=== PATIENT | male | born 1965 | race Caucasian/White ===

== ENCOUNTER 2016-11-14 13:44 | Outpatient (CLI) ==
[2016-11-14 13:59] LABS: BASOPHILS % (AUTO) 0.3 % (0.0-3.0); EOSINOPHILS # (AUTO) 0.1 K/ul (0.0-0.7); HEMATOCRIT 39.2 % (42.0-52.0); HEMOGLOBIN 13.7 g/dl (14.0-18.0); IMMATURE GRANULOCYTE % (AUTO) 0.3 % (0.0-5.0); LYMPHOCYTES # (AUTO) 2.5 K/uL (0.60-3.4); LYMPHOCYTES % (AUTO) 26.1 (10.0-50.0); MEAN CORPUSCULAR HEMOGLOBIN 32.2 pg (27.0-31.0); MEAN CORPUSCULAR HGB CONC 34.9 (31.8-35.4); MONOCYTES # (AUTO) 0.9 K/uL (0.4-2.0); MONOCYTES % (AUTO) 9.8 (0-10); NEUTROPHILS # (AUTO) 5.9 K/ul (2.0-6.9); NEUTROPHILS % (AUTO) 62.5; PLATELET COUNT 280 10^3/uL (140-440); RED BLOOD COUNT 4.26 10^6/ul (4.70-6.10); WHITE BLOOD COUNT 9.45 K/ul (4.2-10.2)
== END 2016-11-14 13:45 | disposition home or self-care (01) ==
LOC: LAB 13:44
PROVIDERS: ATTEND Psychiatry & Neurology Psychiatry
DX: F25.0 Schizoaffective disorder, bipolar type (principal)
CPT/HCPCS: 36415; 85025

== ENCOUNTER 2016-12-18 10:18 | Outpatient (CLI) ==
[2016-12-18 10:29] LABS: BASOPHILS % (AUTO) 0.5 % (0.0-3.0); EOSINOPHILS # (AUTO) 0.1 K/ul (0.0-0.7); EOSINOPHILS % (AUTO) 1.1 % (0.0-7.0); HEMATOCRIT 39.5 % (42.0-52.0); HEMOGLOBIN 13.8 g/dl (14.0-18.0); IMMATURE GRANULOCYTE % (AUTO) 0.5 % (0.0-5.0); LYMPHOCYTES # (AUTO) 1.9 K/uL (0.60-3.4); LYMPHOCYTES % (AUTO) 21.5 (10.0-50.0); MEAN CORPUSCULAR HEMOGLOBIN 32.3 pg (27.0-31.0); MEAN CORPUSCULAR HGB CONC 34.9 (31.8-35.4); MEAN CORPUSCULAR VOLUME 92.5 fl (80.0-94.0); MONOCYTES # (AUTO) 0.8 K/uL (0.4-2.0); MONOCYTES % (AUTO) 8.6 (0-10); NEUTROPHILS # (AUTO) 5.9 K/ul (2.0-6.9); NEUTROPHILS % (AUTO) 67.8; PLATELET COUNT 292 10^3/uL (140-440); RED BLOOD COUNT 4.27 10^6/ul (4.70-6.10); WHITE BLOOD COUNT 8.74 K/ul (4.2-10.2)
== END 2016-12-18 10:19 | disposition home or self-care (01) ==
LOC: LAB 10:18
PROVIDERS: ATTEND Psychiatry & Neurology Psychiatry
DX: F25.0 Schizoaffective disorder, bipolar type (principal)
CPT/HCPCS: 36415; 85025

== ENCOUNTER 2017-01-08 15:29 | Outpatient (CLI) ==
[2017-01-08 15:50] LABS: BASOPHILS % (AUTO) 0.4 % (0.0-3.0); EOSINOPHILS # (AUTO) 0.1 K/ul (0.0-0.7); EOSINOPHILS % (AUTO) 0.7 % (0.0-7.0); HEMATOCRIT 41.3 % (42.0-52.0); HEMOGLOBIN 14.5 g/dl (14.0-18.0); IMMATURE GRANULOCYTE % (AUTO) 0.3 % (0.0-5.0); LYMPHOCYTES # (AUTO) 1.9 K/uL (0.60-3.4); LYMPHOCYTES % (AUTO) 19.2 (10.0-50.0); MEAN CORPUSCULAR HEMOGLOBIN 32.5 pg (27.0-31.0); MEAN CORPUSCULAR HGB CONC 35.1 (31.8-35.4); MEAN CORPUSCULAR VOLUME 92.6 fl (80.0-94.0); MONOCYTES # (AUTO) 0.8 K/uL (0.4-2.0); MONOCYTES % (AUTO) 8.3 (0-10); NEUTROPHILS # (AUTO) 6.9 K/ul (2.0-6.9); NEUTROPHILS % (AUTO) 71.1; PLATELET COUNT 304 10^3/uL (140-440); RED BLOOD COUNT 4.46 10^6/ul (4.70-6.10); WHITE BLOOD COUNT 9.73 K/ul (4.2-10.2)
== END 2017-01-08 15:30 | disposition home or self-care (01) ==
LOC: LAB 15:29
PROVIDERS: ATTEND Psychiatry & Neurology Psychiatry
DX: F25.0 Schizoaffective disorder, bipolar type (principal)
CPT/HCPCS: 36415; 85025

== ENCOUNTER 2017-02-07 13:59 | Outpatient (CLI) ==
[2017-02-07 14:14] LABS: BASOPHILS % (AUTO) 0.3 % (0.0-3.0); EOSINOPHILS # (AUTO) 0.1 K/ul (0.0-0.7); EOSINOPHILS % (AUTO) 0.8 % (0.0-7.0); HEMATOCRIT 41.7 % (42.0-52.0); HEMOGLOBIN 14.5 g/dl (14.0-18.0); IMMATURE GRANULOCYTE % (AUTO) 0.4 % (0.0-5.0); LYMPHOCYTES # (AUTO) 2.1 K/uL (0.60-3.4); LYMPHOCYTES % (AUTO) 18.4 (10.0-50.0); MEAN CORPUSCULAR HEMOGLOBIN 32.5 pg (27.0-31.0); MEAN CORPUSCULAR HGB CONC 34.8 (31.8-35.4); MEAN CORPUSCULAR VOLUME 93.5 fl (80.0-94.0); MONOCYTES # (AUTO) 0.9 K/uL (0.4-2.0); MONOCYTES % (AUTO) 8.2 (0-10); NEUTROPHILS # (AUTO) 8.2 K/ul (2.0-6.9); NEUTROPHILS % (AUTO) 71.9; PLATELET COUNT 281 10^3/uL (140-440); RED BLOOD COUNT 4.46 10^6/ul (4.70-6.10); WHITE BLOOD COUNT 11.32 K/ul (4.2-10.2)
== END 2017-02-07 14:00 | disposition home or self-care (01) ==
LOC: LAB 13:59
PROVIDERS: ATTEND Psychiatry & Neurology Psychiatry
DX: F25.0 Schizoaffective disorder, bipolar type (principal)
CPT/HCPCS: 36415; 85025

== ENCOUNTER 2017-03-11 13:53 | Outpatient (CLI) ==
[2017-03-11 14:13] LABS: BASOPHILS % (AUTO) 0.3 % (0.0-3.0); EOSINOPHILS # (AUTO) 0.1 K/ul (0.0-0.7); EOSINOPHILS % (AUTO) 0.7 % (0.0-7.0); HEMOGLOBIN 14.6 g/dl (14.0-18.0); IMMATURE GRANULOCYTE % (AUTO) 0.4 % (0.0-5.0); LYMPHOCYTES # (AUTO) 1.8 K/uL (0.60-3.4); LYMPHOCYTES % (AUTO) 19.1 (10.0-50.0); MEAN CORPUSCULAR HEMOGLOBIN 32.6 pg (27.0-31.0); MEAN CORPUSCULAR HGB CONC 35.6 (31.8-35.4); MEAN CORPUSCULAR VOLUME 91.5 fl (80.0-94.0); MONOCYTES # (AUTO) 0.8 K/uL (0.4-2.0); MONOCYTES % (AUTO) 8.1 (0-10); NEUTROPHILS # (AUTO) 6.7 K/ul (2.0-6.9); NEUTROPHILS % (AUTO) 71.4; PLATELET COUNT 277 10^3/uL (140-440); RED BLOOD COUNT 4.48 10^6/ul (4.70-6.10); WHITE BLOOD COUNT 9.42 K/ul (4.2-10.2)
== END 2017-03-11 13:54 | disposition home or self-care (01) ==
LOC: LAB 13:53
PROVIDERS: ATTEND Psychiatry & Neurology Psychiatry
DX: F25.0 Schizoaffective disorder, bipolar type (principal)
CPT/HCPCS: 36415; 85025

== ENCOUNTER 2017-04-03 11:20 | Outpatient (CLI) ==
[2017-04-03 12:10] LABS: BASOPHILS # (AUTO) 0.1 K/uL (0-0.2); BASOPHILS % (AUTO) 0.6 % (0.0-3.0); EOSINOPHILS # (AUTO) 0.1 K/ul (0.0-0.7); EOSINOPHILS % (AUTO) 1.4 % (0.0-7.0); HEMATOCRIT 39.8 % (42.0-52.0); HEMOGLOBIN 14.3 g/dl (14.0-18.0); IMMATURE GRANULOCYTE % (AUTO) 0.3 % (0.0-5.0); LYMPHOCYTES # (AUTO) 1.8 K/uL (0.60-3.4); LYMPHOCYTES % (AUTO) 20.1 (10.0-50.0); MEAN CORPUSCULAR HEMOGLOBIN 32.8 pg (27.0-31.0); MEAN CORPUSCULAR HGB CONC 35.9 (31.8-35.4); MEAN CORPUSCULAR VOLUME 91.3 fl (80.0-94.0); MONOCYTES # (AUTO) 0.7 K/uL (0.4-2.0); MONOCYTES % (AUTO) 8.4 (0-10); NEUTROPHILS % (AUTO) 69.2; PLATELET COUNT 283 10^3/uL (140-440); RED BLOOD COUNT 4.36 10^6/ul (4.70-6.10); WHITE BLOOD COUNT 8.72 K/ul (4.2-10.2)
== END 2017-04-03 11:21 | disposition home or self-care (01) ==
LOC: LAB 11:20
PROVIDERS: ATTEND Psychiatry & Neurology Psychiatry
DX: F25.0 Schizoaffective disorder, bipolar type (principal)
CPT/HCPCS: 36415; 85025

== ENCOUNTER 2017-04-21 15:30 | Outpatient (CLI) | payer OTHER ==
[2017-04-21 15:50] LABS: BASOPHILS % (AUTO) 0.3 % (0.0-3.0); EOSINOPHILS # (AUTO) 0.2 K/ul (0.0-0.7); EOSINOPHILS % (AUTO) 1.8 % (0.0-7.0); HEMOGLOBIN 14.4 g/dl (14.0-18.0); IMMATURE GRANULOCYTE % (AUTO) 0.3 % (0.0-5.0); LYMPHOCYTES # (AUTO) 2.2 K/uL (0.60-3.4); MEAN CORPUSCULAR HEMOGLOBIN 32.8 pg (27.0-31.0); MEAN CORPUSCULAR VOLUME 91.1 fl (80.0-94.0); MONOCYTES # (AUTO) 0.8 K/uL (0.4-2.0); MONOCYTES % (AUTO) 8.1 (0-10); NEUTROPHILS % (AUTO) 65.5; PLATELET COUNT 276 10^3/uL (140-440); RED BLOOD COUNT 4.39 10^6/ul (4.70-6.10); WHITE BLOOD COUNT 9.22 K/ul (4.2-10.2)
== END 2017-04-21 15:31 | disposition home or self-care (01) ==
LOC: LAB 15:30
PROVIDERS: ATTEND Psychiatry & Neurology Psychiatry
DX: F25.0 Schizoaffective disorder, bipolar type (principal)
CPT/HCPCS: 36415; 85025

== ENCOUNTER 2017-06-03 11:46 | Outpatient (CLI) ==
[2017-06-03 12:01] LABS: BASOPHILS # (AUTO) 0.1 K/uL (0-0.2); BASOPHILS % (AUTO) 0.6 % (0.0-3.0); EOSINOPHILS # (AUTO) 0.1 K/ul (0.0-0.7); EOSINOPHILS % (AUTO) 1.4 % (0.0-7.0); HEMATOCRIT 38.4 % (42.0-52.0); HEMOGLOBIN 13.9 g/dl (14.0-18.0); IMMATURE GRANULOCYTE % (AUTO) 0.4 % (0.0-5.0); LYMPHOCYTES # (AUTO) 2.4 K/uL (0.60-3.4); LYMPHOCYTES % (AUTO) 30.4 (10.0-50.0); MEAN CORPUSCULAR HEMOGLOBIN 32.9 pg (27.0-31.0); MEAN CORPUSCULAR HGB CONC 36.2 (31.8-35.4); MONOCYTES # (AUTO) 0.8 K/uL (0.4-2.0); MONOCYTES % (AUTO) 9.6 (0-10); NEUTROPHILS # (AUTO) 4.6 K/ul (2.0-6.9); NEUTROPHILS % (AUTO) 57.6; PLATELET COUNT 265 10^3/uL (140-440); RED BLOOD COUNT 4.22 10^6/ul (4.70-6.10); WHITE BLOOD COUNT 7.94 K/ul (4.2-10.2)
== END 2017-06-03 11:47 | disposition home or self-care (01) ==
LOC: LAB 11:46
PROVIDERS: ATTEND Psychiatry & Neurology Psychiatry
DX: F25.0 Schizoaffective disorder, bipolar type (principal)
CPT/HCPCS: 36415; 85025

== ENCOUNTER 2017-07-06 13:25 | Outpatient (CLI) ==
[2017-07-06 13:41] LABS: BASOPHILS % (AUTO) 0.3 % (0.0-3.0); EOSINOPHILS # (AUTO) 0.1 K/ul (0.0-0.7); EOSINOPHILS % (AUTO) 0.7 % (0.0-7.0); HEMOGLOBIN 14.4 g/dl (14.0-18.0); IMMATURE GRANULOCYTE % (AUTO) 0.4 % (0.0-5.0); MEAN CORPUSCULAR HEMOGLOBIN 32.7 pg (27.0-31.0); MEAN CORPUSCULAR VOLUME 90.9 fl (80.0-94.0); MONOCYTES # (AUTO) 0.8 K/uL (0.4-2.0); MONOCYTES % (AUTO) 7.6 (0-10); PLATELET COUNT 281 10^3/uL (140-440); WHITE BLOOD COUNT 10.91 K/ul (4.2-10.2)
== END 2017-07-06 13:26 | disposition home or self-care (01) ==
LOC: LAB 13:25
PROVIDERS: ATTEND Psychiatry & Neurology Psychiatry
DX: F25.0 Schizoaffective disorder, bipolar type (principal)
CPT/HCPCS: 36415; 85025

== ENCOUNTER 2017-08-11 13:51 | Outpatient (CLI) ==
[2017-08-11 14:06] LABS: BASOPHILS % (AUTO) 0.4 % (0.0-3.0); EOSINOPHILS # (AUTO) 0.1 K/ul (0.0-0.7); EOSINOPHILS % (AUTO) 0.9 % (0.0-7.0); HEMATOCRIT 39.4 % (42.0-52.0); HEMOGLOBIN 14.2 g/dl (14.0-18.0); IMMATURE GRANULOCYTE % (AUTO) 0.4 % (0.0-5.0); MEAN CORPUSCULAR HEMOGLOBIN 32.8 pg (27.0-31.0); MONOCYTES # (AUTO) 0.7 K/uL (0.4-2.0); MONOCYTES % (AUTO) 7.3 (0-10); NEUTROPHILS # (AUTO) 6.7 K/ul (2.0-6.9); PLATELET COUNT 287 10^3/uL (140-440); RED BLOOD COUNT 4.33 10^6/ul (4.70-6.10); WHITE BLOOD COUNT 9.59 K/ul (4.2-10.2)
== END 2017-08-11 13:52 | disposition home or self-care (01) ==
LOC: LAB 13:51
PROVIDERS: ATTEND Psychiatry & Neurology Psychiatry
DX: F25.0 Schizoaffective disorder, bipolar type (principal)
CPT/HCPCS: 36415; 85025

== ENCOUNTER 2017-09-29 13:41 | Outpatient (CLI) ==
[2017-09-29 14:07] LABS: BASOPHILS % (AUTO) 0.5 % (0.0-3.0); EOSINOPHILS # (AUTO) 0.1 K/ul (0.0-0.7); EOSINOPHILS % (AUTO) 0.9 % (0.0-7.0); HEMATOCRIT 41.2 % (42.0-52.0); HEMOGLOBIN 14.6 g/dl (14.0-18.0); IMMATURE GRANULOCYTE % (AUTO) 0.4 % (0.0-5.0); LYMPHOCYTES % (AUTO) 23.8 (10.0-50.0); MEAN CORPUSCULAR HEMOGLOBIN 32.7 pg (27.0-31.0); MEAN CORPUSCULAR HGB CONC 35.4 (31.8-35.4); MEAN CORPUSCULAR VOLUME 92.4 fl (80.0-94.0); MONOCYTES # (AUTO) 0.7 K/uL (0.4-2.0); MONOCYTES % (AUTO) 7.8 (0-10); NEUTROPHILS # (AUTO) 5.7 K/ul (2.0-6.9); NEUTROPHILS % (AUTO) 66.6; PLATELET COUNT 261 10^3/uL (140-440); RED BLOOD COUNT 4.46 10^6/ul (4.70-6.10); WHITE BLOOD COUNT 8.54 K/ul (4.2-10.2)
== END 2017-09-29 13:42 | disposition home or self-care (01) ==
LOC: LAB 13:41
PROVIDERS: ATTEND Psychiatry & Neurology Psychiatry
DX: F25.0 Schizoaffective disorder, bipolar type (principal)
CPT/HCPCS: 36415; 85025

== ENCOUNTER 2017-10-28 12:21 | Outpatient (CLI) | payer OTHER ==
[2017-10-28 12:46] LABS: BASOPHILS % (AUTO) 0.4 % (0.0-3.0); EOSINOPHILS # (AUTO) 0.1 K/ul (0.0-0.7); HEMATOCRIT 42.4 % (42.0-52.0); HEMOGLOBIN 14.6 g/dl (14.0-18.0); IMMATURE GRANULOCYTE % (AUTO) 0.3 % (0.0-5.0); LYMPHOCYTES # (AUTO) 2.1 K/uL (0.60-3.4); LYMPHOCYTES % (AUTO) 22.9 (10.0-50.0); MEAN CORPUSCULAR HEMOGLOBIN 32.1 pg (27.0-31.0); MEAN CORPUSCULAR HGB CONC 34.4 (31.8-35.4); MEAN CORPUSCULAR VOLUME 93.2 fl (80.0-94.0); MONOCYTES # (AUTO) 0.8 K/uL (0.4-2.0); MONOCYTES % (AUTO) 8.7 (0-10); NEUTROPHILS % (AUTO) 66.7; PLATELET COUNT 273 10^3/uL (140-440); RED BLOOD COUNT 4.55 10^6/ul (4.70-6.10); WHITE BLOOD COUNT 9.03 K/ul (4.2-10.2)
== END 2017-10-28 12:22 | disposition home or self-care (01) ==
LOC: LAB 12:21
PROVIDERS: ATTEND Psychiatry & Neurology Psychiatry
DX: F25.0 Schizoaffective disorder, bipolar type (principal)
CPT/HCPCS: 36415; 85025

== ENCOUNTER 2017-11-29 13:33 | Outpatient (CLI) | END 2017-11-29 13:34 | disposition home or self-care (01) | LOC: LAB 13:33 | PROVIDERS: ATTEND Psychiatry & Neurology Psychiatry | DX: F25.0 Schizoaffective disorder, bipolar type (principal) | CPT/HCPCS: 36415; 85025 ==

== ENCOUNTER 2017-12-29 15:54 | Outpatient (CLI) | END 2017-12-29 15:55 | disposition home or self-care (01) | LOC: LAB 15:54 | PROVIDERS: ATTEND Psychiatry & Neurology Psychiatry | DX: F25.0 Schizoaffective disorder, bipolar type (principal) | CPT/HCPCS: 36415; 85025 ==

== ENCOUNTER 2018-01-17 13:40 | Outpatient (CLI) | END 2018-01-17 13:41 | disposition home or self-care (01) | LOC: LAB 13:40 | PROVIDERS: ATTEND Psychiatry & Neurology Psychiatry | DX: F25.0 Schizoaffective disorder, bipolar type (principal) | CPT/HCPCS: 36415; 85025 ==

== ENCOUNTER 2018-02-19 11:50 | Outpatient (CLI) | payer OTHER | END 2018-02-19 11:51 | disposition home or self-care (01) | LOC: LAB 11:50 | PROVIDERS: ATTEND Psychiatry & Neurology Psychiatry | DX: F25.1 Schizoaffective disorder, depressive type (principal) | CPT/HCPCS: 36415; 85025 ==

== ENCOUNTER 2018-04-04 11:34 | Outpatient (CLI) | END 2018-04-04 11:35 | disposition home or self-care (01) | LOC: LAB 11:34 | PROVIDERS: ATTEND Psychiatry & Neurology Psychiatry | DX: F25.1 Schizoaffective disorder, depressive type (principal) | CPT/HCPCS: 36415; 85025 ==

== ENCOUNTER 2018-04-20 12:59 | Outpatient (CLI) | END 2018-04-20 13:00 | disposition home or self-care (01) | LOC: LAB 12:59 | PROVIDERS: ATTEND Psychiatry & Neurology Psychiatry | DX: F25.1 Schizoaffective disorder, depressive type (principal) | CPT/HCPCS: 36415; 85025 ==

== ENCOUNTER 2018-05-25 14:49 | Outpatient (CLI) | END 2018-05-25 14:50 | disposition home or self-care (01) | LOC: LAB 14:49 | PROVIDERS: ATTEND Psychiatry & Neurology Psychiatry | DX: F25.1 Schizoaffective disorder, depressive type (principal) | CPT/HCPCS: 36415; 85025 ==

== ENCOUNTER 2018-06-04 09:37 | Outpatient (CLI) ==
[2018-06-05 16:39] VITALS: BMI 31.6
== END 2018-06-04 09:38 | disposition home or self-care (01) ==
LOC: LAB 09:37
PROVIDERS: ATTEND Psychiatry & Neurology Psychiatry
DX: F25.1 Schizoaffective disorder, depressive type (principal)
CPT/HCPCS: 36415; 85025

== ENCOUNTER 2018-06-05 13:01 | Inpatient (IN) ==
--- NOTE | 2018-06-05 14:37 | CT ---
EXAM: CT chest without contrast HISTORY: Cough COMPARISON: 04/04/2015 TECHNIQUE: CT chest performed without intravenous contrast. Coronal and sagittal reformatted images obtained. FINDINGS: The thyroid and thoracic inlet appear normal. Heart normal in size. No pericardial effus ion. Aorta normal in caliber. Esophagus unremarkable. Evaluation for lymphadenopathy limited witho ut contrast. No lymphadenopathy identified. Bilateral gynecomastia. The visualized portion upper a bdomen demonstrates no acute abnormality. Bilateral perinephric stranding likely senescent change of the. No acute abnormalities of the bones. Degenerative change in the spine. The central airway pa tent. No airspace consolidation. No pleural effusion. No pneumothorax. 3 mm ground-glass nodule le ft lung image 26 is decreased from 10/25/2013, consistent with benign etiology. IMPRESSION: No acute cardiopulmonary process.
--- NOTE | 2018-06-05 14:51 | ED.PDOC ---
General ED Provider: Dr. SHERRIE HANKS Chief Complaint: Weakness Stated Complaint: weakness generalized Time Seen by Physician: 13:00 Mode of Arrival: Walk-In Information Source: Patient Exam Limitations: No limitations Primary Care Provider: MARCUS CERDA Nursing and Triage Documentation Reviewed and Agree: Yes Does patient meet sepsis criteria?: No If yes, has appropriate treatment been initiated?: No System Inflammatory Response Syndrome: Not Applicable Sepsis Protocol: For patient's 13 years and over: Temp is 96.8 and below OR 101 and greater Pulse >90 BPM Resp >20/minute Acutely Altered Mental Status Are patient's symptoms suggestive of a new infection, such as: -Pneumonia -Skin, Soft Tissue -Endocarditis -UTI -Bone, Joint Infection -Implantable Device -Acute Abdominal Infection -Wound Infection -Meningitis -Blood Stream Catheter Infection -Unknown Neurological Complaint Exam - Weakness Complaint/Exam Last Known Well: 7 days ago Onset: Gradual Duration: 7 day Symptoms Are: Still present Timing: Intermittent Episodes Lasting: Days Initial Severity: Moderate Current Severity: Moderate Character: Reports: Lightheaded, Weak, Unable to describe Aggravating: Reports: None Alleviating: Reports: None Associated Signs and Symptoms: Denies: Nausea, Vomiting, Diaphoresis, Tinnitus, Chest pain, Short of air, Palpitations, Unsteady gait, GI blood loss, Visual changes, Decreased oral intake, Change in medication, Change in diet, OTC meds, Loss of balance Related History: Similar episode Cardiac Risk Factors: Reports: Hypertension, Elevated lipids CVA Risk Factors: Reports: Hypertension Related Surgical History: Reports: None JVD Present: No Carotid Bruit Present: No Rectal Heme Positive: No Glascow Coma Scale (see protocol): 15 Nystagmus Present: No Gag Reflex Present: No Meningeal Signs Positive: No Focal Weakness: Present: None Focal Sensory Loss: Present: None Gait: Normal [id number]: Normal Findings Romberg Test Positive: No Babinski Sign: Negative Right, Negative Left Differential Diagnoses: Dysrhythmia, Hypovolemia, Medication reaction, Metabolic abnormalities, Vasovagal reaction Quality Indicators for Cardiac Chest Pain: EKG in 10min. Quality Indicators for AMI: EKG in 10min. Review of Systems - Review Of Systems Constitutional: Reports: Malaise, Weakness Eyes: Reports: No symptoms Ears, Nose, Mouth, Throat: Reports: No symptoms Respiratory: Reports: No symptoms Cardiac: Reports: No symptoms GI: Reports: No symptoms : Reports: No symptoms Musculoskeletal: Reports: No symptoms Skin: Reports: No symptoms Neurological: Reports: No symptoms Endocrine: Reports: No symptoms Hematologic/Lymphatic: Reports: No symptoms All Other Systems: Reviewed and Negative Past Medical History - Past Medical History Previously Healthy: Yes Endocrine: Reports: Dyslipidemia Cardiovascular: Reports: Hypertension Respiratory: Reports: None Hematological: Reports: None Gastrointestinal: Reports: None Genitourinary: Reports: None Neuro/Psych: Reports: None Musculoskeletal: Reports: None Cancer: Reports: None - Surgical History General Surgical History: Reports: None - Family History Family History: Reports: None - Social History Smoking Status: Current every day smoker, Heavy tobacco smoker Hx Substance Use: No Alcohol Screening: None Physical Exam - Physical Exam Appearance: Well-appearing, No pain distress, Well-nourished Eyes: LACY, EOMI, Conjunctiva clear ENT: Ears normal, Nose normal, Oropharynx normal Respiratory: Airway patent, Breath sounds clear, Breath sounds equal, Respirations nonlabored Cardiovascular: RRR, Pulses normal, No rub, No murmur GI/: Soft, Nontender, No masses, Bowel sounds normal, No Organomegaly Musculoskeletal: Normal strength, ROM intact, No edema, No calf tenderness Skin: Warm, Dry, Normal color Neurological: Sensation intact, Motor intact, Reflexes intact, Cranial nerves intact, Alert, Oriented Psychiatric: Affect appropriate, Mood appropriate Interpretation - Radiology Interpretation Radiology Interpretation By: Radiologist Radiology Results: No acute changes - 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 Rate: Normal Rhythm: Sinus Ectopy: None - EKG Interpretation Rate: Normal Rhythm: Sinus Ectopy: None [place]: [place] ST Segment: Normal Re-Evaluation - Re-Evaluation Time of Re-Evaluation: 14:00 Status: Improved Vital Signs Stable: Yes Pain Level: 0 Appearance: NAD Lungs: Clear Skin: Warm and Dry Neuro: Alert and Oriented X3 CV: RRR - Re-Evaluation Time of Re-Evaluation: 14:52 Status: Improved Vital Signs Stable: Yes Pain Level: 0 Appearance: NAD Skin: Warm and Dry Neuro: Alert and Oriented X3 CV: RRR Physician Notification - Case Discussed Physician Notified: pmd Time of Notification: 14:52 (seen pt in the ED ) Admit To: Inpatient Critical Care Note - Critical Care Note Total Time (mins): 0 Course - Course Hematology/Chemistry: 06/05/18 13:30 06/05/18 13:30 Orders, Labs, Meds: Lab Review 06/05/18 06/05/18 06/05/18 13:16 13:30 13:30 WBC 10.81 H RBC 4.41 L Hgb 14.0 Hct 39.4 L MCV 89.3 MCH 31.7 H MCHC 35.5 H RDW Coeff of Yonathan 12.5 Plt Count 284 Immature Gran % (Auto) 0.4 Neut % (Auto) 78.9 Lymph % (Auto) 13.6 [place] % (Auto) 6.3 Eos % (Auto) 0.5 Baso % (Auto) 0.3 Immature Gran # (Auto) 0.0 Neut # (Auto) 8.5 H Lymph # (Auto) 1.5 [place] # (Auto) 0.7 Eos # (Auto) 0.1 Baso # (Auto) 0.0 Puncture Site Lbrach O2 Saturation 95.0 ABG pH 7.449 ABG pCO2 36.6 ABG pO2 70.0 L ABG HCO3 25.4 ABG Total CO2 26 ABG Base Excess 1 FiO2 % 21.0 Sodium 130 L Potassium 3.9 Chloride 96 L Carbon Dioxide 25 Anion Gap 12.9 BUN 7 Creatinine 0.78 Estimated GFR (MDRD) 104.00 BUN/Creatinine Ratio 8.97 Glucose 221 H Calcium 9.0 Total Bilirubin 0.4 AST 14 L ALT 20 Alkaline Phosphatase 64 Total Creatine Kinase 66 Troponin I < 0.0100 Total Protein 6.7 Albumin 3.8 Globulin 2.9 Albumin/Globulin Ratio 1.31 Orders Category Date Time Status ABG DRAW REQUEST Stat CARDIO 06/05/18 13:16 Completed EKG-(ED ONLY) Stat CARDIO 06/05/18 13:15 Completed EKG-(IP & OP ONLY) DAILY CARDIO 06/06/18 06:00 Ordered EKG-(IP & OP ONLY) DAILY CARDIO 06/07/18 06:00 Ordered EKG-(IP & OP ONLY) DAILY CARDIO 06/08/18 06:00 Ordered ACTIVITY .Complete BR CARE 06/05/18 14:48 Ordered VITAL SIGNS Q8HR CARE 06/05/18 14:48 Ordered ABG Stat LAB 06/05/18 13:16 Completed BLOOD CULTURE (ED ONLY) Stat LAB 06/05/18 13:30 Received CBC W/ AUTO DIFF DAILY@0600 LAB 06/06/18 06:00 Ordered CBC W/ AUTO DIFF DAILY@0600 LAB 06/07/18 06:00 Ordered CBC W/ AUTO DIFF Stat LAB 06/05/18 13:30 Completed COMPREHENSIVE METABOLIC PANEL DAILY@0600 LAB 06/06/18 06:00 Ordered COMPREHENSIVE METABOLIC PANEL DAILY@0600 LAB 06/07/18 06:00 Ordered COMPREHENSIVE METABOLIC PANEL Stat LAB 06/05/18 13:30 Completed CREATINE KINASE Q8H LAB 06/05/18 21:00 Ordered CREATINE KINASE Q8H LAB 06/06/18 05:00 Ordered CREATINE KINASE Stat LAB 06/05/18 13:30 Completed TROPONIN I Q8H LAB 06/05/18 21:00 Ordered TROPONIN I Q8H LAB 06/06/18 05:00 Ordered TROPONIN I Stat LAB 06/05/18 13:30 Completed URINALYSIS C & S IF INDICATED Stat LAB 06/05/18 14:46 Ordered Buspirone HCl [Buspar] MEDS 06/05/18 21:00 Ordered 10 mg PO BID Clozapine [Clozapine] MEDS 06/05/18 15:00 Ordered 100 mg PO bid & 2 @hx Sodium Chloride 0.9% [Sodium Chloride] 1,000 ml MEDS 06/05/18 15:00 Ordered IV 75 mls/hr Venlafaxine HCl [Effexor Xr] MEDS 06/05/18 15:00 Ordered 75 mg PO 2am/2hs/1@12pm CT CHEST W/O CONTRAST Stat RADS 06/05/18 13:21 Completed Medications Generic Name Dose Route Start Last Admin Trade Name Freq PRN Reason Stop Dose Admin Buspirone HCl 10 mg 06/05/18 21:00 Buspar PO BID KIT Sodium Chloride 1,000 mls @ 75 mls/hr 06/05/18 15:00 Sodium Chloride IV .[id number] KIT Non-Formulary Medication 100 mg 06/05/18 15:00 Clozapine [Clozapine] PO bid & 2 @hx KIT Venlafaxine HCl 75 mg 06/05/18 15:00 Effexor Xr PO 2am/2hs/1@12pm KIT Vital Signs: Temp Pulse Resp BP Pulse Ox 06/05/18 13:01 97.9 F 91 H 18 119/73 98 Departure - Departure Time of Disposition: 14:53 Disposition: ADMITTED INPATIENT Discharge Problem: Generalized weakness Instructions: Weakness (ED) Condition: Good Pt referred to PMD for follow-up: Yes IPMP verified?: No Additional Instructions: Please call your Family Physician as soon as possible to schedule a follow-up appointment. Allergies/Adverse Reactions: Allergies No Known Allergies Allergy (Verified 06/05/18 13:07)
[2018-06-05] MEDS ORDERED: CLOZAPINE 100 MG PO SCH (15:00)
[2018-06-05] MEDS ORDERED: EFFEXOR XR PO SCH (15:00)
[2018-06-05] MEDS ORDERED: BUSPAR PO PRN (16:16)
[2018-06-05 16:39] VITALS: BMI 31.6
[2018-06-05] MEDS ORDERED: MILK OF MAGNESIA PO PRN (18:23)
[2018-06-05] MEDS ORDERED: EFFEXOR PO SCH (21:00)
[2018-06-05] MEDS ORDERED: BUSPAR PO SCH (21:00)
[2018-06-05] MEDS ORDERED: NON-FORMULARY MEDICATION (Venlafaxine Hcl 75 MG) PO SCH (21:00)
[2018-06-05] MEDS: CLOZAPINE 200 MG PO SCH (21:49)
[2018-06-05] MEDS: EFFEXOR XR PO SCH (21:53)
[2018-06-05] MEDS: SODIUM CHLORIDE 1,000 ML IV SCH (21:54)
[2018-06-06] MEDS: EFFEXOR XR PO SCH ×2 (08:28→20:53)
[2018-06-06] MEDS: PRAVACHOL PO SCH (08:29)
[2018-06-06] MEDS: TRIGLIDE PO SCH (08:29)
[2018-06-06] MEDS: ALDACTONE PO SCH (08:29)
[2018-06-06] MEDS: ZESTRIL PO SCH (08:29)
[2018-06-06] MEDS: CLOZAPINE 100 MG PO SCH ×2 (08:29→14:37)
[2018-06-06] MEDS: SODIUM CHLORIDE 1,000 ML IV SCH (08:32)
[2018-06-06] MEDS ORDERED: DECADRON 4 MG/ML SDV IM STA (11:55)
[2018-06-06] MEDS ORDERED: PROAIR HFA IH PRN (11:55)
[2018-06-06] MEDS: SYMBICORT 80-4.5 MCG INHALER IH SCH ×2 (12:07→20:50)
[2018-06-06] MEDS: LOVENOX SUBCUT SCH (12:56)
[2018-06-06] MEDS: CLOZAPINE 200 MG PO SCH (20:52)
[2018-06-07] MEDS: CLOZAPINE 100 MG PO SCH ×2 (08:59→14:21)
[2018-06-07] MEDS: ALDACTONE PO SCH (09:00)
[2018-06-07] MEDS: TRIGLIDE PO SCH (09:00)
[2018-06-07] MEDS: PRAVACHOL PO SCH (09:00)
[2018-06-07] MEDS: SYMBICORT 80-4.5 MCG INHALER IH SCH ×2 (09:00→20:23)
[2018-06-07] MEDS: EFFEXOR XR PO SCH ×2 (09:00→20:22)
[2018-06-07] MEDS: ZESTRIL PO SCH (09:00)
[2018-06-07] MEDS: LOVENOX SUBCUT SCH (09:01)
[2018-06-07] MEDS ORDERED: FERROUS SULFATE ONE (14:16)
[2018-06-07] MEDS ORDERED: NON-FORMULARY MEDICATION (Ferrous Sulfate [Iron] 325 MG) PO SCH (14:30)
[2018-06-07] MEDS: CLOZAPINE 200 MG PO SCH (20:22)
[2018-06-08 05:13] VITALS: TEMP 97.5
[2018-06-08] MEDS ORDERED: FERROUS SULFATE PO SCH (09:00)
[2018-06-08] MEDS: TRIGLIDE PO SCH (09:05)
[2018-06-08] MEDS: ZESTRIL PO SCH (09:05)
[2018-06-08] MEDS: EFFEXOR XR PO SCH (09:05)
[2018-06-08] MEDS: CLOZAPINE 100 MG PO SCH ×2 (09:06→18:12)
[2018-06-08] MEDS: LOVENOX SUBCUT SCH (09:07)
[2018-06-08] MEDS: ALDACTONE PO SCH (09:07)
[2018-06-08] MEDS: PRAVACHOL PO SCH (09:07)
[2018-06-08] MEDS ORDERED: MYLANTA SUSP PO STA (09:17)
--- NOTE | 2018-06-08 09:51 | PCM.PROG ---
Attending Provider: ATTENDING PROVIDER: Dr. MARCUS CERDA This patient is seen with Bettye Darby, Nurse Practitioner. DATE OF SERVICE: 06/08/18 SUBJECTIVE: This 52 year old WHITE/ M was hospitalized 06/05/18. The patient is lying in bed, alert. He states weakness is somewhat better. He denies dizziness or lightheadedness. He states he has no energy. Chest CT normal. The patient is a heavy smoker. He has a history of mental illness. Today he also states he has had left testicular swelling for sometime now which, he has not reported. REVIEW OF SYSTEMS: CONSTITUTIONAL: Weakness. No night sweats. No malaise, lethargy. No fever or chills. HEENT: Eyes: No visual changes. No eye pain. No eye discharge. ENT: No runny nose. No epistaxis. No sinus pain. No odynophagia. No congestion. RESPIRATORY: No cough, no congestion. No hemoptysis. No shortness of breath. CARDIOVASCULAR: No angina symptoms. No CHF symptoms. No atypical chest pain for CAD. No palpitations. No orthopnea.. GASTROINTESTINAL: No abdominal pain. No nausea or vomiting. No diarrhea or constipation. No hematemesis. No hematochezia. GENITOURINARY/GENITALIA: No urgency. No frequency. No dysuria. No hematuria. No obstructive symptoms. No discharge. No pain. No significant abnormal bleeding. Positive for left testicular swelling. MUSCULOSKELETAL: No musculoskeletal pain; no joint swelling. NEUROLOGICAL: Awake, alert, oriented to time, place and person. No headache. No neck pain. No syncope. No seizures. No dizziness. PSYCHIATRIC: Not anxious. No depression. No suicidal thoughts. No homicidal thoughts. SKIN: No rash. No lesions. No wounds. ENDOCRINE: No unexplained weight loss. No weight gain. HEMATOLOGIC/LYMPHATIC: No anemia. No purpura. No petechiae. No prolonged or excessive bleeding. No palpable lymph nodes. PHYSICAL EXAMINATION: GENERAL: The patient is awake, alert and oriented, lying in bed in no distress. VITAL SIGNS: Temperature 97.5 F, Pulse 85, Respiratory Rate 18, BP 119/80, Pulse Ox 98% HEENT: Head normocephalic, atraumatic. Eyes: Extraocular muscles are intact. Pupils are equal, round and reactive to light and accommodation. Ears: No lesions. Nose appeared normal. Throat: No exudate or erythema. NECK: Supple. No JVD, no carotid bruit. No lymphadenopathy or thyromegaly. LUNGS: Diminished breath sounds. Clear to auscultation. Percussion note normal. Chest symmetrical. HEART: S1, S2, no S3. No murmurs. No cyanosis or clubbing. No ascites. Pulses: Dorsalis pedis and posterior tibial pulses +1 to +2 both sides. ABDOMEN: Soft. Non-tender. Bowel sounds active. No CVA tenderness. No mass felt. EXTERNAL GENITALIA: Left testicular enlarged, nontender. EXTREMITIES: No edema. Full range of motion of all extremities, equal. NEUROLOGIC: No focal deficit. Cranial nerves II through XII are grossly intact. No headache, no double vision or headache. SKIN: Not dry. Intact. Turgor-normal. LYMPHATIC: No palpable lymph nodes/no lymphedema. MUSCULOSKELETAL: Normal joints with no swelling. Muscle tone is normal. LAB REVIEW: 06/07/18 06:10 06/07/18 06:10 ASSESSMENT: 1. Generalized weakness. 2. Left testicular swelling. 3. COPD. 4. Smoker. PLAN: 1. B12 level 2. T4, TSH 3. Left scrotal US Plan and coordination of the patient's care discussed in the presence of Field Crop Farmer and nurse. CONDITION: Stable SCRIBED BY: Hussain BLEVINSist scribed while in presence of service performed by Dr. Cerda/Bettye Darby APRN on 06/08/18 ([id number])
[2018-06-08] MEDS: SYMBICORT 80-4.5 MCG INHALER IH SCH (10:26)
--- NOTE | 2018-06-08 11:09 | US ---
EXAM: Scrotal ultrasound HISTORY: Left scrotal swelling COMPARISON: None TECHNIQUE: Scrotal ultrasound was performed FINDINGS: Right: Right testicle measures 2.9 x 3.7 x 5.8 cm. Right testicle normal in echogenicity and vascul arity. Normal Doppler flow in right testicle. Right epididymis appears normal. No right hydrocele or varicocele. Left: Left testicle measures 3.5 x 4.5 x 5.1 cm. Left testicle normal in echogenicity and vasculari ty. Mild tubular ectasia rete testes on the left. Normal Doppler flow in left testicle. Left epididym is not visualized. There is a large cystic structure superior to the left testicle with mild interna l echoes, measuring 6.5 x 4.3 x 6.3 cm, likely a large spermatocele. Several additional smaller adjac ent cystic structures are present measuring up to 2.1 x 0.8 x 0.8 cm, also likely spermatoceles and/o r epididymal cysts. No left varicocele. IMPRESSION: 1. Mild tubular ectasia rete testes on the left. Otherwise normal appearance right and left testicl e. Normal appearance of the right epididymis. Nonvisualization left epididymis. 2. Large cystic structure superior to left testicle measuring 6.5 cm, likely large spermatocele. Se veral additional smaller cystic structures likely represent smaller spermatoceles and/or epididymal c ysts. Hydrocele is considered much less likely.
--- NOTE | 2018-06-08 11:34 | HP ---
DATE OF SERVICE: 06/05/18 REASON FOR HOSPITALIZATION/HISTORY OF PRESENT ILLNESS: This is a 52 year old white male who presented to the emergency room with weakness and shortness of breath. PAST MEDICAL HISTORY: COPD Smoker Dyslipidemia Schizophrenia Depression History of dilated cardiomyopathy Depression PAST SURGICAL HISTORY: Heart cath 09/18 Dr. Deng Colonoscopy 2009 he refused a repeat REVIEW OF SYSTEMS: CONSTITUTIONAL: No night sweats. Fatigue and malaise. No fever or chills. Generalized weakness. HEENT: Eyes: No visual changes. No eye pain. No eye discharge. ENT: No runny nose. No epistaxis. No sinus pain. No sore throat. No odynophagia. No ear pain. No congestion. RESPIRATORY: No cough, no congestion. No hemoptysis. Shortness of breath. CARDIOVASCULAR: No angina symptoms. No CHF symptoms. No atypical chest pain for CAD. No palpitations. No PND. No orthopnea. GASTROINTESTINAL: No abdominal pain. No nausea or vomiting. No diarrhea or constipation. No hematemesis. No hematochezia. GENITOURINARY: No urgency. No frequency. No dysuria. No hematuria. No obstructive symptoms. No discharge. No pain. No significant abnormal bleeding. MUSCULOSKELETAL: No musculoskeletal pain. No joint swelling. No arthritis. NEUROLOGICAL: No headache. No neck pain. No syncope. No seizures. No dizziness. PSYCHIATRIC: Not anxious. No depression. No suicidal thoughts. No homicidal thoughts. SKIN: No rash. No lesions. No wounds. ENDOCRINE: No unexplained weight loss. No weight gain. HEMATOLOGIC/LYMPHATIC: No anemia. No purpura. No petechiae. No prolonged or excessive bleeding. No palpable lymph nodes. PERSONAL/FAMILY/SOCIAL HISTORY: Father of coronary artery disease Mother had diabetes Mellitus type 2 Both are MEDICATIONS: Spironolactone 25mg PO daily Pravachol 40mg Po daily Milk of Magnesia 30ml PO daily PRN Triglide 160mg PO daily Clozapine 200mg PO bedtime Clozapine 100mg PO 0800 and 1500 Effexor 75mg PO twice a day Buspirone 10mg PO twice a day PRN Zestril 5mg PO daily Iron 325mg PO daily ALLERGIES: No known allergies. PHYSICAL EXAMINATION: HEENT: Head normocephalic, atraumatic. Eyes: Extraocular muscles are intact. Pupils are equal, round and reactive to light and accommodation. Ears: No lesions. Nose appeared normal. Throat: No exudate or erythema. NECK: Supple. No JVD, no carotid bruit. No lymphadenopathy or thyromegaly. LUNGS: Diminished breath sounds bilaterally. Clear to auscultation. Percussion note normal. Chest symmetrical. HEART: S1, S2, no S3. No murmurs. No cyanosis or clubbing. No ascites. Pulses: Dorsalis pedis and posterior tibial pulses +1 to +2 bilaterally. ABDOMEN: Soft. Nontender. Bowel sounds active. No CVA tenderness. No mass felt. EXTREMITIES: No edema. Full range of motion of all extremities, equal. NEUROLOGIC: No focal deficit. Cranial nerves II through XII are grossly intact. No headache, no double vision or headache. SKIN: Not dry. Intact. Turgor - normal. LYMPHATIC: No palpable lymph nodes/no lymphedema. MUSCULOSKELETAL: Normal joints with no swelling. Muscle tone is normal. LABS: Sodium 130, potassium 3.9, Co2 25, BUN 7, creatinine 0.78, glucose 221, bilirubin 0.4, AST 14, ALT 20, total protein 6.7. Hgb 13.9. ASSESSMENT: 1. Generalized weakness 2. Shortness of breath 3. History of dilated cardiomyopathy 4. Hypertension 5. Depression 6. Schizophrenia 7. Obesity 8. Smoker 9. COPD PLAN: 1. Will admit 2. Routine telemetry orders 3. CBC and CMP daily 4. Sliding scale coverage 5. Chest x-ray 6. EKG times one 7. IV fluids normal saline at 75cc an hour Will follow him closely. TIME SPENT: More than 70 minutes. [facility]
--- NOTE | 2018-06-08 11:53 | ECHO2D ---
Date of Exam: 06/06/18 Ordering Physician: DR. MARCSU CERDA Room #: 120 Reason for Echo: WEAKNESS M-Mode Normal Adult Results LV Dimensions Normal Adult Results AoV Opening excursions >1.6 >1.6 LVEDD-base- 3.5-5.8 5.9 Ao root dimensions 2.0-3.7 3.7 LVESD-base- 3.1-4.6 L. Atrium dimensions 1.9-3.8 4.4 Post. Wall thickness 0.8-1.1 1.2 IV septum (thickness) 0.7-1.2 1.3 Post. Wall excursion 0.72-1.3 NORMAL Septal motion 0.5 Systolic motion R. Ventricular cavity 1.5-2.0 3.0 LVEF 60% 50% Paradoxical septal wall motion MAYBE 2-D : DILATED LEFT ATRIAL, RIGHT VENTRICLE AND LEFT VENTRICLE CAVITIES-- HYPOKINETIC SEPTUM, MAYBE PARADOXICAL, NORMAL VALVES--NO EFFUSION, NO THROMBUS M-MODE: MV: NORMAL AV: NORMAL TV: NORMAL PV: CHAMBER SIZE: ENLARGED LEFT ATRIAL, LEFT VENTRICLE AND RIGHT VENTRICLE CAVITIES WALL MOTION: MAYBE HYPOKINETIC SEPTUM WITH PARADOXICAL SEPTAL WALL PERICARDIUM: NORMAL INTERPRETATION: 1. LEFT VENTRICULAR HYPERTROPHY WITH ENLARGED LEFT ATRIAL CAVITY 2. ENLARGED RIGHT VENTRICLE CAVITY AND LEFT VENTRICLE CAVITY 3. HYPOKINETIC SEPTUM--PARADOXICAL--LEFT VENTRICULAR EJECTION FRACTION 50% 4. VALVES--NORMAL MTDD
--- NOTE | 2018-06-08 14:02 | PN ---
DATE OF SERVICE: 06/06/18 SUBJECTIVE: 52 year old white male hospitalized with weakness and some shortness of breath. The patient is heavy smoker, two packs per day. He drinks alcohol for 23 hours. The patient's weakness is somewhat better. REVIEW OF SYSTEMS: CONSTITUTIONAL: No night sweats. No fatigue, malaise, lethargy. No fever or chills. HEENT: Eyes: No visual changes. No eye pain. No eye discharge. ENT: No runny nose. No epistaxis. No sinus pain. No sore throat. No odynophagia. No congestion. RESPIRATORY: No cough, no congestion. No hemoptysis. No shortness of breath. CARDIOVASCULAR: No angina symptoms. No CHF symptoms. No atypical chest pain for CAD. No palpitations. No orthopnea. GASTROINTESTINAL: No abdominal pain. No nausea or vomiting. No diarrhea or constipation. No hematemesis. No hematochezia. GENITOURINARY: No urgency. No frequency. No dysuria. No hematuria. No obstructive symptoms. No discharge. No pain. No significant abnormal bleeding. MUSCULOSKELETAL: No musculoskeletal pain; no joint swelling. NEUROLOGICAL: No headache. No neck pain. No syncope. No seizures. No dizziness. PSYCHIATRIC: Not anxious. No depression. No suicidal thoughts. No homicidal thoughts.The patient's mental status is normal, getting all his antipsychotic medications. SKIN: No rash. No lesions. No wounds. ENDOCRINE: No unexplained weight loss. No weight gain. HEMATOLOGIC/LYMPHATIC: No anemia. No purpura. No petechiae. No prolonged or excessive bleeding. No palpable lymph nodes. PHYSICAL EXAMINATION: GENERAL: The patient is oriented to time, place and person. VITAL SIGNS: Temperature 97, pulse 76, respiratory rate 20, blood pressure 107/ 72 and pulse ox 94%. HEENT: Head normocephalic, atraumatic. Eyes: Extraocular muscles are intact. Pupils are equal, round and reactive to light and accommodation. Ears: No lesions. Nose appeared normal. Throat: No exudate or erythema. NECK: Supple. No JVD, no carotid bruit. No lymphadenopathy or thyromegaly. LUNGS: Decreased breath sounds but clear to auscultation. Percussion note normal. Chest symmetrical. HEART: S1, S2, no S3. No murmurs. No cyanosis or clubbing. No ascites. Pulses: Dorsalis pedis and posterior tibial pulses +1 to +2 both sides. ABDOMEN: Soft. Nontender. Bowel sounds active. No CVA tenderness. No mass felt. EXTREMITIES: No edema. Full range of motion of all extremities, equal. NEUROLOGIC: No focal deficit. Cranial nerves II through XII are grossly intact. No headache, no double vision or headache. SKIN: Not dry. Intact. Turgor - normal. LYMPHATIC: No palpable lymph nodes/no lymphedema. MUSCULOSKELETAL: Normal joints with no swelling. Muscle tone is normal. LABS: Hgb 14, hct 40, WBC 9,000 normal differential, creatinine 0.7, BUN 7, potassium 3.8, glucose 114. ASSESSMENT: 1. Weakness 2. Mild shortness of breath could be related to his deconditioning 3. Over weight with BMI of 31 with sedentary lifestyle 4. Heavy smoking two packs per day for many years. 5. Evidence of enlargement of the left atrial cavity with LV ejection fraction 50% with possible subdural paradoxical septal wall motion coming his chronic lung disease. I explained to him the entire echo report which was done today. PLAN: 1. Continued on Aldactone and Lisinopril 2. Symbicort two puffs twice a day with ProAir HFA four times a day PRN to be added 3. 1/2 cc Decadron will be given today 4. PFT is going to be done along with BNP 5. Discontinue IV fluids 6. Condition seems to be improving 7. Educated about smoking, counseling for smoking done 8. Cardiomyopathy discussed 9. Advised to lose weight 10.Counseling for diet done. TIME SPENT: More than 30 minutes. ADDENDUM: The patient's chest CT was negative. Plan and coordination of the patient's care discussed in the presence of nurse. GREG
[2018-06-08 15:06] VITALS: BP 103/77
--- NOTE | 2018-06-08 16:19 | CM.DICTOOL ---
ADMISSION: 06/05/18 15:06 DISCHARGE: 06/08/18 FINAL DIAGNOSIS Generalized weakness (Acute) HYPONATREMIA TESTICULAR SWELLING LEFT SPEMATECELE HISTORY OF: HYPERTENSION DYSLIPIDEMIA HEAVY SMOKER SCIZOPHRENIA COPD ANGINA CHF DYSLIPIDEMIA DEPRESSION ANXIETY LAST VITALS Temp Pulse Resp BP Pulse Ox 97.5 F L 89 16 103/77 94 L 06/08/18 14:00 06/08/18 14:00 06/08/18 14:00 06/08/18 14:00 06/08/18 14:00 TAKE THESE MEDICATIONS AT HOME Buspirone HCl (Buspar) 10 mg PO BID PRN PRN Reason: Anxiety Last Admin: 06/07/18 09:04 Dose: 10 mg Fenofibrate (Triglide) 160 mg PO DAILY [facility] Last Admin: 06/08/18 09:05 Dose: 160 mg Ferrous Sulfate (Ferrous Sulfate) 324 mg PO DAILY [facility] Last Admin: 06/08/18 09:06 Dose: 324 mg Lisinopril (Zestril) 5 mg PO DAILY [facility] Last Admin: 06/08/18 09:05 Dose: 5 mg Magnesium Hydroxide (Milk Of Magnesia) 30 ml PO DAILY PRN PRN Reason: Constipation Last Admin: 06/07/18 17:49 Dose: 30 ml Non-Formulary Medication (Clozapine [Clozapine]) 100 mg PO 0800,1500 [facility] Last Admin: 06/08/18 09:06 Dose: 100 mg Non-Formulary Medication (Clozapine [Clozapine]) 200 mg PO BEDTIME [facility] Last Admin: 06/07/18 20:22 Dose: 200 mg Pravastatin Sodium (Pravachol) 40 mg PO DAILY [facility] Last Admin: 06/08/18 09:07 Dose: 40 mg Spironolactone (Aldactone) 25 mg PO DAILY [facility] Last Admin: 06/08/18 09:07 Dose: 25 mg Venlafaxine HCl (Effexor Xr) 75 mg PO BID [facility] Last Admin: 06/08/18 09:05 Dose: 75 mg ALLERGIES No Known Allergies Allergy (Verified 06/05/18 13:07) DISCONTINUED MEDICATIONS NONE NEW PRESCRIPTIONS: NONE SMOKING: SMOKING CESSATION DISEASE SPECIFIC EDUCATION: WEAKNESS MEDICATIONS SMOKING CESSATION DIET ACTIVITY LAB REVIEW: 06/08/18 09:30 06/08/18 09:30 06/08/18 09:30: Vitamin B12 483 06/08/18 09:30: Sodium 135 L, Potassium 4.2, Chloride 97 L, Carbon Dioxide 29, Anion Gap 13.2, BUN 8, Creatinine 0.84, Estimated GFR (MDRD) 96.00, BUN/ Creatinine Ratio 9.52, Glucose 182 H, Calcium 9.4, Total Bilirubin 0.5, AST 17, ALT 17, Alkaline Phosphatase 69, Total Protein 6.4, Albumin 3.8, Globulin 2.6, Albumin/Globulin Ratio 1.46, TSH 3.575, Free T4 1.08 06/08/18 09:30: WBC 7.94, RBC 4.47 L, Hgb 14.1, Hct 40.6 L, MCV 90.8, MCH 31.5 H , MCHC 34.7, RDW Coeff of Yonathan 12.6, Plt Count 249, Immature Gran % (Auto) 0.4, Neut % (Auto) 69.7, Lymph % (Auto) 21.8, Blair % (Auto) 6.9, Eos % (Auto) 0.8, Baso % (Auto) 0.4, Immature Gran # (Auto) 0.0, Neut # (Auto) 5.5, Lymph # (Auto ) 1.7, Blair # (Auto) 0.6, Eos # (Auto) 0.1, Baso # (Auto) 0.0 PLAN: DISCHARGE TO HOME TODAY. 06/08/18 CONTINUE HOME MEDICATIONS PER NURSING SHEETS. NO NEW MEDICATIONS DIET: CARDIAC, LOW SALT ACTIVITY: GRADUALLY RESUME ACTIVITY. AVOID EXTREME HEAT. FOLLOW UP WITH DR. CERDA ON FridayJune AT 1115AM. IF UNABLE TO KEEP APPOINTMENT, PLEASE CALL TO RESCHEDULE. [phone]. IS A FULL CODE. LAYING IN BED. ALERT AND ORIENTED X 4. Alicia AQUINO APRN INTO SEE PATIENT. PATIENT STATES FEELING SOME BETTER, BUT CONTINUES WITH SOME WEAKNESS AND LOW ENERGY. ALSO C/O SWOLLEN LEFT TESTICLE. PLAN OF CARE DISCUSSED PER Alicia AQUINO APRN INCLUDING LABS AND US OF TESTICLE. VITAL SIGNS ARE STABLE. HAS BEEN AFEBRILE. POX 98% ONR ROOM AIR. HEART TONES ARE REGULAR WITH TELEMETRY REVEALING SINUS RHYTHM/SINUS RHYTHM WITH PVC. NO C/P PAIN OR DISCOMFORT. LUNGS ARE CLEAR. NO COUGH OR DYSPNEA NOTED. ABDOMEN IS SOFT, NON-TENDER WITH BOWEL SOUNDS POSITIVE IN ALL 4 QUADS. PEDAL PULSES POSITIVE WITHOUT EDEMA. HAS SALINE LOCK IN LEFT AC SITE IS CLEAR. IS INDEPENDENT WITH ACTIVITY WITH STEADY GAIT. DR. MARCUS CERDA MD Alicia AQUINO APRN
--- NOTE | 2018-06-09 08:57 | DS ---
DATE OF SERVICE: 06/08/18 FINAL DIAGNOSIS: 1. Generalized weakness(acute) 2. Hyponatremia 3. Testicular swelling left Spermatocele 4. History of Hypertension 5. Dyslipidemia 6. Heavy smoker 7. Schizophrenia 8. COPD 9. Angina 10.CHF 11.Dyslipidemia 12.Depression 13.Anxiety LAST VITALS: Temperature 97.5, pulse 89, respiratory rate 16, blood pressure 103/77 and pulse ox 94%. DISCHARGE INSTRUCTIONS: Discharge to home today 06/08/18. Continue home medications per nursing sheets. No new medications. Followup with Dr. Ram on FridayJune 15 at 11:15am. MEDICATIONS AT DISCHARGE: Buspar 10mg PO twice a day PRN Triglide 160mg PO daily Ferrous sulfate 324mg Po daily Zestril 5mg PO daily Milk of magnesia 30ml PO daily PRN Clozapine 100mg PO 0800, 1500 Clozapine 200mg PO bedtime Pravachol 40mg PO daily Aldactone 25mg PO daily Effexor XR 75mg PO twice a day ALLERGIES: No known allergies NEW PRESCRIPTIONS: None DIET INSTRUCTIONS: Cardiac, low salt ACTIVITY: Gradually resume activity. Avoid extreme heat. SMOKING: Smoking cessation DISEASE SPECIFIC EDUCATION: Weakness Medications Smoking cessation Diet Activity HOSPITAL COURSE: 52 year old male who presented to the emergency room with generalized weakness, hypotension and hyponatremia. He was admitted and CT scan of the brain was normal. He was placed on IV fluids normal saline and 75cc an hour. He was also complaining of shortness of breath. Chest x-ray was normal however he does have COPD and is a heavy smoker. He was put on IV steroids and given antibiotics. He subsequently improved rather quickly. His sodium level was slow to improve. During admission his hospital stay he also reported that he had right testicular swelling which had been present for 1-2 months. He was not causing him any pain but was swollen. It showed that he had a spermatocele on ultrasound today; cystic in appearance and benign. Today on day of discharge his vital signs have been normal; Temperature 97.5, heart rate 89, respiratory rate 16, oxygen saturation 95% on room air. Blood pressure 110/77. He states that he is still having some fatigue but the weakness has improved. He has been up and about. He has no chest pain, he is not short of breath and he has been eating 75-100% of his meals. None of his medications have been changed. With IV fluids and steroids his condition has improved. Information was given regarding smoking cessation. T4 and TSH were normal along with a B12 level. His hgb has been normal. Today sodium was 135. We will discharge him in stable condition and instruct him not to use salt on his food and stay inside and stay cool. We will followup with him next week. TIME SPENT: More than 60 minutes. GREG
--- NOTE | 2018-06-09 14:31 | PN ---
DATE OF SERVICE: 06/05/18 - Admit Note SUBJECTIVE: The patient was examined with the nurse practitioner. The patient was hospitalized with weakness, shortness of breath. REVIEW OF SYSTEMS: CONSTITUTIONAL: Weakness. No night sweats. No malaise, lethargy. No fever or chills. HEENT: Eyes: No visual changes. No eye pain. No eye discharge. ENT: No runny nose. No epistaxis. No sinus pain. No sore throat. No odynophagia. No congestion. RESPIRATORY: No cough, no congestion. No hemoptysis. Shortness of breath. CARDIOVASCULAR: No angina symptoms. No CHF symptoms. No atypical chest pain for CAD. No palpitations. No orthopnea. GASTROINTESTINAL: No abdominal pain. No nausea or vomiting. No diarrhea or constipation. No hematemesis. No hematochezia. GENITOURINARY: No urgency. No frequency. No dysuria. No hematuria. No obstructive symptoms. No discharge. No pain. No significant abnormal bleeding. MUSCULOSKELETAL: No musculoskeletal pain; no joint swelling. NEUROLOGICAL: No headache. No neck pain. No syncope. No seizures. No dizziness. PSYCHIATRIC: Not anxious. No depression. No suicidal thoughts. No homicidal thoughts. SKIN: No rash. No lesions. No wounds. ENDOCRINE: No unexplained weight loss. No weight gain. HEMATOLOGIC/LYMPHATIC: No anemia. No purpura. No petechiae. No prolonged or excessive bleeding. No palpable lymph nodes. PHYSICAL EXAMINATION: HEENT: Head normocephalic, atraumatic. Eyes: Extraocular muscles are intact. Pupils are equal, round and reactive to light and accommodation. Ears: No lesions. Nose appeared normal. Throat: No exudate or erythema. NECK: Supple. No JVD, no carotid bruit. No lymphadenopathy or thyromegaly. LUNGS: Decreased breath sounds but clear. Clear to auscultation. Percussion note normal. Chest symmetrical. HEART: S1, S2, no S3. No murmurs. No cyanosis or clubbing. No ascites. Pulses: Dorsalis pedis and posterior tibial pulses +2 both sides. ABDOMEN: Soft. Nontender. Bowel sounds active. No CVA tenderness. No mass felt. EXTREMITIES: No edema. Full range of motion of all extremities, equal. Calf muscles nontender. NEUROLOGIC: No focal deficit. Cranial nerves II through XII are grossly intact. No headache, no double vision or headache. SKIN: Not dry. Intact. Turgor - normal. LYMPHATIC: No palpable lymph nodes/no lymphedema. MUSCULOSKELETAL: Normal joints with no swelling. Muscle tone is normal. LABS: EKG sinus rhythm, no acute changes. ASSESSMENT: 1. Shortness of breath, etiology unknown with weakness. 2. Mostly the patient's complaint is weakness. PLAN: 1. Continue all antipsychotic medications. 2. Echocardiogram in the morning to evaluate LV function as the patient has history of dilated cardiomyopathy. CONDITION: Stable TIME SPENT: More than 30 minutes. Plan and coordination of the patient's care discussed in the presence of nurse. GREG
--- NOTE | 2018-06-09 14:41 | PN ---
DATE OF SERVICE: 06/07/18 SUBJECTIVE: 52-year-old white male hospitalized with weakness, shortness of breath. The patient has chronic lung disease, heavy smoker (two packs per day), history of cardiomyopathy, dilated; echo showed that the patient has LV cavity 5.8 cm size with enlarged LA cavity and LVH. Explained about this finding. Counseling for smoking done. PHYSICAL EXAMINATION: HEENT: Head normocephalic, atraumatic. Eyes: Extraocular muscles are intact. Pupils are equal, round and reactive to light and accommodation. Ears: No lesions. Nose appeared normal. Throat: No exudate or erythema. NECK: Supple. No JVD, no carotid bruit. No lymphadenopathy or thyromegaly. LUNGS: Clear to auscultation. Percussion note normal. Chest symmetrical. HEART: S1, S2, no S3. No murmurs. No cyanosis or clubbing. No ascites. Pulses: Dorsalis pedis and posterior tibial pulses +1 to +2 both sides. ABDOMEN: Soft. Nontender. Bowel sounds active. No CVA tenderness. No mass felt. EXTREMITIES: No edema. Full range of motion of all extremities, equal. NEUROLOGIC: No focal deficit. Cranial nerves II through XII are grossly intact. No headache, no double vision or headache. SKIN: Not dry. Intact. Turgor - normal. LYMPHATIC: No palpable lymph nodes/no lymphedema. MUSCULOSKELETAL: Normal joints with no swelling. Muscle tone is normal. The patient's condition is stable. TIME SPENT: More than 30 minutes. Plan and coordination of the patient's care discussed in the presence of nurse. GREG
--- NOTE | 2018-06-09 14:45 | PN ---
DATE OF SERVICE: 06/08/18 SUBJECTIVE: The patient has stable medication conditions. He has been diagnosed now to have chronic lung disease. FEV1 is 70 to 75% of normal predicted, heavy smoker. Counseling for smoking done. Will discharge the patient on Symbicort and Ventolin inhaler p.r.n. along with his unloading agents for his dilated cardiomyopathy. Advised to lose weight. Antipsychotic medication needs to be continued per psychiatrist. The patient's mental status is stable. His thought process is normal, awaiting ultrasound report for testicular pain. CONDITION: Stable. TIME SPENT: More than 30 minutes. Plan and coordination of the patient's care discussed in the presence of nurse. GREG
--- NOTE | 2018-06-09 14:46 | PN ---
BILLING 06/05/18 LEVEL 5 06/06/18 INTERMEDIATE 06/07/18 INTERMEDIATE 06/08/18 DISCHARGE MTDD
== END 2018-06-08 18:25 | disposition home or self-care (01) | DRG 149 ==
LOC: ED 13:01 → MEDSURG B 15:06
PROVIDERS: ADMIT Internal Medicine; ATTEND Internal Medicine
DX: R42 Dizziness and giddiness (principal); E87.1 Hypo-osmolality and hyponatremia; I10 Essential (primary) hypertension; I20.9 Angina pectoris, unspecified; I50.9 Heart failure, unspecified; J44.9 Chronic obstructive pulmonary disease, unspecified; E78.5 Hyperlipidemia, unspecified; E66.9 Obesity, unspecified; N43.41 Spermatocele of epididymis, single; N50.89 Other specified disorders of the male genital organs; F32.9 Major depressive disorder, single episode, unspecified; F20.9 Schizophrenia, unspecified; F41.9 Anxiety disorder, unspecified; R06.02 Shortness of breath; Z68.31 Body mass index [BMI] 31.0-31.9, adult; Z72.0 Tobacco use; Z71.3 Dietary counseling and surveillance
CPT/HCPCS: 36415; 80053; 82550; 82607; 82803; 83880; 84439; 84443; 84484; 85025; 87040; 93005; 93010; 97802; 99285

== ENCOUNTER 2018-07-02 17:18 | Emergency (ER) ==
[2018-07-02 17:22] VITALS: TEMP 98.4; BMI 31.8
[2018-07-02 17:25] VITALS: BP 108/71
--- NOTE | 2018-07-02 17:47 | ED.PDOC ---
General ED Provider: Dr. NELLIE KRAMER Chief Complaint: Weakness Stated Complaint: Very weak , very anxious, does not feel he capture any energy with food he eats. Time Seen by Physician: 17:35 Mode of Arrival: Walk-In Information Source: Patient Primary Care Provider: MARCUS CERDA Nursing and Triage Documentation Reviewed and Agree: Yes Does patient meet sepsis criteria?: No System Inflammatory Response Syndrome: Not Applicable Sepsis Protocol: For patient's 13 years and over: Temp is 96.8 and below OR 101 and greater Pulse >90 BPM Resp >20/minute Acutely Altered Mental Status Are patient's symptoms suggestive of a new infection, such as: -Pneumonia -Skin, Soft Tissue -Endocarditis -UTI -Bone, Joint Infection -Implantable Device -Acute Abdominal Infection -Wound Infection -Meningitis -Blood Stream Catheter Infection -Unknown Psychological Complaint Exam - Psychiatric Complaint/Exam Patient Complains Of: Present: Other (anxiety) Symptoms Are: Still present Timing: Constant Episodes Lasting: Hours Initial Severity: Moderate Current Severity: Moderate Character: Present: Fearful, Anxious, Frustrated Aggravating: Reports: Recent stress Associated Signs And Symptoms: Reports: Confused Related History: Denies: Suicidal thoughts, Suicidal plan, Suicidal gestures, Homicidal thoughts, Homicidal plan, Homicidal gestures, Recent stressors, Drug ingestion Completed Suicide Risk Factors: None Patient Accompanied By: Friend Patient Uncooperative For Exam: No Mood: Present: Manic, Anxious Appearance: Present: Clean Insight: Present: Good Memory: Intact Judgement: Normal Danger To Others: No Differential Diagnoses: Anxiety, Depression, Other (hx substance abuse) Review of Systems - Review Of Systems Constitutional: Reports: No symptoms Eyes: Reports: No symptoms Ears, Nose, Mouth, Throat: Reports: No symptoms Respiratory: Reports: No symptoms Cardiac: Reports: No symptoms GI: Reports: No symptoms : Reports: No symptoms Musculoskeletal: Reports: No symptoms Skin: Reports: No symptoms Neurological: Reports: No symptoms Endocrine: Reports: No symptoms Hematologic/Lymphatic: Reports: No symptoms All Other Systems: Reviewed and Negative Past Medical History - Past Medical History Previously Healthy: Yes Endocrine: Reports: Dyslipidemia Cardiovascular: Reports: Hypertension Respiratory: Reports: None Hematological: Reports: None Gastrointestinal: Reports: None Genitourinary: Reports: None Neuro/Psych: Reports: None Musculoskeletal: Reports: None Cancer: Reports: None - Surgical History General Surgical History: Reports: None - Family History Family History: Reports: None - Social History Smoking Status: Current every day smoker, Heavy tobacco smoker Hx Substance Use: No Alcohol Screening: None Physical Exam - Physical Exam Appearance: Well-appearing, Obese Ill-appearing: Mild Pain Distress: None Eyes: LACY, EOMI, Conjunctiva clear ENT: Ears normal, Nose normal, Oropharynx normal Respiratory: Airway patent, Breath sounds clear, Breath sounds equal, Respirations nonlabored Cardiovascular: RRR, Pulses normal, No rub, No murmur GI/: Soft, Nontender, No masses, Bowel sounds normal, No Organomegaly Musculoskeletal: Normal strength, ROM intact, No edema, No calf tenderness Skin: Warm, Dry, Normal color Neurological: Sensation intact, Motor intact, Reflexes intact, Cranial nerves intact, Alert, Oriented Psychiatric: Anxious Critical Care Note - Critical Care Note Total Time (mins): 0 Course - Course Orders, Labs, Meds: Orders Category Date Time Status EKG-(ED ONLY) Stat CARDIO 07/02/18 18:34 Ordered CBC W/ AUTO DIFF Stat LAB 07/02/18 18:34 Ordered CMP [COMPREHENSIVE METABOLIC PANEL] Stat LAB 07/02/18 18:34 Ordered UA [URINALYSIS C & S IF INDICATED] Stat LAB 07/02/18 18:34 Uncollected Vital Signs: Temp Pulse Resp BP Pulse Ox 07/02/18 17:18 98.4 F 86 16 108/71 97 Departure - Departure Time of Disposition: 19:30 Disposition: HOME SELF-CARE Discharge Problem: Anxiety, Panic disorder Condition: Fair Pt referred to PMD for follow-up: Yes IPMP verified?: No Additional Instructions: Take Buspar 10 mg routinely twice daily Us Hydroxyzine 25 take every 6 hours for relief of anxious feeling Follow up Dr Cerda in next 1 week Allergies/Adverse Reactions: Allergies No Known Allergies Allergy (Verified 06/05/18 13:07) Home Medications: Ambulatory Orders Buspirone HCl 10 mg PO BID PRN 06/05/18 Clozapine 100 mg PO 0800,1500 06/05/18 Clozapine 200 mg PO BEDTIME 06/05/18 Fenofibrate [Triglide] 160 mg PO DAILY 06/05/18 Lisinopril [Zestril] 5 mg PO DAILY 06/05/18 Magnesium Hydroxide [Milk of Magnesia] 30 ml PO DAILY PRN 06/05/18 Pravastatin Sodium [Pravachol] 40 mg PO DAILY 06/05/18 Spironolactone 25 mg PO DAILY 06/05/18 Venlafaxine HCl [Effexor] 75 mg PO BID 06/05/18 Ferrous Sulfate [Iron] 325 mg PO DAILY 06/07/18
[2018-07-02] MEDS ORDERED: ATARAX PO STA (19:31)
== END 2018-07-02 19:50 | disposition home or self-care (01) ==
LOC: ED 17:18
DX: F41.0 Panic disorder [episodic paroxysmal anxiety] (principal); R53.1 Weakness; F17.210 Nicotine dependence, cigarettes, uncomplicated
CPT/HCPCS: 36415; 80053; 81001; 85025; 93005; 93010; 99283

== ENCOUNTER 2018-07-03 09:38 | Outpatient (CLI) ==
[2018-07-02 17:22] VITALS: BMI 31.8
== END 2018-07-03 09:39 | disposition home or self-care (01) ==
LOC: LAB 09:38
PROVIDERS: ATTEND Psychiatry & Neurology Psychiatry
DX: F25.1 Schizoaffective disorder, depressive type (principal)
CPT/HCPCS: 36415; 85025

== ENCOUNTER 2018-07-20 18:23 | Emergency (ER) | payer OTHER ==
[2018-07-20 18:29] VITALS: TEMP 98.6; BMI 32.0
[2018-07-20 20:00] VITALS: BP 124/66
--- NOTE | 2018-07-20 20:38 | CT ---
EXAM: CT head without contrast 07/20/2018. Sagittal and coronal reformatted images obtained HISTORY: Dizziness COMPARISON: 10/27/2008 FINDINGS: There is no evidence of intracranial hemorrhage. The midline is maintained. There is no h ydrocephalus. No cerebellar tonsillar ectopia. Evaluation of the calvarium shows no fracture. Th e mastoid air cells are normally pneumatized. IMPRESSION: No acute intracranial abnormality.
--- NOTE | 2018-07-20 20:44 | CT ---
EXAM: CT THORAX HISTORY: Dyspnea and dizziness. TECHNIQUE: CT thorax without intravenous contrast. Multiplanar images presented. COMPARISON: 06/05/2018 FINDINGS: Normal heart size. Trace pericardial effusion. Mild atherosclerotic disease. Lungs are clear. Normal vascularity. No pleural fluid or pneumothorax. The bones reveal bridging anterior and lateral osteophytic spurs of the thoracic spine. There are a f ew supraclavicular lymph nodes, most apparent on the left. These lymph nodes remain minimally below a centimeter in size short axis. There is bilateral perinephric fat stranding similar to that previo usly seen, nonspecific. IMPRESSION: 1. Lungs are clear. 2. Incidental note of a few supraclavicular lymph nodes of indeterminate etiology. These remain les s than a centimeter short axis. 3. Mild atherosclerotic disease.
--- NOTE | 2018-07-20 20:55 | ED.PDOC ---
General ED Provider: Dr. NELLIE PHIPPS-ER Chief Complaint: Dizziness Stated Complaint: IM DIZZY Time Seen by Physician: 18:30 Mode of Arrival: Walk-In Information Source: Patient Exam Limitations: No limitations Primary Care Provider: MARCUS CERDA Nursing and Triage Documentation Reviewed and Agree: Yes Does patient meet sepsis criteria?: No System Inflammatory Response Syndrome: Not Applicable Sepsis Protocol: For patient's 13 years and over: Temp is 96.8 and below OR 101 and greater Pulse >90 BPM Resp >20/minute Acutely Altered Mental Status Are patient's symptoms suggestive of a new infection, such as: -Pneumonia -Skin, Soft Tissue -Endocarditis -UTI -Bone, Joint Infection -Implantable Device -Acute Abdominal Infection -Wound Infection -Meningitis -Blood Stream Catheter Infection -Unknown Neurological Complaint Exam - Dizziness Complaint/Exam Last Known Well: YESTRDAY Onset: Gradual Symptoms Are: Resolved Initial Severity: Mild Current Severity: Mild Character: Reports: Weak Alleviating: Reports: None Related History: Similar episode JVD Present: No Carotid Bruit Present: No Nystagmus Present: No Gag Reflex Present: Yes Meningeal Signs Positive: No Focal Weakness: Present: None Focal Sensory Loss: Present: None Gait: Normal [id number]: Normal Findings Romberg Test Positive: No Babinski Sign: Negative Right, Negative Left Heel to Toe Normal: Yes [place]-Hallpike Test Positive: No Differential Diagnoses: Anxiety, CAD, VA, Dysrhythmia, Labyrinthitis Quality Indicator For Non-Traumatic Chest Pain/Syncope: EKG Performed Review of Systems - Review Of Systems Constitutional: Reports: No symptoms Eyes: Reports: No symptoms Ears, Nose, Mouth, Throat: Reports: No symptoms Respiratory: Reports: No symptoms Cardiac: Reports: No symptoms GI: Reports: No symptoms : Reports: No symptoms Musculoskeletal: Reports: No symptoms Skin: Reports: No symptoms Neurological: Reports: Anxiety, Cognitive dysfunction Endocrine: Reports: No symptoms Hematologic/Lymphatic: Reports: No symptoms All Other Systems: Reviewed and Negative Past Medical History - Past Medical History Previously Healthy: Yes Endocrine: Reports: Dyslipidemia Cardiovascular: Reports: Hypertension Respiratory: Reports: None Hematological: Reports: None Gastrointestinal: Reports: None Genitourinary: Reports: None Neuro/Psych: Reports: None Musculoskeletal: Reports: None Cancer: Reports: None - Surgical History General Surgical History: Reports: None - Family History Family History: Reports: None - Social History Smoking Status: Current every day smoker, Heavy tobacco smoker Hx Substance Use: Yes Alcohol Screening: None Physical Exam - Physical Exam Appearance: Well-appearing, No pain distress, Well-nourished Eyes: LACY, EOMI, Conjunctiva clear ENT: Ears normal, Nose normal, Oropharynx normal Neck: Supple Respiratory: Airway patent Cardiovascular: RRR, Pulses normal, No rub, No murmur GI/: Soft, Nontender, No masses, Bowel sounds normal, No Organomegaly Musculoskeletal: Normal strength, ROM intact, No edema, No calf tenderness Skin: Warm, Dry, Normal color Neurological: Sensation intact, Motor intact, Reflexes intact, Cranial nerves intact, Alert, Oriented Psychiatric: Affect appropriate, Mood appropriate Interpretation - Radiology Interpretation Radiology Interpretation By: Radiologist Radiology Results: Negative Exam Interpreted: CT Scan - EKG Interpretation Time of EKG #1: 19:15 Rate: Tachy Rhythm: Sinus Ectopy: None Sacul: NL ST Segment: Normal Interpretation: NSR Re-Evaluation - Re-Evaluation Time of Re-Evaluation: 20:55 Status: Improved (NO CHEST PAIN DYSPNEA OR DIZZINESS) Vital Signs Stable: Yes Pain Level: 0 Appearance: NAD Lungs: Clear Skin: Warm and Dry Neuro: Alert and Oriented X3 CV: RRR Physician Notification - Case Discussed Physician Notified: DR CERDA Time of Notification: 20:56 Physician Notified: INDICATED HE WANTED TO SEE IN THE OFFICE Critical Care Note - Critical Care Note Total Time (mins): 0 Course - Course Hematology/Chemistry: 07/20/18 19:10 07/20/18 19:10 Orders, Labs, Meds: Lab Review 07/20/18 07/20/18 07/20/18 18:57 19:10 19:10 WBC 8.94 RBC 4.32 L Hgb 13.8 L Hct 39.3 L MCV 91.0 MCH 31.9 H MCHC 35.1 RDW Coeff of Yonathan 12.9 Plt Count 275 Immature Gran % (Auto) 0.2 Neut % (Auto) 72.3 Lymph % (Auto) 18.2 [place] % (Auto) 8.6 Eos % (Auto) 0.3 Baso % (Auto) 0.4 Immature Gran # (Auto) 0.0 Neut # (Auto) 6.5 Lymph # (Auto) 1.6 [place] # (Auto) 0.8 Eos # (Auto) 0.0 Baso # (Auto) 0.0 D-Dimer (Manual) Puncture Site Rrad O2 Saturation 95.0 ABG pH 7.462 H ABG pCO2 36.9 ABG pO2 72.0 L ABG HCO3 26.4 H ABG Total CO2 27 ABG Base Excess 3 H Edilberto Test + FiO2 % 21.0 Sodium 132.0 L Potassium 3.89 Chloride 96.7 L Carbon Dioxide 27.4 Anion Gap 11.79 BUN 6.1 L Creatinine 0.67 Estimated GFR (MDRD) 124.00 BUN/Creatinine Ratio 9.10 Glucose 134.1 H Calcium 9.72 Total Bilirubin 0.34 AST 20.0 ALT 19.4 Alkaline Phosphatase 75.6 Total Creatine Kinase 50.5 L Troponin I < 0.012 NT-Pro-B Natriuret Pep Total Protein 6.75 Albumin 4.15 Globulin 2.60 Albumin/Globulin Ratio 1.59 TSH 2.150 07/20/18 07/20/18 19:10 19:10 WBC RBC Hgb Hct MCV MCH MCHC RDW Coeff of Yonathan Plt Count Immature Gran % (Auto) Neut % (Auto) Lymph % (Auto) [place] % (Auto) Eos % (Auto) Baso % (Auto) Immature Gran # (Auto) Neut # (Auto) Lymph # (Auto) [place] # (Auto) Eos # (Auto) Baso # (Auto) D-Dimer (Manual) 645.02 Puncture Site O2 Saturation ABG pH ABG pCO2 ABG pO2 ABG HCO3 ABG Total CO2 ABG Base Excess Edilberto Test FiO2 % Sodium Potassium Chloride Carbon Dioxide Anion Gap BUN Creatinine Estimated GFR (MDRD) BUN/Creatinine Ratio Glucose Calcium Total Bilirubin AST ALT Alkaline Phosphatase Total Creatine Kinase Troponin I NT-Pro-B Natriuret Pep 64.800 Total Protein Albumin Globulin Albumin/Globulin Ratio TSH Orders Category Date Time Status ABG DRAW REQUEST Stat CARDIO 07/20/18 18:57 Completed EKG-(ED ONLY) Stat CARDIO 07/20/18 18:57 Completed Library Sales Consultant [ED DAIRY EQUIPMENT INSTALLER APPLIED] .ONCE EMERGENCY 07/20/18 18:58 Active ABG Stat LAB 07/20/18 18:57 Completed CBC W/ AUTO DIFF Stat LAB 07/20/18 19:10 Completed COMPREHENSIVE METABOLIC PANEL Stat LAB 07/20/18 19:10 Completed CREATINE KINASE Stat LAB 07/20/18 19:10 Completed D-DIMER Stat LAB 07/20/18 19:10 Completed PRO-BNP [NT-PROBNP] Stat LAB 07/20/18 19:10 Completed TROPONIN I Stat LAB 07/20/18 19:10 Completed TSH [THYROID STIMULATING HORMONE] Stat LAB 07/20/18 19:[address] CHEST W/O CONTRAST Stat RADS 07/20/18 18:[address] HEAD W/O CONTRAST Stat RADS 07/20/18 18:58 Completed MR GARCIA IS WALKING UP AND DOWN THE HALLWAY--NO OBVIOUS DISTDRESS---TALKING INCESSANTLY--NO OBVIOUS PAIN OR DISTRESS Vital Signs: Temp Pulse Resp BP Pulse Ox 07/20/18 19:59 101 H 18 124/66 95 07/20/18 18:24 98.6 F 114 H 20 127/72 96 Departure - Departure Time of Disposition: 20:57 Disposition: HOME SELF-CARE Discharge Problem: Dizziness Instructions: Dizziness (ED) Condition: Good Pt referred to PMD for follow-up: Yes IPMP verified?: No Additional Instructions: F/U WITH DR CERDA IN THE OFFICE THIS WEEK Allergies/Adverse Reactions: Allergies No Known Allergies Allergy (Verified 07/20/18 18:31) Home Medications: Ambulatory Orders Buspirone HCl 10 mg PO BID PRN 06/05/18 Clozapine 100 mg PO 0800,1500 06/05/18 Clozapine 200 mg PO BEDTIME 06/05/18 Lisinopril [Zestril] 5 mg PO DAILY 06/05/18 Magnesium Hydroxide [Milk of Magnesia] 30 ml PO DAILY PRN 06/05/18 Spironolactone 25 mg PO DAILY 06/05/18 Venlafaxine HCl [Effexor] 75 mg PO BID 06/05/18 Ferrous Sulfate [Iron] 325 mg PO DAILY 06/07/18 Budesonide/Formoterol Fumarate [Symbicort 80-4.5 Mcg Inhaler] 1 puff IH BID 03/20 Levothyroxine Sodium 50 mcg PO QDAC 07/08/18 Disposition Discussed With: Patient
== END 2018-07-20 21:05 | disposition home or self-care (01) ==
LOC: ED 18:23
DX: R42 Dizziness and giddiness (principal); R53.1 Weakness; F17.210 Nicotine dependence, cigarettes, uncomplicated; I10 Essential (primary) hypertension; E78.5 Hyperlipidemia, unspecified; Z79.899 Other long term (current) drug therapy
CPT/HCPCS: 36415; 80053; 82550; 82803; 83880; 84443; 84484; 85025; 85379; 93005; 93010; 99284

== ENCOUNTER 2018-07-24 17:13 | Emergency (ER) | payer OTHER ==
[2018-07-24 17:14] VITALS: BMI 32.0
[2018-07-24 17:19] VITALS: BP 94/58; TEMP 98
--- NOTE | 2018-07-24 17:42 | ED.PDOC ---
General ED Provider: Dr. SHERRIE HANKS Chief Complaint: Dizziness Stated Complaint: dizziness Time Seen by Physician: 17:17 (seen with entire nursing staff) Mode of Arrival: Walk-In Information Source: Patient Exam Limitations: No limitations Primary Care Provider: MARCUS CERDA Nursing and Triage Documentation Reviewed and Agree: Yes Does patient meet sepsis criteria?: No System Inflammatory Response Syndrome: Not Applicable Sepsis Protocol: For patient's 13 years and over: Temp is 96.8 and below OR 101 and greater Pulse >90 BPM Resp >20/minute Acutely Altered Mental Status Are patient's symptoms suggestive of a new infection, such as: -Pneumonia -Skin, Soft Tissue -Endocarditis -UTI -Bone, Joint Infection -Implantable Device -Acute Abdominal Infection -Wound Infection -Meningitis -Blood Stream Catheter Infection -Unknown Neurological Complaint Exam - Dizziness Complaint/Exam Last Known Well: chronic multiple visit for the issue in no pain Onset: Gradual Duration: weeks Symptoms Are: Resolved Timing: Intermittent Episodes Lasting: Weeks Initial Severity: Mild Current Severity: None Character: Reports: Dizzy Aggravating: Reports: None Alleviating: Reports: None Associated Signs and Symptoms: Denies: Nausea, Vomiting, Diaphoresis, Tinnitus, Chest pain, Short of air, Palpitations, Unsteady gait, GI blood loss, Visual changes, Decreased oral intake, Change in medication, Change in diet, OTC meds, Loss of balance Related History: Similar episode Cardiac Risk Factors: Reports: Hypertension, Elevated lipids CVA Risk Factors: Reports: Hypertension Related Surgical History: Reports: None JVD Present: No Carotid Bruit Present: No Rectal Heme Positive: No Glascow Coma Scale (see protocol): 15 Nystagmus Present: Yes Gag Reflex Present: No Meningeal Signs Positive: No Focal Weakness: Present: None Focal Sensory Loss: Present: None Gait: Normal Heel to Toe Normal: No [place]-Hallpike Test Positive: No Differential Diagnoses: Anxiety, Hypovolemia, Metabolic abnormalities, Vasovagal reaction Review of Systems - Review Of Systems Constitutional: Reports: No symptoms Eyes: Reports: No symptoms Ears, Nose, Mouth, Throat: Reports: No symptoms Respiratory: Reports: No symptoms Cardiac: Reports: No symptoms GI: Reports: No symptoms : Reports: No symptoms Musculoskeletal: Reports: No symptoms Skin: Reports: No symptoms Neurological: Reports: No symptoms Endocrine: Reports: No symptoms Hematologic/Lymphatic: Reports: No symptoms All Other Systems: Reviewed and Negative Past Medical History - Past Medical History Previously Healthy: Yes Endocrine: Reports: Dyslipidemia Cardiovascular: Reports: Hypertension Respiratory: Reports: None Hematological: Reports: None Gastrointestinal: Reports: None Genitourinary: Reports: None Neuro/Psych: Reports: None Musculoskeletal: Reports: None Cancer: Reports: None - Surgical History General Surgical History: Reports: None - Family History Family History: Reports: None - Social History Smoking Status: Current every day smoker, Heavy tobacco smoker Hx Substance Use: No Alcohol Screening: None Physical Exam - Physical Exam Appearance: Well-appearing, No pain distress, Well-nourished Eyes: LACY, EOMI, Conjunctiva clear ENT: Ears normal, Nose normal, Oropharynx normal Respiratory: Airway patent, Breath sounds clear, Breath sounds equal, Respirations nonlabored Cardiovascular: RRR, Pulses normal, No rub, No murmur GI/: Soft, Nontender, No masses, Bowel sounds normal, No Organomegaly Musculoskeletal: Normal strength, ROM intact, No edema, No calf tenderness Skin: Warm, Dry, Normal color Neurological: Sensation intact, Motor intact, Reflexes intact, Cranial nerves intact, Alert, Oriented Psychiatric: Affect appropriate, Mood appropriate Interpretation - Printed Circuit Board Panels Developer Rate: Normal Rhythm: Sinus Ectopy: None - EKG Interpretation Rate: Normal Rhythm: Sinus Re-Evaluation - Re-Evaluation Time of Re-Evaluation: 18:00 Status: Improved Vital Signs Stable: Yes Pain Level: 0 Appearance: NAD Lungs: Clear Skin: Warm and Dry Neuro: Alert and Oriented X3 CV: RRR Critical Care Note - Critical Care Note Total Time (mins): 0 Course - Course Hematology/Chemistry: 07/24/18 17:24 07/24/18 17:24 Orders, Labs, Meds: Lab Review 07/24/18 07/24/18 17:24 17:24 WBC 8.97 RBC 4.21 L Hgb 13.6 L Hct 38.5 L MCV 91.4 MCH 32.3 H MCHC 35.3 RDW Coeff of Yonathan 12.8 Plt Count 304 Immature Gran % (Auto) 0.2 Neut % (Auto) 63.5 Lymph % (Auto) 26.4 [place] % (Auto) 8.4 Eos % (Auto) 0.9 Baso % (Auto) 0.6 Immature Gran # (Auto) 0.0 Neut # (Auto) 5.7 Lymph # (Auto) 2.4 [place] # (Auto) 0.8 Eos # (Auto) 0.1 Baso # (Auto) 0.1 Sodium 130.7 L Potassium 4.04 Chloride 95.5 L Carbon Dioxide 27.4 Anion Gap 11.84 BUN 7.3 L Creatinine 0.67 Estimated GFR (MDRD) 124.00 BUN/Creatinine Ratio 10.89 Glucose 118.3 H Calcium 9.90 Total Bilirubin 0.34 AST 19.7 ALT 20.3 Alkaline Phosphatase 73.5 Total Protein 6.78 Albumin 4.05 Globulin 2.73 Albumin/Globulin Ratio 1.48 Orders Category Date Time Status EKG-(ED ONLY) Stat CARDIO 07/24/18 17:32 Completed CBC W/ AUTO DIFF Stat LAB 07/24/18 17:24 Completed COMPREHENSIVE METABOLIC PANEL Stat LAB 07/24/18 17:24 Completed Vital Signs: Temp Pulse Resp BP Pulse Ox 07/24/18 17:14 98.0 F 57 L 20 94/58 L 96 Departure - Departure Time of Disposition: 19:00 Disposition: HOME SELF-CARE Discharge Problem: Dizziness Instructions: Dizziness (ED) Condition: Good Pt referred to PMD for follow-up: Yes IPMP verified?: No Additional Instructions: Please call your Family Physician as soon as possible to schedule a follow-up appointment. Allergies/Adverse Reactions: Allergies No Known Allergies Allergy (Verified 07/25/18 19:45) Home Medications: Ambulatory Orders Buspirone HCl 10 mg PO BID PRN 06/05/18 Clozapine 100 mg PO 0800,1500 06/05/18 Clozapine 200 mg PO BEDTIME 06/05/18 Lisinopril [Zestril] 5 mg PO DAILY 06/05/18 Magnesium Hydroxide [Milk of Magnesia] 30 ml PO DAILY PRN 06/05/18 Spironolactone 25 mg PO DAILY 06/05/18 Venlafaxine HCl [Effexor] 75 mg PO BID 06/05/18 Ferrous Sulfate [Iron] 325 mg PO DAILY 06/07/18 Budesonide/Formoterol Fumarate [Symbicort 80-4.5 Mcg Inhaler] 1 puff IH BID 03/20 Levothyroxine Sodium 50 mcg PO QDAC 07/08/18 Disposition Discussed With: Patient
== END 2018-07-24 19:30 | disposition home or self-care (01) ==
LOC: ED 17:13
DX: R42 Dizziness and giddiness (principal); I10 Essential (primary) hypertension; E78.5 Hyperlipidemia, unspecified; F17.210 Nicotine dependence, cigarettes, uncomplicated; Z79.899 Other long term (current) drug therapy
CPT/HCPCS: 36415; 80053; 85025; 93005; 93010; 99283

== ENCOUNTER 2018-07-25 19:36 | Emergency (ER) | payer OTHER ==
[2018-07-25 19:44] VITALS: BP 114/72; TEMP 97.7; BMI 31.9
--- NOTE | 2018-07-25 20:25 | ED.PDOC ---
General ED Provider: Dr. NORA VICENTE Chief Complaint: Palpitations Stated Complaint: Patient is a 52 year old male who states that he has weakness and occasionally feels like his heart is skipping a beat. He was seen here yesterday for similar complaints and discharged home with no significant findings on the work up. Time Seen by Physician: 20:23 Mode of Arrival: Ambulance Information Source: Patient Exam Limitations: No limitations Primary Care Provider: MARCUS CERDA Nursing and Triage Documentation Reviewed and Agree: Yes Does patient meet sepsis criteria?: No System Inflammatory Response Syndrome: Not Applicable Sepsis Protocol: For patient's 13 years and over: Temp is 96.8 and below OR 101 and greater Pulse >90 BPM Resp >20/minute Acutely Altered Mental Status Are patient's symptoms suggestive of a new infection, such as: -Pneumonia -Skin, Soft Tissue -Endocarditis -UTI -Bone, Joint Infection -Implantable Device -Acute Abdominal Infection -Wound Infection -Meningitis -Blood Stream Catheter Infection -Unknown Cardiovascular Complaint Exam - Palpitations Complaint/Exam Onset/Duration: 1 day Symptoms Are: Still present Timing: Intermittent Initial Severity: Mild Current Severity: Mild Character: Reports: Skipped beats Aggravating: Reports: None Alleviating: Reports: None Associated Signs and Symptoms: Denies: Lightheadedness, Dizziness, Syncope, Chest pain, Shortness of breath, Diaphoresis, Nausea, Vomiting Thyroid Exam: Normal Differential Diagnoses: AV Block, Myocarditis, Pericarditis, Panic Disorder Quality Indicator For Non-Traumatic Chest Pain/Syncope: EKG Performed Review of Systems - Review Of Systems Constitutional: Reports: No symptoms Eyes: Reports: No symptoms Ears, Nose, Mouth, Throat: Reports: No symptoms Respiratory: Reports: No symptoms Cardiac: Reports: No symptoms GI: Reports: No symptoms : Reports: No symptoms Musculoskeletal: Reports: No symptoms Skin: Reports: No symptoms Neurological: Reports: No symptoms Endocrine: Reports: No symptoms Hematologic/Lymphatic: Reports: No symptoms All Other Systems: Reviewed and Negative Past Medical History - Past Medical History Previously Healthy: Yes Endocrine: Reports: Dyslipidemia Cardiovascular: Reports: Hypertension Respiratory: Reports: None Hematological: Reports: None Gastrointestinal: Reports: None Genitourinary: Reports: None Neuro/Psych: Reports: None Musculoskeletal: Reports: None Cancer: Reports: None - Surgical History General Surgical History: Reports: None - Family History Family History: Reports: None - Social History Smoking Status: Current every day smoker, Heavy tobacco smoker Hx Substance Use: Yes (24 YEARS AGO ALCOHOL,) Alcohol Screening: None - Immunizations Tetanus Shot up to Date: No Physical Exam - Physical Exam Appearance: Well-appearing, No pain distress, Well-nourished Pain Distress: None Eyes: LACY, EOMI, Conjunctiva clear ENT: Ears normal, Nose normal, Oropharynx normal Respiratory: Airway patent, Breath sounds clear, Breath sounds equal, Respirations nonlabored Cardiovascular: RRR, Pulses normal, No rub, No murmur GI/: Soft, Nontender, No masses, Bowel sounds normal, No Organomegaly Musculoskeletal: Normal strength, ROM intact, No edema, No calf tenderness Skin: Warm, Dry, Normal color Neurological: Sensation intact, Motor intact, Cranial nerves intact, Alert, Oriented Psychiatric: Anxious Interpretation - EKG Interpretation Rate: Normal Rhythm: Sinus Ectopy: PVCs [place]: NL ST Segment: Normal Critical Care Note - Critical Care Note Total Time (mins): 0 Comments: Telemetry noted with occasional PVCS Course - Course Hematology/Chemistry: 07/25/18 20:05 07/25/18 20:05 Orders, Labs, Meds: Lab Review 07/25/18 07/25/18 20:05 20:05 WBC 7.83 RBC 4.27 L Hgb 13.8 L Hct 39.4 L MCV 92.3 MCH 32.3 H MCHC 35.0 RDW Coeff of Yonathan 12.8 Plt Count 296 Immature Gran % (Auto) 0.3 Neut % (Auto) 63.6 Lymph % (Auto) 25.9 [place] % (Auto) 8.8 Eos % (Auto) 0.9 Baso % (Auto) 0.5 Immature Gran # (Auto) 0.0 Neut # (Auto) 5.0 Lymph # (Auto) 2.0 [place] # (Auto) 0.7 Eos # (Auto) 0.1 Baso # (Auto) 0.0 Sodium 132.9 L Potassium 3.88 Chloride 94.1 L Carbon Dioxide 31.2 H Anion Gap 11.48 BUN 7.6 L Creatinine 0.72 Estimated GFR (MDRD) 114.00 BUN/Creatinine Ratio 10.55 Glucose 106.7 H Calcium 9.82 Total Bilirubin 0.33 AST 29.4 ALT 22.5 Alkaline Phosphatase 84.2 Total Creatine Kinase 85.8 Troponin I < 0.012 Total Protein 7.05 Albumin 4.21 Globulin 2.84 Albumin/Globulin Ratio 1.48 Orders Category Date Time Status EKG-(ED ONLY) Stat CARDIO 07/25/18 19:59 Completed CBC W/ AUTO DIFF Stat LAB 07/25/18 20:05 Completed COMPREHENSIVE METABOLIC PANEL Stat LAB 07/25/18 20:05 Completed CREATINE KINASE Stat LAB 07/25/18 20:05 Completed TROPONIN I Stat LAB 07/25/18 20:05 Completed Vital Signs: Temp Pulse Resp BP Pulse Ox 07/25/18 19:37 97.7 F 83 16 114/72 95 ROSA ELENA Risk Score Age >/= 65: No >/= 3 CAD Risk Factors: No Known CAD (Stenosis >/= 50%): No ASA Use in Past 7 Days: No Severe Angina (>/= 2 episodes in 24 hours): No EKG ST Changes >/= 0.5mm: No Postive Cardiac Marker: No ROSA ELENA Total Score: 0 ROSA ELENA Risk Score: Risk Score Odds of by 30D 0 0.1 (0.1-0.2) 1 0.3 (0.2-0.3) 2 0.4 (0.3-0.5) 3 0.7 (0.6-0.9) 4 1.2 (1.0-1.5) 5 2.2 (1.9-2.6) 6 3.0 (2.5-3.6) 7 4.8 (3.8-6.1) Departure - Departure Time of Disposition: 20:43 Disposition: HOME SELF-CARE Discharge Problem: Generalized weakness, PVCs (premature ventricular contractions) Instructions: Premature Ventricular Contractions (ED) Condition: Stable Pt referred to PMD for follow-up: Yes IPMP verified?: No Additional Instructions: Follow up with PCP in 1-2 days Avoid Caffeine Allergies/Adverse Reactions: Allergies No Known Allergies Allergy (Verified 07/25/18 19:45) Home Medications: Ambulatory Orders Buspirone HCl 10 mg PO BID PRN 06/05/18 Clozapine 100 mg PO 0800,1500 06/05/18 Clozapine 200 mg PO BEDTIME 06/05/18 Lisinopril [Zestril] 5 mg PO DAILY 06/05/18 Magnesium Hydroxide [Milk of Magnesia] 30 ml PO DAILY PRN 06/05/18 Spironolactone 25 mg PO DAILY 06/05/18 Venlafaxine HCl [Effexor] 75 mg PO BID 06/05/18 Ferrous Sulfate [Iron] 325 mg PO DAILY 06/07/18 Budesonide/Formoterol Fumarate [Symbicort 80-4.5 Mcg Inhaler] 1 puff IH BID 03/20 Levothyroxine Sodium 50 mcg PO QDAC 07/08/18
== END 2018-07-25 20:56 | disposition home or self-care (01) ==
LOC: ED 19:36
DX: R53.1 Weakness (principal); I49.3 Ventricular premature depolarization; E78.5 Hyperlipidemia, unspecified; I10 Essential (primary) hypertension; F17.210 Nicotine dependence, cigarettes, uncomplicated; Z79.899 Other long term (current) drug therapy; R00.2 Palpitations
CPT/HCPCS: 36415; 80053; 82550; 84484; 85025; 93005; 93010; 99283

== ENCOUNTER 2018-07-29 10:54 | Outpatient (CLI) | END 2018-07-29 10:55 | disposition home or self-care (01) | LOC: LAB 10:54 | PROVIDERS: ATTEND Psychiatry & Neurology Psychiatry | DX: F25.1 Schizoaffective disorder, depressive type (principal) | CPT/HCPCS: 36415; 85025 ==

== ENCOUNTER 2018-08-17 16:39 | Emergency (ER) | payer OTHER ==
[2018-08-17 16:51] VITALS: BP 119/71; TEMP 98.4; BMI 31.0
--- NOTE | 2018-08-17 17:52 | ED.PDOC ---
General ED Provider: Dr. SHERRIE HANKS Chief Complaint: Non-specific Complaint Stated Complaint: chronic dizziness Time Seen by Physician: 15:45 (seen with GERDA AT ALL TIMES ) Mode of Arrival: Walk-In Information Source: Patient Exam Limitations: No limitations (NO CHANGES TO HIS DIZZINESS ON ARRIVAL NO DEFICITS NOTED ) Primary Care Provider: MARCUS CERDA Nursing and Triage Documentation Reviewed and Agree: Yes Does patient meet sepsis criteria?: No System Inflammatory Response Syndrome: Not Applicable Sepsis Protocol: For patient's 13 years and over: Temp is 96.8 and below OR 101 and greater Pulse >90 BPM Resp >20/minute Acutely Altered Mental Status Are patient's symptoms suggestive of a new infection, such as: -Pneumonia -Skin, Soft Tissue -Endocarditis -UTI -Bone, Joint Infection -Implantable Device -Acute Abdominal Infection -Wound Infection -Meningitis -Blood Stream Catheter Infection -Unknown Neurological Complaint Exam - Dizziness Complaint/Exam Onset: Gradual Duration: WEEKS Symptoms Are: Still present Timing: Intermittent Episodes Lasting: Minutes Initial Severity: Mild Current Severity: None Character: Reports: Dizzy Aggravating: Reports: None Alleviating: Reports: None Associated Signs and Symptoms: Denies: Nausea, Vomiting, Diaphoresis, Tinnitus, Chest pain, Short of air, Palpitations, Unsteady gait, GI blood loss, Visual changes, Decreased oral intake, Change in medication, Change in diet, OTC meds, Loss of balance Related History: Similar episode Cardiac Risk Factors: Reports: Hypertension, Elevated lipids CVA Risk Factors: Reports: Hypertension Related Surgical History: Reports: None JVD Present: No Carotid Bruit Present: No Rectal Heme Positive: No Nystagmus Present: Yes Gag Reflex Present: No Meningeal Signs Positive: No Focal Weakness: Present: None Focal Sensory Loss: Present: None Gait: Normal Romberg Test Positive: No Babinski Sign: Negative Right, Negative Left Heel to Toe Normal: No Chris-Hallpike Test Positive: No Differential Diagnoses: Dysrhythmia, Hypovolemia, Metabolic abnormalities, Vasovagal reaction Quality Indicators for Cardiac Chest Pain: EKG in 10min. Quality Indicators for AMI: EKG in 10min. Quality Indicator For Non-Traumatic Chest Pain/Syncope: EKG Performed Review of Systems - Review Of Systems Constitutional: Reports: No symptoms Eyes: Reports: No symptoms Ears, Nose, Mouth, Throat: Reports: No symptoms Respiratory: Reports: No symptoms Cardiac: Reports: No symptoms GI: Reports: No symptoms : Reports: No symptoms Musculoskeletal: Reports: No symptoms Skin: Reports: No symptoms Neurological: Reports: Other (DIZZINESS) Endocrine: Reports: No symptoms Hematologic/Lymphatic: Reports: No symptoms All Other Systems: Reviewed and Negative Past Medical History - Past Medical History Previously Healthy: Yes Endocrine: Reports: Dyslipidemia Cardiovascular: Reports: Hypertension Respiratory: Reports: None Hematological: Reports: None Gastrointestinal: Reports: None Genitourinary: Reports: None Neuro/Psych: Reports: None Musculoskeletal: Reports: None Cancer: Reports: None - Surgical History General Surgical History: Reports: None - Family History Family History: Reports: None - Social History Smoking Status: Current every day smoker, Heavy tobacco smoker Hx Substance Use: Yes (24 YEARS AGO ALCOHOL,) Alcohol Screening: None Physical Exam - Physical Exam Appearance: Well-appearing, No pain distress, Well-nourished Eyes: LACY, EOMI, Conjunctiva clear ENT: Ears normal, Nose normal, Oropharynx normal Respiratory: Airway patent, Breath sounds clear, Breath sounds equal, Respirations nonlabored Cardiovascular: RRR, Pulses normal, No rub, No murmur GI/: Soft, Nontender, No masses, Bowel sounds normal, No Organomegaly Musculoskeletal: Normal strength, ROM intact, No edema, No calf tenderness Skin: Warm, Dry, Normal color Neurological: Sensation intact, Motor intact, Reflexes intact, Cranial nerves intact, Alert, Oriented Psychiatric: Affect appropriate, Mood appropriate Interpretation - Test Rider Rate: Normal Rhythm: Sinus Ectopy: None - EKG Interpretation Rate: Normal Rhythm: Sinus Ectopy: None [place]: NL ST Segment: Normal Re-Evaluation - Re-Evaluation Time of Re-Evaluation: 17:00 Status: Improved Vital Signs Stable: Yes Pain Level: 0 Appearance: NAD Lungs: Clear Skin: Warm and Dry Neuro: Alert and Oriented X3 CV: RRR - Re-Evaluation Time of Re-Evaluation: 17:52 Vital Signs Stable: Yes Pain Level: 0 Appearance: NAD Skin: Warm and Dry Neuro: Alert and Oriented X3 CV: RRR Physician Notification - Case Discussed Physician Notified: PMD Time of Notification: 17:53 (PT MAY GO HOME) Critical Care Note - Critical Care Note Total Time (mins): 0 Course - Course Hematology/Chemistry: 08/17/18 17:12 08/17/18 17:12 Orders, Labs, Meds: Lab Review 08/17/18 08/17/18 17:12 17:12 WBC 8.75 RBC 4.50 L Hgb 14.7 Hct 40.6 L MCV 90.2 MCH 32.7 H MCHC 36.2 H RDW Coeff of Yonathan 12.3 Plt Count 268 Immature Gran % (Auto) 0.3 Neut % (Auto) 64.2 Lymph % (Auto) 25.3 [place] % (Auto) 8.8 Eos % (Auto) 0.7 Baso % (Auto) 0.7 Immature Gran # (Auto) 0.0 Neut # (Auto) 5.6 Lymph # (Auto) 2.2 [place] # (Auto) 0.8 Eos # (Auto) 0.1 Baso # (Auto) 0.1 Sodium 129.8 L Potassium 3.83 Chloride 94.7 L Carbon Dioxide 29.1 Anion Gap 9.83 BUN 9.5 Creatinine 0.69 Estimated GFR (MDRD) 120.00 BUN/Creatinine Ratio 13.76 Glucose 160.6 H Calcium 9.53 Total Bilirubin 0.39 AST 26.0 ALT 19.7 Alkaline Phosphatase 63.2 Total Protein 6.61 Albumin 4.39 Globulin 2.22 Albumin/Globulin Ratio 1.97 Orders Category Date Time Status EKG-(ED ONLY) Stat CARDIO 08/17/18 16:55 Completed CBC W/ AUTO DIFF Stat LAB 08/17/18 17:12 Completed COMPREHENSIVE METABOLIC PANEL Stat LAB 08/17/18 17:12 Completed Vital Signs: Temp Pulse Resp BP Pulse Ox 08/17/18 16:40 98.4 F 85 20 119/71 97 Departure - Departure Time of Disposition: 17:53 Disposition: HOME SELF-CARE Discharge Problem: Dizziness Instructions: Dizziness (ED), Vertigo (ED) Condition: Good Pt referred to PMD for follow-up: Yes IPMP verified?: No Allergies/Adverse Reactions: Allergies No Known Allergies Allergy (Verified 08/17/18 16:46) Home Medications: Ambulatory Orders Buspirone HCl 10 mg PO BID PRN 06/05/18 Clozapine 100 mg PO 0800,1500 06/05/18 Clozapine 200 mg PO BEDTIME 06/05/18 Lisinopril [Zestril] 5 mg PO DAILY 06/05/18 Magnesium Hydroxide [Milk of Magnesia] 30 ml PO DAILY PRN 06/05/18 Spironolactone 25 mg PO DAILY 06/05/18 Venlafaxine HCl [Effexor] 75 mg PO BID 06/05/18 Ferrous Sulfate [Iron] 325 mg PO DAILY 06/07/18 Budesonide/Formoterol Fumarate [Symbicort 80-4.5 Mcg Inhaler] 1 puff IH BID 03/20 Levothyroxine Sodium 50 mcg PO QDAC 07/08/18
== END 2018-08-17 18:01 | disposition home or self-care (01) ==
LOC: ED 16:39
DX: R42 Dizziness and giddiness (principal); I10 Essential (primary) hypertension; E78.5 Hyperlipidemia, unspecified; F17.210 Nicotine dependence, cigarettes, uncomplicated; Z79.899 Other long term (current) drug therapy
CPT/HCPCS: 36415; 80053; 85025; 93005; 93010; 99282

== ENCOUNTER 2018-08-31 13:13 | Outpatient (CLI) | payer OTHER | END 2018-08-31 13:14 | disposition home or self-care (01) | LOC: LAB 13:13 | PROVIDERS: ATTEND Psychiatry & Neurology Psychiatry | DX: F25.1 Schizoaffective disorder, depressive type (principal) | CPT/HCPCS: 36415; 85025 ==

== ENCOUNTER 2018-09-07 11:08 | Inpatient (IN) | payer OTHER ==
[2018-09-07 11:46] VITALS: BMI 30.2
[2018-09-07] MEDS ORDERED: NITROSTAT SL PRN (11:48)
[2018-09-07] MEDS ORDERED: VISTARIL INJ IM PRN (11:48)
[2018-09-07] MEDS ORDERED: TYLENOL PO PRN (11:48)
[2018-09-07] MEDS ORDERED: MORPHINE 4 MG/ML VIAL IVP PRN (11:48)
[2018-09-07] MEDS ORDERED: ATROPINE SULFATE PFS IVP PRN (11:48)
--- NOTE | 2018-09-07 12:33 | DI ---
EXAM: Chest two views HISTORY: Shortness of air COMPARISON: 12/05/2008 TECHNIQUE: Two views of the chest were performed FINDINGS: The lungs are clear. There is no pleural effusion or pneumothorax. The heart is normal i n size. The mediastinal contour is normal. There are no acute abnormalities of the bones. IMPRESSION: No acute cardiopulmonary process.
[2018-09-07] MEDS ORDERED: MILK OF MAGNESIA PO PRN (12:43)
[2018-09-07] MEDS: CLOZAPINE 100 MG PO SCH (15:48)
[2018-09-07] MEDS: SYMBICORT 80-4.5 MCG INHALER IH SCH ×2 (20:29→20:37)
[2018-09-07] MEDS: BUSPAR PO SCH (20:30)
[2018-09-07] MEDS: CLOZAPINE 200 MG PO SCH (20:30)
[2018-09-07] MEDS: NON-FORMULARY MEDICATION (Venlafaxine Hcl 75 MG) PO SCH (20:31)
[2018-09-08] MEDS: SYNTHROID PO SCH (05:47)
[2018-09-08] MEDS ORDERED: NON-FORMULARY MEDICATION (Ferrous Sulfate [Iron] 325 MG) PO SCH (09:00)
[2018-09-08] MEDS: BUSPAR PO SCH ×2 (10:07→20:55)
[2018-09-08] MEDS: ALDACTONE PO SCH (10:07)
[2018-09-08] MEDS: ASPIRIN EC PO SCH (10:07)
[2018-09-08] MEDS: ZESTRIL PO SCH (10:08)
[2018-09-08] MEDS: PRAVACHOL PO SCH (10:08)
[2018-09-08] MEDS: TRIGLIDE PO SCH (10:08)
[2018-09-08] MEDS: FERROUS SULFATE PO SCH (10:08)
[2018-09-08] MEDS: CLOZAPINE 100 MG PO SCH ×2 (10:09→15:52)
[2018-09-08] MEDS: NON-FORMULARY MEDICATION (Venlafaxine Hcl 75 MG) PO SCH ×2 (10:10→20:56)
[2018-09-08] MEDS: SYMBICORT 80-4.5 MCG INHALER IH SCH ×2 (10:11→21:02)
--- NOTE | 2018-09-08 13:20 | PCM.PROG ---
Attending Provider: ATTENDING PROVIDER: Dr. MARCUS CERDA DATE OF SERVICE: 09/08/18 SUBJECTIVE: This 52 year old WHITE/ M was hospitalized 09/07/18. The patient has been up and about. Cardiac markers all negative. REVIEW OF SYSTEMS: CONSTITUTIONAL: No night sweats. No fatigue, malaise, lethargy. No fever or chills. HEENT: Eyes: No visual changes. No eye pain. No eye discharge. ENT: No runny nose. No epistaxis. No sinus pain. No odynophagia. No congestion. RESPIRATORY: No cough, no congestion. No hemoptysis. No shortness of breath. CARDIOVASCULAR: No angina symptoms. No CHF symptoms. No atypical chest pain for CAD. No palpitations. No orthopnea.. GASTROINTESTINAL: No abdominal pain. No nausea or vomiting. No diarrhea or constipation. No hematemesis. No hematochezia. GENITOURINARY: No urgency. No frequency. No dysuria. No hematuria. No obstructive symptoms. No discharge. No pain. No significant abnormal bleeding. MUSCULOSKELETAL: No musculoskeletal pain; no joint swelling. NEUROLOGICAL: Awake, alert, oriented to time, place and person. No headache. No neck pain. No syncope. No seizures. No dizziness. PSYCHIATRIC: Not anxious. No depression. No suicidal thoughts. No homicidal thoughts. SKIN: No rash. No lesions. No wounds. ENDOCRINE: No unexplained weight loss. No weight gain. HEMATOLOGIC/LYMPHATIC: No anemia. No purpura. No petechiae. No prolonged or excessive bleeding. No palpable lymph nodes. PHYSICAL EXAMINATION: GENERAL: The patient is awake, alert and oriented, lying in bed in no distress. VITAL SIGNS: Temperature 97.6 F, Pulse 75, Respiratory Rate 18, BP 111/73, Pulse Ox 99% HEENT: Head normocephalic, atraumatic. Eyes: Extraocular muscles are intact. Pupils are equal, round and reactive to light and accommodation. Ears: No lesions. Nose appeared normal. Throat: No exudate or erythema. NECK: Supple. No JVD, no carotid bruit. No lymphadenopathy or thyromegaly. LUNGS: Clear to auscultation. Percussion note normal. Chest symmetrical. HEART: S1, S2, no S3. No murmurs. No cyanosis or clubbing. No ascites. Pulses: Dorsalis pedis and posterior tibial pulses +1 to +2 both sides. ABDOMEN: Soft. Non-tender. Bowel sounds active. No CVA tenderness. No mass felt. EXTREMITIES: No edema. Full range of motion of all extremities, equal. NEUROLOGIC: No focal deficit. Cranial nerves II through XII are grossly intact. No headache, no double vision or headache. SKIN: Warm and dry. Intact. Turgor-normal. LYMPHATIC: No palpable lymph nodes/no lymphedema. MUSCULOSKELETAL: Normal joints with no swelling. Muscle tone is normal. LAB REVIEW: 09/08/18 04:30 09/08/18 04:30 09/08/18 04:30: Sodium 133.0 L, Potassium 4.15, Chloride 97.1 L, Carbon Dioxide 31.0 H, Anion Gap 9.05, BUN 10.0, Creatinine 0.85, Estimated GFR (MDRD) 94.00, BUN/Creatinine Ratio 11.76, Glucose 109.4 H, Calcium 8.96, Total Bilirubin 0.28 , AST 19.2, ALT 15.1, Alkaline Phosphatase 64.3, Total Protein 6.54, Albumin 4.13, Globulin 2.41, Albumin/Globulin Ratio 1.71 09/08/18 04:30: WBC 10.11, RBC 4.32 L, Hgb 13.9 L, Hct 39.7 L, MCV 91.9, MCH 32.2 H, MCHC 35.0, RDW Coeff of Yonathan 12.1, Plt Count 266, Immature Gran % (Auto) 0.3, Neut % (Auto) 58.7, Lymph % (Auto) 28.4, [place] % (Auto) 10.5 H, Eos % (Auto ) 1.5, Baso % (Auto) 0.6, Immature Gran # (Auto) 0.0, Neut # (Auto) 5.9, Lymph # (Auto) 2.9, [place] # (Auto) 1.1, Eos # (Auto) 0.2, Baso # (Auto) 0.1 09/07/18 19:55: Total Creatine Kinase 45.4 L, Troponin I < 0.012 09/07/18 13:24: Urine Color Light, Urine Clarity Clear, Urine pH 7.0, Ur Specific [place] 1.015, Urine Protein Negative, Urine Glucose (UA) Negative, Urine Ketones Negative, Urine Blood Negative, Urine Nitrite Negative, Urine Bilirubin Negative, Urine Urobilinogen 0.2, Ur Leukocyte Esterase Negative 09/07/18 12:08: Sodium 131.9 L, Potassium 4.18, Chloride 96.5 L, Carbon Dioxide 27.4, Anion Gap 12.18, BUN 9.9, Creatinine 0.72, Estimated GFR (MDRD) 114.00, BUN/Creatinine Ratio 13.75, Glucose 105.7, Calcium 9.80, Total Bilirubin 0.36, AST 18.6, ALT 15.5, Alkaline Phosphatase 62.8, Total Creatine Kinase 42.4 L, Troponin I < 0.012, NT-Pro-B Natriuret Pep 70.600, Total Protein 6.95, Albumin 4.44, Globulin 2.51, Albumin/Globulin Ratio 1.76, Triglycerides 213.8 H, Cholesterol 203.0 H, LDL Cholesterol, Calc 116, VLDL Cholesterol 43 H, HDL Cholesterol 44.7, Cholesterol/HDL Ratio 4.5, TSH 3.570 09/07/18 12:08: WBC 7.92, RBC 4.41 L, Hgb 14.5, Hct 39.8 L, MCV 90.2, MCH 32.9 H , MCHC 36.4 H, RDW Coeff of Yonathan 12.1, Plt Count 280, Immature Gran % (Auto) 0.3 , Neut % (Auto) 60.1, Lymph % (Auto) 28.7, [place] % (Auto) 9.3, Eos % (Auto) 1.1, Baso % (Auto) 0.5, Immature Gran # (Auto) 0.0, Neut # (Auto) 4.8, Lymph # (Auto ) 2.3, [place] # (Auto) 0.7, Eos # (Auto) 0.1, Baso # (Auto) 0.0 09/07/18 12:08: Thyroxine (T4) 8.9 09/07/18 11:48: Puncture Site Lrad, O2 Saturation 96.0, ABG pH 7.465 H, ABG pCO2 35.5, ABG pO2 77.0 L, ABG HCO3 25.5, ABG Total CO2 27, ABG Base Excess 2, Edilberto Test +, FiO2 % 21.0 ASSESSMENT: 1. Palpitations/chest pain. Nothing significant found. No acute events. No tachy arrhythmias or severe cynthia arrhythmia. PLAN: 1. Stress Thallium in the morning. 2. Echocardiogram was done a couple of months ago. Catheterization report from [facility] done 09/24/[address] Deng is under review by Dr. Cerda. Plan and coordination of the patient's care discussed in the presence of Marketing Services Manager and nurse. CONDITION: Stable SCRIBED BY: TALON NESS, Humidifier Operator scribed while in presence of service performed by Dr. MARCUS CERDA on 09/08/18 ([id number])
[2018-09-08] MEDS: CLOZAPINE 200 MG PO SCH (20:56)
[2018-09-09] MEDS: SYNTHROID PO SCH (06:03)
[2018-09-09] MEDS: CLOZAPINE 100 MG PO SCH ×2 (08:44→16:48)
[2018-09-09] MEDS: ASPIRIN EC PO SCH (08:44)
[2018-09-09] MEDS: PRAVACHOL PO SCH (08:45)
[2018-09-09] MEDS: BUSPAR PO SCH ×2 (08:45→20:25)
[2018-09-09] MEDS: FERROUS SULFATE PO SCH (08:45)
[2018-09-09] MEDS: ALDACTONE PO SCH (08:45)
[2018-09-09] MEDS: TRIGLIDE PO SCH (08:45)
[2018-09-09] MEDS: ZESTRIL PO SCH (08:45)
[2018-09-09] MEDS: SYMBICORT 80-4.5 MCG INHALER IH SCH ×3 (08:46→20:27)
[2018-09-09] MEDS: NON-FORMULARY MEDICATION (Venlafaxine Hcl 75 MG) PO SCH ×2 (08:46→20:26)
[2018-09-09] MEDS: COREG PO SCH ×2 (08:54→16:47)
--- NOTE | 2018-09-09 11:37 | HOLTER ---
PATIENT INFORMATION AND COMMENTS Attending Physician: DR. MARCUS CERDA Indications: PALPITATIONS __ Patient Medications: ASA __ Pre-procedure Summary: Protocol: Standard Heart Rate Started: 09/07/18 1308 Minimum: 67 BPM Weight: 213 LBS Ended: 09/08/18 1234 Maximum: 122 BPM Height: 70" Duration: 23 HRS 26 MIN Average: 89 BPM _ INTERPRETATIONS/OBSERVATIONS: 1. BASIC RHYTHM: SINUS, RATE 65 BPM TO 120 BPM, AVERAGE 90 BPM 2. PVC'S FREQUENT (15% OF BEATS SCANNED) LESS FREQUENT EARLY A.M. HOURS--NO V- TACH 3. FEW PAC'S 4. NO ST-T WAVE CHANGES FROM BASELINE 5. ACTIVITY LOG NOT MAINTAINED MTDD
--- NOTE | 2018-09-09 11:44 | ECHOSTRESS ---
Date of Exam: 09/09/18 Ordering Physician: DR. MARCUS CERDA Reason for Echo: PALPITATIONS, CHEST PAIN, STRESS TEST--NO ISCHEMIA M-Mode Normal Adult Results LV Dimensions Normal Adult Results AoV Opening excursions >1.6 LVEDD-base- 3.5-5.8 Ao root dimensions 2.0-3.7 LVESD-base- 3.1-4.6 L. Atrium dimensions 1.9-3.8 Post. Wall thickness 0.8-1.1 IV septum (thickness) 0.7-1.2 Post. Wall excursion 0.72-1.3 Septal motion Systolic motion R. Ventricular cavity 1.5-2.0 LVEF 60% Paradoxical septal wall motion 2-D: HYPOKINETIC LEFT VENTRICLE AT REST AND IMPROVED LEFT VENTRICLE CONTRACTILITY WITH EXERCISE M-MODE: MV: AV: TV: PV: CHAMBER SIZE: WALL MOTION: HYPOKINETIC LEFT VENTRICLE AT REST AND IMPROVED LEFT VENTRICLE CONTRACTILITY WITH EXERCISE PERICARDIUM: INTERPRETATION: 1. HYPOKINETIC LEFT VENTRICLE AT REST AND IMPROVED LEFT VENTRICLE CONTRACTILITY WITH EXERCISE MTDD
--- NOTE | 2018-09-09 11:53 | STRESSMOD ---
Date of Test: 09/08/18 Ordering Physician: DR. MARCUS CERDA Occupation: DISABLED Reason for Exam: PALPITATIONS, CHEST PAIN Smoking History: 2 PK/DAY Height: 70 " Weight: 213 LBS Current Medications: ASA Resting EKG: SINUS RHYTHM/ NO ACUTE CHANGES Target Heart Rate: 141/167 S-T SEGMENT STAGE MPH/GRADE HEART RATE BPM BLOOD PRESSURE mmhg RHYTHM +/- ELEVATION DEPRESSION SYMPTOMS At Rest 65 BPM 116/68 MMHG SR X NONE 1 1.7/0% 123 BPM 128/80 MMHG SR X NONE 2 1.7/5% 3 1.7/10% 4 2.5/12% 5 3.4/14% Immediately After 130 BPM SR X SOA Minutes Post Exercise 5:00 92 BPM 132/70 MMHG SR X NONE Minutes Post Exercise DURATION OF EXERCISE: 4:06 MAXIMUM HEART RATE REACHED: 130 BPM REASON FOR TERMINATION: SHORT OF BREATH 97% OXYGEN SATURATION WITH EXERCISE ON ROOM AIR METS 3.5 INTERPRETATION: 1. NO EVIDENCE OF ISCHEMIA BY ST-T WAVE FROM HEART RATE 65 BPM TO 130 BPM WITH EXERCISE 2. FEW PVC'S UNIFOCAL --PVC'S QUADRIGEMINY NOTED AT REST, LESS FREQUENT PVC'S WITH EXERCISE 3. NO CHEST PAIN OR DISCOMFORT 4. BLOOD PRESSURE RESPONSE: NORMAL HYPOKINETIC LEFT VENTRICLE AT REST AND IMPROVED LEFT VENTRICULAR CONTRACTILITY WITH EXERCISE MTDD
[2018-09-09] MEDS: CLOZAPINE 200 MG PO SCH (20:25)
[2018-09-09 22:16] VITALS: TEMP 97.7
[2018-09-10] MEDS: SYNTHROID PO SCH (05:51)
[2018-09-10 05:55] VITALS: BP 110/68
[2018-09-10] MEDS: CLOZAPINE 100 MG PO SCH (08:57)
[2018-09-10] MEDS: NON-FORMULARY MEDICATION (Venlafaxine Hcl 75 MG) PO SCH (08:58)
[2018-09-10] MEDS: ASPIRIN EC PO SCH (08:59)
[2018-09-10] MEDS: ALDACTONE PO SCH (08:59)
[2018-09-10] MEDS: FERROUS SULFATE PO SCH (08:59)
[2018-09-10] MEDS: TRIGLIDE PO SCH (08:59)
[2018-09-10] MEDS: ZESTRIL PO SCH (08:59)
[2018-09-10] MEDS: BUSPAR PO SCH (08:59)
[2018-09-10] MEDS: COREG PO SCH (08:59)
[2018-09-10] MEDS: PRAVACHOL PO SCH (08:59)
[2018-09-10] MEDS: SYMBICORT 80-4.5 MCG INHALER IH SCH (09:00)
--- NOTE | 2018-09-10 09:02 | PCM.PROG ---
Attending Provider: ATTENDING PROVIDER: Dr. MARCUS CERDA DATE OF SERVICE: 09/10/18 SUBJECTIVE: This 52 year old WHITE/ M was hospitalized 09/07/18 with palpitation and shortness of breath and feeling of fluttering. Cardiac workup negative for ischemia. He had cardiac catheterization in [address] Deng with non occlusive coronary artery disease. REVIEW OF SYSTEMS: CONSTITUTIONAL: No night sweats. No fatigue, malaise, lethargy. No fever or chills. HEENT: Eyes: No visual changes. No eye pain. No eye discharge. ENT: No runny nose. No epistaxis. No sinus pain. No odynophagia. No congestion. RESPIRATORY: No cough, no congestion. No hemoptysis. No shortness of breath. CARDIOVASCULAR: No angina symptoms. No CHF symptoms. No atypical chest pain for CAD. No palpitations. No orthopnea.. GASTROINTESTINAL: No abdominal pain. No nausea or vomiting. No diarrhea or constipation. No hematemesis. No hematochezia. GENITOURINARY: No urgency. No frequency. No dysuria. No hematuria. No obstructive symptoms. No discharge. No pain. No significant abnormal bleeding. MUSCULOSKELETAL: No musculoskeletal pain; no joint swelling. NEUROLOGICAL: Awake, alert, oriented to time, place and person. No headache. No neck pain. No syncope. No seizures. No dizziness. PSYCHIATRIC: Not anxious. No depression. No suicidal thoughts. No homicidal thoughts. SKIN: No rash. No lesions. No wounds. ENDOCRINE: No unexplained weight loss. No weight gain. HEMATOLOGIC/LYMPHATIC: No anemia. No purpura. No petechiae. No prolonged or excessive bleeding. No palpable lymph nodes. PHYSICAL EXAMINATION: GENERAL: The patient is awake, alert and oriented, lying in bed in no distress. VITAL SIGNS: Temperature 97.7 F, Pulse 78, Respiratory Rate 18, BP 110/68, Pulse Ox 98% HEENT: Head normocephalic, atraumatic. Eyes: Extraocular muscles are intact. Pupils are equal, round and reactive to light and accommodation. Ears: No lesions. Nose appeared normal. Throat: No exudate or erythema. NECK: Supple. No JVD, no carotid bruit. No lymphadenopathy or thyromegaly. LUNGS: Clear to auscultation. Percussion note normal. Chest symmetrical. HEART: S1, S2, no S3. No murmurs. No cyanosis or clubbing. No ascites. Pulses: Dorsalis pedis and posterior tibial pulses +1 to +2 both sides. ABDOMEN: Soft. Non-tender. Bowel sounds active. No CVA tenderness. No mass felt. EXTREMITIES: No edema. Full range of motion of all extremities, equal. NEUROLOGIC: No focal deficit. Cranial nerves II through XII are grossly intact. No headache, no double vision or headache. SKIN: Warm and dry. Intact. Turgor-normal. LYMPHATIC: No palpable lymph nodes/no lymphedema. MUSCULOSKELETAL: Normal joints with no swelling. Muscle tone is normal. LAB REVIEW: 09/10/18 04:50 09/10/18 04:50 09/10/18 04:50: Sodium 133.6 L, Potassium 4.52, Chloride 96.1 L, Carbon Dioxide 32.7 H, Anion Gap 9.32, BUN 9.6, Creatinine 0.79, Estimated GFR (MDRD) 103.00, BUN/Creatinine Ratio 12.15, Glucose 112.0 H, Calcium 9.01, Total Bilirubin 0.35 , AST 31.0, ALT 16.7, Alkaline Phosphatase 59.3, Total Protein 6.55, Albumin 4.09, Globulin 2.46, Albumin/Globulin Ratio 1.66 09/10/18 04:50: WBC 7.89, RBC 4.32 L, Hgb 14.0, Hct 40.1 L, MCV 92.8, MCH 32.4 H , MCHC 34.9, RDW Coeff of Yonathan 12.0, Plt Count 252, Immature Gran % (Auto) 0.4, Neut % (Auto) 54.3, Lymph % (Auto) 33.1, [place] % (Auto) 9.8, Eos % (Auto) 1.8, Baso % (Auto) 0.6, Immature Gran # (Auto) 0.0, Neut # (Auto) 4.3, Lymph # (Auto ) 2.6, [place] # (Auto) 0.8, Eos # (Auto) 0.1, Baso # (Auto) 0.1 ASSESSMENT/PLAN: 1. Cardiovascular status is stable. PVCs frequent (15% of the beats scanned) few isolated couplets. The patient is on Coreg 6.25 mg twice a day for that. 2. Counseling for smoking done. Advised to quit smoking. 3. D/C home. 4. Encouraged to walk. Plan and coordination of the patient's care discussed in the presence of Setter Machine and nurse. CONDITION: Stable SCRIBED BY: TALON NESS State Epidemiologist scribed while in presence of service performed by Dr. MARCUS CERDA on 09/10/18 ([id number])
--- NOTE | 2018-09-10 10:10 | CM.DICTOOL ---
ADMISSION: 09/07/18 11:08 DISCHARGE: 09/10/18 DATE OF SERVICE: 09/10/18 FINAL DIAGNOSIS CARDIAC DYSRHYTHMIA (PVC'S) HEART PALPITATIONS SHORTNESS OF BREATH CHF DYSLIPIDEMIA HYPERTENSION DILATED CARDIOMYOPATHY BY HISTORY COPD HYPOTHYROIDISM SCHIZOPHRENIA ANXIETY/DEPRESSION HEART CATH, 09/[address] MORA NON-OCCLUSIVE CAD LAST PFT AT [facility], 06/07/18 MILD COPD/RESTRICTIVE LUNG DISEASE HEAVY SMOKER ETOH (NONE FOR 24 YEARS) LAST VITALS Temp Pulse Resp BP Pulse Ox 97.7 F 78 18 110/68 98 09/10/18 05:54 09/10/18 05:54 09/10/18 05:54 09/10/18 05:54 09/10/18 05:54 TAKE THESE MEDICATIONS AT HOME Aspirin (Aspirin Ec) 81 mg PO DAILYWM [facility] Last Admin: 09/09/18 08:44 Dose: 81 mg Budesonide/Formoterol Fumarate (Symbicort 80-4.5 Mcg Inhaler) 2 puff IH BID [facility] Last Admin: 09/09/18 20:27 Dose: Not Given Buspirone HCl (Buspar) 10 mg PO BID [facility] Last Admin: 09/09/18 20:25 Dose: 10 mg Carvedilol (Coreg) 6.25 mg PO BIDWM [facility] Last Admin: 09/09/18 16:47 Dose: 6.25 mg Fenofibrate (Triglide) 160 mg PO DAILY [facility] Last Admin: 09/09/18 08:45 Dose: 160 mg Ferrous Sulfate (Ferrous Sulfate) 324 mg PO DAILY [facility] Last Admin: 09/09/18 08:45 Dose: 324 mg Levothyroxine Sodium (Synthroid) 50 mcg PO QDAC [facility] Last Admin: 09/10/18 05:51 Dose: 50 mcg Lisinopril (Zestril) 5 mg PO DAILY [facility] Last Admin: 09/09/18 08:45 Dose: 5 mg Magnesium Hydroxide (Milk Of Magnesia) 30 ml PO DAILY PRN PRN Reason: Constipation Last Admin: 09/09/18 18:10 Dose: 30 ml Clozapine [Clozapine] 100 mg PO 0800,1500 [facility] Last Admin: 09/09/18 16:48 Dose: 100 mg Clozapine [Clozapine] 200 mg PO BEDTIME [facility] Last Admin: 09/09/18 20:25 Dose: 200 mg Venlafaxine Hcl 75 mg PO BID [facility] Last Admin: 09/09/18 20:26 Dose: 75 mg Pravastatin Sodium (Pravachol) 40 mg PO DAILY [facility] Last Admin: 09/09/18 08:45 Dose: 40 mg Spironolactone (Aldactone) 25 mg PO DAILY [facility] Last Admin: 09/09/18 08:45 Dose: 25 mg ALLERGIES No Known Allergies Allergy (Verified 08/17/18 16:46) NEW PRESCRIPTIONS: COREG 6.25 MG, TAKE ONE TABLET BY MOUTH TWICE DAILY WITH MEALS ASPIRIN 81 MG, TAKE ONE TABLET BY MOUTH DAILY ([id number] MEDICATION) SMOKING: THE PATIENT IS A CURRENT EVERYDAY HEAVY SMOKER. HE HAS BEEN PROVIDED INFORMATION/TEACHING REGARDING THE ADDED RISKS THAT TOBACCO USE BRINGS TO HIS CARDIOPULMONARY HEALTH. HE HAS A GOOD KNOWLEDGE OF THE BENEFITS OF COMPLETE CESSATION. DESPITE THE TEACHING AND ENCOURAGEMENT, THE PATIENT CONTINUES TO SMOKE AND HAS NOT COMMITTED TO A CESSATION PLAN. WE WILL CONTINUE TO REINFORCE TEACHING AND ENCOURAGE COMPLETE CESSATION THROUGH HIS OFFICE VISITS. DISEASE SPECIFIC EDUCATION: HEART PALPITATIONS HOME MEDICATIONS NEW PRESCRIPTIONS FOLLOW UP LAB REVIEW: 09/10/18 04:50 09/10/18 04:50 09/10/18 04:50: Sodium 133.6 L, Potassium 4.52, Chloride 96.1 L, Carbon Dioxide 32.7 H, Anion Gap 9.32, BUN 9.6, Creatinine 0.79, Estimated GFR (MDRD) 103.00, BUN/Creatinine Ratio 12.15, Glucose 112.0 H, Calcium 9.01, Total Bilirubin 0.35 , AST 31.0, ALT 16.7, Alkaline Phosphatase 59.3, Total Protein 6.55, Albumin 4.09, Globulin 2.46, Albumin/Globulin Ratio 1.66 09/10/18 04:50: WBC 7.89, RBC 4.32 L, Hgb 14.0, Hct 40.1 L, MCV 92.8, MCH 32.4 H , MCHC 34.9, RDW Coeff of Yonathan 12.0, Plt Count 252, Immature Gran % (Auto) 0.4, Neut % (Auto) 54.3, Lymph % (Auto) 33.1, [place] % (Auto) 9.8, Eos % (Auto) 1.8, Baso % (Auto) 0.6, Immature Gran # (Auto) 0.0, Neut # (Auto) 4.3, Lymph # (Auto ) 2.6, [place] # (Auto) 0.8, Eos # (Auto) 0.1, Baso # (Auto) 0.1 PLAN: DISCHARGE HOME TODAY, 09/10/[address] CERDA IN HIS OFFICE ON 09/16/18 AT 9:15 A.M. RESUME YOUR HOME MEDICATIONS PER LIST PROVIDED BY THE NURSING STAFF NEW PRESCRIPTIONS CARVEDILOL (COREG) 6.25 MG, TAKE ONE TABLET BY MOUTH TWICE DAILY WITH MEALS ASPIRIN 81 MG, TAKE ONE TABLET BY MOUTH DAILY ([id number] MEDICATION) ACTIVITY GET PLENTY OF REST AT HOME. EXERCISE DAILY ACCORDING TO YOUR TOLERATION STOP SMOKING DIET HEALTHY HEART SUMMARY THE PATIENT IS ALERT AND ORIENTED X3. HE CURRENTLY RESIDES AT HOME ALONE. HE HAS BEEN INDEPENDENT WITH ADL'S AND REQUIRES NO DME, HOME HEALTH OR HOMEMAKING SERVICES. HE DESIRES TO RETURN HOME AT DISCHARGE. THE SKIN TURGOR IS INTACT AND WITHOUT DECUBITUS ULCERS. HYDRATION AND NUTRITIONAL STATUS ARE GOOD. THE PATIENT HAS NOT OFFERED FURTHER COMPLAINTS OF HAVING HEART PALPITATIONS OR ANY DISCOMFORT. HE HAS BEEN ABLE TO BE UP AND ABOUT IN THE HALLS. HE IS AWARE AND AGREEABLE FOR DISCHARGE TODAY. CURRENT CODE STATUS FULL CODE SHAWNEE AQUINO APRN MARCUS CERDA M.D.
--- NOTE | 2018-09-10 10:50 | DS ---
DATE OF SERVICE: 09/10/18 FINAL DIAGNOSIS: 1. CARDIAC DYSRHYTHMIA (PVC'S) 2. HEART PALPITATIONS 3. SHORTNESS OF BREATH 4. CHF 5. DYSLIPIDEMIA 6. HYPERTENSION 7. DILATED CARDIOMYOPATHY BY HISTORY 8. COPD 9. HYPOTHYROIDISM 10. SCHIZOPHRENIA 11. ANXIETY/DEPRESSION 12. HEART CATH 09/[address] MORA 13. NONOCCLUSIVE CAD 14. LEFT PFT AT [facility] 06/07/18 15. MILD COPD/RESTRICTIVE LUNG DISEASE 16. HEAVY SMOKER 17. ETOH (NONE FOR 24 YEARS) LAST VITALS: Temperature 97.7, pulse 78, respiratory rate 18, BP 110/68, pulse ox 98 DISCHARGE INSTRUCTIONS: Followup appointment with Dr. Ram in his office on 09/16/18 at 9:15 a.m. MEDICATIONS AT DISCHARGE: Aspirin 81 mg p.o. daily with meal [facility] Budesonide/Formoterol Fumarate (Symbicort 80-4.5 mcg inhaler) two puff IH b.i.d. [facility] Buspar 10 mg p.o. b.i.d. KIT Coreg 6.25 mg p.o. b.i.d. with meal [facility] Fenofibrate (Triglide) 160 mg p.o. daily [facility] Ferrous Sulfate 324 mg p.o. daily KIT Synthroid 50 mcg p.o. q.d a.c. KIT Zestril 5 mg p.o. daily [facility] Milk of Magnesia 30 mL p.o. daily p.r.n. Clozapine 100 mg p.o. 0800, 1500 KIT Clozapine 200 mg p.o. bedtime KIT Venlafaxine 75 mg p.o. b.i.d. [facility] Pravastatin (Pravachol) 40 mg p.o. daily KIT Spirolactone (Aldactone) 25 mg p.o. daily [facility] NEW PRESCRIPTIONS: Coreg 6.25 mg take one tablet by mouth twice daily with meals Aspirin 81 mg one tablet p.o. daily ([id number]) DIET INSTRUCTIONS: Healthy Heart ACTIVITY: Get plenty of rest at home. Exercise daily according to your toleration. SMOKING: Stop smoking. DISEASE SPECIFIC EDUCATION: Heart palpitations Home medications New prescriptions Follow up HOSPITAL COURSE: This 52 year old WHITE/ male was hospitalized with weakness, palpitations and shortness of breath. The patient's shortness of breath seems to be mostly related to sedentary lifestyle and chronic lung disease. Stress echo was negative for ischemia. Catheterization was done in 2016 showing non occlusive coronary artery disease. Holter Monitor showed PVCs - 15% of beats scanned with few PACs. The patient was started on Coreg. He was advised to continue the same medications as before. If PFT was not done in the past one year, we plan to do it before discharge. LAB REVIEW: 09/10/18 04:50: Sodium 133.6 L, Potassium 4.52, Chloride 96.1 L, Carbon Dioxide 32.7 H, Anion Gap 9.32, BUN 9.6, Creatinine 0.79, Estimated GFR (MDRD) 103.00, BUN/Creatinine Ratio 12.15, Glucose 112.0 H, Calcium 9.01, Total Bilirubin 0.35 , AST 31.0, ALT 16.7, Alkaline Phosphatase 59.3, Total Protein 6.55, Albumin 4.09, Globulin 2.46, Albumin/Globulin Ratio 1.66 09/10/18 04:50: WBC 7.89, RBC 4.32 L, Hgb 14.0, Hct 40.1 L, MCV 92.8, MCH 32.4 H , MCHC 34.9, RDW Coeff of Yonathan 12.0, Plt Count 252, Immature Gran % (Auto) 0.4, Neut % (Auto) 54.3, Lymph % (Auto) 33.1, [place] % (Auto) 9.8, Eos % (Auto) 1.8, Baso % (Auto) 0.6, Immature Gran # (Auto) 0.0, Neut # (Auto) 4.3, Lymph # (Auto ) 2.6, [place] # (Auto) 0.8, Eos # (Auto) 0.1, Baso # (Auto) 0.1 SCRIBED BY: TALON NESS, Front Desk Lead scribed while in the presence of service performed by Dr. Bautista Ram on 09/10/18 ([id number]). TIME SPENT: More than 60 minutes. [facility]
--- NOTE | 2018-09-10 10:54 | PN ---
CODING FOR BILLIN09/07/18 ADMISSION DAY - LEVEL 5 09/08/18 INTERMEDIATE 09/09/18 INTERMEDIATE 09/10/18 DISCHARGE MTDD
--- NOTE | 2018-09-10 13:39 | HP ---
DATE OF SERVICE: 09/07/18 HISTORY OF PRESENT ILLNESS: This 52-year-old White male presented very anxious. He feels like he is having palpitations for hours. He has lost 7 lbs. No signs or symptoms of CHF or CAD. PAST MEDICAL HISTORY: Hypertension Dyslipidemia Depression Anxiety Schizophrenia COPD Smoking PAST SURGICAL HISTORY: Heart catheterization 09/18, Dr. Deng. Left hydrocele. REVIEW OF SYSTEMS: CONSTITUTIONAL: Fatigue. No fever. HEENT: No sinus drainage, no sore throat. RESPIRATORY: No cough, no congestion. CARDIOVASCULAR: Palpitations and shortness of breath. No atypical chest pain for coronary artery disease. No angina, CHF symptoms, or shortness of breath. GASTROINTESTINAL: No melena or abdominal pain. No GERD. GENITOURINARY: No hematuria, no prostatism, no polyuria. SPICE BLENDER: No blackout, no dizziness, no headache, no double vision. MUSCULOSKELETAL: Osteoarthritis pain. ENDOCRINE: Weight loss of 7 lbs. SKIN: Not dry, no rash. PSYCHIATRIC: Anxious. No depression, no suicidal thoughts, no homicidal thoughts. SOCIAL HISTORY: Marital Status: Single. Lives alone. No children. Does not work. Alcohol Usage : None. Tobacco Usage: Yes. The patient has quit smoking. FAMILY HISTORY: Father is . Mother is . MEDICATIONS: Symbicort two puffs by INH two times a day morning and evening Fenofibrate 160 mg one p.o. with food once a day Lisinopril 5 mg one p.o. daily Pravastatin 40 mg p.o. once daily Spirolactone 25 mg p.o. once daily Clozapine 100 mg take 2 tablets p.o. four times per day BuSpar Venlafaxine 75 mg one p.o. with food four times per day Aspirin one daily ProAir HFA two puffs INH every 6 hours ALLERGIES: LIPITOR PHYSICAL EXAMINATION: V/S: Pulse 97, BP 120/80, 02 sat 98. Height 5'10", weight 223 lbs, BMI 32. GENERAL APPEARANCE: Oriented times three. HEENT: Normal. NECK: No JVP, no bruits. RESPIRATORY: Lungs are clear. CARDIOVASCULAR: Regular. S1, S2, no S3, no murmurs. No cyanosis, clubbing. No ascites. GI/ABDOMEN: No tenderness. Bowel sounds are active. EXTREMITIES: No edema, pulses +1, equal. SPICE BLENDER: Deep tendon reflexes, sensory, motor and gait all normal. RECTAL/PROSTATE: Colonoscopy 2009 refused repeat. ASSESSMENT: 1. INCREASED ANXIETY 2. PALPITATIONS/SHORTNESS OF BREATH 3. LEFT HYDROCELE 4. ANXIETY 5. RIGHT SPERMATOCELE 07/11 [facility] 06/20 6. HEART CATH 09/18 DR. DENG 7. COPD/PFT 03/20 8. [facility] 9. HISTORY OF HYPONATREMIA 10. SMOKING 11. DYSLIPIDEMIA 12. SCHIZOPHRENIA DR. WRIGHT 13. DEPRESSION 14. HISTORY OF DILATED CARDIOMYOPATHY PLAN: 1. Admit with routine telemetry orders. 2. Continue all medications 3. ABG/T4/TSH 4. BNP 5. Dobutamine Stress Echo Sestamibi 6. Holter monitor 7. Please get records from [facility] 2016 - Cath. 8. Echocardiogram. 9. Lipids. TIME SPENT: More than 70 minutes. MTDD
== END 2018-09-10 10:40 | disposition home or self-care (01) | DRG 310 ==
LOC: MEDSURG B 11:08
PROVIDERS: ADMIT Internal Medicine; ATTEND Internal Medicine
DX: R00.2 Palpitations (principal); R06.02 Shortness of breath; R07.9 Chest pain, unspecified; I50.9 Heart failure, unspecified; I10 Essential (primary) hypertension; I42.0 Dilated cardiomyopathy; E78.5 Hyperlipidemia, unspecified; E03.9 Hypothyroidism, unspecified; F20.9 Schizophrenia, unspecified; F41.8 Other specified anxiety disorders; J44.9 Chronic obstructive pulmonary disease, unspecified; Z72.0 Tobacco use
CPT/HCPCS: 36415; 80053; 80061; 81001; 82550; 82803; 83880; 84436; 84443; 84484; 85025; 93005; 93010; 93227

== ENCOUNTER 2018-11-18 12:09 | Outpatient (CLI) ==
[2018-10-02 20:17] VITALS: BMI 32.3
== END 2018-11-18 12:23 | disposition short-term general hospital (02) ==
LOC: AMBL 12:09
PROVIDERS: ATTEND Internal Medicine
DX: R30.0 Dysuria (principal)

== ENCOUNTER 2018-12-11 15:43 | Outpatient (CLI) | payer OTHER ==
[2018-10-02 20:17] VITALS: BMI 32.3
== END 2018-12-11 16:00 | disposition short-term general hospital (02) ==
LOC: AMBL 15:43
PROVIDERS: ATTEND Internal Medicine
DX: R05 Cough (principal); R07.9 Chest pain, unspecified

== ENCOUNTER 2018-12-14 14:55 | Outpatient (CLI) | payer OTHER ==
[2018-10-02 20:17] VITALS: BMI 32.3
== END 2018-12-14 15:10 | disposition short-term general hospital (02) ==
LOC: AMBL 14:55
PROVIDERS: ATTEND Internal Medicine
DX: R06.02 Shortness of breath (principal); N50.89 Other specified disorders of the male genital organs; R73.9 Hyperglycemia, unspecified

== ENCOUNTER 2018-12-17 16:08 | Emergency (ER) | payer OTHER ==
[2018-12-17 16:16] VITALS: BP 103/71; TEMP 96.2; BMI 31.4
--- NOTE | 2018-12-17 17:42 | ED.PDOC ---
General ED Provider: Dr. NELLIE KRAMER Chief Complaint: Shortness of Air Stated Complaint: States becomes SOB with exertion. Seems to occur 30-45 min after taking his psych med clozapine. Has been to [facility] multiple times in last week. Time Seen by Physician: 17:30 Mode of Arrival: Stretcher Information Source: Patient Primary Care Provider: MARCUS CERDA Seen Within Last 72 Hours for Same Complaint By: ED Nursing and Triage Documentation Reviewed and Agree: Yes Does patient meet sepsis criteria?: No System Inflammatory Response Syndrome: Not Applicable Sepsis Protocol: For patient's 13 years and over: Temp is 96.8 and below OR 101 and greater Pulse >90 BPM Resp >20/minute Acutely Altered Mental Status Are patient's symptoms suggestive of a new infection, such as: -Pneumonia -Skin, Soft Tissue -Endocarditis -UTI -Bone, Joint Infection -Implantable Device -Acute Abdominal Infection -Wound Infection -Meningitis -Blood Stream Catheter Infection -Unknown Respiratory Complaint Exam - Shortness of Air Complaint/Exam Symptoms Are: Resolved Timing: Intermittent Initial Severity: Mild Current Severity: None Character: Reports: Dyspnea on exertion Aggravating: Reports: Movement Alleviating: Reports: None Associated Signs and Symptoms: Denies: Cough, Wheezing, Chest pain with cough, Chest pain, Fever, Chills, Diaphoresis, Nasal congestion, Dizziness, Calf pain, Calf swelling, Edema, Rapid breathing, Labored breathing, Decreased intake Related History: Reports: Similar episode History of Healthcare-Acquired Pneumonia: No Pulmonary Embolism Risk Factors: Reports: None Cardiac Risk Factors: Reports: None Pseudomonas Risk Factors: Reports: None Tuberculosis Risk Factors: Reports: None Home Oxygen Use: No Recent Stress Test: No Recent Echo/LV Function: No Respiratory Distress: None Stridor Present: No Tracheal Deviation: No Subcutaneous Emphysema: No Accessory Muscle Use: No Retractions: Not Present Diminished Breath Sounds: No Prolonged Expiratory Phase: No Unable to Speak Full Sentences: No Fatigue: No Leg Swelling: No Sukhjinder's Sign Present: No Grunting Respirations: No Kussmaul Respirations: No Differential Diagnoses: COPD Exacerbation, Bronchospasm, Other (anxiety) Related Surgical History: Reports: None Review of Systems - Review Of Systems Constitutional: Reports: No symptoms Eyes: Reports: No symptoms Ears, Nose, Mouth, Throat: Reports: No symptoms Respiratory: Reports: Short of air Cardiac: Reports: No symptoms GI: Reports: No symptoms : Reports: No symptoms Musculoskeletal: Reports: No symptoms Skin: Reports: No symptoms Neurological: Reports: Anxiety Endocrine: Reports: No symptoms Hematologic/Lymphatic: Reports: No symptoms All Other Systems: Reviewed and Negative Past Medical History - Past Medical History Previously Healthy: Yes Endocrine: Reports: Dyslipidemia Cardiovascular: Reports: Hypertension Respiratory: Reports: None Hematological: Reports: None Gastrointestinal: Reports: None Genitourinary: Reports: None Neuro/Psych: Reports: None Musculoskeletal: Reports: None Cancer: Reports: None - Surgical History General Surgical History: Reports: None - Family History Family History: Reports: None - Social History Smoking Status: Current every day smoker, Heavy tobacco smoker Hx Substance Use: No Alcohol Screening: None Physical Exam - Physical Exam Appearance: Well-appearing, No pain distress, Well-nourished Ill-appearing: None Pain Distress: None Eyes: LACY, EOMI, Conjunctiva clear ENT: Ears normal, Nose normal, Oropharynx normal Neck: Supple Respiratory: Airway patent, Breath sounds clear, Breath sounds equal, Respirations nonlabored Cardiovascular: RRR, Pulses normal, No rub, No murmur GI/: Soft, Nontender, No masses, Bowel sounds normal, No Organomegaly Musculoskeletal: Normal strength, ROM intact, No edema, No calf tenderness Skin: Warm, Dry, Normal color Neurological: Sensation intact, Motor intact, Reflexes intact, Cranial nerves intact, Alert, Oriented Psychiatric: Affect appropriate, Mood appropriate, Anxious Re-Evaluation - Re-Evaluation Time of Re-Evaluation: 19:00 Status: Improved Vital Signs Stable: Yes Appearance: NAD Lungs: Clear Skin: Warm and Dry Neuro: Alert and Oriented X3 CV: RRR Additional Comments: Discussed findings with patient. Reassurance, See PCP Critical Care Note - Critical Care Note Total Time (mins): 0 Course - Course Hematology/Chemistry: 12/17/18 18:12 12/17/18 18:12 Orders, Labs, Meds: Lab Review 12/17/18 12/17/18 12/17/18 17:58 18:12 18:12 WBC 9.14 RBC 3.99 L Hgb 12.9 L Hct 36.9 L MCV 92.5 MCH 32.3 H MCHC 35.0 RDW Coeff of Yonathan 12.7 Plt Count 268 Immature Gran % (Auto) 0.3 Neut % (Auto) 63.1 Lymph % (Auto) 27.1 [place] % (Auto) 8.1 Eos % (Auto) 0.9 Baso % (Auto) 0.5 Immature Gran # (Auto) 0.0 Neut # (Auto) 5.8 Lymph # (Auto) 2.5 [place] # (Auto) 0.7 Eos # (Auto) 0.1 Baso # (Auto) 0.1 Puncture Site Rr O2 Saturation 96.0 ABG pH 7.405 ABG pCO2 37.3 ABG pO2 80.0 L ABG HCO3 23.4 ABG Total CO2 24 ABG Base Excess -1 Edilberto Test + FiO2 % 21.0 Sodium 133.4 L Potassium 3.91 Chloride 94.5 L Carbon Dioxide 27.5 Anion Gap 15.31 BUN 7.1 L Creatinine 0.70 Estimated GFR (MDRD) 118.00 BUN/Creatinine Ratio 10.14 Glucose 133.4 H Calcium 9.21 Total Bilirubin 0.42 AST 19.3 ALT 15.6 Alkaline Phosphatase 50.7 Total Protein 6.81 Albumin 4.41 Globulin 2.40 Albumin/Globulin Ratio 1.83 Orders Category Date Time Status ABG DRAW REQUEST Stat CARDIO 12/17/18 18:00 Completed EKG-(ED ONLY) Stat CARDIO 12/17/18 17:59 Completed ABG Stat LAB 12/17/18 17:58 Completed CBC W/ AUTO DIFF Stat LAB 12/17/18 18:12 Completed CMP [COMPREHENSIVE METABOLIC PANEL] Stat LAB 12/17/18 18:12 Completed INFLUENZA A&B AB, QUANT Stat LAB 12/17/18 18:54 Stop Req CHEST, 1V AP ONLY Stat RADS 12/17/18 17:58 Completed Vital Signs: Temp Pulse Resp BP Pulse Ox 12/17/18 16:09 96.2 F L 86 20 103/71 96 Departure - Departure Time of Disposition: 19:00 Disposition: HOME SELF-CARE Discharge Problem: Anxiety, Exertional shortness of breath, Medication adverse effect Instructions: Shortness of Breath (ED) Condition: Good Pt referred to PMD for follow-up: Yes IPMP verified?: No Additional Instructions: Monitor symptoms and if becomes SOB or dizzy with exertion, Rest and avoid changes in position or rapid movement Follow up PCP next Week Allergies/Adverse Reactions: Allergies No Known Allergies Allergy (Verified 10/02/18 20:17) Home Medications: Ambulatory Orders Buspirone HCl 10 mg PO BID PRN 06/05/18 Clozapine 100 mg PO 0800,1500 06/05/18 Clozapine 200 mg PO BEDTIME 06/05/18 Lisinopril [Zestril] 5 mg PO DAILY 06/05/18 Magnesium Hydroxide [Milk of Magnesia] 30 ml PO DAILY PRN 06/05/18 Spironolactone 25 mg PO DAILY 06/05/18 Venlafaxine HCl [Effexor] 75 mg PO BID 06/05/18 Ferrous Sulfate [Iron] 325 mg PO DAILY 06/07/18 Budesonide/Formoterol Fumarate [Symbicort 80-4.5 Mcg Inhaler] 2 puff IH BID 03/20 Levothyroxine Sodium 50 mcg PO QDAC 07/08/18 Fenofibrate [Triglide] 1 tab PO QDAC 09/07/18 Pravastatin Sodium [Pravachol] 40 mg PO DAILY 09/07/18 Carvedilol [Coreg] 6.25 mg PO BIDWM #60 tablet 09/10/18 Disposition Discussed With: Patient
--- NOTE | 2018-12-17 19:02 | DI ---
EXAM: One-view chest HISTORY: Shortness of breath TECHNIQUE: Single frontal view the chest was obtained. Comparison 07/08/2018. FINDINGS: The heart is normal size. Lungs are clear. The pulmonary vasculature appears normal. Th e osseous structures and mediastinal contours are normal. The costophrenic angles are sharp. IMPRESSION: No active cardiopulmonary disease.
== END 2018-12-17 19:17 | disposition home or self-care (01) ==
LOC: ED 16:08
DX: F41.9 Anxiety disorder, unspecified (principal); R06.02 Shortness of breath; T42.4X5A Adverse effect of benzodiazepines, initial encounter; E78.5 Hyperlipidemia, unspecified; I10 Essential (primary) hypertension; F17.210 Nicotine dependence, cigarettes, uncomplicated; Z79.899 Other long term (current) drug therapy
CPT/HCPCS: 36415; 80053; 82803; 85025; 93005; 93010; 99284

== ENCOUNTER 2018-12-24 15:20 | Outpatient (CLI) | payer OTHER | END 2018-12-24 15:21 | disposition home or self-care (01) | LOC: LAB 15:20 | PROVIDERS: ATTEND Internal Medicine | DX: Z51.81 Encounter for therapeutic drug level monitoring (principal); Z79.899 Other long term (current) drug therapy | CPT/HCPCS: 36415; 85025 ==

== ENCOUNTER 2018-12-24 18:25 | Outpatient (CLI) | payer OTHER | END 2018-12-24 18:46 | disposition short-term general hospital (02) | LOC: AMBL 18:25 | PROVIDERS: ATTEND Internal Medicine | DX: R06.9 Unspecified abnormalities of breathing (principal); R09.89 Other specified symptoms and signs involving the circulatory and respiratory systems; I49.3 Ventricular premature depolarization ==

== ENCOUNTER 2018-12-29 14:05 | Outpatient (CLI) | END 2018-12-29 14:06 | disposition home or self-care (01) | LOC: AMBL 14:05 | PROVIDERS: ATTEND Emergency Medicine | DX: J18.9 Pneumonia, unspecified organism (principal) ==

== ENCOUNTER 2018-12-31 15:33 | Outpatient (CLI) | payer OTHER | END 2018-12-31 15:51 | disposition short-term general hospital (02) | LOC: AMBL 15:33 | PROVIDERS: ATTEND Emergency Medicine | DX: N50.812 Left testicular pain (principal); N50.89 Other specified disorders of the male genital organs ==

== ENCOUNTER 2019-01-06 21:56 | Outpatient (CLI) | END 2019-01-06 21:57 | disposition home or self-care (01) | LOC: AMBL 21:56 | PROVIDERS: ATTEND Family Medicine | DX: R53.1 Weakness (principal); R53.83 Other fatigue; R73.9 Hyperglycemia, unspecified ==

== ENCOUNTER 2019-01-09 15:01 | Emergency (ER) ==
[2019-01-09 15:05] VITALS: BP 104/60; TEMP 96; BMI 31.1
--- NOTE | 2019-01-09 15:46 | CT ---
EXAM: CT chest without contrast TECHNIQUE: Helical axial CT of the chest was performed without contrast with coronal and sagittal rec onstructions. COMPARISON: Chest x-ray from 07/19/2008 HISTORY: Cough FINDINGS: Lung parenchyma: There is no mass or nodule or large effusion or infiltrate. Mediastinum: No pathologic hilar or mediastinal adenopathy. There are coronary calcifications. There is no pericardial effusion. There is calcific atherosclerosis of the aorta. There is no aortic aneu rysm. Upper Abdomen: No focal or acute abnormality. There is some pancreatic calcifications. Osseous structures: Nothing acute. Surrounding soft tissues including the thyroid gland are normal. No supraclavicular or axillary reed opathy. IMPRESSION: 1. Clear lungs with no infiltrate or effusion. 2. Atherosclerosis.
--- NOTE | 2019-01-09 16:27 | ED.PDOC ---
General ED Provider: Dr. SHERRIE HANKS Chief Complaint: Cough Stated Complaint: cough Time Seen by Physician: 15:00 Mode of Arrival: Ambulance Information Source: Patient Exam Limitations: No limitations Primary Care Provider: MARCUS CERDA Nursing and Triage Documentation Reviewed and Agree: Yes Does patient meet sepsis criteria?: No (seen with nurse at all times ) System Inflammatory Response Syndrome: Not Applicable Sepsis Protocol: For patient's 13 years and over: Temp is 96.8 and below OR 101 and greater Pulse >90 BPM Resp >20/minute Acutely Altered Mental Status Are patient's symptoms suggestive of a new infection, such as: -Pneumonia -Skin, Soft Tissue -Endocarditis -UTI -Bone, Joint Infection -Implantable Device -Acute Abdominal Infection -Wound Infection -Meningitis -Blood Stream Catheter Infection -Unknown Respiratory Complaint Exam - Respiratory Complaint/Exam Symptoms Are: Resolved Timing: Intermittent Initial Severity: Mild Current Severity: None Location: Nose, Throat, Chest Character: Reports: Non-productive cough Aggravating: Reports: URI Alleviating: Reports: None Associated Signs and Symptoms: Reports: URI. Denies: Rapid breathing, Dyspnea, Fever, Chills, Chest pain, Pleuritic chest pain, Wheezing, Hemoptysis, Dizziness , Calf pain, Calf swelling, Edema, Nasal congestion, Hoarseness, Sinus discomfort, Vomiting, Sore throat, Weight loss, Decreased oral intake, Increased thirst, Increased appetite, Increased urination Related History: Reports: Similar episode History of Healthcare-Acquired Pneumonia: No Related Surgical History: Reports: None Pulmonary Embolism Risk Factors: None Cardiac Risk Factors: Reports: Elevated lipids, Hypertension Pseudomonas Risk Factors: Reports: None Tuberculosis Risk Factors: Reports: None Status Asthmaticus Risk Factors: Reports: None Home Oxygen Use: No Recent Stress Test: No Recent Echo/LV Function: No Current Antibiotic Use: No Current Asthma Medication Use: No Respiratory Distress: None Inadequate Respiratory Effort: No Dysphagia Present: No Stridor Present: No JVD Present: No Retractions: Not Present Diminished Breath Sounds: No Sinus Tenderness: None Grunting Respirations: No Kussmaul Respirations: No Differential Diagnoses: Pneumonia, Bronchitis, Influenza Review of Systems - Review Of Systems Constitutional: Reports: No symptoms Eyes: Reports: No symptoms Ears, Nose, Mouth, Throat: Reports: No symptoms Respiratory: Reports: Cough Cardiac: Reports: No symptoms GI: Reports: No symptoms : Reports: No symptoms Musculoskeletal: Reports: No symptoms Skin: Reports: No symptoms Neurological: Reports: No symptoms Endocrine: Reports: No symptoms Hematologic/Lymphatic: Reports: No symptoms All Other Systems: Reviewed and Negative Past Medical History - Past Medical History Previously Healthy: Yes Endocrine: Reports: Dyslipidemia Cardiovascular: Reports: Hypertension Respiratory: Reports: None Hematological: Reports: None Gastrointestinal: Reports: None Genitourinary: Reports: None Neuro/Psych: Reports: None Musculoskeletal: Reports: None Cancer: Reports: None - Surgical History General Surgical History: Reports: None - Family History Family History: Reports: None - Social History Smoking Status: Current every day smoker, Heavy tobacco smoker Hx Substance Use: No Alcohol Screening: None Physical Exam - Physical Exam Appearance: Well-appearing, No pain distress, Well-nourished Eyes: LACY, EOMI, Conjunctiva clear ENT: Ears normal, Nose normal, Oropharynx normal Respiratory: Airway patent, Breath sounds clear, Breath sounds equal, Respirations nonlabored Cardiovascular: RRR, Pulses normal, No rub, No murmur GI/: Soft, Nontender, No masses, Bowel sounds normal, No Organomegaly Musculoskeletal: Normal strength, ROM intact, No edema, No calf tenderness Skin: Warm, Dry, Normal color Neurological: Sensation intact, Motor intact, Reflexes intact, Cranial nerves intact, Alert, Oriented Psychiatric: Affect appropriate, Mood appropriate Interpretation - Radiology Interpretation Radiology Interpretation By: Radiologist Radiology Results: No acute changes Exam Interpreted: CT Scan Critical Care Note - Critical Care Note Total Time (mins): 0 Course - Course Hematology/Chemistry: 01/09/19 15:43 01/09/19 15:43 Orders, Labs, Meds: Lab Review 01/09/19 01/09/19 15:43 15:43 WBC 10.28 H RBC 4.08 L Hgb 13.2 L Hct 38.1 L MCV 93.4 MCH 32.4 H MCHC 34.6 RDW Coeff of Yonathan 12.6 Plt Count 234 Immature Gran % (Auto) 0.4 Neut % (Auto) 70.3 Lymph % (Auto) 20.4 [place] % (Auto) 8.1 Eos % (Auto) 0.6 Baso % (Auto) 0.2 Immature Gran # (Auto) 0.0 Neut # (Auto) 7.2 H Lymph # (Auto) 2.1 [place] # (Auto) 0.8 Eos # (Auto) 0.1 Baso # (Auto) 0.0 Sodium 133.3 L Potassium 3.91 Chloride 97.3 L Carbon Dioxide 28.3 Anion Gap 11.61 BUN 10.9 Creatinine 0.93 Estimated GFR (MDRD) 85.00 BUN/Creatinine Ratio 11.72 Glucose 93.5 Calcium 9.33 Total Bilirubin 0.47 AST 22.7 ALT 18.5 Alkaline Phosphatase 47.5 Total Protein 6.46 Albumin 4.02 Globulin 2.44 Albumin/Globulin Ratio 1.64 Orders Category Date Time Status CBC W/ AUTO DIFF Stat LAB 01/09/19 15:43 Completed COMPREHENSIVE METABOLIC PANEL Stat LAB 01/09/19 15:[address] CHEST W/O CONTRAST Stat RADS 01/09/19 15:24 Completed Vital Signs: Temp Pulse Resp BP Pulse Ox 01/09/19 15:01 96.0 F L 81 20 104/60 96 Departure - Departure Time of Disposition: 16:26 Disposition: HOME SELF-CARE Discharge Problem: Cough Anemia Qualifiers: Anemia type: unspecified type Qualified Code(s): D64.9 - Anemia, unspecified Instructions: Chronic Cough (ED), Anemia (ED) Condition: Good Pt referred to PMD for follow-up: Yes IPMP verified?: No Additional Instructions: Please call your Family Physician as soon as possible to schedule a follow-up appointment. Allergies/Adverse Reactions: Allergies No Known Allergies Allergy (Verified 10/02/18 20:17) Home Medications: Ambulatory Orders Buspirone HCl 10 mg PO BID PRN 06/05/18 Clozapine 100 mg PO 0800,1500 06/05/18 Clozapine 200 mg PO BEDTIME 06/05/18 Lisinopril [Zestril] 5 mg PO DAILY 06/05/18 Magnesium Hydroxide [Milk of Magnesia] 30 ml PO DAILY PRN 06/05/18 Spironolactone 25 mg PO DAILY 06/05/18 Venlafaxine HCl [Effexor] 75 mg PO BID 06/05/18 Ferrous Sulfate [Iron] 325 mg PO DAILY 06/07/18 Budesonide/Formoterol Fumarate [Symbicort 80-4.5 Mcg Inhaler] 2 puff IH BID PRN 07/08/18 Fenofibrate [Triglide] 1 tab PO QDAC 09/07/18 Pravastatin Sodium [Pravachol] 40 mg PO DAILY 09/07/18 Carvedilol [Coreg] 25 mg PO BIDWM 01/09/19
== END 2019-01-09 16:38 | disposition home or self-care (01) ==
LOC: ED 15:01
DX: R05 Cough (principal); D64.9 Anemia, unspecified; E78.5 Hyperlipidemia, unspecified; I10 Essential (primary) hypertension; F17.210 Nicotine dependence, cigarettes, uncomplicated; Z79.899 Other long term (current) drug therapy; R42 Dizziness and giddiness; R68.89 Other general symptoms and signs; R53.1 Weakness
CPT/HCPCS: 36415; 80053; 85025; 99282

== ENCOUNTER 2019-01-13 15:31 | Outpatient (CLI) | END 2019-01-13 15:42 | disposition short-term general hospital (02) | LOC: AMBL 15:31 | PROVIDERS: ATTEND Internal Medicine | DX: R06.02 Shortness of breath (principal); R07.9 Chest pain, unspecified; R00.0 Tachycardia, unspecified; I49.3 Ventricular premature depolarization ==

== ENCOUNTER 2019-01-14 13:06 | Outpatient (CLI) | END 2019-01-14 13:17 | disposition short-term general hospital (02) | LOC: AMBL 13:06 | PROVIDERS: ATTEND Emergency Medicine | DX: R09.89 Other specified symptoms and signs involving the circulatory and respiratory systems (principal); R33.9 Retention of urine, unspecified ==

== ENCOUNTER 2019-01-25 14:45 | Outpatient (CLI) | payer OTHER | END 2019-01-25 14:58 | disposition short-term general hospital (02) | LOC: AMBL 14:45 | PROVIDERS: ATTEND Internal Medicine | DX: R06.02 Shortness of breath (principal); R05 Cough; R09.89 Other specified symptoms and signs involving the circulatory and respiratory systems; N50.89 Other specified disorders of the male genital organs; I49.3 Ventricular premature depolarization ==

== ENCOUNTER 2019-01-29 08:38 | Outpatient (CLI) | END 2019-01-29 08:39 | disposition home or self-care (01) | LOC: LAB 08:38 | PROVIDERS: ATTEND Internal Medicine | DX: Z79.899 Other long term (current) drug therapy (principal) | CPT/HCPCS: 36415; 85025 ==

== ENCOUNTER 2019-02-04 09:51 | Emergency (ER) | payer OTHER ==
[2019-02-04 09:53] VITALS: BP 129/82; TEMP 97.3; BMI 31.5
--- NOTE | 2019-02-04 10:37 | ED.PDOC ---
General ED Provider: Dr. NELLIE KRAMER Chief Complaint: Palpitations Stated Complaint: Heart racing-palpitations. States he contacted he physicians offices and advided to come to ER.Similar episodes in past. Does not appear NAD Time Seen by Physician: 10:10 Mode of Arrival: Walk-In Information Source: Patient Exam Limitations: No limitations Primary Care Provider: MARCUS CERDA Nursing and Triage Documentation Reviewed and Agree: Yes Does patient meet sepsis criteria?: No System Inflammatory Response Syndrome: Not Applicable Sepsis Protocol: For patient's 13 years and over: Temp is 96.8 and below OR 101 and greater Pulse >90 BPM Resp >20/minute Acutely Altered Mental Status Are patient's symptoms suggestive of a new infection, such as: -Pneumonia -Skin, Soft Tissue -Endocarditis -UTI -Bone, Joint Infection -Implantable Device -Acute Abdominal Infection -Wound Infection -Meningitis -Blood Stream Catheter Infection -Unknown Cardiovascular Complaint Exam - Palpitations Complaint/Exam Onset/Duration: This AM Symptoms Are: Still present Timing: Intermittent Initial Severity: Moderate Current Severity: Mild Character: Reports: Skipped beats Aggravating: Reports: Exertion, Caffeine Alleviating: Reports: Rest Associated Signs and Symptoms: Reports: Lightheadedness Related History: Similar episode Related Surgical History: Reports: None Cardiac Risk Factors: Reports: Hypertension, Smoking, Diabetes Pulmonary Embolism Risk Factors: Reports: None Atrial Fibrillation Risk Factors: Reports: Hypertension Thyroid Exam: Normal Differential Diagnoses: Cardiomyopathy, Panic Disorder, Paroxysmal SVT Review of Systems - Review Of Systems Constitutional: Reports: No symptoms Eyes: Reports: No symptoms Ears, Nose, Mouth, Throat: Reports: No symptoms Respiratory: Reports: No symptoms Cardiac: Reports: Palpitations GI: Reports: No symptoms : Reports: No symptoms Musculoskeletal: Reports: No symptoms Skin: Reports: No symptoms Neurological: Reports: No symptoms Endocrine: Reports: No symptoms Hematologic/Lymphatic: Reports: No symptoms All Other Systems: Other (schizophrenia) Past Medical History - Past Medical History Previously Healthy: Yes Endocrine: Reports: Dyslipidemia Cardiovascular: Reports: Hypertension Respiratory: Reports: None Hematological: Reports: None Gastrointestinal: Reports: None Genitourinary: Reports: None Neuro/Psych: Reports: None Musculoskeletal: Reports: None Cancer: Reports: None - Surgical History General Surgical History: Reports: None - Family History Family History: Reports: None - Social History Smoking Status: Current every day smoker, Heavy tobacco smoker Hx Substance Use: No Alcohol Screening: None - Immunizations Tetanus Shot up to Date: No Physical Exam - Physical Exam Appearance: Ill-appearing (Very anxious and worried about sensation of chest palpitations) Ill-appearing: Mild Pain Distress: None Eyes: LACY, EOMI, Conjunctiva clear ENT: Ears normal, Nose normal, Oropharynx normal Neck: Supple Respiratory: Airway patent, Breath sounds clear, Breath sounds equal, Respirations nonlabored Cardiovascular: RRR, Pulses normal, No rub, No murmur GI/: Soft, Nontender, No masses, Bowel sounds normal, No Organomegaly Musculoskeletal: Normal strength, ROM intact, No edema, No calf tenderness Skin: Warm, Dry, Normal color Neurological: Sensation intact, Motor intact, Reflexes intact, Cranial nerves intact, Alert, Oriented Psychiatric: Affect appropriate, Anxious Critical Care Note - Critical Care Note Total Time (mins): 60 Course - Course Hematology/Chemistry: 02/04/19 10:05 02/04/19 10:05 Orders, Labs, Meds: Lab Review 02/04/19 02/04/19 02/04/19 10:05 10:05 10:05 WBC 10.13 RBC 4.23 L Hgb 13.8 L Hct 39.7 L MCV 93.9 MCH 32.6 H MCHC 34.8 RDW Coeff of Yonathan 12.5 Plt Count 306 Immature Gran % (Auto) 0.3 Neut % (Auto) 73.5 Lymph % (Auto) 16.9 [place] % (Auto) 8.2 Eos % (Auto) 0.7 Baso % (Auto) 0.4 Immature Gran # (Auto) 0.0 Neut # (Auto) 7.5 H Lymph # (Auto) 1.7 [place] # (Auto) 0.8 Eos # (Auto) 0.1 Baso # (Auto) 0.0 Sodium 133.3 L Potassium 3.76 Chloride 95.8 L Carbon Dioxide 26.0 Anion Gap 15.26 BUN 6.5 L Creatinine 0.68 Estimated GFR (MDRD) 122.00 BUN/Creatinine Ratio 9.55 Glucose 201.5 H Hemoglobin A1c 6.42 H Calcium 9.62 Magnesium 1.60 Total Bilirubin 0.39 AST 21.3 ALT 17.3 Alkaline Phosphatase 56.7 Total Creatine Kinase 43.9 L Troponin I < 0.012 Total Protein 6.67 Albumin 4.82 Globulin 1.85 Albumin/Globulin Ratio 2.60 TSH Free T4 Thyroxine (T4) 02/04/19 02/04/19 02/04/19 11:38 11:38 11:38 WBC RBC Hgb Hct MCV MCH MCHC RDW Coeff of Yonathan Plt Count Immature Gran % (Auto) Neut % (Auto) Lymph % (Auto) [place] % (Auto) Eos % (Auto) Baso % (Auto) Immature Gran # (Auto) Neut # (Auto) Lymph # (Auto) [place] # (Auto) Eos # (Auto) Baso # (Auto) Sodium Potassium Chloride Carbon Dioxide Anion Gap BUN Creatinine Estimated GFR (MDRD) BUN/Creatinine Ratio Glucose Hemoglobin A1c Calcium Magnesium Total Bilirubin AST ALT Alkaline Phosphatase Total Creatine Kinase Troponin I Total Protein Albumin Globulin Albumin/Globulin Ratio TSH 3.290 Free T4 1.18 Thyroxine (T4) 8.4 Orders Category Date Time Status EKG-(ED ONLY) Stat CARDIO 02/04/19 10:39 Completed CBC W/ AUTO DIFF Stat LAB 02/04/19 10:05 Completed CMP [COMPREHENSIVE METABOLIC PANEL] Stat LAB 02/04/19 10:05 Completed CPK [CREATINE KINASE] Stat LAB 02/04/19 10:05 Completed FREE T4 (FREE THYROXINE) Stat LAB 02/04/19 11:38 Completed HEMOGLOBIN A1C Stat LAB 02/04/19 10:05 Completed MAGNESIUM Stat LAB 02/04/19 10:05 Completed T4 (THYROXINE) Stat LAB 02/04/19 11:38 Completed TROPONIN I Stat LAB 02/04/19 10:05 Completed TSH [THYROID STIMULATING HORMONE] Stat LAB 02/04/19 11:38 Completed CHEST, 2 VIEWS PA & LAT Stat RADS 02/04/19 10:58 Completed Vital Signs: Temp Pulse Resp BP Pulse Ox 02/04/19 09:52 97.3 F L 99 H 18 129/82 97 ROSA ELENA Risk Score ROSA [place]LE[place] Risk Score: Risk Score Odds of by 30D 0 0.1 (0.1-0.2) 1 0.3 (0.2-0.3) 2 0.4 (0.3-0.5) 3 0.7 (0.6-0.9) 4 1.2 (1.0-1.5) 5 2.2 (1.9-2.6) 6 3.0 (2.5-3.6) 7 4.8 (3.8-6.1) Departure - Departure Time of Disposition: 11:30 Disposition: HOME SELF-CARE Discharge Problem: Heart palpitations, PVCs (premature ventricular contractions), Sinus tachycardia, Anxiety about health, Hyperglycemia Instructions: Heart Palpitations (ED) Condition: Good Pt referred to PMD for follow-up: Yes (1 wk) IPMP verified?: No Additional Instructions: Remain on all prescription meds See pcp in next week See Dr Cerda next week Advised of noted elevation of blood glucose and concern of diabetes DIscussed case with Dr Cerda and advised of pts symptoms and findings See Dr Cerda next week per his instructions and disuss findings Allergies/Adverse Reactions: Allergies No Known Allergies Allergy (Verified 02/04/19 09:54) Home Medications: Ambulatory Orders Buspirone HCl 10 mg PO BID PRN 06/05/18 Clozapine 100 mg PO 0800,1500 06/05/18 Clozapine 200 mg PO BEDTIME 06/05/18 Lisinopril [Zestril] 5 mg PO DAILY 06/05/18 Magnesium Hydroxide [Milk of Magnesia] 30 ml PO DAILY PRN 06/05/18 Spironolactone 25 mg PO DAILY 06/05/18 Venlafaxine HCl [Effexor] 75 mg PO BID 06/05/18 Ferrous Sulfate [Iron] 325 mg PO DAILY 06/07/18 Budesonide/Formoterol Fumarate [Symbicort 80-4.5 Mcg Inhaler] 2 puff IH BID PRN 07/08/18 Fenofibrate [Triglide] 1 tab PO QDAC 09/07/18 Pravastatin Sodium [Pravachol] 40 mg PO DAILY 09/07/18 Carvedilol [Coreg] 25 mg PO BIDWM 01/09/19 Disposition Discussed With: Patient
--- NOTE | 2019-02-04 11:29 | DI ---
EXAM: CHEST FRONTAL AND LATERAL VIEWS HISTORY: Heart palpitations. COMPARISON: 10/16/2019 FINDINGS: Heart size and mediastinal contour remain within normal limits. No acute infiltrates. Normal vascularity with no pleural fluid or pneumothorax. The bony thorax has no acute finding. IMPRESSION: No acute process.
== END 2019-02-04 12:17 | disposition home or self-care (01) ==
LOC: ED 09:51
DX: R00.2 Palpitations (principal); R73.9 Hyperglycemia, unspecified; R00.0 Tachycardia, unspecified; F41.9 Anxiety disorder, unspecified; I49.3 Ventricular premature depolarization; R42 Dizziness and giddiness; I10 Essential (primary) hypertension; E78.5 Hyperlipidemia, unspecified; Z79.899 Other long term (current) drug therapy; F17.210 Nicotine dependence, cigarettes, uncomplicated
CPT/HCPCS: 36415; 80053; 82550; 83036; 83735; 84436; 84439; 84443; 84484; 85025; 93005; 93010; 99283

== ENCOUNTER 2019-02-08 13:49 | Outpatient (CLI) | END 2019-02-08 14:07 | disposition short-term general hospital (02) | LOC: AMBL 13:49 | PROVIDERS: ATTEND Internal Medicine | DX: R55 Syncope and collapse (principal); R11.0 Nausea; R53.83 Other fatigue; R53.1 Weakness ==

== ENCOUNTER 2019-02-17 14:12 | Outpatient (CLI) | payer OTHER | END 2019-02-17 14:24 | disposition short-term general hospital (02) | LOC: AMBL 14:12 | PROVIDERS: ATTEND Emergency Medicine | DX: E86.0 Dehydration (principal); R53.1 Weakness ==

== ENCOUNTER 2019-03-04 17:25 | Outpatient (CLI) | payer OTHER | END 2019-03-04 17:37 | disposition short-term general hospital (02) | LOC: AMBL 17:25 | PROVIDERS: ATTEND Emergency Medicine | DX: E86.0 Dehydration (principal) ==

== ENCOUNTER 2019-03-10 18:38 | Outpatient (CLI) ==
[2019-03-10 19:01] VITALS: BMI 31.5
== END 2019-03-10 18:56 | disposition critical access hospital (66) ==
LOC: AMBL 18:38
PROVIDERS: ATTEND Internal Medicine
DX: Z76.0 Encounter for issue of repeat prescription (principal)

== ENCOUNTER 2019-03-10 18:57 | Emergency (ER) ==
[2019-03-10 19:01] VITALS: BMI 31.5
[2019-03-10 19:05] VITALS: BP 126/84; TEMP 98.2
--- NOTE | 2019-03-10 19:25 | ED.PDOC ---
General ED Provider: Dr. NORA VICENTE Chief Complaint: Medication Refill Stated Complaint: states he is almost out of clozapine and wants to get a refill. States his psychitiatrist has retired. Has a PCP who he has not seen for this yet. Time Seen by Physician: 19:15 Mode of Arrival: Walk-In Information Source: Patient, EMT Primary Care Provider: MARCUS CERDA Nursing and Triage Documentation Reviewed and Agree: Yes Does patient meet sepsis criteria?: No System Inflammatory Response Syndrome: Not Applicable Sepsis Protocol: For patient's 13 years and over: Temp is 96.8 and below OR 101 and greater Pulse >90 BPM Resp >20/minute Acutely Altered Mental Status Are patient's symptoms suggestive of a new infection, such as: -Pneumonia -Skin, Soft Tissue -Endocarditis -UTI -Bone, Joint Infection -Implantable Device -Acute Abdominal Infection -Wound Infection -Meningitis -Blood Stream Catheter Infection -Unknown Review of Systems - Review Of Systems Constitutional: Reports: No symptoms Eyes: Reports: No symptoms Ears, Nose, Mouth, Throat: Reports: No symptoms Respiratory: Reports: No symptoms Cardiac: Reports: No symptoms GI: Reports: No symptoms : Reports: No symptoms Musculoskeletal: Reports: No symptoms Skin: Reports: No symptoms Neurological: Reports: Anxiety, Depressed Endocrine: Reports: No symptoms Hematologic/Lymphatic: Reports: No symptoms All Other Systems: Reviewed and Negative Past Medical History - Past Medical History Previously Healthy: Yes Endocrine: Reports: Dyslipidemia Cardiovascular: Reports: Hypertension Respiratory: Reports: None Hematological: Reports: None Gastrointestinal: Reports: None Genitourinary: Reports: None Neuro/Psych: Reports: None Musculoskeletal: Reports: None Cancer: Reports: None - Surgical History General Surgical History: Reports: None - Family History Family History: Reports: None - Social History Smoking Status: Current every day smoker, Heavy tobacco smoker Hx Substance Use: No Alcohol Screening: None - Immunizations Tetanus Shot up to Date: Yes Physical Exam - Physical Exam Appearance: Well-appearing, No pain distress, Well-nourished Eyes: LACY, EOMI, Conjunctiva clear ENT: Ears normal, Nose normal, Oropharynx normal Respiratory: Airway patent, Breath sounds clear, Breath sounds equal, Respirations nonlabored Cardiovascular: RRR, Pulses normal, No rub, No murmur GI/: Soft, Nontender, No masses, Bowel sounds normal, No Organomegaly Musculoskeletal: Normal strength, ROM intact, No edema, No calf tenderness Skin: Warm, Dry, Normal color Neurological: Sensation intact, Motor intact, Reflexes intact, Cranial nerves intact, Alert, Oriented Psychiatric: Anxious, Depressed Critical Care Note - Critical Care Note Total Time (mins): 0 Course - Course Vital Signs: Temp Pulse Resp BP Pulse Ox 03/10/19 19:02 98.2 F 82 16 126/84 97 Departure - Departure Time of Disposition: 19:22 Disposition: HOME SELF-CARE Discharge Problem: Schizophrenia Instructions: Schizophrenia (ED), Medicine Refill (ED) Condition: Stable Pt referred to PMD for follow-up: Yes IPMP verified?: No Additional Instructions: FOLLOW UP WITH YOUR DOCTOR IN THE MORNING FOR MEDICATIONS REFILLS Allergies/Adverse Reactions: Allergies No Known Allergies Allergy (Verified 02/04/19 09:54) Home Medications: Ambulatory Orders Buspirone HCl 10 mg PO BID PRN 06/05/18 Clozapine 100 mg PO 0800,1500 06/05/18 Clozapine 200 mg PO BEDTIME 06/05/18 Lisinopril [Zestril] 5 mg PO DAILY 06/05/18 Magnesium Hydroxide [Milk of Magnesia] 30 ml PO DAILY PRN 06/05/18 Spironolactone 25 mg PO DAILY 06/05/18 Venlafaxine HCl [Effexor] 75 mg PO BID 06/05/18 Ferrous Sulfate [Iron] 325 mg PO DAILY 06/07/18 Budesonide/Formoterol Fumarate [Symbicort 80-4.5 Mcg Inhaler] 2 puff IH BID PRN 07/08/18 Fenofibrate [Triglide] 1 tab PO QDAC 09/07/18 Pravastatin Sodium [Pravachol] 40 mg PO DAILY 09/07/18 Carvedilol [Coreg] 25 mg PO BIDWM 01/09/19 Disposition Discussed With: Patient
== END 2019-03-10 19:27 | disposition home or self-care (01) ==
LOC: ED 18:57
DX: F20.9 Schizophrenia, unspecified (principal); Z76.0 Encounter for issue of repeat prescription; F17.210 Nicotine dependence, cigarettes, uncomplicated
CPT/HCPCS: 99282

== ENCOUNTER 2019-03-15 06:58 | Outpatient (CLI) | payer OTHER ==
[2019-03-15 07:26] VITALS: BMI 30.9
== END 2019-03-15 07:13 | disposition critical access hospital (66) ==
LOC: AMBL 06:58
PROVIDERS: ATTEND Internal Medicine Geriatric Medicine
DX: F19.939 Other psychoactive substance use, unspecified with withdrawal, unspecified (principal); F41.9 Anxiety disorder, unspecified; R61 Generalized hyperhidrosis; R45.1 Restlessness and agitation; M79.10 Myalgia, unspecified site; R44.0 Auditory hallucinations

== ENCOUNTER 2019-03-15 07:18 | Emergency (ER) ==
[2019-03-15 07:26] VITALS: BP 112/82; TEMP 97.5; BMI 30.9
[2019-03-15] MEDS ORDERED: ATIVAN IVP STA (07:30)
[2019-03-15] MEDS ORDERED: ATIVAN PO PRN (09:49)
--- NOTE | 2019-03-15 09:53 | ED.PDOC ---
General ED Provider: Dr. SHERRIE HANKS Chief Complaint: Psychiatric Complaint Stated Complaint: palpitation , agitation, confusion ran out of meds clozapine 3 days ago. Time Seen by Physician: 07:20 (arrived alert to place and and person with no motor deficits) Mode of Arrival: Ambulance Information Source: Patient, EMT Primary Care Provider: MARCUS CERDA Nursing and Triage Documentation Reviewed and Agree: Yes Does patient meet sepsis criteria?: No System Inflammatory Response Syndrome: Not Applicable Sepsis Protocol: For patient's 13 years and over: Temp is 96.8 and below OR 101 and greater Pulse >90 BPM Resp >20/minute Acutely Altered Mental Status Are patient's symptoms suggestive of a new infection, such as: -Pneumonia -Skin, Soft Tissue -Endocarditis -UTI -Bone, Joint Infection -Implantable Device -Acute Abdominal Infection -Wound Infection -Meningitis -Blood Stream Catheter Infection -Unknown Review of Systems - Review Of Systems Constitutional: Reports: No symptoms Eyes: Reports: No symptoms Ears, Nose, Mouth, Throat: Reports: No symptoms Respiratory: Reports: No symptoms Cardiac: Reports: No symptoms GI: Reports: No symptoms : Reports: No symptoms Musculoskeletal: Reports: No symptoms Skin: Reports: No symptoms Neurological: Reports: Anxiety, Emotional problems, Cognitive dysfunction Endocrine: Reports: No symptoms Hematologic/Lymphatic: Reports: No symptoms All Other Systems: Reviewed and Negative Past Medical History - Past Medical History Previously Healthy: Yes Endocrine: Reports: Dyslipidemia Cardiovascular: Reports: Hypertension Respiratory: Reports: None Hematological: Reports: None Gastrointestinal: Reports: None Genitourinary: Reports: None Neuro/Psych: Reports: None Musculoskeletal: Reports: None Cancer: Reports: None - Surgical History General Surgical History: Reports: None - Family History Family History: Reports: None - Social History Smoking Status: Current every day smoker, Heavy tobacco smoker Hx Substance Use: No Alcohol Screening: None Physical Exam - Physical Exam Appearance: Well-appearing, No pain distress, Well-nourished Eyes: LACY, EOMI, Conjunctiva clear ENT: Ears normal, Nose normal, Oropharynx normal Respiratory: Airway patent, Breath sounds clear, Breath sounds equal, Respirations nonlabored Cardiovascular: RRR, Pulses normal, No rub, No murmur GI/: Soft, Nontender, No masses, Bowel sounds normal, No Organomegaly Musculoskeletal: Normal strength, ROM intact, No edema, No calf tenderness Skin: Warm, Dry, Normal color Neurological: Sensation intact, Motor intact, Reflexes intact, Cranial nerves intact, Alert, Oriented Psychiatric: Affect appropriate, Mood appropriate 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1 Neut # (Auto) 9.9 H Lymph # (Auto) 2.2 [place] # (Auto) 1.2 Eos # (Auto) 0.1 Baso # (Auto) 0.0 Sodium 130.4 L Potassium 3.71 Chloride 94.6 L Carbon Dioxide 25.5 Anion Gap 14.01 BUN 12.6 Creatinine 0.73 Estimated GFR (MDRD) 112.00 BUN/Creatinine Ratio 17.26 Glucose 108.7 H Calcium 9.26 Total Bilirubin 0.89 AST 38.5 ALT 19.7 Alkaline Phosphatase 66.5 Total Protein 6.90 Albumin 4.79 Globulin 2.11 Albumin/Globulin Ratio 2.27 TSH 5.990 H Free T4 1.81 Salicylate Level mg/dL < 1.00 Acetaminophen < 10.0 L Plasma/Serum Alcohol < 10.0 Orders Category Date Time Status EKG-(ED ONLY) Stat CARDIO 03/15/19 07:21 Completed ACTIVITY .Complete BR CARE 03/15/19 09:48 Active BLOOD GLUCOSE MONITORING ACCUCHECK Q6H CARE 03/15/19 09:48 Active VITAL SIGNS Q4HR CARE 03/15/19 09:48 Active REGULAR DIET DIETARY 03/15/19 Lunch Ordered ED 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 APPLIED ONCE EMERGENCY 03/15/19 07:21 Active Mental Health Consult [ED MENTAL HEALTH CONSULT] .ONCE EMERGENCY 03/15/19 09: 54 Active ACETAMINOPHEN Stat LAB 03/15/19 07:30 Completed BLOOD ALCOHOL Stat LAB 03/15/19 07:30 Completed CBC W/ AUTO DIFF DAILY@0600 LAB 03/16/19 06:00 Ordered CBC W/ AUTO DIFF DAILY@0600 LAB 03/17/19 06:00 Ordered CBC W/ AUTO DIFF Stat LAB 03/15/19 07:30 Completed COMPREHENSIVE METABOLIC PANEL DAILY@0600 LAB 03/16/19 06:00 Ordered COMPREHENSIVE METABOLIC PANEL DAILY@0600 LAB 03/17/19 06:00 Ordered COMPREHENSIVE METABOLIC PANEL Stat LAB 03/15/19 07:30 Completed CREATINE KINASE Q8H LAB 03/15/19 16:00 Ordered CREATINE KINASE Q8H LAB 03/16/19 00:00 Ordered DRUG SCREEN, URINE, RAPID Stat LAB 03/15/19 07:21 Ordered FREE T4 (FREE THYROXINE) Stat LAB 03/15/19 07:30 Completed SALICYLATE Stat LAB 03/15/19 07:30 Completed THYROID STIMULATING HORMONE Stat LAB 03/15/19 07:30 Completed TROPONIN I Q8H LAB 03/15/19 16:00 Ordered TROPONIN I Q8H LAB 03/16/19 00:00 Ordered URINALYSIS C & S IF INDICATED Stat LAB 03/15/19 07:21 Uncollected Lorazepam [Ativan] MEDS 03/15/19 07:30 Discontinued 0.5 mg IVP ONCE STA Lorazepam [Ativan] MEDS 03/15/19 09:49 Active 1 mg PO TID PRN Sodium Chloride 0.9% [Sodium Chloride] 1,000 ml MEDS 03/15/19 10:00 Active IV 75 mls/hr CT HEAD W/O CONTRAST Stat RADS 03/15/19 09:53 Completed Medications Generic Name Dose Route Start Last Admin Trade Name Freq PRN Reason Stop Dose Admin Sodium Chloride 1,000 mls @ 75 mls/hr 03/15/19 10:00 Sodium Chloride IV .[id number] KIT Lorazepam 1 mg 03/15/19 09:49 Ativan PO TID PRN Anxiety Discontinued Medications Generic Name Dose Route Start Last Admin Trade Name Freq PRN Reason Stop Dose Admin Lorazepam 0.5 mg 03/15/19 07:30 03/15/19 07:44 Ativan IVP 05/13/19 07:31 0.5 mg ONCE STA Administration Vital Signs: Temp Pulse Resp BP Pulse Ox 03/15/19 07:18 97.5 F L 79 20 112/82 20 L Departure - Departure Time of Disposition: 11:15 Disposition: HOME SELF-CARE Discharge Problem: Anxiety Instructions: Anxiety (ED) Condition: Good Pt referred to PMD for follow-up: Yes IPMP verified?: No Additional Instructions: Please call your Family Physician as soon as possible to schedule a follow-up appointment. Allergies/Adverse Reactions: Allergies No Known Allergies Allergy (Verified 03/15/19 07:28) Home Medications: Ambulatory Orders Buspirone HCl 10 mg PO BID PRN 06/05/18 Clozapine 100 mg PO 1200 06/05/18 Clozapine 200 mg PO BEDTIME 06/05/18 Spironolactone 25 mg PO DAILY 06/05/18 Venlafaxine HCl [Effexor] 75 mg PO BID 06/05/18 Budesonide/Formoterol Fumarate [Symbicort 80-4.5 Mcg Inhaler] 2 puff IH BID PRN 07/08/18 Fenofibrate [Triglide] 1 tab PO QDAC 09/07/18 Pravastatin Sodium [Pravachol] 40 mg PO DAILY 09/07/18 Albuterol Sulfate [Ventolin Hfa] 2 puff IH QID PRN 03/15/19 Carvedilol 25 mg PO DAILY 03/15/19
[2019-03-15] MEDS ORDERED: SODIUM CHLORIDE 1,000 ML IV SCH (10:00)
--- NOTE | 2019-03-15 10:51 | CT ---
EXAM: CT BRAIN HISTORY: Confusion TECHNIQUE: CT brain without intravenous contrast. 5-mm axial sections with Reformations. COMPARISON: 07/20/2018 FINDINGS: Brain is unremarkable without evidence of hemorrhage or large vessel distribution recent ischemic in farction. There is no suggestion of acute hydrocephalus or subdural fluid collection. No mass or ma ss effect. Cranium has no acute finding. Mastoid processes are aerated. The visualized paranasal sinuses are clear. IMPRESSION: No acute intracranial process. No noticeable change since prior study.
== END 2019-03-15 12:21 | disposition home or self-care (01) ==
LOC: ED 07:18
DX: F41.9 Anxiety disorder, unspecified (principal); Z91.14 Patient's other noncompliance with medication regimen; E78.5 Hyperlipidemia, unspecified; I10 Essential (primary) hypertension; F17.210 Nicotine dependence, cigarettes, uncomplicated; Z79.899 Other long term (current) drug therapy
CPT/HCPCS: 36415; 80053; 80307; 84439; 84443; 85025; 93005; 93010; 96374; 99284

== ENCOUNTER 2019-03-17 07:50 | Outpatient (CLI) | END 2019-03-17 08:15 | disposition short-term general hospital (02) | LOC: AMBL 07:50 | PROVIDERS: ATTEND Emergency Medicine | DX: F19.939 Other psychoactive substance use, unspecified with withdrawal, unspecified (principal); G47.00 Insomnia, unspecified ==

== ENCOUNTER 2019-03-30 01:50 | Outpatient (CLI) | END 2019-03-30 02:09 | disposition short-term general hospital (02) | LOC: AMBL 01:50 | PROVIDERS: ATTEND Family Medicine | DX: F19.939 Other psychoactive substance use, unspecified with withdrawal, unspecified (principal); G47.09 Other insomnia ==

== ENCOUNTER 2019-03-30 10:00 | Outpatient (CLI) | END 2019-03-30 10:18 | disposition short-term general hospital (02) | LOC: AMBL 10:00 | PROVIDERS: ATTEND Emergency Medicine | DX: Z76.0 Encounter for issue of repeat prescription (principal) ==

== ENCOUNTER 2019-04-04 05:35 | Outpatient (CLI) | payer OTHER ==
[2019-04-04 06:12] VITALS: BMI 28.8
== END 2019-04-04 05:46 | disposition critical access hospital (66) ==
LOC: AMBL 05:35
PROVIDERS: ATTEND Emergency Medicine
DX: F41.9 Anxiety disorder, unspecified (principal); Z91.14 Patient's other noncompliance with medication regimen

== ENCOUNTER 2019-04-04 05:57 | Emergency (ER) | payer OTHER ==
[2019-04-04 06:12] VITALS: BP 102/73; TEMP 97.7; BMI 28.8
--- NOTE | 2019-04-04 06:22 | ED.PDOC ---
General ED Provider: Dr. INDU STOVER Chief Complaint: Psychiatric Complaint Stated Complaint: 53 y old male is on several psychotropic neds and also meds like Coreg,Spironolactone and fenofibrate-he refuses to take all of them citing. his sleep patern disruption as a reason.Possibly he is psychotic in his fear of being poisonewd etc,Will contact his doctor to reconcile priorities, I tried to reason with the patient however he visibly has a poor insight and judgement,He is not suicidal or homicidal. Time Seen by Physician: 06:00 Mode of Arrival: Ambulance Information Source: Patient Exam Limitations: No limitations Primary Care Provider: MARCUS CERDA Nursing and Triage Documentation Reviewed and Agree: Yes Does patient meet sepsis criteria?: No System Inflammatory Response Syndrome: Not Applicable Sepsis Protocol: For patient's 13 years and over: Temp is 96.8 and below OR 101 and greater Pulse >90 BPM Resp >20/minute Acutely Altered Mental Status Are patient's symptoms suggestive of a new infection, such as: -Pneumonia -Skin, Soft Tissue -Endocarditis -UTI -Bone, Joint Infection -Implantable Device -Acute Abdominal Infection -Wound Infection -Meningitis -Blood Stream Catheter Infection -Unknown Psychological Complaint Exam - Psychiatric Complaint/Exam Onset/Duration: 14 hours refusing sally take meds Symptoms Are: Still present Timing: Constant Episodes Lasting: Days Initial Severity: Mild Current Severity: Mild Character: Present: Anxious, Frustrated Aggravating: Reports: Medication noncompliance Associated Signs And Symptoms: Reports: Paranoid behavior Completed Suicide Risk Factors: Male, Patient In Custody Of Police: No Social Withdrawal Present: Yes Social Isolation Present: Yes Injury From Prior Suicide Attempt: No Related Surgical History: Reports: None Patient Uncooperative For Exam: No Mood: Present: Paranoid, Anxious Appearance: Present: Clean Thought Process: Present: Illogical Insight: Present: Poor Memory: Intact Judgement: Impaired Danger To Others: No Patient Medically Stable For: Psych evaluation Differential Diagnoses: Anxiety, Acute Psychosis Review of Systems - Review Of Systems Constitutional: Reports: No symptoms Eyes: Reports: No symptoms Ears, Nose, Mouth, Throat: Reports: No symptoms Respiratory: Reports: No symptoms Cardiac: Reports: No symptoms GI: Reports: No symptoms : Reports: No symptoms Musculoskeletal: Reports: No symptoms Skin: Reports: No symptoms Neurological: Reports: No symptoms Endocrine: Reports: No symptoms Hematologic/Lymphatic: Reports: No symptoms All Other Systems: Reviewed and Negative Past Medical History - Past Medical History Previously Healthy: Yes Endocrine: Reports: Dyslipidemia Cardiovascular: Reports: Hypertension Respiratory: Reports: None Hematological: Reports: None Gastrointestinal: Reports: None Genitourinary: Reports: None Neuro/Psych: Reports: None Musculoskeletal: Reports: None Cancer: Reports: None - Surgical History General Surgical History: Reports: None - Family History Family History: Reports: None - Social History Smoking Status: Current every day smoker, Heavy tobacco smoker Hx Substance Use: Yes (25 YEARS AGO MARIJUANA AND ALCOHOL) Alcohol Screening: None - Immunizations Tetanus Shot up to Date: Yes Physical Exam - Physical Exam Appearance: Well-appearing Ill-appearing: None Pain Distress: None Eyes: LACY, EOMI, Conjunctiva clear, Right pupil size ENT: Ears normal, Nose normal, Oropharynx normal Neck: Supple Respiratory: Airway patent, Breath sounds clear, Breath sounds equal Cardiovascular: RRR, Pulses normal GI/: Soft, Nontender, No masses, Bowel sounds normal Musculoskeletal: Normal strength, ROM intact, No edema, No calf tenderness Skin: Warm, Dry, Normal color Neurological: Sensation intact, Motor intact, Reflexes intact, Cranial nerves intact, Alert, Oriented Psychiatric: Anxious Physician Notification - Case Discussed Physician Notified: Dr Collado to see patient at the office now and psych referral,Mon. Time of Notification: 06:51 Critical Care Note - Critical Care Note Total Time (mins): 0 Course - Course Vital Signs: Temp Pulse Resp BP Pulse Ox 04/04/19 05:59 97.7 F 69 20 102/73 99 Departure - Departure Time of Disposition: 06:50 Disposition: HOME SELF-CARE Discharge Problem: Psychosis, Paranoia (psychosis), Noncompliance with medication regimen Instructions: Mood Disorders (ED) Condition: Fair Pt referred to PMD for follow-up: Yes (Dr Dillard office now for Psych referral) IPMP verified?: No Allergies/Adverse Reactions: Allergies No Known Allergies Allergy (Verified 04/04/19 06:36) Home Medications: Ambulatory Orders Buspirone HCl 15 mg PO BID 06/05/18 Spironolactone 25 mg PO DAILY 06/05/18 Venlafaxine HCl [Effexor] 75 mg PO DAILY 06/05/18 Albuterol Sulfate [Ventolin Hfa] 2 puff IH QID PRN 05/13/19 Carvedilol 12.5 mg PO BID 03/15/19 Fenofibrate Nanocrystallized [Fenofibrate] 145 mg PO DAILY 04/04/19 Lisinopril [Zestril] 5 mg PO DAILY 04/04/19 Mirtazapine [Remeron] 15 mg PO BEDTIME 04/04/19 Olanzapine [Zyprexa] 5 mg PO DAILY 04/04/19 Olanzapine [Zyprexa] 10 mg PO BEDTIME 04/04/19 Ropinirole HCl [Ropinirole ER] 2 mg PO DAILY 04/04/19 Disposition Discussed With: Patient
== END 2019-04-04 07:00 | disposition home or self-care (01) ==
LOC: ED 05:57
DX: F22 Delusional disorders (principal); Z91.14 Patient's other noncompliance with medication regimen
CPT/HCPCS: 99283

== ENCOUNTER 2019-04-08 05:12 | Emergency (ER) | payer OTHER ==
[2019-04-08 05:33] VITALS: BP 139/71; TEMP 97.6; BMI 30.5
--- NOTE | 2019-04-08 05:55 | ED.PDOC ---
General Stated Complaint: see triage note--noted hallucinations Time Seen by Physician: 05:20 Mode of Arrival: Walk-In Information Source: Patient, Police Exam Limitations: No limitations Nursing and Triage Documentation Reviewed and Agree: Yes Does patient meet sepsis criteria?: No System Inflammatory Response Syndrome: Not Applicable <ROSMERYNELLIE Filed: 04/08/19 06:03> <NIANELLIE Last Filed: 04/08/19 19:48> ED Provider: Dr. NELLIE KRAMER Chief Complaint: Non-specific Complaint Primary Care Provider: MARCUS CERDA Sepsis Protocol: For patient's 13 years and over: Temp is 96.8 and below OR 101 and greater Pulse >90 BPM Resp >20/minute Acutely Altered Mental Status Are patient's symptoms suggestive of a new infection, such as: -Pneumonia -Skin, Soft Tissue -Endocarditis -UTI -Bone, Joint Infection -Implantable Device -Acute Abdominal Infection -Wound Infection -Meningitis -Blood Stream Catheter Infection -Unknown Psychological Complaint Exam - Psychiatric Complaint/Exam Patient Complains Of: Present: Other Symptoms Are: Still present Timing: Constant Initial Severity: Mild Current Severity: Moderate Aggravating: Reports: Recent stress Associated Signs And Symptoms: Reports: Confused, Hallucinating, Paranoid behavior Patient Accompanied By: Police Patient In Custody Of Police: No Social Withdrawal Present: No Social Isolation Present: No Prior Suicide Attempt: No Injury From Prior Suicide Attempt: No Related Surgical History: Reports: None Patient Uncooperative For Exam: No Mood: Present: Paranoid, Hallucinating Appearance: Present: Clean Thought Process: Present: Logical Insight: Present: Good Memory: Intact Judgement: Impaired Danger To Others: No Patient Medically Stable For: Psych evaluation, Referral, Transfer Differential Diagnoses: Acute Psychosis, Schizophrenia <ROSMERYNELLIE Filed: 04/08/19 06:03> Review of Systems - Review Of Systems Constitutional: Reports: No symptoms Eyes: Reports: No symptoms Ears, Nose, Mouth, Throat: Reports: No symptoms Respiratory: Reports: No symptoms Cardiac: Reports: No symptoms GI: Reports: No symptoms : Reports: No symptoms Musculoskeletal: Reports: No symptoms Skin: Reports: No symptoms Neurological: Reports: Cognitive dysfunction Endocrine: Reports: No symptoms Hematologic/Lymphatic: Reports: No symptoms All Other Systems: Reviewed and Negative <ROSMERYNELLIE Filed: 04/08/19 06:03> Past Medical History - Past Medical History Previously Healthy: Yes Endocrine: Reports: Dyslipidemia Cardiovascular: Reports: Hypertension Respiratory: Reports: None Hematological: Reports: None Gastrointestinal: Reports: None Genitourinary: Reports: None Neuro/Psych: Reports: Schizophrenia Musculoskeletal: Reports: None Cancer: Reports: None - Surgical History General Surgical History: Reports: None - Family History Family History: Reports: None - Social History Smoking Status: Current every day smoker, Heavy tobacco smoker Hx Substance Use: Yes (25 YEARS AGO MARIJUANA AND ALCOHOL) Alcohol Screening: None - Immunizations Tetanus Shot up to Date: No (unsure) <ROSMERYNELLIE - Last Filed: 04/08/19 06:03> Physical Exam - Physical Exam Appearance: Well-appearing Eyes: LACY, EOMI, Conjunctiva clear ENT: Ears normal, Nose normal, Oropharynx normal Neck: Supple Respiratory: Airway patent, Breath sounds clear, Breath sounds equal, Respirations nonlabored Cardiovascular: RRR, Pulses normal, No rub, No murmur GI/: Soft, Nontender, No masses, Bowel sounds normal, No Organomegaly Musculoskeletal: Normal strength Skin: Warm, Dry, Normal color Neurological: Sensation intact, Motor intact, Reflexes intact, Cranial nerves intact, Alert, Oriented Psychiatric: Affect appropriate, Mood appropriate <ROSMERYNELLIE - Last Filed: 04/08/19 06:03> Interpretation - EKG Interpretation Time of EKG #1: 06:03 Rate: Normal Rhythm: Sinus Ectopy: None [place]: NL ST Segment: Normal Interpretation: nsr <ROSMERYNELLIE - Last Filed: 04/08/19 06:03> Critical Care Note - Critical Care Note Total Time (mins): 120 <NELLIE KRAMER - Last Filed: 04/08/19 19:48> Course - Course Hematology/Chemistry: 04/08/19 05:55 04/08/19 05:55 <NELLIE KRAMER - Last Filed: 04/08/19 19:48> - Course Orders, Labs, Meds: Lab Review 04/08/19 04/08/19 04/08/19 05:55 05:55 05:55 WBC 7.77 RBC 3.81 L Hgb 12.6 L Hct 35.3 L MCV 92.7 MCH 33.1 H MCHC 35.7 H RDW Coeff of Yonathan 12.0 Plt Count 274 Immature Gran % (Auto) 0.4 Neut % (Auto) 64.4 Lymph % (Auto) 24.1 [place] % (Auto) 9.4 Eos % (Auto) 1.3 Baso % (Auto) 0.4 Immature Gran # (Auto) 0.0 Neut # (Auto) 5.0 Lymph # (Auto) 1.9 [place] # (Auto) 0.7 Eos # (Auto) 0.1 Baso # (Auto) 0.0 Sodium 131.0 L Potassium 3.07 L Chloride 94.6 L Carbon Dioxide 28.4 Anion Gap 11.07 BUN 3.9 L Creatinine 0.61 Estimated GFR (MDRD) 138.00 BUN/Creatinine Ratio 6.39 Glucose 109.2 H Calcium 9.42 Total Bilirubin 0.41 AST 25.6 ALT 22.5 Alkaline Phosphatase 65.7 Total Protein 6.09 L Albumin 4.03 Globulin 2.06 Albumin/Globulin Ratio 1.95 TSH 3.100 Urine Color Urine Clarity Urine pH Ur Specific [place] Urine Protein Urine Glucose (UA) Urine Ketones Urine Blood Urine Nitrite Urine Bilirubin Urine Urobilinogen Ur Leukocyte Esterase Salicylate Level mg/dL < 1.00 Urine Opiates Screen Ur Oxycodone Screen Urine Methadone Screen Ur Propoxyphene Screen Acetaminophen < 10.0 L Ur Barbiturates Screen U Tricyclic Antidepress Ur Phencyclidine Scrn Ur Amphetamine Screen U Methamphetamines Scrn U Benzodiazepines Scrn Urine Cocaine Screen U Cannabinoids Screen Plasma/Serum Alcohol < 10.0 04/08/19 04/08/19 06:27 06:27 WBC RBC Hgb Hct MCV MCH MCHC RDW Coeff of Yonathan Plt Count Immature Gran % (Auto) Neut % (Auto) Lymph % (Auto) [place] % (Auto) Eos % (Auto) Baso % (Auto) Immature Gran # (Auto) Neut # (Auto) Lymph # (Auto) [place] # (Auto) Eos # (Auto) Baso # (Auto) Sodium Potassium Chloride Carbon Dioxide Anion Gap BUN Creatinine Estimated GFR (MDRD) BUN/Creatinine Ratio Glucose Calcium Total Bilirubin AST ALT Alkaline Phosphatase Total Protein Albumin Globulin Albumin/Globulin Ratio TSH Urine Color Yellow Urine Clarity Clear Urine pH 7.0 Ur Specific [place] 1.010 Urine Protein Negative Urine Glucose (UA) Negative Urine Ketones Negative Urine Blood Negative Urine Nitrite Negative Urine Bilirubin Negative Urine Urobilinogen 0.2 Ur Leukocyte Esterase Negative Salicylate Level mg/dL Urine Opiates Screen Negative Ur Oxycodone Screen Negative Urine Methadone Screen Negative Ur Propoxyphene Screen Negative Acetaminophen Ur Barbiturates Screen Negative U Tricyclic Antidepress Negative Ur Phencyclidine Scrn Negative Ur Amphetamine Screen Negative U Methamphetamines Scrn Negative U Benzodiazepines Scrn Negative Urine Cocaine Screen Negative U Cannabinoids Screen Negative Plasma/Serum Alcohol Orders Category Date Time Status EKG-(ED ONLY) Stat CARDIO 04/08/19 05:50 Completed Mental Health Consult [ED MENTAL HEALTH CONSULT] .ONCE EMERGENCY 04/08/19 05: 51 Active ACETAMINOPHEN Stat LAB 04/08/19 05:55 Completed BLOOD ALCOHOL Stat LAB 04/08/19 05:55 Completed CBC W/ AUTO DIFF Stat LAB 04/08/19 05:55 Completed COMPREHENSIVE METABOLIC PANEL Stat LAB 04/08/19 05:55 Completed DRUG SCREEN (RAPID FOR ED) [DRUG SCREEN, URINE, RAPID] LAB 04/08/19 06:27 Completed Stat SALICYLATE Stat LAB 04/08/19 05:55 Completed TSH [THYROID STIMULATING HORMONE] Stat LAB 04/08/19 05:55 Completed URINALYSIS C & S IF INDICATED Stat LAB 04/08/19 06:27 Completed Potassium Chloride [K-Dur] MEDS 04/08/19 06:28 Discontinued 40 meq PO ONCE STA CT HEAD W/O CONTRAST Stat RADS 04/08/19 05:50 Completed CXR [CHEST, 2 VIEWS PA & LAT] Stat RADS 04/08/19 06:03 Completed Medications Discontinued Medications Generic Name Dose Route Start Last Admin Trade Name Freq PRN Reason Stop Dose Admin Potassium Chloride 40 meq 04/08/19 06:28 04/08/19 06:40 K-Dur PO 04/08/19 06:29 40 meq ONCE STA Administration Vital Signs: Temp Pulse Resp BP Pulse Ox 04/08/19 05:16 97.6 F 83 24 139/71 98 Departure <NELLIE BOTELLO - Last Filed: 04/08/19 06:03> - Departure Time of Disposition: 14:00 Pt referred to PMD for follow-up: Yes (1wk) IPMP verified?: No Transfer Form Completed: Yes Disposition Discussed With: Patient (Discovered pt has meds from a recent psych hospitalization ananth at [facility]-has never picked up) <NELLIE KRAMER - Last Filed: 04/08/19 19:48> - Departure Disposition: HOME SELF-CARE Discharge Problem: Schizophrenia, Paranoia (psychosis) Instructions: Schizophrenia (ED) Condition: Fair Additional Instructions: 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 at [facility] Follow up with [facility] as Requestes Allergies/Adverse Reactions: Allergies No Known Allergies Allergy (Verified 04/08/19 05:37) Home Medications: Ambulatory Orders Buspirone HCl 15 mg PO BID 06/05/18 Spironolactone 25 mg PO DAILY 06/05/18 Venlafaxine HCl [Effexor] 75 mg PO DAILY 06/05/18 Albuterol Sulfate [Ventolin Hfa] 2 puff IH QID PRN 03/15/19 Carvedilol 12.5 mg PO BID 03/15/19 Fenofibrate Nanocrystallized [Fenofibrate] 145 mg PO DAILY 04/04/19 Lisinopril [Zestril] 5 mg PO DAILY 04/04/19 Mirtazapine [Remeron] 15 mg PO BEDTIME 04/04/19 Olanzapine [Zyprexa] 5 mg PO DAILY 04/04/19 Olanzapine [Zyprexa] 10 mg PO BEDTIME 04/04/19 Ropinirole HCl [Ropinirole ER] 2 mg PO DAILY 04/04/19
--- NOTE | 2019-04-08 06:27 | DI ---
EXAM: Chest, two-view, 04/08/2019 HISTORY: Mental status changes COMPARISON: 02/04/2019 FINDINGS / IMPRESSION: Interval development of hazy left basilar opacity. This may represent atelec tasis and/or pneumonia. Blunting of the left posterior costophrenic angle. Small pleural effusion n ot excluded. The right lung remains well aerated. No pneumothorax. Cardiomediastinal contours appear stable
--- NOTE | 2019-04-08 06:32 | CT ---
EXAM: CT head without contrast 04/08/2019. Sagittal and coronal reformatted images obtained HISTORY: Mental status changes COMPARISON: 03/15/2019 FINDINGS: There is no evidence of intracranial hemorrhage. The midline is maintained. There is no h ydrocephalus. Generalized atrophy. Chronic small vessel ischemic changes. No cerebellar tonsillar ectopia. Evaluation of the calvarium shows no fracture. The mastoid air cells are normally pneumati zed. IMPRESSION: No acute intracranial abnormality.
[2019-04-08] MEDS: K-DUR PO STA (06:40)
== END 2019-04-08 14:24 | disposition home or self-care (01) ==
LOC: ED 05:12
DX: F20.0 Paranoid schizophrenia (principal); F17.210 Nicotine dependence, cigarettes, uncomplicated; Z91.14 Patient's other noncompliance with medication regimen
CPT/HCPCS: 36415; 80053; 80306; 80307; 81001; 84443; 85025; 93005; 93010; 99284

== ENCOUNTER 2019-04-10 04:36 | Outpatient (CLI) | END 2019-04-10 04:58 | disposition short-term general hospital (02) | LOC: AMBL 04:36 | PROVIDERS: ATTEND Emergency Medicine | DX: F99 Mental disorder, not otherwise specified (principal); G47.00 Insomnia, unspecified ==

== ENCOUNTER 2019-06-16 19:17 | Emergency (ER) ==
[2019-06-16 19:26] VITALS: BP 133/91; TEMP 99.5; BMI 27.3
--- NOTE | 2019-06-16 19:55 | ED.PDOC ---
General ED Provider: Dr. NORA VICENTE Chief Complaint: Urinary Problem Stated Complaint: I have not been able to urinate all day. Time Seen by Physician: 19:52 Mode of Arrival: Walk-In Information Source: Patient Exam Limitations: No limitations Primary Care Provider: MARCUS CERDA Nursing and Triage Documentation Reviewed and Agree: Yes Does patient meet sepsis criteria?: No System Inflammatory Response Syndrome: Not Applicable Sepsis Protocol: For patient's 13 years and over: Temp is 96.8 and below OR 101 and greater Pulse >90 BPM Resp >20/minute Acutely Altered Mental Status Are patient's symptoms suggestive of a new infection, such as: -Pneumonia -Skin, Soft Tissue -Endocarditis -UTI -Bone, Joint Infection -Implantable Device -Acute Abdominal Infection -Wound Infection -Meningitis -Blood Stream Catheter Infection -Unknown Complaint Exam - Complaint/Exam Symptoms Are: Still present Initial Severity: Moderate Current Severity: Moderate Location of Pain: Reports: Unable to describe Character: Reports: Constant pressure Aggravating: Reports: None Alleviating: Reports: None Associated Signs and Symptoms: Reports: Constipation, Abdominal Pain Testicular Torsion Risk Factors: Reports: None Surgical Obstruction Risk Factors: Reports: None Abdominal Findings: Present: None Genitalia Exam: Present: Normal findings Rectal Exam: Present: Normal Findings. Absent: Heme positive, Melena Differential Diagnoses: Prostatitis, UTI, Other (BPH, ) Review of Systems - Review Of Systems Constitutional: Reports: No symptoms Eyes: Reports: No symptoms Ears, Nose, Mouth, Throat: Reports: No symptoms Respiratory: Reports: No symptoms Cardiac: Reports: No symptoms GI: Reports: Constipated : Reports: Other (unable to urinate. ) Musculoskeletal: Reports: No symptoms Skin: Reports: No symptoms Neurological: Reports: Anxiety Endocrine: Reports: No symptoms Hematologic/Lymphatic: Reports: No symptoms All Other Systems: Reviewed and Negative Past Medical History - Past Medical History Previously Healthy: Yes Endocrine: Reports: Dyslipidemia Cardiovascular: Reports: Hypertension Respiratory: Reports: None Hematological: Reports: None Gastrointestinal: Reports: None Genitourinary: Reports: None Neuro/Psych: Reports: Schizophrenia Musculoskeletal: Reports: None Cancer: Reports: None - Surgical History General Surgical History: Reports: None - Family History Family History: Reports: None - Social History Smoking Status: Current every day smoker, Heavy tobacco smoker Hx Substance Use: Yes (25 YEARS AGO MARIJUANA AND ALCOHOL) Alcohol Screening: None - Immunizations Tetanus Shot up to Date: No Physical Exam - Physical Exam Appearance: Ill-appearing Ill-appearing: Moderate Pain Distress: Moderate Neck: Supple Respiratory: Airway patent, Breath sounds clear, Breath sounds equal, Respirations nonlabored Cardiovascular: RRR, Pulses normal, No rub, No murmur GI/: Soft, Bowel sounds normal (Rectal exam normal with no polyps no impaction. Stool for occult negative. ), Tender (suprapubic care. ) Musculoskeletal: Normal strength, ROM intact, No edema, No calf tenderness Skin: Warm Neurological: Sensation intact, Motor intact, Reflexes intact, Cranial nerves intact, Alert, Oriented Psychiatric: Anxious Critical Care Note - Critical Care Note Total Time (mins): 0 Comments: Patient declined to have Means catheter placed after his Bladder scan showed > 700mls of urine He again tried to void and was able to without difficulty Course - Course Hematology/Chemistry: 06/16/19 20:06 06/16/19 20:06 Orders, Labs, Meds: Lab Review 06/16/19 06/16/19 06/16/19 19:52 20:06 20:06 WBC 8.83 RBC 4.42 L Hgb 14.3 Hct 39.9 L MCV 90.3 MCH 32.4 H MCHC 35.8 H RDW Coeff of Yonathan 12.2 Plt Count 326 Immature Gran % (Auto) 0.3 Neut % (Auto) 70.2 Lymph % (Auto) 19.4 [place] % (Auto) 8.3 Eos % (Auto) 1.2 Baso % (Auto) 0.6 Immature Gran # (Auto) 0.0 Neut # (Auto) 6.2 Lymph # (Auto) 1.7 [place] # (Auto) 0.7 Eos # (Auto) 0.1 Baso # (Auto) 0.1 Sodium 131.6 L Potassium 3.24 L Chloride 95.1 L Carbon Dioxide 27.4 Anion Gap 12.34 BUN 9.2 Creatinine 0.66 Estimated GFR (MDRD) 126.00 BUN/Creatinine Ratio 13.93 Glucose 129.3 H Calcium 9.21 Total Bilirubin 0.75 AST 26.3 ALT 25.1 Alkaline Phosphatase 104.2 Total Protein 6.72 Albumin 4.26 Globulin 2.46 Albumin/Globulin Ratio 1.73 Urine Color Urine Clarity Urine pH Ur Specific [place] Urine Protein Urine Glucose (UA) Urine Ketones Urine Blood Urine Nitrite Urine Bilirubin Urine Urobilinogen Ur Leukocyte Esterase Stl Occult Blood (IFOB) Negative Stool Occult Blood #2 No specimen received Stool Occult Blood #3 No specimen received 06/16/19 20:30 WBC RBC Hgb Hct MCV MCH MCHC RDW Coeff of Yonathan Plt Count Immature Gran % (Auto) Neut % (Auto) Lymph % (Auto) [place] % (Auto) Eos % (Auto) Baso % (Auto) Immature Gran # (Auto) Neut # (Auto) Lymph # (Auto) [place] # (Auto) Eos # (Auto) Baso # (Auto) Sodium Potassium Chloride Carbon Dioxide Anion Gap BUN Creatinine Estimated GFR (MDRD) BUN/Creatinine Ratio Glucose Calcium Total Bilirubin AST ALT Alkaline Phosphatase Total Protein Albumin Globulin Albumin/Globulin Ratio Urine Color Yellow Urine Clarity Clear Urine pH 6.5 Ur Specific [place] 1.010 Urine Protein Negative Urine Glucose (UA) Negative Urine Ketones Negative Urine Blood Negative Urine Nitrite Negative Urine Bilirubin Negative Urine Urobilinogen 0.2 Ur Leukocyte Esterase Negative Stl Occult Blood (IFOB) Stool Occult Blood #2 Stool Occult Blood #3 Orders Category Date Time Status Means [CATHETER INSERTION AND CARE] Q8HR CARE 06/16/19 19:50 Active REMINDER: Ask MD to d/c means DAILY CARE 06/16/19 19:51 Active ED BLADDER SCAN .ONCE EMERGENCY 06/16/19 19:50 Active ED IV/MEDIPORT/POWERPORT .ONCE EMERGENCY 06/16/19 20:04 Active CBC W/ AUTO DIFF Stat LAB 06/16/19 20:06 Completed COMPREHENSIVE METABOLIC PANEL Stat LAB 06/16/19 20:06 Completed OCCULT BLOOD, STOOL Stat LAB 06/16/19 19:52 Completed URINALYSIS C & S IF INDICATED Stat LAB 06/16/19 20:30 Completed 0.9 % Sodium Chloride [Saline Flush] MEDS 06/16/19 20:04 Discontinued 1 syr IVF PRN PRN Ringers Lactated Solution [Lactated Ringers] 1,000 ml MEDS 06/16/19 20:04 Discontinued IV BOLUS Medications Discontinued Medications Generic Name Dose Route Start Last Admin Trade Name Freq PRN Reason Stop Dose Admin Lactated Ringer's 1,000 mls @ 1,000 mls/hr 06/16/19 20:04 06/16/19 20:27 Lactated Ringers IV 06/16/19 21:03 1,000 mls/hr BOLUS STA Administration Sodium Chloride 1 syr 06/16/19 20:04 Saline Flush IVF PRN PRN To flush IV Vital Signs: Temp Pulse Resp BP Pulse Ox 06/16/19 19:18 99.5 F 106 H 20 133/91 H 96 Departure - Departure Time of Disposition: 20:54 Disposition: HOME SELF-CARE Discharge Problem: Urinary retention Instructions: Enlarged Prostate (BPH) (ED) Condition: Fair Pt referred to PMD for follow-up: Yes IPMP verified?: No Additional Instructions: Follow up with PCP in 2-3 days Push Fluids. Prescriptions: Tamsulosin HCl [Flomax] 0.4 mg PO DAILY #30 cap.er.24h Allergies/Adverse Reactions: Allergies No Known Allergies Allergy (Verified 06/16/19 19:24) Home Medications: Ambulatory Orders Tamsulosin HCl [Flomax] 0.4 mg PO DAILY #30 cap.er.24h 06/16/19 Disposition Discussed With: Patient, Family
[2019-06-16] MEDS ORDERED: LACTATED RINGERS 1,000 ML IV STA (20:04)
== END 2019-06-16 20:53 | disposition home or self-care (01) ==
LOC: ED 19:17
DX: R33.9 Retention of urine, unspecified (principal); N40.0 Benign prostatic hyperplasia without lower urinary tract symptoms; K59.00 Constipation, unspecified; R10.9 Unspecified abdominal pain; E78.5 Hyperlipidemia, unspecified; I10 Essential (primary) hypertension; F17.210 Nicotine dependence, cigarettes, uncomplicated
CPT/HCPCS: 36415; 80053; 81001; 82272; 85025; 96360; 96361; 99283

== ENCOUNTER 2021-06-14 16:59 | Inpatient (IN) ==
[2021-06-14] MEDS ORDERED: SODIUM CHLORIDE 1,000 ML IV STA (19:23)
[2021-06-14] MEDS ORDERED: NITROSTAT SL STA ×2 (19:24→19:53)
[2021-06-14 19:42] LABS: BASOPHILS % (AUTO) 0.5 % (0.0-3.0); EOSINOPHILS # (AUTO) 0.1 K/ul (0.0-0.7); EOSINOPHILS % (AUTO) 0.6 % (0.0-7.0); HEMATOCRIT 41.8 % (42.0-52.0); HEMOGLOBIN 14.5 g/dl (14.0-18.0); IMMATURE GRANULOCYTE % (AUTO) 0.3 % (0.0-5.0); LYMPHOCYTES # (AUTO) 1.8 K/uL (0.60-3.4); LYMPHOCYTES % (AUTO) 23.1 (10.0-50.0); MEAN CORPUSCULAR HEMOGLOBIN 33.8 pg (27.0-31.0); MEAN CORPUSCULAR HGB CONC 34.7 (31.8-35.4); MEAN CORPUSCULAR VOLUME 97.4 fl (80.0-94.0); MONOCYTES # (AUTO) 0.8 K/uL (0.4-2.0); MONOCYTES % (AUTO) 9.6 (0-10); NEUTROPHILS # (AUTO) 5.2 K/ul (2.0-6.9); NEUTROPHILS % (AUTO) 65.9 % (42.2-75.2); PLATELET COUNT 241 10^3/uL (140-440); RDW COEFFICIENT OF VARIATION 12.7 % (11.6-14.8); RED BLOOD COUNT 4.29 10^6/ul (4.70-6.10); WHITE BLOOD COUNT 7.93 K/ul (4.2-10.2)
--- NOTE | 2021-06-14 19:51 | DI ---
EXAM: CHEST RADIOGRAPH (1 VIEW) TECHNIQUE: Frontal Chest Radiograph. HISTORY: Chest pain. COMPARISON: Chest radiograph 06/04/2021 FINDINGS: Lines, Tubes, Devices: None Lungs and Pleura: No focal consolidation. No pleural effusion. No pneumothorax. No pulmonary edema . Mild elevation of the right hemidiaphragm. Nodular opacities in the mid lungs bilaterally are like ly nipple shadows. Cardiomediastinum: Normal cardiomediastinal silhouette. No aortic calcifications. Bones/Soft Tissues: Degenerative changes of the spine. No soft tissue abnormality. Upper Abdomen: Within normal limits. IMPRESSION: No acute radiographic abnormality.
[2021-06-14] MEDS ORDERED: ASPIRIN CHEWABLE PO STA (19:53)
[2021-06-14] MEDS ORDERED: GI COCKTAIL PO ONE (19:54)
[2021-06-14 19:55] LABS: ALANINE AMINOTRANSFERASE 16.5 U/L (0-50); ALBUMIN 4.54 g/dL (3.5-5.0); ALKALINE PHOSPHATASE 98.2 U/L (38-126); ASPARTATE AMINO TRANSFERASE 35.2 U/L (17-59); BILIRUBIN,TOTAL 1.19 mg/dL (0.2-1.3); BLOOD UREA NITROGEN 10.2 mg/dL (9-20); CALCIUM 9.08 mg/dL (8.4-10.2); CARBON DIOXIDE 31.5 mmol/L (22-30.0); CHLORIDE 94.7 mmol/L (98-107); CREATININE 0.59 mg/dL (0.60-1.10); POTASSIUM 3.93 mmol/L (3.5-5.1); SODIUM 130.4 mmol/L (134.5-145); TOTAL PROTEIN 6.75 g/dL (6.3-8.2)
--- NOTE | 2021-06-14 19:56 | ED.PDOC ---
General ED Provider: Dr. NORA VICENTE Chief Complaint: Chest Pain Stated Complaint: substernal chest pain for one week. states it is sharp. Had a negative stress test in 2018 smokes 3 ppd. Pain does not radiate. No associated nausea or vomiting. pain is at rest. Time Seen by Provider: 06/14/21 19:23 Mode of Arrival: Walk-In Information Source: Patient Nursing and Triage Documentation Reviewed and Agree: Yes Does patient meet sepsis criteria?: No System Inflammatory Response Syndrome: Not Applicable Sepsis Protocol: For patient's 13 years and over: Temp is 96.8 and below OR 101 and greater Pulse >90 BPM Resp >20/minute Acutely Altered Mental Status Are patient's symptoms suggestive of a new infection, such as: -Pneumonia -Skin, Soft Tissue -Endocarditis -UTI -Bone, Joint Infection -Implantable Device -Acute Abdominal Infection -Wound Infection -Meningitis -Blood Stream Catheter Infection -Unknown Cardiovascular Complaint Exam Chest Pain Complaint/Exam Onset: Gradual Review of Systems Review Of Systems Constitutional: Reports No symptoms Eyes: Reports No symptoms Ears, Nose, Mouth, Throat: Reports No symptoms Respiratory: Reports No symptoms Cardiac: Reports Chest pain (sharp pain) GI: Reports No symptoms : Reports No symptoms Musculoskeletal: Denies Back pain Skin: Reports No symptoms Neurological: Reports No symptoms Endocrine: Reports No symptoms Hematologic/Lymphatic: Reports No symptoms All Other Systems: Reviewed and Negative [facility] Social History History of recent travel: No Physical Exam Physical Exam Appearance: Reports Ill-appearing Ill-appearing: Mild Pain Distress: Moderate Eyes: Reports Conjunctiva clear ENT: Reports Nose normal and Oropharynx normal Neck: Supple Respiratory: Reports Airway patent and Breath sounds clear Cardiovascular: Reports RRR and Pulses normal GI/: Reports Soft, Nontender and No masses Musculoskeletal: Reports Normal strength and ROM intact Skin: Reports Warm and Dry Neurological: Reports Motor intact, Alert and Oriented Psychiatric: Reports Anxious Interpretation Radiology Interpretation Radiology Interpretation By: Radiologist Radiology Results: Negative (No acute radiographic abnormality.) Exam Interpreted: Portable CXR EKG Interpretation Time of EKG #1: 17:15 Rate: Tachy Rhythm: Sinus Ectopy: PVCs [place]: NL Interpretation: LVH Re-Evaluation Re-Evaluation Time of Re-Evaluation: 20:29 Status: Improved Vital Signs Stable: Yes Pain Level: 0 Appearance: NAD Physician Notification Case Discussed Physician Notified: Dr Ram Time of Notification: 21:10 (admit to telemetery ) Critical Care Note Critical Care Note Total Critical Care Time (mins): 50 Course Course Hematology/Chemistry: 06/14/21 19:39 06/14/21 19:39 Orders, Labs, Meds: Lab Review 06/14/21 06/14/21 06/14/21 19:39 19:39 20:40 WBC 7.93 RBC 4.29 L Hgb 14.5 Hct 41.8 L MCV 97.4 H MCH 33.8 H MCHC 34.7 RDW Coeff of Yonathan 12.7 Plt Count 241 Immature Gran % (Auto) 0.3 Neut % (Auto) 65.9 Lymph % (Auto) 23.1 [place] % (Auto) 9.6 Eos % (Auto) 0.6 Baso % (Auto) 0.5 Neut # (Auto) 5.2 Lymph # (Auto) 1.8 [place] # (Auto) 0.8 Eos # (Auto) 0.1 Baso # (Auto) 0.0 Immature Gran # (Auto) 0.0 Sodium 130.4 L Potassium 3.93 Chloride 94.7 L Carbon Dioxide 31.5 H Anion Gap 8.13 BUN 10.2 Creatinine 0.59 L Estimated GFR (MDRD) 142.00 BUN/Creatinine Ratio 17.28 Glucose 92.0 Calcium 9.08 Total Bilirubin 1.19 AST 35.2 ALT 16.5 Alkaline Phosphatase 98.2 Total Creatine Kinase 260.0 H CK-MB (CK-2) 1.780 CK-MB (CK-2) % 0.6800 Troponin I 0.018 Total Protein 6.75 Albumin 4.54 Globulin 2.21 Albumin/Globulin Ratio 2.05 Adenovirus (PCR) Not detected B. pertussis DNA (PCR) Not detected B.parapertussis DNA PCR Not detected C. pneumoniae DNA (PCR) Not detected Coronavirus OC43 (PCR) Not detected Coronavirus HKU1 (PCR) Not detected Coronavirus 229E (PCR) Not detected Coronavirus NL63 (PCR) Not detected Human Metapneumovir PCR Not detected Influenza Type A (PCR) Not detected Influenza B (RT-PCR) Not detected M. pneumoniae (PCR) Not detected Parainfluenza 1 (PCR) Not detected Parainfluenza 2 (PCR) Not detected Parainfluenza 3 (PCR) Not detected Parainfluenza 4 (PCR) Not detected RSV (PCR) Not detected Entero/Rhino (PCR) Not detected SARS-CoV-2 (PCR) Not detected Orders Category Date Time Status EKG-(ED ONLY) Stat CARDIO 06/14/21 19:23 Completed EKG-(ED ONLY) Stat CARDIO 06/14/21 19:54 Ordered EKG-(IP & OP ONLY) Routine CARDIO 06/15/21 07:00 Ordered INTAKE & OUTPUT Q8HR CARE 06/14/21 21:13 Active NPO REMINDER: LAB TEST ONCE CARE 06/14/21 21:17 Active VITAL SIGNS Q4HR CARE 06/14/21 21:13 Active CARDIAC DIET DIETARY 06/14/21 Breakfast Ordered ED WIG DRESSER APPLIED .ONCE EMERGENCY 06/14/21 19:23 Active ED IV/MEDIPORT/POWERPORT .ONCE EMERGENCY 06/14/21 19:23 Active CBC W/ AUTO DIFF DAILY@0600 LAB 06/15/21 06:00 Ordered CBC W/ AUTO DIFF DAILY@0600 LAB 06/16/21 06:00 Ordered CBC W/ AUTO DIFF Stat LAB 06/14/21 19:39 Completed COMPREHENSIVE METABOLIC PANEL DAILY@0600 LAB 06/15/21 06:00 Ordered COMPREHENSIVE METABOLIC PANEL DAILY@0600 LAB 06/16/21 06:00 Ordered COMPREHENSIVE METABOLIC PANEL Stat LAB 06/14/21 19:39 Completed CREATINE KINASE Q8H LAB 06/15/21 03:15 Ordered CREATINE KINASE Q8H LAB 06/15/21 11:15 Ordered CREATINE KINASE Stat LAB 06/14/21 19:39 Completed LIPID PANEL Stat LAB 06/15/21 05:00 Ordered RESPIRATORY PANEL 2.1 (PCR) Stat LAB 06/14/21 20:40 Completed TROPONIN I Q8H LAB 06/15/21 03:15 Ordered TROPONIN I Q8H LAB 06/15/21 11:15 Ordered TROPONIN I Stat LAB 06/14/21 19:39 Completed 0.9 % Sodium Chloride [Saline Flush] MEDS 06/14/21 19:23 Active 1 syr IVF PRN PRN Acetaminophen [Tylenol] MEDS 06/14/21 21:13 Active 650 mg PO Q4H PRN Aspirin [Aspirin Chewable] MEDS 06/14/21 19:53 Discontinued 324 mg PO ONCE STA Aspirin [Aspirin EC] MEDS 06/15/21 08:30 Active 325 mg PO DAILYWM Dexamethasone Sod Phosphate [Decadron] MEDS 06/14/21 21:11 Discontinued 4 mg IVP ONCE ONE Enoxaparin Sodium [Lovenox] MEDS 06/15/21 09:00 Active 40 mg SUBCUT DAILY Ketorolac Tromethamine [Toradol] MEDS 06/14/21 21:11 Discontinued 30 mg IVP ONCE STA Mag-Al Plus//Lidocaine [Gi Cocktail] MEDS 06/14/21 19:54 Discontinued 30 ml PO ONCE ONE Nitroglycerin [Nitrostat] MEDS 06/14/21 19:24 Discontinued 0.4 mg SL ONCE STA Nitroglycerin [Nitrostat] MEDS 06/14/21 19:53 Discontinued 0.4 mg SL ONCE STA Ondansetron HCl/Pf [Zofran 4 mg/2 ml] MEDS 06/14/21 21:13 Active 4 mg IVP Q6H PRN Pantoprazole Sodium [Protonix IV] MEDS 06/15/21 09:00 Active 40 mg IVP DAILY Pantoprazole Sodium [Protonix IV] MEDS 06/14/21 21:12 Discontinued 40 mg IVP ONCE ONE Sodium Chloride 0.9% [Sodium Chloride] 1,000 ml MEDS 06/14/21 19:23 Active IV 125 mls/hr RESUSCITATION STATUS Routine OTHERS 06/14/21 21:13 Ordered CHEST, 1V AP ONLY Stat RADS 06/14/21 19:23 Completed Medications Generic Name Dose Route Start Last Admin Trade Name Freq PRN Reason Stop Dose Admin Acetaminophen 650 mg 06/14/21 21:13 Acetaminophen 325 Mg Tablet PO Q4H PRN FEVER Aspirin 325 mg 06/15/21 08:30 Aspirin 325 Mg Tablet. PO DAILYWM KIT Enoxaparin Sodium 40 mg 06/15/21 09:00 Enoxaparin Sodium 40 Mg/0.4 Ml Syr SUBCUT DAILY KIT Sodium Chloride 1,000 mls @ 125 mls/hr 06/14/21 19:23 06/14/21 19:35 Sodium Chloride IV 06/15/21 03:22 125 mls/hr .Q8H STA Administration Ondansetron HCl 4 mg 06/14/21 21:13 Ondansetron Hcl/Pf 4 Mg/2 Ml Sdv IVP Q6H PRN Nausea / Vomiting Pantoprazole Sodium 40 mg 06/15/21 09:00 Pantoprazole Sodium 40 Mg Vial IVP DAILY KIT Sodium Chloride 1 syr 06/14/21 19:23 0.9% Sodium Chloride 10 Ml Disp.Syrin IVF PRN PRN To flush IV Discontinued Medications Generic Name Dose Route Start Last Admin Trade Name Freq PRN Reason Stop Dose Admin Al Hydroxide/Mg Hydroxide 30 ml 06/14/21 19:54 06/14/21 19:57 Mag-Al Plus//Lidocaine 30 Ml Btl PO 06/14/21 19:55 30 ml ONCE ONE Administration Aspirin 324 mg 06/14/21 19:53 06/14/21 19:57 Aspirin 81 Mg Tab.Chew PO 06/14/21 19:54 324 mg ONCE STA Administration Dexamethasone Sodium Phosphate 4 mg 06/14/21 21:11 06/14/21 21:29 Dexamethasone Sod Phos 4 Mg/Ml Inj IVP 06/14/21 21:12 4 mg ONCE ONE Administration Ketorolac Tromethamine 30 mg 06/14/21 21:11 06/14/21 21:29 Ketorolac Tromethamine 30 Mg/Ml Vial IVP 06/14/21 21:12 30 mg ONCE STA Administration Nitroglycerin 0.4 mg 06/14/21 19:24 06/14/21 19:50 Nitroglycerin 0.4 Mg Tab.Subl SL 06/14/21 19:25 0.4 mg ONCE STA Administration Nitroglycerin 0.4 mg 06/14/21 19:53 06/14/21 19:57 Nitroglycerin 0.4 Mg Tab.Subl SL 06/14/21 19:54 0.4 mg ONCE STA Administration Pantoprazole Sodium 40 mg 06/14/21 21:12 06/14/21 21:29 Pantoprazole Sodium 40 Mg Vial IVP 06/14/21 21:13 40 mg ONCE ONE Administration Vital Signs: Temp Pulse Resp BP Pulse Ox 06/14/21 17:02 96.4 F L 99 H 18 159/90 H 95 ROSA ELENA Risk Score Age >/= 65: No >/= 3 CAD Risk Factors: Yes Known CAD (Stenosis >/= 50%): No ASA Use in Past 7 Days: No Severe Angina (>/= 2 episodes in 24 hours): Yes EKG ST Changes >/= 0.5mm: No Postive Cardiac Marker: No ROSA ELENA Total Score: 2 ROSA ELENA Risk Score: Risk Score Odds of by 30D 0 0.1 (0.1-0.2) 1 0.3 (0.2-0.3) 2 0.4 (0.3-0.5) 3 0.7 (0.6-0.9) 4 1.2 (1.0-1.5) 5 2.2 (1.9-2.6) 6 3.0 (2.5-3.6) 7 4.8 (3.8-6.1) Discharge Plan Discharge Patient Disposition: ADMITTED INPATIENT Discharge Problem: Chest pain ED Provider: NORA VICENTE Condition: Stable Physician Progress Note: []
[2021-06-14 20:06] LABS: TROPONIN I 0.018 ng/ml (0.0000-0.120)
[2021-06-14 20:09] LABS: CREATINE KINASE MB 1.78 ng/ml (0.0-2.38)
[2021-06-14] MEDS ORDERED: DECADRON IVP ONE (21:11)
[2021-06-14] MEDS ORDERED: TORADOL IVP STA (21:11)
[2021-06-14] MEDS ORDERED: PROTONIX IV IVP ONE (21:12)
[2021-06-14] MEDS ORDERED: ZOFRAN 4 MG/2 ML IVP PRN (21:13)
[2021-06-14 21:39] LABS: ADENOVIRUS (PCR) NOT DETECTED (NOT DETECT); BORDETELLA PARAPERTUSSIS (PCR) NOT DETECTED (NOT DETECT); BORDETELLA PERTUSSIS (PCR) NOT DETECTED (NOT DETECT); CHLAMYDIA PNEUMONIAE (PCR) NOT DETECTED (NOT DETECT); CORONAVIRUS 229E (PCR) NOT DETECTED (NOT DETECT); CORONAVIRUS HKU1 (PCR) NOT DETECTED (NOT DETECT); CORONAVIRUS NL63 (PCR) NOT DETECTED (NOT DETECT); CORONAVIRUS OC43 (PCR) NOT DETECTED (NOT DETECT); HUMAN METAPNEUMOVIRUS (PCR) NOT DETECTED (NOT DETECT); HUMAN RHINOVIRUS/ENTEROV (PCR) NOT DETECTED (NOT DETECT); INFLUENZA B (PCR) NOT DETECTED (NOT DETECT); MYCOPLASMA PNEUMONIAE (PCR) NOT DETECTED (NOT DETECT); PARAINFLUENZA VIRUS 1 (PCR) NOT DETECTED (NOT DETECT); PARAINFLUENZA VIRUS 2 (PCR) NOT DETECTED (NOT DETECT); PARAINFLUENZA VIRUS 3 (PCR) NOT DETECTED (NOT DETECT); PARAINFLUENZA VIRUS 4 (PCR) NOT DETECTED (NOT DETECT); RESPIRATORY SYNCYTIAL V (PCR) NOT DETECTED (NOT DETECT); SARS_COV_2 (PCR) NOT DETECTED (NOT DETECT)
[2021-06-14 22:51] VITALS: BMI 25.9
[2021-06-15 03:19] LABS: BASOPHILS % (AUTO) 0.3 % (0.0-3.0); HEMOGLOBIN 14.7 g/dl (14.0-18.0); IMMATURE GRANULOCYTE % (AUTO) 0.3 % (0.0-5.0); LYMPHOCYTES # (AUTO) 0.6 K/uL (0.60-3.4); LYMPHOCYTES % (AUTO) 10.4 (10.0-50.0); MEAN CORPUSCULAR HEMOGLOBIN 33.9 pg (27.0-31.0); MONOCYTES # (AUTO) 0.2 K/uL (0.4-2.0); MONOCYTES % (AUTO) 3.7 (0-10); NEUTROPHILS % (AUTO) 85.3 % (42.2-75.2); PLATELET COUNT 208 10^3/uL (140-440); RDW COEFFICIENT OF VARIATION 12.4 % (11.6-14.8); RED BLOOD COUNT 4.33 10^6/ul (4.70-6.10); WHITE BLOOD COUNT 5.87 K/ul (4.2-10.2)
[2021-06-15 03:32] LABS: CHOLESTEROL 179.3 mg/dL (0-200); HDL CHOLESTEROL 84.2 mg/dL (35-60); TRIGLYCERIDES 56.1 mg/dL (0-150)
[2021-06-15 03:33] LABS: ALANINE AMINOTRANSFERASE 15.8 U/L (0-50); ALBUMIN 4.23 g/dL (3.5-5.0); ALKALINE PHOSPHATASE 96.8 U/L (38-126); ASPARTATE AMINO TRANSFERASE 33.8 U/L (17-59); BILIRUBIN,TOTAL 1.36 mg/dL (0.2-1.3); BLOOD UREA NITROGEN 9.9 mg/dL (9-20); CALCIUM 8.98 mg/dL (8.4-10.2); CARBON DIOXIDE 28.8 mmol/L (22-30.0); CHLORIDE 97.4 mmol/L (98-107); CREATININE 0.56 mg/dL (0.60-1.10); GLUCOSE 142.5 mg/dL (74-106); POTASSIUM 4.33 mmol/L (3.5-5.1); SODIUM 129.9 mmol/L (134.5-145); TOTAL PROTEIN 6.3 g/dL (6.3-8.2)
[2021-06-15 03:39] LABS: CREATINE KINASE 231.6 U/L (55-170)
[2021-06-15 03:52] LABS: TROPONIN I 0.012 ng/ml (0.0000-0.120)
[2021-06-15 03:54] LABS: CREATINE KINASE MB 1.69 ng/ml (0.0-2.38)
[2021-06-15] MEDS: LOVENOX SUBCUT SCH (09:57)
[2021-06-15] MEDS: PROTONIX IV IVP SCH (09:58)
[2021-06-15] MEDS: ASPIRIN EC PO SCH (09:58)
[2021-06-15] MEDS: NICODERM 21 MG TD SCH (09:58)
[2021-06-15 10:16] LABS: BILIRUBIN,URINE Negative (NEGATIVE); CLARITY,URINE Clear (CLEAR); COLOR,URINE Yellow (YELLOW); GLUCOSE, URINE (UA) Negative (NEGATIVE); KETONES,URINE Negative (NEGATIVE); LEUKOCYTE ESTERASE ,URINE Negative (NEGATIVE); NITRITE,URINE Negative (NEGATIVE); PROTEIN,URINE Negative (NEGATIVE); URINE, BLOOD Negative (NEGATIVE); UROBILINOGEN,URINE 0.2 (0.2)
--- NOTE | 2021-06-15 10:49 | HP ---
DATE OF SERVICE: 06/15/21 (ADMITTED 06/14/21) REASON FOR HOSPITALIZATION/HISTORY OF PRESENT ILLNESS: This 55 year old /WHITE M was hospitalized 06/14/21 with chest pain, which was atypical, sharp precordial pain for 7 to 10 days duration. The patient is feeling better. He also had palpitations. According to the patient, I have not seen him for several years and he is on no medications. The patient was hospitalized with PVCs, cardiac arrhythmia and heart palpitations in September of 2018. He has a history of heart catheterization on 09/[address] Deng. Other significant findings are history of CHF, dilated cardiomyopathy by history, schizophrenia, generalized anxiety disorder, nonocclusive coronary artery disease, chronic lung disease, hypothyroidism. The patient is noncompliant. He is supposed to be on several antipsychotic medications along with Synthroid, Zestril and is off all medications. PAST MEDICAL HISTORY: Asthma PVCs Cardiac arrhythmia Heart palpitations History of heart catheterization, 09/18, Dr. Deng CHF Dilated cardiomyopathy Schizophrenia Generalized anxiety disorder Nonocclusive coronary artery disease Chronic lung disease Hypothyroidism Noncompliance with medications. PAST SURGICAL HISTORY: Removal of cyst. REVIEW OF SYSTEMS: CONSTITUTIONAL: No night sweats. No fatigue, malaise, lethargy. No fever or chills. HEENT: Eyes: No visual changes. No eye pain. No eye discharge. ENT: No runny nose. No epistaxis. No sinus pain. No sore throat. No odynophagia. No ear pain. No congestion. RESPIRATORY: No cough, no congestion. No hemoptysis. No shortness of breath. CARDIOVASCULAR: No angina symptoms. No CHF symptoms. No atypical chest pain for CAD. No palpitations. No PND. No orthopnea. GASTROINTESTINAL: No abdominal pain. No nausea or vomiting. No diarrhea or constipation. No hematemesis. No hematochezia. GENITOURINARY: No urgency. No frequency. No dysuria. No hematuria. No obstructive symptoms. No discharge. No pain. No significant abnormal bleeding. MUSCULOSKELETAL: No musculoskeletal pain. No joint swelling. No arthritis. NEUROLOGICAL: No headache. No neck pain. No syncope. No seizures. No dizziness. PSYCHIATRIC: Not anxious. No depression. No suicidal thoughts. No homicidal thoughts. SKIN: No rash. No lesions. No wounds. ENDOCRINE: No unexplained weight loss. No weight gain. HEMATOLOGIC/LYMPHATIC: No anemia. No purpura. No petechiae. No prolonged or excessive bleeding. No palpable lymph nodes. PERSONAL/FAMILY/SOCIAL HISTORY: The patient is a heavy smoker. Lives at home alone. MEDICATIONS: None reported. ALLERGIES: PENICILLINS. PHYSICAL EXAMINATION: GENERAL: The patient is awake, alert and oriented, lying/sitting in bed in no distress. VITAL SIGNS: Temperature 97.8 F, Pulse 64, Respiratory Rate 18, BP 139/82, Pulse Ox 98% HEENT: Head normocephalic, atraumatic. Eyes: Extraocular muscles are intact. Pupils are equal, round and reactive to light and accommodation. Ears: No lesions. Nose appeared normal. Throat: No exudate or erythema. NECK: Supple. No JVD, no carotid bruit. No lymphadenopathy or thyromegaly. LUNGS: Harsh breath sounds. Percussion note normal. Chest symmetrical. HEART: S1, S2, no S3. No murmur. No cyanosis or clubbing. No ascites. Pulses: Dorsalis pedis and posterior tibial pulses +1 to +2 bilaterally. ABDOMEN: Soft. Nontender. Bowel sounds active. No CVA tenderness. No mass felt. EXTREMITIES: No edema. Full range of motion of all extremities, equal. NEUROLOGIC: No focal deficit. Cranial nerves II through XII are grossly intact. No headache, no double vision or headache. SKIN: Not dry. Intact. Turgor - normal. LYMPHATIC: No palpable lymph nodes/no lymphedema. MUSCULOSKELETAL: Normal joints with no swelling. Muscle tone is normal. LAB REVIEW: 06/15/21 03:23: WBC 5.87, RBC 4.33 L, Hgb 14.7, Hct 42.0, MCV 97.0 H, MCH 33.9 H, MCHC 35.0, RDW Coeff of Yonathan 12.4, Plt Count 208, Immature Gran % (Auto) 0.3, Neut % (Auto) 85.3 H, Lymph % (Auto) 10.4, Harris % (Auto) 3.7, Eos % (Auto) 0.0, Baso % (Auto) 0.3, Neut # (Auto) 5.0, Lymph # (Auto) 0.6, Harris # (Auto) 0.2 L, Eos # (Auto) 0.0, Baso # (Auto) 0.0, Immature Gran # (Auto) 0.0 06/15/21 03:20: Sodium 129.9 L, Potassium 4.33, Chloride 97.4 L, Carbon Dioxide 28.8, Anion Gap 8.03, BUN 9.9, Creatinine 0.56 L, Estimated GFR (MDRD) 151.00, BUN/Creatinine Ratio 17.67, Glucose 142.5 H D, Calcium 8.98, Total Bilirubin 1.36 H, AST 33.8, ALT 15.8, Alkaline Phosphatase 96.8, Total Protein 6.30, Albumin 4.23, Globulin 2.07, Albumin/Globulin Ratio 2.04 06/15/21 03:20: Triglycerides 56.1, Cholesterol 179.3, LDL Cholesterol, Calc 84, VLDL Cholesterol 11, HDL Cholesterol 84.2 H, Cholesterol/HDL Ratio 2.1 L 06/15/21 03:20: Total Creatine Kinase 231.6 H, CK-MB (CK-2) 1.690, CK-MB (CK-2) % 0.7200, Troponin I 0.012 06/14/21 20:40: Adenovirus (PCR) Not detected, B. pertussis DNA (PCR) Not detected, B.parapertussis DNA PCR Not detected, C. pneumoniae DNA (PCR) Not detected, Coronavirus OC43 (PCR) Not detected, Coronavirus HKU1 (PCR) Not detected, Coronavirus 229E (PCR) Not detected, Coronavirus NL63 (PCR) Not detected, Human Metapneumovir PCR Not detected, Influenza Type A (PCR) Not detected, Influenza B (RT-PCR) Not detected, M. pneumoniae (PCR) Not detected, Parainfluenza 1 (PCR) Not detected, Parainfluenza 2 (PCR) Not detected, Parainfluenza 3 (PCR) Not detected, Parainfluenza 4 (PCR) Not detected, RSV (PCR) Not detected, Entero/Rhino (PCR) Not detected, SARS-CoV-2 (PCR) Not detected 06/14/21 19:39: Sodium 130.4 L, Potassium 3.93, Chloride 94.7 L, Carbon Dioxide 31.5 H, Anion Gap 8.13, BUN 10.2, Creatinine 0.59 L, Estimated GFR (MDRD) 142.00, BUN/Creatinine Ratio 17.28, Glucose 92.0, Calcium 9.08, Total Bilirubin 1.19, AST 35.2, ALT 16.5, Alkaline Phosphatase 98.2, Total Creatine Kinase 260.0 H, CK-MB (CK-2) 1.780, CK-MB (CK-2) % 0.6800, Troponin I 0.018, Total Protein 6.75, Albumin 4.54, Globulin 2.21, Albumin/Globulin Ratio 2.05 06/14/21 19:39: WBC 7.93, RBC 4.29 L, Hgb 14.5, Hct 41.8 L, MCV 97.4 H, MCH 33.8 H, MCHC 34.7, RDW Coeff of Yonathan 12.7, Plt Count 241, Immature Gran % (Auto) 0.3, Neut % (Auto) 65.9, Lymph % (Auto) 23.1, Harris % (Auto) 9.6, Eos % (Auto) 0.6, Baso % (Auto) 0.5, Neut # (Auto) 5.2, Lymph # (Auto) 1.8, Harris # (Auto) 0.8, Eos # (Auto) 0.1, Baso # (Auto) 0.0, Immature Gran # (Auto) 0.0 ASSESSMENT: 1. Chest pain seems to be fairly atypical for coronary insufficiency. 2. Chronic lung disease with smoking. 3. Hypoglycemia. 4. Smoker. PLAN: 1. The patient is SARS negative. 2. Cardiac markers negative. 3. Lipid profile normal. 4. Will do echocardiogram to evaluate LV function. 5. Telemetry. 6. Counseling for smoking done. 7. C-spine x-ray. 8. T4, TSH. 7. Will check my office records to see whether he is my patient or not. I was given a call last night by the ER physician and had no way of checking on that. He was listed as my patient by the hospital. SCRIBED BY: TALON NESS, Extras Casting Director scribed while in presence of service performed by Dr. MARCUS CERDA on 06/15/21 ([id number]) TIME SPENT: More than 70 minutes. GREG
[2021-06-15 11:48] LABS: CREATINE KINASE 235.5 U/L (55-170)
[2021-06-15 12:10] LABS: TROPONIN I < 0.012 ng/ml (0.0000-0.120)
--- NOTE | 2021-06-15 16:46 | DI ---
EXAM: Four views of the cervical spine HISTORY: Neck and shoulder pain. COMPARISON: No. FINDINGS: Cervical spine is visualized to midbody of C7. Preservation of the normal cervical lordosis. No sig nificant listhesis. Vertebral body heights are preserved. No acute fracture. No prevertebral soft tissue swelling. Multilevel moderate cervical spondylosis with mild to moderate disc space narrowing and prominent ventral spurring with relative sparing of C2-3. Bilateral multilevel mild facet arthr osis. Atherosclerotic calcifications. IMPRESSION: Moderate multilevel cervical spondylosis.
[2021-06-15] MEDS ORDERED: MIRALAX PO ONE (17:00)
--- NOTE | 2021-06-15 17:05 | CT ---
EXAM: CT chest without and with contrast HISTORY: Shortness of breath, chest discomfort COMPARISON: 07/20/2018 TECHNIQUE: Multiple axial images of the chest were obtained without and with IV contrast. Images wer e reformatted in the sagittal and coronal planes. FINDINGS: Normal appearance thoracic inlet and thyroid gland. No thoracic adenopathy. Normal heart size. Cor onary calcifications. Normal diameter thoracic aorta. Esophagus within normal limits. Patent centra l airways. No pneumothorax, pleural effusion or consolidation. No suspicious nodule/mass. No acute findings within the visualized upper abdomen. Small left renal cyst. No acute osseous abnorm ality. Degenerative changes thoracolumbar spine.. IMPRESSION: 1. No acute cardiopulmonary findings. 2. Coronary atherosclerotic calcifications. All CT scans are performed using dose optimization techniques as appropriate to the performed exam an d include at least one of the following: Automated exposure control, adjustment of the mA and/or kV according t o size, and the use of iterative reconstruction technique.
[2021-06-15] MEDS: SENNA PO SCH (20:21)
[2021-06-16 05:00] LABS: BASOPHILS # (AUTO) 0.1 K/uL (0-0.2); BASOPHILS % (AUTO) 0.9 % (0.0-3.0); EOSINOPHILS # (AUTO) 0.1 K/ul (0.0-0.7); EOSINOPHILS % (AUTO) 0.9 % (0.0-7.0); HEMATOCRIT 39.3 % (42.0-52.0); HEMOGLOBIN 14.1 g/dl (14.0-18.0); IMMATURE GRANULOCYTE % (AUTO) 0.2 % (0.0-5.0); LYMPHOCYTES # (AUTO) 2.1 K/uL (0.60-3.4); LYMPHOCYTES % (AUTO) 36.1 (10.0-50.0); MEAN CORPUSCULAR HEMOGLOBIN 34.1 pg (27.0-31.0); MEAN CORPUSCULAR HGB CONC 35.9 (31.8-35.4); MEAN CORPUSCULAR VOLUME 95.2 fl (80.0-94.0); MONOCYTES # (AUTO) 0.6 K/uL (0.4-2.0); MONOCYTES % (AUTO) 10.9 (0-10); PLATELET COUNT 209 10^3/uL (140-440); RDW COEFFICIENT OF VARIATION 12.3 % (11.6-14.8); RED BLOOD COUNT 4.13 10^6/ul (4.70-6.10); WHITE BLOOD COUNT 5.87 K/ul (4.2-10.2)
[2021-06-16 05:15] LABS: ALANINE AMINOTRANSFERASE 14.7 U/L (0-50); ALBUMIN 4.05 g/dL (3.5-5.0); ALKALINE PHOSPHATASE 90.4 U/L (38-126); ASPARTATE AMINO TRANSFERASE 29.9 U/L (17-59); BILIRUBIN,TOTAL 1.52 mg/dL (0.2-1.3); BLOOD UREA NITROGEN 7.7 mg/dL (9-20); CALCIUM 8.91 mg/dL (8.4-10.2); CARBON DIOXIDE 30.2 mmol/L (22-30.0); CHLORIDE 95.3 mmol/L (98-107); CREATININE 0.61 mg/dL (0.60-1.10); GLUCOSE 100.3 mg/dL (74-106); POTASSIUM 3.94 mmol/L (3.5-5.1); TOTAL PROTEIN 6.12 g/dL (6.3-8.2)
[2021-06-16] MEDS: NICODERM 21 MG TD SCH ×2 (08:19→10:30)
[2021-06-16] MEDS: ASPIRIN EC PO SCH (08:19)
[2021-06-16] MEDS: SENNA PO SCH ×2 (08:19→20:24)
[2021-06-16] MEDS: LOVENOX SUBCUT SCH (08:21)
[2021-06-16] MEDS: PROTONIX IV IVP SCH (08:33)
[2021-06-16] MEDS ORDERED: OCEAN NASAL SPRAY NAS PRN (08:44)
[2021-06-16] MEDS ORDERED: HYZAAR 50-12.5 MG TAB PO SCH (09:00)
[2021-06-16] MEDS ORDERED: PROAIR HFA (SINGLE PATIENT USE) IH SCH (13:00)
[2021-06-16] MEDS: HYZAAR 50-12.5 MG TAB PO SCH (13:04)
[2021-06-16] MEDS: VENTOLIN HFA (PER PUFF-WITH SPACER) IH SCH ×2 (13:43→23:00)
[2021-06-17] MEDS: VENTOLIN HFA (PER PUFF-WITH SPACER) IH SCH ×4 (04:45→19:50)
[2021-06-17 05:00] LABS: BASOPHILS # (AUTO) 0.1 K/uL (0-0.2); BASOPHILS % (AUTO) 1.1 % (0.0-3.0); EOSINOPHILS # (AUTO) 0.1 K/ul (0.0-0.7); EOSINOPHILS % (AUTO) 0.9 % (0.0-7.0); HEMATOCRIT 42.5 % (42.0-52.0); HEMOGLOBIN 14.8 g/dl (14.0-18.0); IMMATURE GRANULOCYTE % (AUTO) 0.3 % (0.0-5.0); LYMPHOCYTES % (AUTO) 30.9 (10.0-50.0); MEAN CORPUSCULAR HEMOGLOBIN 33.4 pg (27.0-31.0); MEAN CORPUSCULAR HGB CONC 34.8 (31.8-35.4); MEAN CORPUSCULAR VOLUME 95.9 fl (80.0-94.0); MONOCYTES # (AUTO) 0.8 K/uL (0.4-2.0); MONOCYTES % (AUTO) 12.1 (0-10); NEUTROPHILS # (AUTO) 3.6 K/ul (2.0-6.9); NEUTROPHILS % (AUTO) 54.7 % (42.2-75.2); PLATELET COUNT 227 10^3/uL (140-440); RDW COEFFICIENT OF VARIATION 12.2 % (11.6-14.8); RED BLOOD COUNT 4.43 10^6/ul (4.70-6.10); WHITE BLOOD COUNT 6.61 K/ul (4.2-10.2)
[2021-06-17 05:15] LABS: ALANINE AMINOTRANSFERASE 15.9 U/L (0-50); ALBUMIN 4.39 g/dL (3.5-5.0); ALKALINE PHOSPHATASE 97.3 U/L (38-126); ASPARTATE AMINO TRANSFERASE 28.4 U/L (17-59); BILIRUBIN,TOTAL 0.86 mg/dL (0.2-1.3); BLOOD UREA NITROGEN 11.5 mg/dL (9-20); CALCIUM 9.34 mg/dL (8.4-10.2); CARBON DIOXIDE 32.1 mmol/L (22-30.0); CHLORIDE 92.6 mmol/L (98-107); CREATININE 0.7 mg/dL (0.60-1.10); GLUCOSE 95.4 mg/dL (74-106); SODIUM 130.3 mmol/L (134.5-145); TOTAL PROTEIN 6.64 g/dL (6.3-8.2)
[2021-06-17] MEDS: HYZAAR 50-12.5 MG TAB PO SCH (08:02)
[2021-06-17] MEDS: SENNA PO SCH ×2 (08:02→20:15)
[2021-06-17] MEDS: ASPIRIN EC PO SCH (08:02)
[2021-06-17] MEDS: NICODERM 21 MG TD SCH (08:04)
[2021-06-17] MEDS: LOVENOX SUBCUT SCH (08:05)
[2021-06-17] MEDS: PROTONIX IV IVP SCH (08:11)
[2021-06-17] MEDS: TYLENOL PO PRN (21:40)
[2021-06-18] MEDS: TYLENOL PO PRN (01:54)
[2021-06-18] MEDS: VENTOLIN HFA (PER PUFF-WITH SPACER) IH SCH ×2 (04:55→10:17)
[2021-06-18 05:28] VITALS: BP 125/77; TEMP 98.8
[2021-06-18 05:55] LABS: BASOPHILS % (AUTO) 0.4 % (0.0-3.0); EOSINOPHILS # (AUTO) 0.1 K/ul (0.0-0.7); EOSINOPHILS % (AUTO) 0.9 % (0.0-7.0); HEMATOCRIT 42.3 % (42.0-52.0); HEMOGLOBIN 14.7 g/dl (14.0-18.0); IMMATURE GRANULOCYTE % (AUTO) 0.3 % (0.0-5.0); LYMPHOCYTES # (AUTO) 1.9 K/uL (0.60-3.4); LYMPHOCYTES % (AUTO) 23.6 (10.0-50.0); MEAN CORPUSCULAR HEMOGLOBIN 33.3 pg (27.0-31.0); MEAN CORPUSCULAR HGB CONC 34.8 (31.8-35.4); MEAN CORPUSCULAR VOLUME 95.9 fl (80.0-94.0); MONOCYTES # (AUTO) 1.1 K/uL (0.4-2.0); MONOCYTES % (AUTO) 13.4 (0-10); NEUTROPHILS # (AUTO) 4.9 K/ul (2.0-6.9); NEUTROPHILS % (AUTO) 61.4 % (42.2-75.2); PLATELET COUNT 222 10^3/uL (140-440); RDW COEFFICIENT OF VARIATION 12.3 % (11.6-14.8); RED BLOOD COUNT 4.41 10^6/ul (4.70-6.10); WHITE BLOOD COUNT 7.96 K/ul (4.2-10.2)
[2021-06-18 06:07] LABS: ALANINE AMINOTRANSFERASE 16.3 U/L (0-50); ALBUMIN 4.4 g/dL (3.5-5.0); ALKALINE PHOSPHATASE 91.9 U/L (38-126); ASPARTATE AMINO TRANSFERASE 26.8 U/L (17-59); BILIRUBIN,TOTAL 1.18 mg/dL (0.2-1.3); BLOOD UREA NITROGEN 16.1 mg/dL (9-20); CALCIUM 9.2 mg/dL (8.4-10.2); CARBON DIOXIDE 29.7 mmol/L (22-30.0); CHLORIDE 92.3 mmol/L (98-107); CREATININE 0.77 mg/dL (0.60-1.10); GLUCOSE 95.2 mg/dL (74-106); POTASSIUM 3.89 mmol/L (3.5-5.1); SODIUM 128.7 mmol/L (134.5-145); TOTAL PROTEIN 6.71 g/dL (6.3-8.2)
[2021-06-18] MEDS: ASPIRIN EC PO SCH (09:07)
[2021-06-18] MEDS: HYZAAR 50-12.5 MG TAB PO SCH (09:07)
[2021-06-18] MEDS: LOVENOX SUBCUT SCH (09:08)
--- NOTE | 2021-06-18 09:10 | PCM.PROG ---
Attending Provider: [facility]END[facility] DATE OF SERVICE: 06/18/21 SUBJECTIVE: This 55 year old /WHITE M was hospitalized 06/14/21 with chest pain which was fairly atypical. The patient has cardiac workup with cardiac markers, EKG, Telemetry and echo were all negative for any acute myocardial ischemia. No symptoms of CHF. Echo showed dilated cardiomyopathy with ejection fraction 40%. REVIEW OF SYSTEMS: CONSTITUTIONAL: No night sweats. No fatigue, malaise, lethargy. No fever or chills. HEENT: Eyes: No visual changes. No eye pain. No eye discharge. ENT: No runny nose. No epistaxis. No sinus pain. No odynophagia. No congestion. RESPIRATORY: No cough, no congestion. No hemoptysis. No shortness of breath. CARDIOVASCULAR: No angina symptoms. No CHF symptoms. No atypical chest pain for CAD. No palpitations. No orthopnea.. GASTROINTESTINAL: No abdominal pain. No nausea or vomiting. No diarrhea or constipation. No hematemesis. No hematochezia. GENITOURINARY: No urgency. No frequency. No dysuria. No hematuria. No obstructive symptoms. No discharge. No pain. No significant abnormal bleeding. MUSCULOSKELETAL: No musculoskeletal pain; no joint swelling. NEUROLOGICAL: Awake, alert, oriented to time, place and person. No headache. No neck pain. No syncope. No seizures. No dizziness. PSYCHIATRIC: Not anxious. No depression. No suicidal thoughts. No homicidal thoughts. SKIN: No rash. No lesions. No wounds. ENDOCRINE: No unexplained weight loss. No weight gain. HEMATOLOGIC/LYMPHATIC: No anemia. No purpura. No petechiae. No prolonged or ex cessive bleeding. No palpable lymph nodes. PHYSICAL EXAMINATION: GENERAL: The patient is awake, alert and oriented, lying in bed in no distress. VITAL SIGNS: Temperature 98.8 F, Pulse 81, Respiratory Rate 18, BP 125/77, Pulse Ox 100% HEENT: Head normocephalic, atraumatic. Eyes: Extraocular muscles are intact. Pupils are equal, round and reactive to light and accommodation. Ears: No lesions. Nose appeared normal. Throat: No exudate or erythema. NECK: Supple. No JVD, no carotid bruit. No lymphadenopathy or thyromegaly. LUNGS: Clear to auscultation. Percussion note normal. Chest symmetrical. HEART: S1, S2, no S3. No murmurs. No cyanosis or clubbing. No ascites. Pulses: Dorsalis pedis and posterior tibial pulses +1 to +2 both sides. ABDOMEN: Soft. Non-tender. Bowel sounds active. No CVA tenderness. No mass felt. EXTREMITIES: No edema. Full range of motion of all extremities, equal. NEUROLOGIC: No focal deficit. Cranial nerves II through XII are grossly intact. No headache, no double vision or headache. SKIN: Warm and dry. Intact. Turgor-normal. LYMPHATIC: No palpable lymph nodes/no lymphedema. MUSCULOSKELETAL: Normal joints with no swelling. Muscle tone is normal. LAB REVIEW: 06/18/21 05:50 06/18/21 05:50 06/18/21 05:50: Sodium 128.7 L, Potassium 3.89, Chloride 92.3 L, Carbon Dioxide 29.7, Anion Gap 10.59, BUN 16.1, Creatinine 0.77, Estimated GFR (MDRD) 105.00, BUN/Creatinine Ratio 20.90, Glucose 95.2, Calcium 9.20, Total Bilirubin 1.18, AST 26.8, ALT 16.3, Alkaline Phosphatase 91.9, Total Protein 6.71, Albumin 4.40, Globulin 2.31, Albumin/Globulin Ratio 1.90 06/18/21 05:50: WBC 7.96, RBC 4.41 L, Hgb 14.7, Hct 42.3, MCV 95.9 H, MCH 33.3 H , MCHC 34.8, RDW Coeff of Yonathan 12.3, Plt Count 222, Immature Gran % (Auto) 0.3, Neut % (Auto) 61.4, Lymph % (Auto) 23.6, [place] % (Auto) 13.4 H, Eos % (Auto) 0.9, Baso % (Auto) 0.4, Neut # (Auto) 4.9, Lymph # (Auto) 1.9, [place] # (Auto) 1.1, Eos # (Auto) 0.1, Baso # (Auto) 0.0, Immature Gran # (Auto) 0.0 ASSESSMENT: Please see below. 1. Chest pain atypical for coronary insufficiency 2. Dilated cardiomyopathy with ejection fraction 40% 3. Severe chronic lung disease with history of smoking, three packs per day 4. History of alcohol abuse 5. Hypertension 6. History of dyslipidemia with normal lipid profile without statin 7. History of schizophrenia PLAN: 1. Discharge home on Losartan/Hydrochlorothiazide on Coreg and Baby Aspirin 2. He is to see Dr. Piña, he is somewhat reluctant 3. Mental status is stable 4. The patient is noncompliant with medication, followup, lifestyle and all aspects of medical care. Not seen a psychiatrist in [address] Griffiths when he left more than two years ago. 5. He has been explained about his diagnosis and declines stress echo to be done and indicated that he isn't interest in any surgical procedure or invasive procedure 6. Discharge to [facility] and will try to get an appointment with Dr. Piña Plan and coordination of the patient's care discussed in the presence of Satellite Dish Repairer and nurse. SCRIBED BY: REJI AVERY Certified Alcohol Drug Counselor scribed while in presence of service [facility] on 06/18/21 ([id number])
[2021-06-18] MEDS: NICODERM 21 MG TD SCH (09:11)
[2021-06-18] MEDS: SENNA PO SCH (09:12)
--- NOTE | 2021-06-18 09:15 | PN ---
DATE OF SERVICE: 06/14/21 SUBJECTIVE: 55-year-old white male who came to the emergency room with atypical chest pain, sharp shooting of 7 days duration more or less constant, from 2 to 8 on a scale of 1 to 10. I don't think that this patient belongs to me. Seen him in the past was discharged from my office practice but I am out of office, couldn't confirm it so I accepted him in good blaze. Also, his complaints were related to chest pain and accepted him as hospitalist on the condition that if he doesn't belong to me be he would followed by me. REVIEW OF SYSTEMS: CONSTITUTIONAL: No night sweats. No fatigue, malaise, lethargy. No fever or chills. HEENT: Eyes: No visual changes. No eye pain. No eye discharge. ENT: No runny nose. No epistaxis. No sinus pain. No sore throat. No odynophagia. No congestion. RESPIRATORY: No cough, no congestion. No hemoptysis. No shortness of breath. CARDIOVASCULAR: No coronary insufficiency. He has CHF type of symptoms. Cardiac markers are all negative. GASTROINTESTINAL: No abdominal pain. No nausea or vomiting. No diarrhea or constipation. No hematemesis. No hematochezia. GENITOURINARY: No urgency. No frequency. No dysuria. No hematuria. No obstructive symptoms. No discharge. No pain. No significant abnormal bleeding. MUSCULOSKELETAL: No musculoskeletal pain; no joint swelling. NEUROLOGICAL: No headache. No neck pain. No syncope. No seizures. No dizziness. PSYCHIATRIC: Not anxious. No depression. No suicidal thoughts. No homicidal thoughts. SKIN: No rash. No lesions. No wounds. ENDOCRINE: No unexplained weight loss. No weight gain. HEMATOLOGIC/LYMPHATIC: No anemia. No purpura. No petechiae. No prolonged or excessive bleeding. No palpable lymph nodes. PHYSICAL EXAMINATION: HEENT: Head normocephalic, atraumatic. Eyes: Extraocular muscles are intact. Pupils are equal, round and reactive to light and accommodation. Ears: No lesions. Nose appeared normal. Throat: No exudate or erythema. NECK: Supple. No JVD, no carotid bruit. No lymphadenopathy or thyromegaly. LUNGS: Clear to auscultation. Percussion note normal. Chest symmetrical. HEART: S1, S2, no S3. No murmurs. No cyanosis or clubbing. No ascites. Pulses: Dorsalis pedis and posterior tibial pulses +1 to +2 bilaterally. ABDOMEN: Soft. Nontender. Bowel sounds active. No CVA tenderness. No mass felt. EXTREMITIES: No edema. Full range of motion of all extremities, equal. NEUROLOGIC: No focal deficit. Cranial nerves II through XII are grossly intact. No headache. No double vision. SKIN: Not dry. Intact. Turgor - normal. LYMPHATIC: No palpable lymph nodes/no lymphedema. MUSCULOSKELETAL: Normal joints with no swelling. Muscle tone is normal. ASSESSMENT: Cardiac exam was practically negative. EKG sinus rhythm, no acute changes. PLAN: 1. The patient admitted for evaluation of chest pain. 2. He will be given Decadron and Toradol along with Protonix for reflux. 3. The patient is as far as I know noncompliant, heavy smoker. TIME SPENT: More than 30 minutes. Plan and coordination of the patient's care discussed in the presence of nurse. GREG
[2021-06-18] MEDS: PROTONIX IV IVP SCH (09:37)
--- NOTE | 2021-06-18 11:28 | CM.DICTOOL ---
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 MORA 09/2016) LAST VITALS Temp Pulse Resp BP Pulse Ox 98.8 F 81 18 125/77 100 06/18/21 05:27 06/18/21 05:27 06/18/21 05:27 06/18/21 05:27 06/18/21 05:27 TAKE THESE MEDICATIONS AT HOME [facility] Last Admin: 06/18/21 09:07 Dose: 325 mg Documented by: HCTZ/Losartan Potassium (Losartan/Hydrochlorothiazide 50/12.5 Mg Tab) 1 tab PO DAILY [facility] Last Admin: 06/18/21 09:07 Dose: 1 tab (NEW RX) Documented by: COREG 3.125 MG PO BID (NEW RX) ALLERGIES Penicillins Adverse Reaction (Verified 06/04/21 13:17) DISCONTINUED MEDICATIONS NONE NEW PRESCRIPTIONS: aspirin 81 mg chewable tablet 81 mg PO DAILY 06/18/21 (OVER THE COUNTER) carvedilol 3.125 mg tablet (Coreg) 3.125 mg PO BID #28 tab 06/18/21 losartan 50 mg-hydrochlorothiazide 12.5 mg tablet (Hyzaar) 1 tab PO DAILY #14 tab 06/18/21 SMOKING: STRONGLY ADVISED TO STOP SMOKING SMOKING CESSATION INFORMATION PROVIDED DISEASE SPECIFIC EDUCATION: NEW MEDICATIONS APPOINTMENTS AND IMPORTANCE OF FOLLOW-UP LAB REVIEW: 06/18/21 05:50 06/18/21 05:50 06/18/21 05:50: Sodium 128.7 L, Potassium 3.89, Chloride 92.3 L, Carbon Dioxide 29.7, Anion Gap 10.59, BUN 16.1, Creatinine 0.77, Estimated GFR (MDRD) 105.00, BUN/Creatinine Ratio 20.90, Glucose 95.2, Calcium 9.20, Total Bilirubin 1.18, AST 26.8, ALT 16.3, Alkaline Phosphatase 91.9, Total Protein 6.71, Albumin 4.40, Globulin 2.31, Albumin/Globulin Ratio 1.90 06/18/21 05:50: WBC 7.96, RBC 4.41 L, Hgb 14.7, Hct 42.3, MCV 95.9 H, MCH 33.3 H , MCHC 34.8, RDW Coeff of Yonathan 12.3, Plt Count 222, Immature Gran % (Auto) 0.3, Neut % (Auto) 61.4, Lymph % (Auto) 23.6, [place] % (Auto) 13.4 H, Eos % (Auto) 0.9, Baso % (Auto) 0.4, Neut # (Auto) 4.9, Lymph # (Auto) 1.9, [place] # (Auto) 1.1, Eos # (Auto) 0.1, Baso # (Auto) 0.0, Immature Gran # (Auto) 0.0 PLAN: DISCHARGE HOME PER SELF DIET: HEART HEALTHY ACTIVITY: GRADUALLY RESUME TOLERATED AVOID OUTSIDE ACTIVITY IN PERIODS OF EXTREME HEAT AND HUMIDITY ADVISED TO STOP SMOKING AN APPOINTMENT IS SCHEDULED WITH SUGAR LOZOYA APRN AT [facility] ON June AT 10:30 A REFERRAL HAS BEEN MADE TO DR. ED GALDAMEZ, PSYCHIATRIST; PER DR. GALDAMEZ THE PATIENT IS A CLIENT AT [facility] PATIENT HAS BEEN SEEN AT [facility], BUT NEEDS TO FINISH INTAKE ASSESSMENT CODE STATUS: FULL CODE MR. GARCIA IS ALERT AND ORIENTED X 4. HE IS INDEPENDENT WITH ACTIVITIES OF DAILY LIVING. HE LIVES ALONE, BUT IS UNABLE TO PROVIDE AN ADDRESS AT THIS TIME. HE REPORTS HE LIVES "THERE" AND CAN GET HOME BY HIMSELF. HE HAS BEEN AMBULATORY WHILE IN THE HOSPITAL. HE FEEDS HIMSELF. HIS APPETITE IS EXCELLENT; CONSUMING 100% OF ALL MEALS AND NUMEROUS SNACKS BETWEEN MEALS. HE IS CONTINENT OF BOWEL AND BLADDER. SKIN IS INTACT. HYDRATION STATUS IS GOOD. MARCUS CERDA MD HOSPITALIST
--- NOTE | 2021-06-18 13:03 | ECHO2D ---
Date of Exam: 06/16/2021 Ordering Physician: DR. MARCUS CERDA HOSPITALIST Room #: [id number] Reason for Echo: SOB M-Mode Normal Adult Results LV Dimensions Normal Adult Results AoV Opening excursions >1.6 >1.6 LVEDD-base- 3.5-5.8 6.0 Ao root dimensions 2.0-3.7 3.6 LVESD-base- 3.1-4.6 L. Atrium dimensions 1.9-3.8 4.6 Post. Wall thickness 0.8-1.1 1.2 IV septum (thickness) 0.7-1.2 1.3 Post. Wall excursion 0.72-1.3 NORMAL Septal motion 0.4 Systolic motion R. Ventricular cavity 1.5-2.0 3.5 LVEF 60% 40% Paradoxical septal wall motion MAYBE 2-D : HYPOKINETIC SEPTAL WALL--ENLARGED LEFT ATRIAL, LEFT VENTRICLE AND RIGHT VENTRICLE CAVITIES, NO EFFUSION, NO THROMBUS, VALVES NORMAL M-MODE: MV: NORMAL AV: NORMAL TV: NORMAL PV: CHAMBER SIZE: ENLARGED LEFT ATRIAL, RIGHT VENTRICLE AND LEFT VENTRICLE CAVITIES WALL MOTION: HYPOKINETIC SEPTUM PERICARDIUM: NORMAL INTERPRETATION: 1. LEFT VENTRICLE HYPERTROPHY WITH ENLARGED LEFT ATRIAL CAVITY 2. ENLARGED RIGHT VENTRICLE AND LEFT VENTRICLE CAVITIES 3. HYPOKINETIC SEPTAL WALL WITH EJECTION FRACTION 40% 4. NORMAL VALVES 5. PARADOXICAL SEPTAL MOTION-MID/APICAL SEPTAL PORTION MTDD
--- NOTE | 2021-06-19 09:39 | PN ---
DATE OF SERVICE: 06/16/2021 SUBJECTIVE: 55 year old white male was hospitalized with chest pain. The patient's chest pain has subsided. There is no chest pain anymore. The patient is doing better. He is up and about. Seems to be feeling better. Appetite has improved. REVIEW OF SYSTEMS: CONSTITUTIONAL: No night sweats. No fatigue, malaise, lethargy. No fever or chills. HEENT: Eyes: No visual changes. No eye pain. No eye discharge. ENT: No runny nose. No epistaxis. No sinus pain. No sore throat. No odynophagia. No congestion. RESPIRATORY: No cough, no congestion. No hemoptysis. No shortness of breath. CARDIOVASCULAR: No angina symptoms. No CHF symptoms. No atypical chest pain for CAD. No palpitations. No PND. No orthopnea. GASTROINTESTINAL: No abdominal pain. No nausea or vomiting. No diarrhea or constipation. No hematemesis. No hematochezia. GENITOURINARY: No urgency. No frequency. No dysuria. No hematuria. No obstructive symptoms. No discharge. No pain. No significant abnormal bleeding. MUSCULOSKELETAL: No musculoskeletal pain; no joint swelling. NEUROLOGICAL: No headache. No neck pain. No syncope. No seizures. No dizziness. Mental status is normal. At times he tries to tells the things that didn't make any sense. PSYCHIATRIC: Not anxious. No depression. No suicidal thoughts. No homicidal thoughts. SKIN: No rash. No lesions. No wounds. ENDOCRINE: No unexplained weight loss. No weight gain. HEMATOLOGIC/LYMPHATIC: No anemia. No purpura. No petechiae. No prolonged or excessive bleeding. No palpable lymph nodes. PHYSICAL EXAMINATION: GENERAL: The patient is oriented to time, place and person. VITAL SIGNS: Temperature 97.8, pulse 68, respiratory rate 16, blood pressure 142/88 and pulse ox 99% on room air. HEENT: Head normocephalic, atraumatic. Eyes: Extraocular muscles are intact. Pupils are equal, round and reactive to light and accommodation. Ears: No lesions. Nose appeared normal. Throat: No exudate or erythema. NECK: Supple. No JVD, no carotid bruit. No lymphadenopathy or thyromegaly. LUNGS: Decreased breath sounds but clear to auscultation. Percussion note normal. Chest symmetrical. HEART: S1, S2, no S3. No murmurs. No cyanosis or clubbing. No ascites. Pulses: Dorsalis pedis and posterior tibial pulses +1 to +2 bilaterally. ABDOMEN: Soft. Nontender. Bowel sounds active. No CVA tenderness. No mass felt. EXTREMITIES: No edema. Full range of motion of all extremities, equal. NEUROLOGIC: No focal deficit. Cranial nerves II through XII are grossly intact. No headache. No double vision. SKIN: Not dry. Intact. Turgor - normal. LYMPHATIC: No palpable lymph nodes/no lymphedema. MUSCULOSKELETAL: Normal joints with no swelling. Muscle tone is normal. LABS: Hgb 14.1, hct 39, WBC 5,800 normal differential, creatinine 0.6, BUN 7, potassium 3.9. ASSESSMENT: 1. Chest pain, seems to be noncardiac more like pleuritic pain. The patient is trying to give up smoking. Has Nicoderm patch on. Counseling for smoking done. 2. The patient had echocardiogram done this morning which showed dilated cardiomyopathy, hypokinetic septal motion, enlarged LV and RV and LA cavity. Ejection fraction 40%. Old records reviewed in 2018. The patient carried the diagnosis of dilated cardiomyopathy. Has still been smoking heavy and drinking. The patient had cardiac cath done with Dr. Rai by Dr. Deng in 2016. According to him it was nonocclusive coronary artery disease. 3. Severe chronic lung disease with smoking. Going to do a PFT 4. History of PVC but at present time the patient has practically isolated PVC 5. History of Schizophrenia. The patient seems to be mentally stable at present time. Seems to be anxious PLAN: 1. Strongly advised to followup with his primary physician 2. Going to be discharged to [facility]. Dr. Fraga about this patient today. This patient was admitted to me by Dr. Jorge. The patient should be under the hospitalist but as the patient had chest pain I accepted him. The patient listed my name as a primary physician which was wrong. In any case I told Dr. Fraga that I'll see this patient until the patient is discharged to the [facility] and he agreed. 3. Start the patient on Losartan/ Hydrochlorothiazide 50-12.5 daily. 4. Baby Aspirin a day 5. Proair HFA two puffs QID 6. PFT to be done in the morning 7. Explained about echo findings and advised to quit drinking and strongly advised to quit smoking 8. The patient carries diagnosis of schizophrenia. At the present time the patient's mental status is normal. He lives by himself. He has a friend that comes and goes. He hasn't seen a doctor in the past couple of years. He used to see Dr. Griffiths more than 2-3 years ago. After that he quit going to anybody. The patient is intelligent and understands his medical problems. Fully indicated that he is never going to have a cardiac catheterization again because 4 years ago it was normal. Also mentioned that he isn't going to have any kind of surgery no matter what happens. He practically declined to have any stress test performed of any kind. TIME SPENT: More than 30 minutes. Extensive Plan and coordination of the patient's care discussed in the presence of nurse. GREG
--- NOTE | 2021-06-19 09:50 | PN ---
DATE OF SERVICE: 06/17/2021 SUBJECTIVE: 55 year old white male hospitalized with chest pain. The patient's chest pain was noncardiac and practically has resolved. He is feeling better. He is up and about. His appetite has improved remarkably. He says that he doesn't have any urge to smoke so he says that he is going to quit alcohol, drinking several cans a day. REVIEW OF SYSTEMS: CONSTITUTIONAL: No night sweats. No fatigue, malaise, lethargy. No fever or chills. HEENT: Eyes: No visual changes. No eye pain. No eye discharge. ENT: No runny nose. No epistaxis. No sinus pain. No sore throat. No odynophagia. No congestion. RESPIRATORY: No cough, no congestion. No hemoptysis. No shortness of breath. CARDIOVASCULAR: No angina symptoms. No CHF symptoms. No atypical chest pain for CAD. No palpitations. No PND. No orthopnea. GASTROINTESTINAL: No abdominal pain. No nausea or vomiting. No diarrhea or constipation. No hematemesis. No hematochezia. GENITOURINARY: No urgency. No frequency. No dysuria. No hematuria. No obstructive symptoms. No discharge. No pain. No significant abnormal bleeding. MUSCULOSKELETAL: No musculoskeletal pain; no joint swelling. NEUROLOGICAL: No headache. No neck pain. No syncope. No seizures. No dizziness. PSYCHIATRIC: Not anxious. No depression. No suicidal thoughts. No homicidal thoughts. SKIN: No rash. No lesions. No wounds. ENDOCRINE: No unexplained weight loss. No weight gain. HEMATOLOGIC/LYMPHATIC: No anemia. No purpura. No petechiae. No prolonged or excessive bleeding. No palpable lymph nodes. PHYSICAL EXAMINATION: GENERAL: The patient is oriented to time, place and person. VITAL SIGNS: Temperature 97.8, pulse 84, respiratory rate 18, blood pressure 130/80 and pulse ox 98% HEENT: Head normocephalic, atraumatic. Eyes: Extraocular muscles are intact. Pupils are equal, round and reactive to light and accommodation. Ears: No lesions. Nose appeared normal. Throat: No exudate or erythema. NECK: Supple. No JVD, no carotid bruit. No lymphadenopathy or thyromegaly. LUNGS: Decreased breath sounds but clear to auscultation. Percussion note normal. Chest symmetrical. HEART: S1, S2, no S3. No murmurs. No cyanosis or clubbing. No ascites. Pulses: Dorsalis pedis and posterior tibial pulses +1 to +2 bilaterally. ABDOMEN: Soft. Nontender. Bowel sounds active. No CVA tenderness. No mass felt. EXTREMITIES: No edema. Full range of motion of all extremities, equal. NEUROLOGIC: No focal deficit. Cranial nerves II through XII are grossly intact. No headache. No double vision. SKIN: Not dry. Intact. Turgor - normal. LYMPHATIC: No palpable lymph nodes/no lymphedema. MUSCULOSKELETAL: Normal joints with no swelling. Muscle tone is normal. LABS: Hgb 14.8, hct 42, WBC 6,600 normal differential, creatinine 0.7, BUN 11, potassium 4. SARS negative. ASSESSMENT: 1. Chest pain seems to be pleuritic 2. Severe chronic lung disease with history of heavy smoking 3. Dilated cardiomyopathy ejection fraction 40%. Cause of cardiomyopathy seems to be alcohol and drug abuse 4. History of dyslipidemia at present time the lipid profile is normal 5. History of hypothyroidism with normal T4 TSH at present time 6. History of schizophrenia with normal behavior at present time 7. Hypertension PLAN: 1. Continue Losartan with Hydrochlorothiazide should act as an unloading agent 2. Coreg 3.125 is going to be added as an Alpha beta Cortney for his cardiomyopathy. The patient would probably be better so with Entresto but the patient's insurance status is such that may require very close followup with [facility]. The best thing would be to go along with Losartan/Hydrochlorothiazide and Coreg for now. 3. Baby Aspirin 4. Counseling for smoking done CONDITION: Stable. TIME SPENT: More than 30 minutes. Extensive. The patient was again explained about cardiomyopathy and his cardiac status. Advised stress test either chemical or regular and declined again. He said that he isn't going to have cardiac catheterization done. He had is done a few years and that was [address] Deng. Again he reiterated that he would never have any kind of surgery done. The patient has agreed to be discharged to [facility] to [facility] by [facility] provider. Plan and coordination of the patient's care discussed in the presence of nurse. GREG
--- NOTE | 2021-06-19 14:26 | DS ---
DATE OF SERVICE: 06/18/21 CODE STATUS: FULL CODE FINAL DIAGNOSIS: 1. CHEST PAIN ATYPICAL FOR CORONARY INSUFFICIENCY 2. 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 CHRONIC LUNG DISEASE WITH SMOKING 4. HYPOGLYCEMIA 5. HYPONATREMIA 6. SMOKER, 3PPD 7. HYPERTENSION 8. DYSLIPIDEMIA (NORMAL LIPID PROFILE WITHOUT STATIN) 9. ASTHMA 10. CARDIAC ARRHYTHMIA 11. CHF 12. SCHIZOPHRENIA 13. SAY 14. NONOCCLUSIVE CORONARY ARTERY DISEASE 15. CHRONIC LUNG DISEASE 16. HYPOTHYROIDISM 17. CERVICAL SPONDYLOSIS 18. ALCOHOL ABUSE 19. NONCOMPLIANCE WITH MEDICATIONS, LIFESTYLE, FOLLOW-UP 20. REMOVAL OF CYST 21. HEART CATHETERIZATION (DR. MORA 09/2016) LAST VITALS Temp Pulse Resp BP Pulse Ox 98.8 F 81 18 125/77 100 06/18/21 05:27 06/18/21 05:27 06/18/21 05:27 06/18/21 05:27 06/18/21 05:27 DISCHARGE INSTRUCTIONS: 1. DISCHARGE HOME PER SELF 2. ADVISED TO STOP SMOKING 3. AN APPOINTMENT IS SCHEDULED WITH SUGAR LOZOYA APRN AT [facility] ON June AT 10:30. 4. A REFERRAL HAS BEEN MADE TO DR. ED PIÑA, PSYCHIATRIST; PER DR. PIÑA THE PATIENT IS A CLIENT AT [facility]. PATIENT HAS BEEN SEEN AT [facility], BUT NEEDS TO FINISH INTAKE ASSESSMENT. MEDICATIONS AT DISCHARGE: Aspirin 81 mg PO DAILYWM [facility] Last Admin: 06/18/21 09:07 Dose: 325 mg Documented by: HCTZ/Losartan Potassium (Losartan/Hydrochlorothiazide 50/12.5 Mg Tab) 1 tab PO DAILY [facility] Last Admin: 06/18/21 09:07 Dose: 1 tab (NEW RX) Documented by: COREG 3.125 MG PO BID (NEW RX) NEW PRESCRIPTIONS: Aspirin 81 mg chewable tablet 81 mg PO DAILY 06/18/21 (OVER THE COUNTER) Carvedilol 3.125 mg tablet (Coreg) 3.125 mg PO BID #28 tab 06/18/21 Losartan 50 mg-hydrochlorothiazide 12.5 mg tablet (Hyzaar) 1 tab PO DAILY #14 tab 06/18/21 DISCONTINUED MEDICATIONS: NONE DIET INSTRUCTIONS: HEART HEALTHY ACTIVITY: GRADUALLY RESUME TOLERATED AVOID OUTSIDE ACTIVITY IN PERIODS OF EXTREME HEAT AND HUMIDITY SMOKING: STRONGLY ADVISED TO STOP SMOKING SMOKING CESSATION INFORMATION PROVIDED DISEASE SPECIFIC EDUCATION: NEW MEDICATIONS APPOINTMENTS AND IMPORTANCE OF FOLLOW-UP HOSPITAL COURSE: 55-year-old white male was hospitalized with atypical chest pain for coronary insufficiency. The patient's pain was sharp, shooting of 7 days duration, more or less constant, more like pleuritic type pain maybe mixed with reflux type symptoms. The patient's cardiac markers and EKGs were negative for any acute cardiac event. The patient is a heavy smoker. He has been on Nicoderm patch in the hospital. He quit smoking also. History of alcohol abuse. The patient was put on Protonix, given Toradol IV. Steroids initially for pleuritic pain. The patient's chest pain subsided after 12 hours of hospitalization. The patient was educated about coronary artery disease and risk factors. His echo showed dilated cardiomyopathy with ejection fraction 40% with hypokinetic septum, enlarged LA cavity. The patient's is very noncompliant for all aspects of medical care, hasn't seen a doctor for more than two years. I took him as a patient as he was my patient the last time he was in the hospital in 2018 and have not seen him for more than 3 years. In any case, the patient should have been with the hospitalist service as the patient had chest pain. I ended up evaluating him under my name. The patient was started on Losartan Hydrochlorothiazide, Baby aspirin and Carvedilol. The patient use to be on a similar type of regimen in the past and followed by Dr. Griffiths who was psychiatrist for schizophrenia. The patient's mental status seems to be stable throughout the stay in the hospital. At times he was found talking to himself like anybody else, don't think that meant much as the patient was cooperative. The seems to be sincere about quitting smoking and alcohol. He does not want any further testing in the way of cardiac stress testing. Cardiac catheterization done in [address] Mora with nonocclusive coronary artery disease noted at the time. The patient says that under no circumstances he wants any invasive procedure or surgery. The patient was kept in the hospital for 3 to 4 days. Cardiovascular status was stable. He was also put on pro-HFA two puffs four times a day. The patient was discharged to be followed by [facility]. He was seen by mental health early this year according to him and made clear his appointment could be made with psychiatrist, Dr. Piña through [facility]. Strongly advised to followup with all health care providers. The patient has declined routine preventative measures like colonoscopy for screening. Condition at the time of discharge stable. Prognosis is guarded. TIME SPENT: More than 60 minutes. GREG
--- NOTE | 2021-06-20 08:03 | PN ---
BILLING 06/14/21 ADMISSION DAY LEVEL 5 06/15/21 EXTENSIVE 06/16/21 INTERMEDIATE 06/17/21 INTERMEDIATE 06/18/21 FINAL DAY - D IN DISCHARGE MTDD
== END 2021-06-18 13:40 | disposition home or self-care (01) | DRG 316 ==
LOC: ED 16:59 → MEDSURG A 21:53
PROVIDERS: ADMIT Internal Medicine; ATTEND Internal Medicine

== ENCOUNTER 2021-10-13 01:55 | Observation (INO) ==
[2021-10-13] MEDS ORDERED: VENTOLIN HFA (PER PUFF-WITH SPACER) IH STA (02:23)
[2021-10-13] MEDS ORDERED: SOLU-MEDROL 40 MG IVP STA (02:23)
--- NOTE | 2021-10-13 02:36 | ED.PDOC ---
General ED Provider: Dr. JOHN PINEDA Chief Complaint: Respiratory Complaint Stated Complaint: cough / 1 week / no vaccine / 2-3 PPD smoker . Review - dilated cardiomyopathy here in june Rx coreg 3.125 bid and cozaar 50/hctz 12.5 qd. Pt eventually quit coreg cause he said it " messed him up " Now he is off cozaar for some time and has no meds and is not listing albuterol nor asa. Behavioral health - he appears stable. No covid vaccine. Time Seen by Provider: 10/13/21 02:07 Mode of Arrival: Walk-In Information Source: Patient Exam Limitations: No limitations Nursing and Triage Documentation Reviewed and Agree: Yes Does patient meet sepsis criteria?: No System Inflammatory Response Syndrome: Not Applicable Sepsis Protocol: For patient's 13 years and over: Temp is 96.8 and below OR 101 and greater Pulse >90 BPM Resp >20/minute Acutely Altered Mental Status Are patient's symptoms suggestive of a new infection, such as: -Pneumonia -Skin, Soft Tissue -Endocarditis -UTI -Bone, Joint Infection -Implantable Device -Acute Abdominal Infection -Wound Infection -Meningitis -Blood Stream Catheter Infection -Unknown Respiratory Complaint Exam Shortness of Air Complaint/Exam Onset/Duration: 1 week Symptoms Are: Still present Timing: Intermittent Initial Severity: Mild Current Severity: Moderate Character: Reports Dyspnea on exertion Associated Signs and Symptoms: Reports Cough and Chest pain with cough History of Healthcare-Acquired Pneumonia: No Cardiac Risk Factors: Reports CAD and Smoking Home Oxygen Use: No Recent Echo/LV Function: Yes Respiratory Distress: None Stridor Present: No Tracheal Deviation: No Subcutaneous Emphysema: No Accessory Muscle Use: No Retractions: Not Present Diminished Breath Sounds: No Prolonged Expiratory Phase: No Unable to Speak Full Sentences: No Fatigue: No Leg Swelling: No Sukhjinder's Sign Present: No Grunting Respirations: No Kussmaul Respirations: No Differential Diagnoses: CHF, COPD Exacerbation, Pneumonia and SARS Quality Indicator For Non-Traumatic Chest Pain/Syncope: EKG Performed Review of Systems Review Of Systems Constitutional: Denies Chills, Diaphoresis, Fever, Malaise, Weakness, Sweats or Loss of appetite Eyes: Reports No symptoms Ears, Nose, Mouth, Throat: Reports No symptoms Respiratory: Reports Cough and Short of air Cardiac: Reports Chest pain GI: Reports No symptoms : Reports No symptoms Musculoskeletal: Reports No symptoms Skin: Reports No symptoms Neurological: Reports No symptoms Endocrine: Reports No symptoms Hematologic/Lymphatic: Reports No symptoms All Other Systems: Reviewed and Negative [facility] Medical History Anemia Asthma CAD (coronary artery disease) CHF (congestive heart failure) COPD (chronic obstructive pulmonary disease) Dilated cardiomyopathy Dyslipidemia Heavy cigarette smoker Hypertension Hypothyroidism Noncompliance with medication regimen Paranoia (psychosis) PVC's (premature ventricular contractions) Schizophrenia Family History Other No known health problems Social History Smoking and tobacco status: Current every day smoker Tobacco type: cigarettes Alcohol intake: current Alcohol intake frequency: a few times a week History of recent travel: No Surgical History H/O removal of cyst History of cardiac catheterization Additional Medical History: 2-3 ppd / no covid vaccine Physical Exam Physical Exam Appearance: Reports Well-appearing Ill-appearing: None Pain Distress: None Eyes: Reports LACY and Conjunctiva clear ENT: Reports Oropharynx normal Neck: Supple Respiratory: Reports Airway patent, Breath sounds clear and Breath sounds equal Cardiovascular: Reports RRR and Pulses normal GI/: Reports Soft and Nontender Musculoskeletal: Reports Normal strength, ROM intact and No edema Skin: Reports Warm, Dry and Normal color Neurological: Reports Sensation intact, Motor intact, Alert and Oriented Psychiatric: Reports Affect appropriate Interpretation Radiology Interpretation Radiology Results: Negative Exam Interpreted: Portable CXR EKG Interpretation Time of EKG #1: 02:41 Rate: Normal Ectopy: None Rector: NL ST Segment: Normal Interpretation: LAE/ prolonged QT Physician Notification Case Discussed Physician Notified: Dr Ram Time of Notification: 08:15 Comments: Requested a routine cardiology consult with Mr Price admitted to the hospitalist service. Mr Price is stable . He is placed on observation for medication adjustment as it is a weekend and his dilated cardiomyopathy treatment would benefit from an updated cardiology consult . Pt reportedly did not tolerate coreg for some reason and Entresto was not an option for this patient. His schizophrenia is stable. Dr Ram's assistance is greatly appreciated. Physician Notified: Report to Dr Fraga at shift change Time of Notification: 08:54 Comments: exaceration of chf - meds restarted except coreg / cardiology consult / covid neg Critical Care Note Critical Care Note Total Critical Care Time (mins): 20 Comments: history / exam /labs / imaging / chart reviews / mediations / reassessments / o rder set Course Course Hematology/Chemistry: 10/13/21 02:50 10/13/21 02:50 Orders, Labs, Meds: Lab Review 10/13/21 10/13/21 10/13/21 02:50 02:50 02:50 WBC 8.07 RBC 4.51 L Hgb 14.9 Hct 43.2 MCV 95.8 H MCH 33.0 H MCHC 34.5 RDW Coeff of Yonathan 12.6 Plt Count 303 Immature Gran % (Auto) 0.2 Neut % (Auto) 62.3 Lymph % (Auto) 26.4 [place] % (Auto) 9.3 Eos % (Auto) 1.1 Baso % (Auto) 0.7 Neut # (Auto) 5.0 Lymph # (Auto) 2.1 [place] # (Auto) 0.8 Eos # (Auto) 0.1 Baso # (Auto) 0.1 Immature Gran # (Auto) 0.0 Sodium 131.9 L Potassium 3.94 Chloride 98.5 Carbon Dioxide 28.8 Anion Gap 8.54 BUN 10.9 Creatinine 0.52 L Estimated GFR (MDRD) 164.00 BUN/Creatinine Ratio 20.96 Glucose 94.7 Lactic Acid 0.58 L Calcium 9.28 Total Bilirubin 0.74 AST 34.7 ALT 19.0 Alkaline Phosphatase 97.8 Troponin I NT-Pro-B Natriuret Pep Total Protein 7.03 Albumin 4.61 Globulin 2.42 Albumin/Globulin Ratio 1.90 Lipase 116.6 Procalcitonin D-Dimer SARS CoV-2 RNA Rapid EBONI 10/13/21 10/13/21 10/13/21 02:55 02:55 02:55 WBC RBC Hgb Hct MCV MCH MCHC RDW Coeff of Yonathan Plt Count Immature Gran % (Auto) Neut % (Auto) Lymph % (Auto) [place] % (Auto) Eos % (Auto) Baso % (Auto) Neut # (Auto) Lymph # (Auto) [place] # (Auto) Eos # (Auto) Baso # (Auto) Immature Gran # (Auto) Sodium Potassium Chloride Carbon Dioxide Anion Gap BUN Creatinine Estimated GFR (MDRD) BUN/Creatinine Ratio Glucose Lactic Acid Calcium Total Bilirubin AST ALT Alkaline Phosphatase Troponin I 0.024 NT-Pro-B Natriuret Pep 612.000 H Total Protein Albumin Globulin Albumin/Globulin Ratio Lipase Procalcitonin < 0.05 D-Dimer SARS CoV-2 RNA Rapid EBONI 10/13/21 10/13/21 10/13/21 02:55 02:55 05:38 WBC RBC Hgb Hct MCV MCH MCHC RDW Coeff of Yonathan Plt Count Immature Gran % (Auto) Neut % (Auto) Lymph % (Auto) [place] % (Auto) Eos % (Auto) Baso % (Auto) Neut # (Auto) Lymph # (Auto) [place] # (Auto) Eos # (Auto) Baso # (Auto) Immature Gran # (Auto) Sodium Potassium Chloride Carbon Dioxide Anion Gap BUN Creatinine Estimated GFR (MDRD) BUN/Creatinine Ratio Glucose Lactic Acid Calcium Total Bilirubin AST ALT Alkaline Phosphatase Troponin I 0.019 NT-Pro-B Natriuret Pep Total Protein Albumin Globulin Albumin/Globulin Ratio Lipase Procalcitonin D-Dimer 490.89 SARS CoV-2 RNA Rapid EBONI Negative Orders Category Date Time Status EKG-(ED ONLY) Stat CARDIO 10/13/21 02:23 Completed METERED DOSE INHALATION Routine CARDIO 10/13/21 02:24 Completed ED IV/MEDIPORT/POWERPORT .ONCE EMERGENCY 10/13/21 02:23 Active BNP [NT-PROBNP] Stat LAB 10/13/21 02:55 Completed CBC W/ AUTO DIFF Stat LAB 10/13/21 02:50 Completed CMP [COMPREHENSIVE METABOLIC PANEL] Stat LAB 10/13/21 02:50 Completed COVID [SARS COV-2 RNA RAPID EBONI] Stat LAB 10/13/21 02:55 Completed D-DIMER Stat LAB 10/13/21 02:55 Completed LACTIC ACID Stat LAB 10/13/21 02:50 Completed LIPASE Stat LAB 10/13/21 02:50 Completed PROCALCITONIN Stat LAB 10/13/21 02:55 Completed TROPONIN I Stat LAB 10/13/21 02:55 Completed TROPONIN I Stat LAB 10/13/21 05:38 Completed 0.9 % Sodium Chloride [Saline Flush] MEDS 10/13/21 02:23 Active 1 syr IVF PRN PRN Albuterol Inhaler (Single Pt) [Proair Hfa (Single MEDS 10/13/21 05:20 Discontinued Patient Use)] 2 puff IH ONCE STA Albuterol Inhaler(with Spacer) [Ventolin Hfa (Per Puff- MEDS 10/13/21 02:23 Discontinued with Spacer)] 2 puff IH ONCE STA Aspirin [Aspirin Chewable] MEDS 10/13/21 05:19 Discontinued 81 mg PO ONCE ONE Losartan/Hydrochlorothiazide [Hyzaar 50-12.5 mg Tab] MEDS 10/13/21 05:19 Discontinued 1 tab PO ONCE ONE Methylprednisolone Sod Succ/Pf [Solu-Medrol 40 mg] MEDS 10/13/21 02:23 Discontinued 40 mg IVP ONCE STA CXR [CHEST, 1V AP ONLY] Stat RADS 10/13/21 02:23 Completed Medications Generic Name Dose Route Start Last Admin Trade Name Freq PRN Reason Stop Dose Admin Albuterol Sulfate 2 puff 10/13/21 08:22 Albuterol Sulfate (Ventolin Hfa) 18 Gm 1 Puff With Spacer IH Q6H PRN copd Aspirin 81 mg 10/13/21 08:30 Aspirin 81 Mg Tab.Chew PO DAILYWM [facility] Enoxaparin Sodium 40 mg 10/13/21 09:00 Enoxaparin Sodium 40 Mg/0.4 Ml Syr SUBCUT DAILY [facility] HCTZ/Losartan Potassium 1 tab 10/13/21 09:00 Losartan/Hydrochlorothiazide 50/12.5 Mg Tab PO DAILY [facility] Nicotine 1 patch 10/13/21 09:00 Nicotine 21 Mg Patch.Td24 TD DAILY [facility] Omeprazole 40 mg 10/13/21 09:00 Omeprazole 20 Mg Capsule.Dr PO QDAC [facility] Prednisone 40 mg 10/14/21 08:30 Prednisone 20 Mg Tablet PO DAILYWM [facility] Sodium Chloride 1 syr 10/13/21 02:23 0.9% Sodium Chloride 10 Ml Disp.Syrin IVF PRN PRN To flush IV Sodium Chloride 1 syr 10/13/21 13:00 0.9% Sodium Chloride 10 Ml Disp.Syrin IVF Q8HR KIT Discontinued Medications Generic Name Dose Route Start Last Admin Trade Name Freq PRN Reason Stop Dose Admin Albuterol Sulfate 2 puff 10/13/21 02:23 10/13/21 03:02 Albuterol Sulfate (Ventolin Hfa) 18 Gm 1 Puff With Spacer IH 10/13/21 02:24 2 puff ONCE STA Administration Albuterol Sulfate 2 puff 10/13/21 05:20 10/13/21 06:01 Albuterol Sulfate 8.5 Gm Inhaler (Single Patient Use) IH 10/13/21 05:21 Not Given ONCE STA Aspirin 81 mg 10/13/21 05:19 10/13/21 05:41 Aspirin 81 Mg Tab.Chew PO 10/13/21 05:20 81 mg ONCE ONE Administration HCTZ/Losartan Potassium 1 tab 10/13/21 05:19 10/13/21 05:41 Losartan/Hydrochlorothiazide 50/12.5 Mg Tab PO 10/13/21 05:20 1 tab ONCE ONE Administration Methylprednisolone Sodium Succinate 40 mg 10/13/21 02:23 10/13/21 03:11 Methylprednisolone Sod Succ/Pf 40 Mg/Ml Vial IVP 10/13/21 02:24 40 mg ONCE STA Administration Vital Signs: Temp Pulse Resp BP Pulse Ox 10/13/21 05:45 83 21 142/91 H 97 10/13/21 01:57 96.2 F L 87 18 160/86 H 96 Discharge Plan Discharge Patient Disposition: PLACED OBSERVATION Discharge Problem: CHF (congestive heart failure) ED Provider: JOHN PINEAD Condition: Stable Physician Progress Note: []
[2021-10-13 02:58] LABS: BASOPHILS # (AUTO) 0.1 K/uL (0-0.2); BASOPHILS % (AUTO) 0.7 % (0.0-3.0); EOSINOPHILS # (AUTO) 0.1 K/ul (0.0-0.7); EOSINOPHILS % (AUTO) 1.1 % (0.0-7.0); HEMATOCRIT 43.2 % (42.0-52.0); HEMOGLOBIN 14.9 g/dl (14.0-18.0); IMMATURE GRANULOCYTE % (AUTO) 0.2 % (0.0-5.0); LYMPHOCYTES # (AUTO) 2.1 K/uL (0.60-3.4); LYMPHOCYTES % (AUTO) 26.4 (10.0-50.0); MEAN CORPUSCULAR HGB CONC 34.5 (31.8-35.4); MEAN CORPUSCULAR VOLUME 95.8 fl (80.0-94.0); MONOCYTES # (AUTO) 0.8 K/uL (0.4-2.0); MONOCYTES % (AUTO) 9.3 (0-10); NEUTROPHILS % (AUTO) 62.3 % (42.2-75.2); PLATELET COUNT 303 10^3/uL (140-440); RDW COEFFICIENT OF VARIATION 12.6 % (11.6-14.8); RED BLOOD COUNT 4.51 10^6/ul (4.70-6.10); WHITE BLOOD COUNT 8.07 K/ul (4.2-10.2)
--- NOTE | 2021-10-13 03:12 | DI ---
EXAM: Portable chest HISTORY: Cough COMPARISON: Single-view chest 06/27/2021 FINDINGS: The cardiomediastinal silhouette is stable. The lungs are clear bilaterally. There are n o acute osseous abnormalities. IMPRESSION: No evidence of active pulmonary disease.
[2021-10-13 03:14] LABS: ALBUMIN 4.61 g/dL (3.5-5.0); ALKALINE PHOSPHATASE 97.8 U/L (38-126); ASPARTATE AMINO TRANSFERASE 34.7 U/L (17-59); BILIRUBIN,TOTAL 0.74 mg/dL (0.2-1.3); BLOOD UREA NITROGEN 10.9 mg/dL (9-20); CALCIUM 9.28 mg/dL (8.4-10.2); CARBON DIOXIDE 28.8 mmol/L (22-30.0); CHLORIDE 98.5 mmol/L (98-107); CREATININE 0.52 mg/dL (0.60-1.10); GLUCOSE 94.7 mg/dL (74-106); LIPASE 116.6 U/L (23-300); POTASSIUM 3.94 mmol/L (3.5-5.1); SODIUM 131.9 mmol/L (134.5-145); TOTAL PROTEIN 7.03 g/dL (6.3-8.2)
[2021-10-13] MEDS ORDERED: ASPIRIN CHEWABLE PO ONE (05:19)
[2021-10-13] MEDS ORDERED: HYZAAR 50-12.5 MG TAB PO ONE (05:19)
[2021-10-13] MEDS ORDERED: PROAIR HFA (SINGLE PATIENT USE) IH STA (05:20)
[2021-10-13] MEDS ORDERED: VENTOLIN HFA (PER PUFF-WITH SPACER) IH PRN (08:22)
[2021-10-13] MEDS ORDERED: ASPIRIN CHEWABLE PO SCH (08:30)
[2021-10-13 09:00] VITALS: BMI 26.0
[2021-10-13] MEDS ORDERED: PRILOSEC PO SCH (09:00)
[2021-10-13] MEDS ORDERED: HYZAAR 50-12.5 MG TAB PO SCH (09:00)
[2021-10-13] MEDS ORDERED: NICODERM 21 MG TD SCH (09:00)
--- NOTE | 2021-10-13 09:12 | PCM ---
Chief Complaint Chief Complaint: short of breath History of Present Illness History of Present Illness: slowly over a month with past week increased. Off his meds for dilated cardiomyopathy. Had a work up here 06-18-21. Hx also of schizophrenia and this appears stable Review of Systems Constitutional: Reports No symptoms Eyes: Reports No symptoms Ears: Reports No symptoms Nose: Reports No symptoms Throat: Reports No symptoms Mouth: Reports No symptoms Respiratory: Reports Shortness of air Cardiovascular: Reports Chest pain (occasional few secs non radiating ) Gastrointestinal: Reports No symptoms Genitourinary: Reports No symptoms Neurological: Reports No symptoms Musculoskeletal: Reports No symptoms Skin: Reports No symptoms Immunology: Reports No symptoms Hematology: Reports No symptoms Endocrine: Reports No symptoms Psychiatric: Reports No symptoms Habits: Reports Tobacco use (2-3 ppd) and Alcohol use (reports decreased use since last visit ) Allergies Allergies Allergy/AdvReac Type Severity Reaction Status Date / Time Penicillins AdvReac Verified 10/13/21 02:12 PFSH Medical History Anemia Asthma CAD (coronary artery disease) CHF (congestive heart failure) COPD (chronic obstructive pulmonary disease) Dilated cardiomyopathy Dyslipidemia Heavy cigarette smoker Hypertension Hypothyroidism Noncompliance with medication regimen Paranoia (psychosis) PVC's (premature ventricular contractions) Schizophrenia Surgical History H/O removal of cyst History of cardiac catheterization Family History Other No known health problems Social History Smoking and tobacco status: Current every day smoker Tobacco type: cigarettes Alcohol intake: current Alcohol intake frequency: a few times a week History of recent travel: No Medications Medications: Medications Generic Name Dose Route Start Last Admin Trade Name Freq PRN Reason Stop Dose Admin Albuterol Sulfate 2 puff 10/13/21 08:22 Albuterol Sulfate (Ventolin Hfa) 18 Gm 1 Puff With Spacer IH Q6H PRN copd Aspirin 81 mg 10/13/21 08:30 Aspirin 81 Mg Tab.Chew PO DAILYWM KIT Enoxaparin Sodium 40 mg 10/13/21 09:00 Enoxaparin Sodium 40 Mg/0.4 Ml Syr SUBCUT DAILY KIT HCTZ/Losartan Potassium 1 tab 10/13/21 09:00 Losartan/Hydrochlorothiazide 50/12.5 Mg Tab PO DAILY KIT Nicotine 1 patch 10/13/21 09:00 Nicotine 21 Mg Patch.Td24 TD DAILY KIT Omeprazole 40 mg 10/13/21 09:00 Omeprazole 20 Mg Capsule.Dr PO QDAC KIT Prednisone 40 mg 10/14/21 08:30 Prednisone 20 Mg Tablet PO DAILYWM KIT Sodium Chloride 1 syr 10/13/21 02:23 0.9% Sodium Chloride 10 Ml Disp.Syrin IVF PRN PRN To flush IV Sodium Chloride 1 syr 10/13/21 13:00 0.9% Sodium Chloride 10 Ml Disp.Syrin IVF Q8HR [facility] Body Composition Height: 5 ft 10 in Weight: 181 lb 8 oz Body Mass Index (BMI): 26.0 Vital Signs Temperature: 98.0 F Pulse Rate: 86 Respiratory Rate: 18 Blood Pressure: 142/91 O2 Sat by Pulse Oximetry: 99 Physical Examination Appearance: Reports Well-appearing Ill-appearing: Mild Pain Distress: None Eyes: Reports LACY, EOMI and Conjunctiva clear ENT: Reports Ears normal, Nose normal and Oropharynx normal Neck: Supple Respiratory: Reports Airway patent, Breath sounds clear and Breath sounds diminished Cardiovascular: Reports RRR and No murmur GI/: Reports Soft and Nontender Musculoskeletal: Reports Normal strength Skin: Reports Dry and Normal color Neurological: Reports Sensation intact, Motor intact, Alert and Oriented Psychiatric: Reports Affect appropriate and Mood appropriate Lab/Tests/Diagnostic Imaging Lab/Tests/Diagnostic Imaging: Lab Review 10/13/21 10/13/21 10/13/21 02:50 02:50 02:50 WBC 8.07 RBC 4.51 L Hgb 14.9 Hct 43.2 MCV 95.8 H MCH 33.0 H MCHC 34.5 RDW Coeff of Yonathan 12.6 Plt Count 303 Immature Gran % (Auto) 0.2 Neut % (Auto) 62.3 Lymph % (Auto) 26.4 [place] % (Auto) 9.3 Eos % (Auto) 1.1 Baso % (Auto) 0.7 Neut # (Auto) 5.0 Lymph # (Auto) 2.1 [place] # (Auto) 0.8 Eos # (Auto) 0.1 Baso # (Auto) 0.1 Immature Gran # (Auto) 0.0 Sodium 131.9 L Potassium 3.94 Chloride 98.5 Carbon Dioxide 28.8 Anion Gap 8.54 BUN 10.9 Creatinine 0.52 L Estimated GFR (MDRD) 164.00 BUN/Creatinine Ratio 20.96 Glucose 94.7 Lactic Acid 0.58 L Calcium 9.28 Total Bilirubin 0.74 AST 34.7 ALT 19.0 Alkaline Phosphatase 97.8 Troponin I NT-Pro-B Natriuret Pep Total Protein 7.03 Albumin 4.61 Globulin 2.42 Albumin/Globulin Ratio 1.90 Lipase 116.6 Procalcitonin D-Dimer SARS CoV-2 RNA Rapid EBONI 10/13/21 10/13/21 10/13/21 02:55 02:55 02:55 WBC RBC Hgb Hct MCV MCH MCHC RDW Coeff of Yonathan Plt Count Immature Gran % (Auto) Neut % (Auto) Lymph % (Auto) [place] % (Auto) Eos % (Auto) Baso % (Auto) Neut # (Auto) Lymph # (Auto) [place] # (Auto) Eos # (Auto) Baso # (Auto) Immature Gran # (Auto) Sodium Potassium Chloride Carbon Dioxide Anion Gap BUN Creatinine Estimated GFR (MDRD) BUN/Creatinine Ratio Glucose Lactic Acid Calcium Total Bilirubin AST ALT Alkaline Phosphatase Troponin I 0.024 NT-Pro-B Natriuret Pep 612.000 H Total Protein Albumin Globulin Albumin/Globulin Ratio Lipase Procalcitonin < 0.05 D-Dimer SARS CoV-2 RNA Rapid EBONI 10/13/21 10/13/21 10/13/21 02:55 02:55 05:38 WBC RBC Hgb Hct MCV MCH MCHC RDW Coeff of Yonathan Plt Count Immature Gran % (Auto) Neut % (Auto) Lymph % (Auto) [place] % (Auto) Eos % (Auto) Baso % (Auto) Neut # (Auto) Lymph # (Auto) [place] # (Auto) Eos # (Auto) Baso # (Auto) Immature Gran # (Auto) Sodium Potassium Chloride Carbon Dioxide Anion Gap BUN Creatinine Estimated GFR (MDRD) BUN/Creatinine Ratio Glucose Lactic Acid Calcium Total Bilirubin AST ALT Alkaline Phosphatase Troponin I 0.019 NT-Pro-B Natriuret Pep Total Protein Albumin Globulin Albumin/Globulin Ratio Lipase Procalcitonin D-Dimer 490.89 SARS CoV-2 RNA Rapid EBONI Negative Orders Category Date Time Status PLACE PATIENT OBSERVATION .TO MEDSURG (MONITORED BED ADMISSION 10/13/21 08:17 Active ) EKG-(ED ONLY) Stat CARDIO 10/13/21 02:23 Completed EKG-(IP & OP ONLY) Timed CARDIO 10/13/21 08:17 Ordered METERED DOSE INHALATION Routine CARDIO 10/13/21 02:24 Completed METERED DOSE INHALATION Routine CARDIO 10/13/21 08:26 Ordered ACTIVITY .BR with BRP CARE 10/13/21 08:21 Completed ACTIVITY .Early Mobilization for VTE Prevention CARE 10/13/21 08:17 Active INTAKE & OUTPUT Q8HR CARE 10/13/21 08:21 Active NOTIFY PHYSICIAN OF CONSULT ONCE CARE 10/13/21 08:24 Active Notify RT of Treatment ONCE CARE 10/13/21 08:22 Active TELEMETRY MONITORING TELE CARE 10/13/21 08:19 Active TELEMETRY MONITORING TELE CARE 10/13/21 08:21 Active VITAL SIGNS Q4HR CARE 10/13/21 08:21 Completed VITAL SIGNS Q8HR CARE 10/13/21 08:21 Active WEIGH PATIENT 0600 CARE 10/13/21 08:21 Active CONSULT DOCTOR [PHYSICIAN CONSULTATION] [CONS] Routine CONSULTS 10/13/21 08:22 Ordered 2 GRAM SODIUM DIET DIETARY 10/13/21 Breakfast Ordered FLUID RESTRICTION 1500 ML DIETARY 10/13/21 Breakfast Ordered FLUID RESTRICTION 1800 ML DIETARY 10/13/21 Breakfast Ordered CODE [ED CODE STATUS] .ONCE EMERGENCY 10/13/21 08:32 Active ED IV/MEDIPORT/POWERPORT .ONCE EMERGENCY 10/13/21 02:23 Active BNP [NT-PROBNP] Stat LAB 10/13/21 02:55 Completed CBC W/ AUTO DIFF DAILY@0600 LAB 10/14/21 06:00 Ordered CBC W/ AUTO DIFF DAILY@0600 LAB 10/15/21 06:00 Ordered CBC W/ AUTO DIFF Stat LAB 10/13/21 02:50 Completed CMP [COMPREHENSIVE METABOLIC PANEL] Stat LAB 10/13/21 02:50 Completed COMPREHENSIVE METABOLIC PANEL DAILY@0600 LAB 10/14/21 06:00 Ordered COMPREHENSIVE METABOLIC PANEL DAILY@0600 LAB 10/15/21 06:00 Ordered COVID [SARS COV-2 RNA RAPID EBONI] Stat LAB 10/13/21 02:55 Completed D-DIMER Stat LAB 10/13/21 02:55 Completed LACTIC ACID Stat LAB 10/13/21 02:50 Completed LIPASE Stat LAB 10/13/21 02:50 Completed PROCALCITONIN Stat LAB 10/13/21 02:55 Completed TROPONIN I Q10H LAB 10/13/21 16:30 Ordered TROPONIN I Q10H LAB 10/14/21 02:30 Ordered TROPONIN I Stat LAB 10/13/21 02:55 Completed TROPONIN I Stat LAB 10/13/21 05:38 Completed 0.9 % Sodium Chloride [Saline Flush] MEDS 10/13/21 02:23 Active 1 syr IVF PRN PRN 0.9 % Sodium Chloride [Saline Flush] MEDS 10/13/21 13:00 Active 1 syr IVF Q8HR Albuterol Inhaler (Single Pt) [Proair Hfa (Single MEDS 10/13/21 05:20 Discontinued Patient Use)] 2 puff IH ONCE STA Albuterol Inhaler(with Spacer) [Ventolin Hfa (Per Puff- MEDS 10/13/21 02:23 Discontinued with Spacer)] 2 puff IH ONCE STA Albuterol Inhaler(with Spacer) [Ventolin Hfa (Per Puff- MEDS 10/13/21 08:22 Active with Spacer)] 2 puff IH Q6H PRN Aspirin [Aspirin Chewable] MEDS 10/13/21 08:30 Active 81 mg PO DAILYWM Aspirin [Aspirin Chewable] MEDS 10/13/21 05:19 Discontinued 81 mg PO ONCE ONE Enoxaparin Sodium [Lovenox] MEDS 10/13/21 09:00 Active 40 mg SUBCUT DAILY Losartan/Hydrochlorothiazide [Hyzaar 50-12.5 mg Tab] MEDS 10/13/21 09:00 Active 1 tab PO DAILY Losartan/Hydrochlorothiazide [Hyzaar 50-12.5 mg Tab] MEDS 10/13/21 05:19 Discontinued 1 tab PO ONCE ONE Methylprednisolone Sod Succ/Pf [Solu-Medrol 40 mg] MEDS 10/13/21 02:23 Discontinued 40 mg IVP ONCE STA Nicotine 21 mg [Nicoderm 21 mg] MEDS 10/13/21 09:00 Active 1 patch TD DAILY Omeprazole [Prilosec] MEDS 10/13/21 09:00 Active 40 mg PO QDAC Prednisone MEDS 10/14/21 08:30 Active 40 mg PO DAILYWM RESUSCITATION STATUS Routine OTHERS 10/13/21 09:00 Ordered CXR [CHEST, 1V AP ONLY] Stat RADS 10/13/21 02:23 Completed Medications Generic Name Dose Route Start Last Admin Trade Name Fretyree PRN Reason Stop Dose Admin Albuterol Sulfate 2 puff 10/13/21 08:22 Albuterol Sulfate (Ventolin Hfa) 18 Gm 1 Puff With Spacer IH Q6H PRN copd Aspirin 81 mg 10/13/21 08:30 Aspirin 81 Mg Tab.Chew PO DAILYWM [facility] Enoxaparin Sodium 40 mg 10/13/21 09:00 Enoxaparin Sodium 40 Mg/0.4 Ml Syr SUBCUT DAILY KIT HCTZ/Losartan Potassium 1 tab 10/13/21 09:00 Losartan/Hydrochlorothiazide 50/12.5 Mg Tab PO DAILY KIT Nicotine 1 patch 10/13/21 09:00 Nicotine 21 Mg Patch.Td24 TD DAILY KIT Omeprazole 40 mg 10/13/21 09:00 Omeprazole 20 Mg Capsule.Dr PO QDAC KIT Prednisone 40 mg 10/14/21 08:30 Prednisone 20 Mg Tablet PO DAILYWM KIT Sodium Chloride 1 syr 10/13/21 02:23 0.9% Sodium Chloride 10 Ml Disp.Syrin IVF PRN PRN To flush IV Sodium Chloride 1 syr 10/13/21 13:00 0.9% Sodium Chloride 10 Ml Disp.Syrin IVF Q8HR KIT Discontinued Medications Generic Name Dose Route Start Last Admin Trade Name Jelani PRN Reason Stop Dose Admin Albuterol Sulfate 2 puff 10/13/21 02:23 10/13/21 03:02 Albuterol Sulfate (Ventolin Hfa) 18 Gm 1 Puff With Spacer IH 10/13/21 02:24 2 puff ONCE STA Administration Albuterol Sulfate 2 puff 10/13/21 05:20 10/13/21 06:01 Albuterol Sulfate 8.5 Gm Inhaler (Single Patient Use) IH 10/13/21 05:21 Not Given ONCE STA Aspirin 81 mg 10/13/21 05:19 10/13/21 05:41 Aspirin 81 Mg Tab.Chew PO 10/13/21 05:20 81 mg ONCE ONE Administration HCTZ/Losartan Potassium 1 tab 10/13/21 05:19 10/13/21 05:41 Losartan/Hydrochlorothiazide 50/12.5 Mg Tab PO 10/13/21 05:20 1 tab ONCE ONE Administration Methylprednisolone Sodium Succinate 40 mg 10/13/21 02:23 10/13/21 03:11 Methylprednisolone Sod Succ/Pf 40 Mg/Ml Vial IVP 10/13/21 02:24 40 mg ONCE STA Administration Plan Plan: 1.Restart asa 81mg daily 2Restart albuterol 2 puffs q 6 hrs 3. asa 81mg po daily 4Losartan 50/hctz 12.5 po daily 5.Hold coreg 3.125 po bid as pt says " it messed him up " 6. Nicoderm 21mg daily 7.Routine consult cardiology Dr Ram 8. Observation status
[2021-10-13] MEDS: LOVENOX SUBCUT SCH ×2 (09:35→10:09)
[2021-10-13 14:38] VITALS: BP 143/78; TEMP 97.5
[2021-10-13] MEDS ORDERED: TYLENOL PO ONE (15:33)
[2021-10-14] MEDS ORDERED: PREDNISONE PO SCH (08:30)
--- NOTE | 2021-10-15 14:48 | CONS ---
DATE OF CONSULTATION: 10/13/2021 REASON FOR CONSULTATION: The patient was hospitalized yesterday with compliant being being short of breath. HISTORY OF PRESENT ILLNESS: The patient was seen and examined by the ER attending and was admitted under hospitalist. The patient was seen on consultation by me previously a few months ago. He was hospitalized with CHF and dilated cardiomyopathy. He has been supposed to be on Cozaar and Coreg both of the medications he has stopped it for past few weeks. The patient is noncompliant and hasn't been followed by any PCP lately. REVIEW OF SYSTEMS: CONSTITUTIONAL: No night sweats. No fatigue, malaise, lethargy. No fever or chills. HEENT: Eyes: No visual changes. No eye pain. No eye discharge. ENT: No sinus drainage. No epistaxis. No sinus pain. No sore throat. No odynophagia. No ear pain. No congestion. RESPIRATORY: No cough, no congestion. No hemoptysis. Shortness of breath on exertion. CARDIOVASCULAR: No angina symptoms. No CHF symptoms. No atypical chest pain for CAD. No palpitations. No orthopnea. GASTROINTESTINAL: No abdominal pain. No nausea or vomiting. No diarrhea or constipation. No hematemesis. No hematochezia. GENITOURINARY: No urgency. No frequency. No dysuria. No hematuria. No obstructive symptoms. No discharge. No pain. No significant abnormal bleeding. MUSCULOSKELETAL: No musculoskeletal pain. No joint swelling. NEUROLOGICAL: No headache. No neck pain. No syncope. No seizures. No dizziness. PSYCHIATRIC: Not anxious. No depression. No suicidal thoughts. No homicidal thoughts. SKIN: No rash. No lesions. No wounds. ENDOCRINE: No unexplained weight loss. No weight gain. HEMATOLOGIC/LYMPHATIC: No anemia. No purpura. No petechiae. No prolonged or excessive bleeding. No palpable lymph nodes. MEDICATIONS: None ALLERGIES: Penicillin PHYSICAL EXAMINATION: GENERAL: The patient is oriented to time, place and person. VITALS: Temperature 98.4, pulse 90, respiratory rate 15, blood pressure 150/90. HEENT: Head normocephalic, atraumatic. Eyes: Extraocular muscles are intact. Pupils are equal, round and reactive to light and accommodation. Ears: No lesions. Nose appeared normal. Throat: No exudate or erythema. NECK: Supple. No JVD, no carotid bruit. No lymphadenopathy or thyromegaly. LUNGS: Clear to auscultation. Percussion note normal. Chest symmetrical. HEART: S1, S2, no S3. No murmurs. No cyanosis or clubbing. No ascites. Pulses: Dorsalis pedis and posterior tibial pulses +1 to +2 bilaterally. ABDOMEN: Soft. Nontender. Bowel sounds active. No CVA tenderness. No mass felt. EXTREMITIES: No edema. Full range of motion of all extremities, equal. NEUROLOGIC: No focal deficit. Cranial nerves II through XII are grossly intact. No headache, no double vision or headache. SKIN: Not dry. Intact. Turgor - normal. LYMPHATIC: No palpable lymph nodes/no lymphedema. MUSCULOSKELETAL: Normal joints with no swelling. Muscle tone is normal. LABS: EKG sinus rhythm, borderline LVH. Creatinine and BUN and CMP with differential all normal. Echo was done this morning and showed dilated cardiomyopathy with ejection fraction of 35% with dilated LA cavity, left ventricle is 6.2cm. Echo is practically unchanged from the one that was done previously a few months ago. ASSESSMENT: 1. Dilated cardiomyopathy 2. CHF 3. Hypertension 4. Dyslipidemia 5. History of smoking 6. COPD 7. History of drug abuse 8. Noncompliance of all aspects of medical care. RECOMMENDATIONS: 1. Restart the patient's 50/12.5mg PO daily. Says that Coreg bothers him 2. Put the patient on Lopressor 25mg twice a day 3. Coated Aspirin one a day 4. Prednisone 20mg daily for 3 days and then 10mg PO daily for 3 dyas. 5. Inhalers as ordered 6. Strongly advised to quit smoking and quit alcohol and drug abuse 7. The patient strongly advised to have a PCP and followup with the PCP. Supposed to be in [facility]. PROGNOSIS: Poor The patient was educated about CHF, cardiomyopathy. May need further workup in a way of cath which he has declined. Dobutamine stress echo declined. Thanks for referral. The patient is stable enough to be discharged. [facility]
--- NOTE | 2021-10-29 10:14 | ECHO2D ---
Date of Exam: 10/13/2021 Ordering Physician: HOSPITALIST Room #: 110 Reason for Echo: CHEST PAIN M-Mode Normal Adult Results LV Dimensions Normal Adult Results AoV Opening excursions >1.6 >1.6 LVEDD-base- 3.5-5.8 6.5 Ao root dimensions 2.0-3.7 3.7 LVESD-base- 3.1-4.6 L. Atrium dimensions 1.9-3.8 4.5 Post. Wall thickness 0.8-1.1 1.2 IV septum (thickness) 0.7-1.2 1.2 Post. Wall excursion 0.72-1.3 NORMAL Septal motion 0.7 Systolic motion R. Ventricular cavity 1.5-2.0 NORMAL LVEF 60% 35% Paradoxical septal wall motion NORMAL 2-D : DILATED LEFT VENTRICLE AND LEFT ATRIAL CAVITIES--HYPOKINETIC SEPTUM, NO EFFUSION, NO THROMBUS, NORMAL VALVES M-MODE: MV: NORMAL AV: NORMAL TV: NORMAL PV: CHAMBER SIZE: ENLARGED LEFT ATRIAL CAVITY AND LEFT VENTRICLE CAVITIES WALL MOTION: HYPOKINETIC SEPTUM PERICARDIUM: NORMAL INTERPRETATION: 1. BORDERLINE LEFT VENTRICLE HYPERTROPHY WITH ENLARGED LEFT ATRIAL CAVITY 2. DILATED LEFT VENTRICLE CAVITY 3. HYPOKINETIC SEPTUM EJECTION FRACTION 35% 4. NORMAL VALVES MTDD
--- NOTE | 2021-11-01 10:27 | PCM.DC ---
Final Diagnosis: Chest Pain SOB (1) Chest pain: Status: Acute Code(s): R07.9 - Chest pain, unspecified SNOMED Code(s): 53065303 (2) COPD not affecting current episode of care: Status: Acute Code(s): J44.9 - Chronic obstructive pulmonary disease, unspecified SNOMED Code(s): 63047933 (3) Non compliance with medical treatment: Status: Acute Code(s): Z91.19 - Patient's noncompliance with other medical treatment and regimen SNOMED Code(s): 7588101 Reason for Hospitalization: Had cough / 1 week / no vaccine / 2-3 PPD smoker Hx dilated cardiomyopathy here in june Rx coreg 3.125 bid and cozaar 50/hctz 12.5 qd. Pt eventually quit coreg cause he said it " messed him up " Now he is off cozaar for some time and has no meds and is not listing albuterol nor asa. Behavioral health - he appears stable. No covid vaccine. Prognosis/Condition at Discharge: Eval by Dr Ram-consult reviewed State patient Ready for discharge Will not wear telemetry Will not get med filled as recommended Medications at Discharge: Ambulatory Orders Medication Instructions Recorded triamterene 37.5 1 cap PO DAILY #30 cap 12/20/21 mg-hydrochlorothiazide 25 mg capsule Education Provided to Patient and Family: Yes Follow-ups: PCP in 1-2 days Discharge Disposition: Home Hospital Course: Admitted, observed, consulted cardiology /discharged Plan: discharged to home with instructions
== END 2021-10-13 18:46 | disposition home or self-care (01) ==
LOC: ED 01:55 → MEDSURG A 01:55
PROVIDERS: ADMIT Emergency Medicine; ATTEND Emergency Medicine
DX: I42.9 Cardiomyopathy, unspecified; R05.9 Cough, unspecified; R07.9 Chest pain, unspecified; Z91.19 Patient's noncompliance with other medical treatment and regimen; J44.9 Chronic obstructive pulmonary disease, unspecified; Z87.898 Personal history of other specified conditions; F17.210 Nicotine dependence, cigarettes, uncomplicated; E78.5 Hyperlipidemia, unspecified; R06.02 Shortness of breath; I10 Essential (primary) hypertension

== ENCOUNTER 2021-10-16 09:19 | Inpatient (IN) ==
[2021-10-16 10:48] LABS: BASOPHILS # (AUTO) 0.1 K/uL (0-0.2); BASOPHILS % (AUTO) 0.8 % (0.0-3.0); EOSINOPHILS # (AUTO) 0.1 K/ul (0.0-0.7); EOSINOPHILS % (AUTO) 0.8 % (0.0-7.0); HEMATOCRIT 39.3 % (42.0-52.0); HEMOGLOBIN 13.7 g/dl (14.0-18.0); IMMATURE GRANULOCYTE % (AUTO) 0.3 % (0.0-5.0); LYMPHOCYTES # (AUTO) 1.5 K/uL (0.60-3.4); LYMPHOCYTES % (AUTO) 22.8 (10.0-50.0); MEAN CORPUSCULAR HEMOGLOBIN 33.2 pg (27.0-31.0); MEAN CORPUSCULAR HGB CONC 34.9 (31.8-35.4); MEAN CORPUSCULAR VOLUME 95.2 fl (80.0-94.0); MONOCYTES # (AUTO) 0.7 K/uL (0.4-2.0); MONOCYTES % (AUTO) 10.2 (0-10); NEUTROPHILS # (AUTO) 4.2 K/ul (2.0-6.9); NEUTROPHILS % (AUTO) 65.1 % (42.2-75.2); PLATELET COUNT 248 10^3/uL (140-440); RDW COEFFICIENT OF VARIATION 12.3 % (11.6-14.8); RED BLOOD COUNT 4.13 10^6/ul (4.70-6.10); WHITE BLOOD COUNT 6.49 K/ul (4.2-10.2)
[2021-10-16] MEDS ORDERED: LOPRESSOR PO ONE (10:54)
[2021-10-16 11:00] LABS: ALANINE AMINOTRANSFERASE 16.5 U/L (0-50); ALBUMIN 4.16 g/dL (3.5-5.0); ALKALINE PHOSPHATASE 85.5 U/L (38-126); ASPARTATE AMINO TRANSFERASE 23.7 U/L (17-59); BILIRUBIN,TOTAL 1.58 mg/dL (0.2-1.3); BLOOD UREA NITROGEN 7.5 mg/dL (9-20); CALCIUM 8.78 mg/dL (8.4-10.2); CARBON DIOXIDE 27.9 mmol/L (22-30.0); CHLORIDE 95.5 mmol/L (98-107); CREATININE 0.52 mg/dL (0.60-1.10); GLUCOSE 95.9 mg/dL (74-106); POTASSIUM 3.51 mmol/L (3.5-5.1); SODIUM 127.9 mmol/L (134.5-145); TOTAL PROTEIN 6.51 g/dL (6.3-8.2); URIC ACID 5.18 mg/dL (3.5-8.5)
[2021-10-16 11:02] LABS: PARTIAL THROMBOPLASTIN TIME 26.6 SEC (23.9-40.0); PROTHROMBIN TIME 10.1 SEC (9.3-11.0)
--- NOTE | 2021-10-16 11:11 | DI ---
EXAM: Chest one view, frontal view only. HISTORY: Chest pain. COMPARISON: 03/13/2021. FINDINGS: The heart size is normal. There is no pulmonary vascular congestion. The lungs are clear . No pleural effusion or pneumothorax is seen. No acute osseous abnormality is identified. Since t he prior study, there has been no significant interval change. IMPRESSION: No acute cardiopulmonary process.
[2021-10-16 11:12] LABS: TROPONIN I < 0.012 ng/ml (0.0000-0.120)
--- NOTE | 2021-10-16 11:22 | ED.PDOC ---
General ED Provider: Dr. NELLIE KRAMER Chief Complaint: Chest Pain Stated Complaint: Has recurrent Chest pain -lt ant chest wall. Sharp and intermittent. Recently in ER for similar problem -hospitalized this past Sat and seen in consult by Dr Ram. Has history of Dilated cardiomyopathy, CHF, Hypertension, Dyslipidemia, COPD. Hx Smoking and drug abuse Admits to being homeless Time Seen by Provider: 10/16/21 10:45 Mode of Arrival: Walk-In Information Source: Patient Exam Limitations: Clinical condition Seen Within Last 72 Hours for Same Complaint By: ED Nursing and Triage Documentation Reviewed and Agree: Yes Does patient meet sepsis criteria?: No If yes, has appropriate treatment been initiated?: No System Inflammatory Response Syndrome: Not Applicable Sepsis Protocol: For patient's 13 years and over: Temp is 96.8 and below OR 101 and greater Pulse >90 BPM Resp >20/minute Acutely Altered Mental Status Are patient's symptoms suggestive of a new infection, such as: -Pneumonia -Skin, Soft Tissue -Endocarditis -UTI -Bone, Joint Infection -Implantable Device -Acute Abdominal Infection -Wound Infection -Meningitis -Blood Stream Catheter Infection -Unknown Cardiovascular Complaint Exam Chest Pain Complaint/Exam Onset: Gradual Duration: 2 days Symptoms Are: Still present Timing: Intermittent Length of Chest Pain Episodes: 30 min Initial Severity: Moderate Current Severity: Mild Location: Reports Left anterior Pain Radiates: Reports None Character: Reports Aching, Heaviness and Pressure Aggravating: Reports Exertion, Movement and Deep breaths Alleviating: Reports Rest and Upright position Associated Signs and Symptoms: Reports Back pain; Denies Diaphoresis, Nausea, Vomiting, Fever, Palpitations, Cough, Hemoptysis, Abdominal pain, Dizziness, Short of air, Calf pain or Calf swelling Related History: Reports Similar episode Related Surgical History: Reports None History of Healthcare-Acquired Pneumonia: Reports No AMI/ACS Risk Factors: Reports None TAD Risk Factors: Reports None Pulmonary Embolism Risk Factors: Reports None Prior Care for this Complaint: Yes Recent Stress Test: No Recent Echo/LV Function: Yes JVD Present: No Subcutaneous Emphysema Present: No Diminshed Breath Sounds: No Reproducible Chest Wall Pain: Yes Bilateral Pulses Present: Yes Unequal Pulses Noted: No Review of Systems Review Of Systems Constitutional: Reports Malaise and Weakness Eyes: Reports No symptoms Ears, Nose, Mouth, Throat: Reports No symptoms Respiratory: Reports Cough Cardiac: Reports Chest pain GI: Reports No symptoms : Reports No symptoms Musculoskeletal: Reports No symptoms Skin: Reports No symptoms Neurological: Reports Anxiety Endocrine: Reports No symptoms All Other Systems: Reviewed and Negative [facility] Medical History Anemia Asthma CAD (coronary artery disease) CHF (congestive heart failure) COPD (chronic obstructive pulmonary disease) Dilated cardiomyopathy Dyslipidemia Heavy cigarette smoker Hypertension Hypothyroidism Noncompliance with medication regimen Paranoia (psychosis) PVC's (premature ventricular contractions) Schizophrenia Family History Other No known health problems Social History (Updated 10/16/21 @ 16:55 by JAYCE PELLETIER RN) Smoking and tobacco status: Current every day smoker Tobacco type: cigarettes Smoking packs per day: 3.5 Smoking cigarettes per day: 70.0 Years smoked: 40 Smoking pack-years: 140.00 Alcohol intake: current Alcohol intake frequency: a few times a week History of recent travel: No Surgical History H/O removal of cyst History of cardiac catheterization Physical Exam Physical Exam Appearance: Reports Ill-appearing and Obese Ill-appearing: Mild Pain Distress: Mild Eyes: Reports LACY, EOMI and Conjunctiva clear ENT: Reports Ears normal, Nose normal, Oropharynx normal and TMs Occluded Neck: Supple Respiratory: Reports Airway patent, Breath sounds clear and Breath sounds equal Cardiovascular: Reports RRR, Pulses normal and No rub GI/: Reports Soft, Nontender and No masses Musculoskeletal: Reports Normal strength, ROM intact and No edema Skin: Reports Warm, Dry and Normal color Neurological: Reports Sensation intact, Motor intact and Reflexes intact Psychiatric: Reports Affect appropriate, Mood appropriate and Anxious Interpretation Radiology Interpretation Radiology Interpretation By: Radiologist Exam Interpreted: CXR (no acute findings) Xray Comments: No acute cardiopulmonary process Critical Care Note Critical Care Note Total Critical Care Time (mins): 30 Course Course Hematology/Chemistry: 10/17/21 04:15 10/17/21 04:15 Orders, Labs, Meds: Lab Review 10/16/21 10/16/21 10/16/21 10:44 10:44 10:44 WBC 6.49 RBC 4.13 L Hgb 13.7 L Hct 39.3 L MCV 95.2 H MCH 33.2 H MCHC 34.9 RDW Coeff of Yonathan 12.3 Plt Count 248 Immature Gran % (Auto) 0.3 Neut % (Auto) 65.1 Lymph % (Auto) 22.8 Nance % (Auto) 10.2 H Eos % (Auto) 0.8 Baso % (Auto) 0.8 Neut # (Auto) 4.2 Lymph # (Auto) 1.5 [place] # (Auto) 0.7 Eos # (Auto) 0.1 Baso # (Auto) 0.1 Immature Gran # (Auto) 0.0 PT 10.1 INR 0.97 APTT 26.6 Sodium 127.9 L Potassium 3.51 Chloride 95.5 L Carbon Dioxide 27.9 Anion Gap 8.01 BUN 7.5 L Creatinine 0.52 L Estimated GFR (MDRD) 164.00 BUN/Creatinine Ratio 14.42 Glucose 95.9 Uric Acid 5.18 Calcium 8.78 Total Bilirubin 1.58 H AST 23.7 ALT 16.5 Alkaline Phosphatase 85.5 Total Creatine Kinase 65.0 Troponin I < 0.012 NT-Pro-B Natriuret Pep 492.000 H Total Protein 6.51 Albumin 4.16 Globulin 2.35 Albumin/Globulin Ratio 1.77 Urine Color Urine Clarity Urine pH Ur Specific [place] Urine Protein Urine Glucose (UA) Urine Ketones Urine Blood Urine Nitrite Urine Bilirubin Urine Urobilinogen Ur Leukocyte Esterase Urine Opiates Screen Ur Oxycodone Screen Urine Methadone Screen Ur Propoxyphene Screen Ur Barbiturates Screen U Tricyclic Antidepress Ur Phencyclidine Scrn Ur Amphetamine Screen U Methamphetamines Scrn U Benzodiazepines Scrn Urine Cocaine Screen U Cannabinoids Screen SARS CoV-2 RNA Rapid EBONI 10/16/21 10/16/21 10/16/21 12:10 12:10 15:10 WBC RBC Hgb Hct MCV MCH MCHC RDW Coeff of Yonathan Plt Count Immature Gran % (Auto) Neut % (Auto) Lymph % (Auto) [place] % (Auto) Eos % (Auto) Baso % (Auto) Neut # (Auto) Lymph # (Auto) [place] # (Auto) Eos # (Auto) Baso # (Auto) Immature Gran # (Auto) PT INR APTT Sodium Potassium Chloride Carbon Dioxide Anion Gap BUN Creatinine Estimated GFR (MDRD) BUN/Creatinine Ratio Glucose Uric Acid Calcium Total Bilirubin AST ALT Alkaline Phosphatase Total Creatine Kinase Troponin I NT-Pro-B Natriuret Pep Total Protein Albumin Globulin Albumin/Globulin Ratio Urine Color Yellow Urine Clarity Clear Urine pH 6.5 Ur Specific [place] 1.010 Urine Protein Negative Urine Glucose (UA) Negative Urine Ketones Negative Urine Blood Negative Urine Nitrite Negative Urine Bilirubin Negative Urine Urobilinogen 0.2 Ur Leukocyte Esterase Negative Urine Opiates Screen Negative Ur Oxycodone Screen Negative Urine Methadone Screen Negative Ur Propoxyphene Screen Negative Ur Barbiturates Screen Negative U Tricyclic Antidepress Negative Ur Phencyclidine Scrn Negative Ur Amphetamine Screen Negative U Methamphetamines Scrn Negative U Benzodiazepines Scrn Negative Urine Cocaine Screen Negative U Cannabinoids Screen Negative SARS CoV-2 RNA Rapid EBONI Negative Orders Category Date Time Status ADMIT PATIENT INPATIENT .TO MEDSURG (MONITORED BED) ADMISSION 10/16/21 13:58 Active EKG-(ED ONLY) Stat CARDIO 10/16/21 10:34 Completed ACTIVITY .Up ad Monalisa CARE 10/16/21 14:02 Active CASE MANAGEMENT CONSULT ONCE CARE 10/16/21 14:00 Active INTAKE & OUTPUT Q8HR CARE 10/16/21 14:00 Active TELEMETRY MONITORING TELE CARE 10/16/21 13:59 Active REGULAR DIET DIETARY 10/16/21 Lunch Ordered IV [ED IV/MEDIPORT/POWERPORT] .ONCE EMERGENCY 10/16/21 11:25 Active CBC W/ AUTO DIFF Stat LAB 10/16/21 10:44 Completed CMP [COMPREHENSIVE METABOLIC PANEL] Stat LAB 10/16/21 10:44 Completed CPK [CREATINE KINASE] Stat LAB 10/16/21 10:44 Completed NT-PROBNP Stat LAB 10/16/21 10:44 Completed PARTIAL THROMBOPLASTIN TIME Stat LAB 10/16/21 10:44 Completed PT WITH INR Stat LAB 10/16/21 10:44 Completed SARS COV-2 RNA RAPID EBONI Stat LAB 10/16/21 15:10 Completed TROPONIN I Stat LAB 10/16/21 10:44 Completed UA [URINALYSIS C & S IF INDICATED] Stat LAB 10/16/21 12:10 Completed URIC ACID Stat LAB 10/16/21 10:44 Completed URINE DRUG SCREEN (RAPID FOR ED) [DRUG SCREEN, URINE, LAB 10/16/21 12:10 Completed RAPID] Stat 0.9 % Sodium Chloride [Saline Flush] MEDS 10/16/21 11:25 Active 1 syr IVF PRN PRN Acetaminophen [Tylenol] MEDS 10/16/21 14:00 Active 650 mg PO Q4H PRN Metoprolol Tartrate [Lopressor] MEDS 10/16/21 10:54 Discontinued 25 mg PO ONCE ONE Ondansetron HCl/Pf [Zofran 4 mg/2 ml] MEDS 10/16/21 14:00 Active 4 mg IVP Q6H PRN Potassium Chloride in 0.9%NaCl [Sodium Chloride 0.9%- MEDS 10/16/21 14:00 Discontinued KCl 20 Meq] 1,000 ml IV 70 mls/hr Sodium Chloride 0.9% [Sodium Chloride] 1,000 ml MEDS 10/16/21 11:30 Discontinued IV 100 mls/hr RESUSCITATION STATUS Routine OTHERS 10/16/21 14:00 Completed CHEST, 1V AP ONLY Stat RADS 10/16/21 10:34 Completed Medications Generic Name Dose Route Start Last Admin Trade Name Freq PRN Reason Stop Dose Admin Acetaminophen 650 mg 10/16/21 14:00 Acetaminophen 325 Mg Tablet PO Q4H PRN Fever >101 Potassium Chloride/Sodium Chloride 1,000 mls @ 70 mls/hr 10/16/21 17:41 10/16/21 17:49 Sodium Chloride 0.9%-Kcl 20 Meq IV 70 mls/hr .[id number] KIT Administration Ondansetron HCl 4 mg 10/16/21 14:00 Ondansetron Hcl/Pf 4 Mg/2 Ml Sdv IVP Q6H PRN Nausea / Vomiting Sodium Chloride 1 syr 10/16/21 11:25 0.9% Sodium Chloride 10 Ml Disp.Syrin IVF PRN PRN To flush IV Trazodone HCl 50 mg 10/16/21 22:18 10/16/21 22:25 Trazodone Hcl 50 Mg Tablet PO 50 mg BEDTIME PRN Administration DIFFICULTY SLEEPING Discontinued Medications Generic Name Dose Route Start Last Admin Trade Name Freq PRN Reason Stop Dose Admin Sodium Chloride 1,000 mls @ 100 mls/hr 10/16/21 11:30 10/16/21 11:51 Sodium Chloride IV 10/16/21 21:00 100 mls/hr .Q10H KIT Administration Potassium Chloride/Sodium Chloride 1,000 mls @ 70 mls/hr 10/16/21 14:00 10/16/21 18:01 Sodium Chloride 0.9%-Kcl 20 Meq IV Not Given .[id number] KIT Potassium Chloride/Sodium Chloride 1,000 mls @ 70 mls/hr 10/16/21 21:00 Sodium Chloride 0.9%-Kcl 20 Meq IV .[id number] KIT Metoprolol Tartrate 25 mg 10/16/21 10:54 10/16/21 11:11 Metoprolol Tartrate 25 Mg Tablet PO 10/16/21 10:55 25 mg ONCE ONE Administration Vital Signs: Temp Pulse Resp BP Pulse Ox 10/16/21 09:21 96.7 F L 107 H 18 162/100 H 97 ROSA ELENA Risk Score ROSA ELENA Risk Score: Risk Score Odds of by 30D 0 0.1 (0.1-0.2) 1 0.3 (0.2-0.3) 2 0.4 (0.3-0.5) 3 0.7 (0.6-0.9) 4 1.2 (1.0-1.5) 5 2.2 (1.9-2.6) 6 3.0 (2.5-3.6) 7 4.8 (3.8-6.1) Discharge Plan Discharge Patient Disposition: ADMITTED INPATIENT Discharge Problem: Acute hyponatremia, Chest pain, COPD not affecting current episode of care ED Provider: NELLIE KRAMER Condition: Fair Physician Progress Note: Patient with worsening hyponatremai over past several days []
[2021-10-16] MEDS ORDERED: SODIUM CHLORIDE 1,000 ML IV SCH ×2 (11:30)
[2021-10-16 13:21] LABS: BILIRUBIN,URINE Negative (NEGATIVE); CLARITY,URINE Clear (CLEAR); COLOR,URINE Yellow (YELLOW); GLUCOSE, URINE (UA) Negative (NEGATIVE); KETONES,URINE Negative (NEGATIVE); LEUKOCYTE ESTERASE ,URINE Negative (NEGATIVE); NITRITE,URINE Negative (NEGATIVE); PH,URINE 6.5 (5-9); PROTEIN,URINE Negative (NEGATIVE); URINE, BLOOD Negative (NEGATIVE); UROBILINOGEN,URINE 0.2 (0.2)
[2021-10-16 13:24] LABS: AMPHETAMINE SCREEN,URINE NEGATIVE (NEGATIVE); BARBITURATE SCREEN,URINE NEGATIVE (NEGATIVE); CANNABINOID SCREEN,URINE NEGATIVE (NEGATIVE); METHADONE URINE SCREEN NEGATIVE (NEGATIVE); METHAMPHETAMINES SCREEN,URINE NEGATIVE (NEGATIVE); OPIATE SCREEN,URINE NEGATIVE (NEGATIVE); OXYCODONE URINE SCREEN NEGATIVE (NEGATIVE); PHENCYCLIDINE SCREEN,URINE NEGATIVE (NEGATIVE); PROPOXYPHENE URINE SCREEN NEGATIVE (NEGATIVE)
[2021-10-16 13:25] LABS: BENZODIAZEPINES SCREEN,URINE NEGATIVE (NEGATIVE); COCAIN SCREEN,URINE NEGATIVE (NEGATIVE); TRICYCLIC ANTIDEPRESSANTS URIN NEGATIVE (NEGATIVE)
[2021-10-16] MEDS ORDERED: SODIUM CHLORIDE 0.9%-KCL 20 MEQ 1,000 ML IV SCH ×2 (14:00→21:00)
[2021-10-16] MEDS ORDERED: TYLENOL PO PRN (14:00)
[2021-10-16] MEDS ORDERED: ZOFRAN 4 MG/2 ML IVP PRN (14:00)
[2021-10-16 16:54] VITALS: BMI 26.1
[2021-10-16] MEDS: SODIUM CHLORIDE 0.9%-KCL 20 MEQ 1,000 ML IV SCH (17:49)
[2021-10-16] MEDS ORDERED: DESYREL PO PRN (22:18)
[2021-10-17 05:16] VITALS: BP 131/70; TEMP 97.8
[2021-10-17 05:39] LABS: BASOPHILS # (AUTO) 0.1 K/uL (0-0.2); BASOPHILS % (AUTO) 0.7 % (0.0-3.0); EOSINOPHILS # (AUTO) 0.1 K/ul (0.0-0.7); EOSINOPHILS % (AUTO) 1.6 % (0.0-7.0); HEMATOCRIT 36.6 % (42.0-52.0); HEMOGLOBIN 12.7 g/dl (14.0-18.0); IMMATURE GRANULOCYTE % (AUTO) 0.3 % (0.0-5.0); LYMPHOCYTES # (AUTO) 1.9 K/uL (0.60-3.4); LYMPHOCYTES % (AUTO) 27.3 (10.0-50.0); MEAN CORPUSCULAR HEMOGLOBIN 33.2 pg (27.0-31.0); MEAN CORPUSCULAR HGB CONC 34.7 (31.8-35.4); MEAN CORPUSCULAR VOLUME 95.8 fl (80.0-94.0); MONOCYTES # (AUTO) 0.8 K/uL (0.4-2.0); MONOCYTES % (AUTO) 11.3 (0-10); NEUTROPHILS # (AUTO) 4.1 K/ul (2.0-6.9); NEUTROPHILS % (AUTO) 58.8 % (42.2-75.2); PLATELET COUNT 242 10^3/uL (140-440); RDW COEFFICIENT OF VARIATION 12.5 % (11.6-14.8); RED BLOOD COUNT 3.82 10^6/ul (4.70-6.10)
[2021-10-17 05:56] LABS: ALANINE AMINOTRANSFERASE 14.2 U/L (0-50); ALBUMIN 3.75 g/dL (3.5-5.0); ALKALINE PHOSPHATASE 96.5 U/L (38-126); ASPARTATE AMINO TRANSFERASE 20.5 U/L (17-59); BILIRUBIN,TOTAL 0.87 mg/dL (0.2-1.3); BLOOD UREA NITROGEN 11.6 mg/dL (9-20); CALCIUM 8.61 mg/dL (8.4-10.2); CARBON DIOXIDE 27.9 mmol/L (22-30.0); CHLORIDE 98.4 mmol/L (98-107); CREATININE 0.61 mg/dL (0.60-1.10); GLUCOSE 93.8 mg/dL (74-106); POTASSIUM 3.28 mmol/L (3.5-5.1); SODIUM 130.6 mmol/L (134.5-145); TOTAL PROTEIN 5.92 g/dL (6.3-8.2)
[2021-10-17] MEDS: SODIUM CHLORIDE 0.9%-KCL 20 MEQ 1,000 ML IV SCH (10:14)
[2021-10-17] MEDS ORDERED: FLUZONE HIGH-DOSE QUAD 2021-22 IM ONE (10:52)
[2021-10-17] MEDS ORDERED: MICRO-K CAP PO ONE (10:58)
--- NOTE | 2021-10-17 15:12 | PCM.DC ---
Admit diagnosis: Chest pain Recurrent hyponatremia. Dischargel Diagnosis: Chest pain - resolved. Hyponatremia, chronic - improved. Reason for Hospitalization: Admit (obs) for atypical chest pain and acute on chronic hyponatremia. Admit date - 10/16/21 Discharge date - 10/17/21 Prognosis/Condition at Discharge: Stable. Medications at Discharge: States that he has metoprolol tartrate 25 mg bid at home. Continue ASA 81 mg qd. No new med. Rec. stop smoking. Lab/Diagnostics: Laboratory Tests 10/16/21 10/16/21 10/16/21 10:44 10:44 10:44 WBC 6.49 RBC 4.13 L Hgb 13.7 L Hct 39.3 L MCV 95.2 H MCH 33.2 H MCHC 34.9 RDW Coeff of Yonathan 12.3 Plt Count 248 Immature Gran % (Auto) 0.3 Neut % (Auto) 65.1 Lymph % (Auto) 22.8 [place] % (Auto) 10.2 H Eos % (Auto) 0.8 Baso % (Auto) 0.8 Neut # (Auto) 4.2 Lymph # (Auto) 1.5 [place] # (Auto) 0.7 Eos # (Auto) 0.1 Baso # (Auto) 0.1 Immature Gran # (Auto) 0.0 PT 10.1 INR 0.97 APTT 26.6 Sodium 127.9 L Potassium 3.51 Chloride 95.5 L Carbon Dioxide 27.9 Anion Gap 8.01 BUN 7.5 L Creatinine 0.52 L Estimated GFR (MDRD) 164.00 BUN/Creatinine Ratio 14.42 Glucose 95.9 Uric Acid 5.18 Calcium 8.78 Total Bilirubin 1.58 H AST 23.7 ALT 16.5 Alkaline Phosphatase 85.5 Total Creatine Kinase 65.0 Troponin I < 0.012 NT-Pro-B Natriuret Pep 492.000 H Total Protein 6.51 Albumin 4.16 Globulin 2.35 Albumin/Globulin Ratio 1.77 Urine Color Urine Clarity Urine pH Ur Specific [place] Urine Protein Urine Glucose (UA) Urine Ketones Urine Blood Urine Nitrite Urine Bilirubin Urine Urobilinogen Ur Leukocyte Esterase Urine Opiates Screen Ur Oxycodone Screen Urine Methadone Screen Ur Propoxyphene Screen Ur Barbiturates Screen U Tricyclic Antidepress Ur Phencyclidine Scrn Ur Amphetamine Screen U Methamphetamines Scrn U Benzodiazepines Scrn Urine Cocaine Screen U Cannabinoids Screen SARS CoV-2 RNA Rapid EBONI 10/16/21 10/16/21 10/16/21 12:10 12:10 15:10 WBC RBC Hgb Hct MCV MCH MCHC RDW Coeff of Yonathan Plt Count Immature Gran % (Auto) Neut % (Auto) Lymph % (Auto) [place] % (Auto) Eos % (Auto) Baso % (Auto) Neut # (Auto) Lymph # (Auto) [place] # (Auto) Eos # (Auto) Baso # (Auto) Immature Gran # (Auto) PT INR APTT Sodium Potassium Chloride Carbon Dioxide Anion Gap BUN Creatinine Estimated GFR (MDRD) BUN/Creatinine Ratio Glucose Uric Acid Calcium Total Bilirubin AST ALT Alkaline Phosphatase Total Creatine Kinase Troponin I NT-Pro-B Natriuret Pep Total Protein Albumin Globulin Albumin/Globulin Ratio Urine Color Yellow Urine Clarity Clear Urine pH 6.5 Ur Specific [place] 1.010 Urine Protein Negative Urine Glucose (UA) Negative Urine Ketones Negative Urine Blood Negative Urine Nitrite Negative Urine Bilirubin Negative Urine Urobilinogen 0.2 Ur Leukocyte Esterase Negative Urine Opiates Screen Negative Ur Oxycodone Screen Negative Urine Methadone Screen Negative Ur Propoxyphene Screen Negative Ur Barbiturates Screen Negative U Tricyclic Antidepress Negative Ur Phencyclidine Scrn Negative Ur Amphetamine Screen Negative U Methamphetamines Scrn Negative U Benzodiazepines Scrn Negative Urine Cocaine Screen Negative U Cannabinoids Screen Negative SARS CoV-2 RNA Rapid EBONI Negative 10/17/21 10/17/21 04:15 04:15 WBC 7.00 RBC 3.82 L Hgb 12.7 L Hct 36.6 L MCV 95.8 H MCH 33.2 H MCHC 34.7 RDW Coeff of Yonathan 12.5 Plt Count 242 Immature Gran % (Auto) 0.3 Neut % (Auto) 58.8 Lymph % (Auto) 27.3 [place] % (Auto) 11.3 H Eos % (Auto) 1.6 Baso % (Auto) 0.7 Neut # (Auto) 4.1 Lymph # (Auto) 1.9 [place] # (Auto) 0.8 Eos # (Auto) 0.1 Baso # (Auto) 0.1 Immature Gran # (Auto) 0.0 PT INR APTT Sodium 130.6 L Potassium 3.28 L Chloride 98.4 Carbon Dioxide 27.9 Anion Gap 7.58 BUN 11.6 Creatinine 0.61 Estimated GFR (MDRD) 137.00 BUN/Creatinine Ratio 19.01 Glucose 93.8 Uric Acid Calcium 8.61 Total Bilirubin 0.87 AST 20.5 ALT 14.2 Alkaline Phosphatase 96.5 Total Creatine Kinase Troponin I NT-Pro-B Natriuret Pep Total Protein 5.92 L Albumin 3.75 Globulin 2.17 Albumin/Globulin Ratio 1.72 Urine Color Urine Clarity Urine pH Ur Specific [place] Urine Protein Urine Glucose (UA) Urine Ketones Urine Blood Urine Nitrite Urine Bilirubin Urine Urobilinogen Ur Leukocyte Esterase Urine Opiates Screen Ur Oxycodone Screen Urine Methadone Screen Ur Propoxyphene Screen Ur Barbiturates Screen U Tricyclic Antidepress Ur Phencyclidine Scrn Ur Amphetamine Screen U Methamphetamines Scrn U Benzodiazepines Scrn Urine Cocaine Screen U Cannabinoids Screen SARS CoV-2 [place] [address] Diagnostic Imaging Diagnostic Imaging Report : [id number] Signed Patient: PILI GARCIA Acct:[id number] Medical Record: [id number] : 1965 Loc: ED Room/Bed: Age/Sex: 55 / M ADM Status: REG ER Date of Service: 10/16/21 Ordering Physician: NELLIE KRAMER DO Procedure(s): CHEST, 1V AP ONLY Report Number(s): [id number] Accession Number(s): [id number] cc: NELLIE KRAMER DO EXAM: Chest one view, frontal view only. HISTORY: Chest pain. COMPARISON: 03/13/2021. FINDINGS: The heart size is normal. There is no pulmonary vascular congestion. The lungs are clear. No pleural effusion or pneumothorax is seen. No acute osseous abnormality is identified. Since the prior study, there has been no significant interval change. IMPRESSION: No acute cardiopulmonary process. EKG's - no ischemia, NSR Education Provided to Patient and Family: From nursing staff. Follow-ups: PCP in 3-5 days. Continue cardiac diet and activity as tolerated. Discharge Disposition: Home Hospital Course: HPI - Refer to admit note. Mild chest pain reported,, along with the desire to stay in the hospital "because it's cold outside and the food here is good". Hosp. Course - 1. chest pain - resolved after being informed that he could stay in the hospital with basic cardiac work-up normal. 2. Hyponatremia, chronic, returned to baseline around 130. Source could be SIADH, not on diuretics, alcohol abuse can do this, not a reliable historian, doubt excess water ingestion. Physical Exam: Cons - appears well fed, HEENT - WNL, Neck supple, Heart RRR without m, Lungs clear, Abd soft, Neuro intact, Ext intact, Musculoskel WNL, Neuro intact, Psych- WNL. Repeat cardiac enzymes neg, repeat sodium up to 130 (baseline). Plan: Home in improved and stable condition.
== END 2021-10-17 13:20 | disposition home or self-care (01) | DRG 313 ==
LOC: ED 09:19 → MEDSURG A 15:59
PROVIDERS: ADMIT Emergency Medicine; ATTEND Emergency Medicine
DX: F17.200 Nicotine dependence, unspecified, uncomplicated; R53.1 Weakness; E87.1 Hypo-osmolality and hyponatremia; Z20.822 Contact with and (suspected) exposure to COVID-19; R07.9 Chest pain, unspecified; J44.9 Chronic obstructive pulmonary disease, unspecified; R06.02 Shortness of breath; M54.9 Dorsalgia, unspecified

== ENCOUNTER 2021-12-09 02:40 | Inpatient (IN) ==
[2021-12-09] MEDS ORDERED: TORADOL IM ONE (03:32)
[2021-12-09] MEDS ORDERED: ASPIRIN EC PO ONE (03:32)
--- NOTE | 2021-12-09 03:50 | ED.PDOC ---
General ED Provider: Dr. ERROL VELASQUEZ MD Chief Complaint: Fever Stated Complaint: anterior chest wall pain x 2 weeks. prior chest pain several years ago with "enlarged heart". Time Seen by Provider: 12/09/21 02:42 Mode of Arrival: Walk-In Information Source: Patient Exam Limitations: No limitations Nursing and Triage Documentation Reviewed and Agree: Yes Does patient meet sepsis criteria?: No If yes, has appropriate treatment been initiated?: No System Inflammatory Response Syndrome: Not Applicable Sepsis Protocol: For patient's 13 years and over: Temp is 96.8 and below OR 101 and greater Pulse >90 BPM Resp >20/minute Acutely Altered Mental Status Are patient's symptoms suggestive of a new infection, such as: -Pneumonia -Skin, Soft Tissue -Endocarditis -UTI -Bone, Joint Infection -Implantable Device -Acute Abdominal Infection -Wound Infection -Meningitis -Blood Stream Catheter Infection -Unknown Cardiovascular Complaint Exam Chest Pain Complaint/Exam Onset: Gradual Duration: 2 weeks Symptoms Are: Still present Timing: Constant Initial Severity: Mild Current Severity: Moderate Location: Reports Upper sternal Pain Radiates: Reports None Character: Reports Dull and Aching Aggravating: Reports Deep breaths Alleviating: Reports Rest Associated Signs and Symptoms: Reports Fever Related History: Reports Similar episode History of Healthcare-Acquired Pneumonia: Reports No AMI/ACS Risk Factors: Reports CHF Prior Care for this Complaint: Yes Recent Stress Test: No JVD Present: No Subcutaneous Emphysema Present: No Diminshed Breath Sounds: No Reproducible Chest Wall Pain: Yes Bilateral Pulses Present: Yes Unequal Pulses Noted: No Differential Diagnoses: Acute IA, ACS, Stable Angina, Aortic Aneurysm, CHF, Chest Wall Pain and Lower Resp. Infection Antibiotics Delayed Due To: Diagnostic uncertainty Patient Advised to Stop Smoking: Yes Review of Systems Review Of Systems Constitutional: Reports Fever Eyes: Reports No symptoms Ears, Nose, Mouth, Throat: Reports No symptoms Cardiac: Reports Chest pain GI: Reports No symptoms : Reports No symptoms Musculoskeletal: Reports No symptoms Skin: Reports No symptoms Neurological: Reports No symptoms Endocrine: Reports No symptoms Hematologic/Lymphatic: Reports No symptoms All Other Systems: Reviewed and Negative [facility] Medical History Anemia Asthma CAD (coronary artery disease) CHF (congestive heart failure) COPD (chronic obstructive pulmonary disease) Dilated cardiomyopathy Dyslipidemia Heavy cigarette smoker Hypertension Hypothyroidism Noncompliance with medication regimen Paranoia (psychosis) PVC's (premature ventricular contractions) Schizophrenia Family History Other No known health problems Social History Smoking and tobacco status: Current every day smoker Tobacco type: cigarettes Smoking packs per day: 3.5 Smoking cigarettes per day: 70.0 Years smoked: 40 Smoking pack-years: 140.00 Alcohol intake: current Alcohol intake frequency: a few times a week History of recent travel: No Surgical History H/O removal of cyst History of cardiac catheterization Physical Exam Physical Exam Appearance: Reports Well-appearing, No pain distress and Well-nourished Ill-appearing: None Pain Distress: None Eyes: Reports LACY, EOMI and Conjunctiva clear ENT: Reports Ears normal, Nose normal and Oropharynx normal Neck: Supple Respiratory: Reports Airway patent, Breath sounds equal, Respirations nonlabored, Crackles and Rhonchi Cardiovascular: Reports RRR, Pulses normal, No rub and No murmur GI/: Reports Soft, Nontender, No masses, Bowel sounds normal and No Organomegaly Musculoskeletal: Reports Normal strength, ROM intact, No edema and No calf tenderness Skin: Reports Warm, Dry and Normal color Neurological: Reports Sensation intact, Motor intact, Reflexes intact, Cranial nerves intact and Alert Psychiatric: Reports Affect appropriate and Mood appropriate Interpretation Radiology Interpretation Radiology Interpretation By: Radiologist Exam Interpreted: CT Scan Xray Comments: Please see the report. 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 Re-Evaluation Re-Evaluation Time of Re-Evaluation: 03:39 Status: Improved Vital Signs Stable: Yes Pain Level: 1 Appearance: NAD Lungs: Other (mild rhonchi with occasional wheezes.) Skin: Warm and Dry Neuro: Alert and Oriented X3 CV: RRR Critical Care Note Critical Care Note Total Critical Care Time (mins): 0 Course Course Hematology/Chemistry: 12/09/21 03:40 12/09/21 03:32 Orders, Labs, Meds: Lab Review 02/06/22 02/06/22 02/06/22 03:32 03:32 03:40 WBC 5.57 RBC 4.27 L Hgb 13.9 L Hct 39.1 L MCV 91.6 MCH 32.6 H MCHC 35.5 H RDW Coeff of Yonathan 12.2 Plt Count 256 Immature Gran % (Auto) 0.5 Neut % (Auto) 67.7 Lymph % (Auto) 19.0 [place] % (Auto) 12.2 H Eos % (Auto) 0.2 Baso % (Auto) 0.4 Neut # (Auto) 3.8 Lymph # (Auto) 1.1 [place] # (Auto) 0.7 Eos # (Auto) 0.0 Baso # (Auto) 0.0 Immature Gran # (Auto) 0.0 Sodium 126.2 L Potassium 3.34 L Chloride 88.6 L Carbon Dioxide 26.8 Anion Gap 14.14 BUN 13.3 Creatinine 0.81 Estimated GFR (MDRD) 98.00 BUN/Creatinine Ratio 16.41 Glucose 116.8 H Lactic Acid 2.21 H Calcium 8.73 Total Bilirubin 0.33 AST 40.0 ALT 26.4 Alkaline Phosphatase 104.6 Troponin I 0.021 NT-Pro-B Natriuret Pep Total Protein 6.50 Albumin 4.05 Globulin 2.45 Albumin/Globulin Ratio 1.65 Urine Color Urine Clarity Urine pH Ur Specific [place] Urine Protein Urine Glucose (UA) Urine Ketones Urine Blood Urine Nitrite Urine Bilirubin Urine Urobilinogen Ur Leukocyte Esterase Urine Opiates Screen Ur Oxycodone Screen Urine Methadone Screen Ur Propoxyphene Screen Ur Barbiturates Screen U Tricyclic Antidepress Ur Phencyclidine Scrn Ur Amphetamine Screen U Methamphetamines Scrn U Benzodiazepines Scrn Urine Cocaine Screen U Cannabinoids Screen Plasma/Serum Alcohol 96.0 H SARS CoV-2 RNA Rapid EBONI 12/09/21 12/09/21 12/09/21 03:50 05:10 05:10 WBC RBC Hgb Hct MCV MCH MCHC RDW Coeff of Yonathan Plt Count Immature Gran % (Auto) Neut % (Auto) Lymph % (Auto) [place] % (Auto) Eos % (Auto) Baso % (Auto) Neut # (Auto) Lymph # (Auto) [place] # (Auto) Eos # (Auto) Baso # (Auto) Immature Gran # (Auto) Sodium Potassium Chloride Carbon Dioxide Anion Gap BUN Creatinine Estimated GFR (MDRD) BUN/Creatinine Ratio Glucose Lactic Acid Calcium Total Bilirubin AST ALT Alkaline Phosphatase Troponin I NT-Pro-B Natriuret Pep 261.000 H Total Protein Albumin Globulin Albumin/Globulin Ratio Urine Color Yellow Urine Clarity Clear Urine pH 5.0 Ur Specific [place] <=1.005 Urine Protein Negative Urine Glucose (UA) Negative Urine Ketones Negative Urine Blood Negative Urine Nitrite Negative Urine Bilirubin Negative Urine Urobilinogen 0.2 Ur Leukocyte Esterase Negative Urine Opiates Screen Negative Ur Oxycodone Screen Negative Urine Methadone Screen Negative Ur Propoxyphene Screen Negative Ur Barbiturates Screen Negative U Tricyclic Antidepress Negative Ur Phencyclidine Scrn Negative Ur Amphetamine Screen Negative U Methamphetamines Scrn Negative U Benzodiazepines Scrn Negative Urine Cocaine Screen Negative U Cannabinoids Screen Negative Plasma/Serum Alcohol SARS CoV-2 RNA Rapid EBONI 12/09/21 06:40 WBC RBC Hgb Hct MCV MCH MCHC RDW Coeff of Yonathan Plt Count Immature Gran % (Auto) Neut % (Auto) Lymph % (Auto) [place] % (Auto) Eos % (Auto) Baso % (Auto) Neut # (Auto) Lymph # (Auto) [place] # (Auto) Eos # (Auto) Baso # (Auto) Immature Gran # (Auto) Sodium Potassium Chloride Carbon Dioxide Anion Gap BUN Creatinine Estimated GFR (MDRD) BUN/Creatinine Ratio Glucose Lactic Acid Calcium Total Bilirubin AST ALT Alkaline Phosphatase Troponin I NT-Pro-B Natriuret Pep Total Protein Albumin Globulin Albumin/Globulin Ratio Urine Color Urine Clarity Urine pH Ur Specific [place] Urine Protein Urine Glucose (UA) Urine Ketones Urine Blood Urine Nitrite Urine Bilirubin Urine Urobilinogen Ur Leukocyte Esterase Urine Opiates Screen Ur Oxycodone Screen Urine Methadone Screen Ur Propoxyphene Screen Ur Barbiturates Screen U Tricyclic Antidepress Ur Phencyclidine Scrn Ur Amphetamine Screen U Methamphetamines Scrn U Benzodiazepines Scrn Urine Cocaine Screen U Cannabinoids Screen Plasma/Serum Alcohol SARS CoV-2 RNA Rapid EBONI Positive H Orders Category Date Time Status EKG-(ED ONLY) Stat CARDIO 12/09/21 03:32 Completed METERED DOSE INHALATION Routine CARDIO 12/09/21 04:11 Completed Saline Lock [ED IV/MEDIPORT/POWERPORT] .ONCE EMERGENCY 12/09/21 03:32 Active BNP [NT-PROBNP] Stat LAB 12/09/21 03:50 Completed CBC W/ AUTO DIFF Stat LAB 12/09/21 03:40 Completed COMPREHENSIVE METABOLIC PANEL Stat LAB 12/09/21 03:32 Completed DRUG SCREEN (RAPID FOR ED) [DRUG SCREEN, URINE, RAPID] LAB 12/09/21 05:10 Completed Stat ETOH LEVEL [BLOOD ALCOHOL] Stat LAB 12/09/21 03:32 Completed LACTIC ACID Stat LAB 12/09/21 03:32 Completed TROPONIN I Stat LAB 12/09/21 03:32 Completed URINALYSIS C & S IF INDICATED Stat LAB 12/09/21 05:10 Completed 0.9 % Sodium Chloride [Saline Flush] MEDS 12/09/21 03:32 Active 1 syr IVF PRN PRN Albuterol Inhaler(with Spacer) [Ventolin Hfa (Per Puff- MEDS 12/09/21 04:09 Discontinued with Spacer)] 4 puff IH ONCE ONE Aspirin [Aspirin EC] MEDS 12/09/21 03:32 Discontinued 325 mg PO ONCE ONE Azithromycin [Zithromax] MEDS 12/09/21 06:27 Discontinued 500 mg PO ONCE ONE Ceftriaxone/D5w 1 gm Premix [Rocephin 1 gm/50 ml D5w] MEDS 12/09/21 06:27 Discontinued 1 gm in 50 ml IV ONCE Folic Acid MEDS 12/09/21 05:03 Discontinued 5 mg .ROUTE .STK-MED ONE Folic Acid 1 mg MEDS 12/09/21 05:00 Discontinued 0.9 % Sodium Chloride [Sodium Chloride] 50 ml IV DAILY Folic Acid 1 mg MEDS 12/09/21 04:58 Discontinued 0.9 % Sodium Chloride [Sodium Chloride] 50 ml IV ONCE Ipratropium Inhaler(Spacer) [Atrovent Hfa Inhaler (Per MEDS 12/09/21 04:09 Discontinued Puff-with Spacer)] 4 puff IH ONCE ONE Ketorolac Tromethamine [Toradol] MEDS 12/09/21 03:32 Discontinued 60 mg IM ONCE ONE Methylprednisolone Sod Succ/Pf [Solu-Medrol 125 mg] MEDS 12/09/21 04:09 Discontinued 125 mg IVP ONCE ONE Mvi, Adult No.1 with Vit K [Infuvite Adult] MEDS 12/09/21 04:54 Discontinued 10 ml IV .STK-MED ONE Potassium Chloride in 0.9%NaCl [Sodium Chloride 0.9%- MEDS 12/09/21 04:49 Active KCl 20 Meq] 1,000 ml Mvi, Adult No.1 with Vit K [Infuvite Adult] 10 ml IV 125 mls/hr Potassium Chloride in 0.9%NaCl [Sodium Chloride 0.9%- MEDS 12/09/21 05:00 Discontinued KCl 20 Meq] 1,000 ml Mvi, Adult No.1 with Vit K [Infuvite Adult] 10 ml IV 125 mls/hr Vitamin B-1 Inj [Thiamine] MEDS 12/09/21 05:00 Discontinued 200 mg .ROUTE .STK-MED ONE Vitamin B-1 Inj [Thiamine] 100 mg MEDS 12/09/21 09:00 Discontinued 0.9 % Sodium Chloride [Sodium Chloride] 50 ml IV DAILY Vitamin B-1 Inj [Thiamine] 100 mg MEDS 12/09/21 04:59 Discontinued 0.9 % Sodium Chloride [Sodium Chloride] [address] CHEST W/O CONTRAST Stat RADS 12/09/21 03:32 Completed Medications Generic Name Dose Route Start Last Admin Trade Name Freq PRN Reason Stop Dose Admin Multivitamins/Minerals 10 ml/ 1,010 mls @ 125 mls/hr 12/09/21 04:49 12/09/21 05:07 Potassium Chloride/Sodium IV 12/09/21 12:52 125 mls/hr Chloride .Q8H5M STA Administration Sodium Chloride 1 syr 12/09/21 03:32 0.9% Sodium Chloride 10 Ml Disp.Syrin IVF PRN PRN To flush IV Discontinued Medications Generic Name Dose Route Start Last Admin Trade Name Freq PRN Reason Stop Dose Admin Albuterol Sulfate 4 puff 12/09/21 04:09 12/09/21 04:43 Albuterol Sulfate (Ventolin Hfa) 18 Gm 1 Puff With Spacer IH 12/09/21 04:10 4 puff ONCE ONE Administration Aspirin 325 mg 12/09/21 03:32 12/09/21 03:54 Aspirin 325 Mg Tablet. PO 12/09/21 03:33 325 mg ONCE ONE Administration Azithromycin 500 mg 12/09/21 06:27 12/09/21 06:33 Azithromycin 250 Mg Tablet PO 12/09/21 06:28 500 mg ONCE ONE Administration Multivitamins/Minerals 10 ml/ 1,010 mls @ 125 mls/hr 12/09/21 05:00 Potassium Chloride/Sodium IV Chloride .Q8H5M KIT Folic Acid 1 mg/ Sodium 50.2 mls @ 100 mls/hr 12/09/21 05:00 Chloride IV DAILY KIT Thiamine HCl 100 mg/ Sodium 51 mls @ 100 mls/hr 12/09/21 09:00 Chloride IV DAILY KIT Folic Acid 1 mg/ Sodium 50.2 mls @ 100 mls/hr 12/09/21 04:58 12/09/21 05:11 Chloride IV 12/09/21 05:27 100 mls/hr ONCE ONE Administration Thiamine HCl 100 mg/ Sodium 51 mls @ 100 mls/hr 12/09/21 04:59 12/09/21 05:53 Chloride IV 12/09/21 05:28 100 mls/hr ONCE ONE Administration CEFTRIAXONE/D5W 1 GM PREMIX 1 gm in 50 mls @ 75 mls/hr 12/09/21 06:27 12/09/21 06:42 Rocephin 1 Gm/50 Ml D5w IV 12/09/21 07:06 75 mls/hr ONCE ONE Administration Ipratropium [place] 4 puff 12/09/21 04:09 12/09/21 04:43 Ipratropium [place] 12.9 Gm Hfa Inhaler Per Puff With Spacer IH 12/09/21 04:10 4 puff ONCE ONE Administration Ketorolac Tromethamine 60 mg 12/09/21 03:32 12/09/21 03:53 Ketorolac Tromethamine 60 Mg/2 Ml Vial IM 12/09/21 03:33 60 mg ONCE ONE Administration Methylprednisolone Sodium Succinate 125 mg 12/09/21 04:09 12/09/21 04:25 Methylprednisolone Sod Succ/Pf 125 Mg/2 Ml Vial IVP 12/09/21 04:10 125 mg ONCE ONE Administration Vital Signs: Temp Pulse Resp BP Pulse Ox 12/09/21 02:40 95.3 F L 100 H 18 108/69 93 L ROSA ELENA Risk Score ROSA ELENA Risk Score: Risk Score Odds of by 30D 0 0.1 (0.1-0.2) 1 0.3 (0.2-0.3) 2 0.4 (0.3-0.5) 3 0.7 (0.6-0.9) 4 1.2 (1.0-1.5) 5 2.2 (1.9-2.6) 6 3.0 (2.5-3.6) 7 4.8 (3.8-6.1) Discharge Plan Discharge Patient Disposition: ADMITTED INPATIENT Discharge Problem: Acute hyponatremia, Pneumonia, COVID-19 Prescriptions: No Action No Reported Medications 0 Qty: 0 0RF ED Provider: ERROL VELASQUEZ Condition: Serious Physician Progress Note: []Pt was d/w Dr Ram. Pt is not in his Practice. For admission to Hospitalist: see orders. Labs and imaging were d/w the pt who agreed to admission.
[2021-12-09 03:52] LABS: BASOPHILS % (AUTO) 0.4 % (0.0-3.0); EOSINOPHILS % (AUTO) 0.2 % (0.0-7.0); HEMATOCRIT 39.1 % (42.0-52.0); HEMOGLOBIN 13.9 g/dl (14.0-18.0); IMMATURE GRANULOCYTE % (AUTO) 0.5 % (0.0-5.0); LYMPHOCYTES # (AUTO) 1.1 K/uL (0.60-3.4); MEAN CORPUSCULAR HEMOGLOBIN 32.6 pg (27.0-31.0); MEAN CORPUSCULAR HGB CONC 35.5 (31.8-35.4); MEAN CORPUSCULAR VOLUME 91.6 fl (80.0-94.0); MONOCYTES # (AUTO) 0.7 K/uL (0.4-2.0); MONOCYTES % (AUTO) 12.2 (0-10); NEUTROPHILS # (AUTO) 3.8 K/ul (2.0-6.9); NEUTROPHILS % (AUTO) 67.7 % (42.2-75.2); PLATELET COUNT 256 10^3/uL (140-440); RDW COEFFICIENT OF VARIATION 12.2 % (11.6-14.8); RED BLOOD COUNT 4.27 10^6/ul (4.70-6.10); WHITE BLOOD COUNT 5.57 K/ul (4.2-10.2)
[2021-12-09 04:05] LABS: ALANINE AMINOTRANSFERASE 26.4 U/L (0-50); ALBUMIN 4.05 g/dL (3.5-5.0); ALKALINE PHOSPHATASE 104.6 U/L (38-126); BILIRUBIN,TOTAL 0.33 mg/dL (0.2-1.3); BLOOD UREA NITROGEN 13.3 mg/dL (9-20); CALCIUM 8.73 mg/dL (8.4-10.2); CARBON DIOXIDE 26.8 mmol/L (22-30.0); CHLORIDE 88.6 mmol/L (98-107); CREATININE 0.81 mg/dL (0.60-1.10); GLUCOSE 116.8 mg/dL (74-106); POTASSIUM 3.34 mmol/L (3.5-5.1); SODIUM 126.2 mmol/L (134.5-145); TOTAL PROTEIN 6.5 g/dL (6.3-8.2)
[2021-12-09] MEDS ORDERED: SOLU-MEDROL 125 MG IVP ONE (04:09)
[2021-12-09] MEDS ORDERED: ATROVENT HFA INHALER (PER PUFF-WITH SPACER) IH ONE (04:09)
[2021-12-09] MEDS ORDERED: VENTOLIN HFA (PER PUFF-WITH SPACER) IH ONE (04:09)
[2021-12-09 04:16] LABS: TROPONIN I 0.021 ng/ml (0.0000-0.120)
[2021-12-09] MEDS ORDERED: INFUVITE ADULT 10 ML in SODIUM CHLORIDE 0.9%-KCL 20 MEQ 1,000 ML IV STA (04:49)
[2021-12-09] MEDS ORDERED: INFUVITE ADULT IV ONE (04:54)
[2021-12-09] MEDS ORDERED: FOLIC ACID 1 MG in SODIUM CHLORIDE 50 ML IV ONE (04:58)
[2021-12-09] MEDS ORDERED: THIAMINE 100 MG in SODIUM CHLORIDE 50 ML IV ONE (04:59)
[2021-12-09] MEDS ORDERED: INFUVITE ADULT 10 ML in SODIUM CHLORIDE 0.9%-KCL 20 MEQ 1,000 ML IV SCH (05:00)
[2021-12-09] MEDS ORDERED: THIAMINE ONE (05:00)
[2021-12-09] MEDS ORDERED: FOLIC ACID 1 MG in SODIUM CHLORIDE 50 ML IV SCH (05:00)
[2021-12-09] MEDS ORDERED: FOLIC ACID ONE (05:03)
--- NOTE | 2021-12-09 05:17 | CT ---
EXAM: CT scan chest without contrast HISTORY: Chest pain COMPARISON: CT scan chest without contrast 06/15/2021 FINDINGS: Helically acquired axial images obtained through the thorax without contrast utilizing 5-m m collimation. Sagittal and coronal reconstructions were imaged and reviewed.. The thoracic inlet i s unremarkable. The heart is normal in size with coronary artery calcification. There is no evidenc e of mediastinal lymphadenopathy. Nodular consolidation is noted at the right lung base compatible w ith pneumonia. Small foci of consolidation are noted peripherally within the right middle lobe, pos terior right upper lobe, superior lingular segment and in superior segment of the left lower lobe. T here is no evidence of a pleural effusion.. Bone windows reveals no evidence of lytic or blastic les ions. Impression: Bilateral pneumonia most prominent at the right lung base.. Coronary ASVD All CT scans are performed using dose optimization techniques as appropriate to the performed exam an d include at least one of the following: Automated exposure control, adjustment of the mA and/or kV according t o size, and the use of iterative reconstruction technique.
[2021-12-09 05:37] LABS: BILIRUBIN,URINE Negative (NEGATIVE); CLARITY,URINE Clear (CLEAR); COLOR,URINE Yellow (YELLOW); GLUCOSE, URINE (UA) Negative (NEGATIVE); KETONES,URINE Negative (NEGATIVE); LEUKOCYTE ESTERASE ,URINE Negative (NEGATIVE); NITRITE,URINE Negative (NEGATIVE); PROTEIN,URINE Negative (NEGATIVE); URINE, BLOOD Negative (NEGATIVE); UROBILINOGEN,URINE 0.2 (0.2)
[2021-12-09 05:56] LABS: AMPHETAMINE SCREEN,URINE NEGATIVE (NEGATIVE); BARBITURATE SCREEN,URINE NEGATIVE (NEGATIVE); BENZODIAZEPINES SCREEN,URINE NEGATIVE (NEGATIVE); CANNABINOID SCREEN,URINE NEGATIVE (NEGATIVE); COCAIN SCREEN,URINE NEGATIVE (NEGATIVE); METHADONE URINE SCREEN NEGATIVE (NEGATIVE); METHAMPHETAMINES SCREEN,URINE NEGATIVE (NEGATIVE); OPIATE SCREEN,URINE NEGATIVE (NEGATIVE); OXYCODONE URINE SCREEN NEGATIVE (NEGATIVE); PHENCYCLIDINE SCREEN,URINE NEGATIVE (NEGATIVE); PROPOXYPHENE URINE SCREEN NEGATIVE (NEGATIVE); TRICYCLIC ANTIDEPRESSANTS URIN NEGATIVE (NEGATIVE)
[2021-12-09] MEDS ORDERED: ZITHROMAX PO ONE ×2 (06:27→07:43)
[2021-12-09] MEDS ORDERED: ROCEPHIN 1 GM/50 ML D5W 1 GM/50 ML BAG IV ONE (06:27)
[2021-12-09 08:38] VITALS: BMI 24.5
[2021-12-09] MEDS ORDERED: THIAMINE 100 MG in SODIUM CHLORIDE 50 ML IV SCH (09:00)
[2021-12-09] MEDS: DECADRON IVP SCH ×2 (09:06→20:24)
[2021-12-09] MEDS: SODIUM CHLORIDE 1,000 ML IV SCH ×2 (09:48→23:07)
[2021-12-09] MEDS: VENTOLIN HFA (PER PUFF-WITH SPACER) IH SCH ×3 (12:12→23:12)
[2021-12-09] MEDS: ATROVENT HFA INHALER (PER PUFF-WITH SPACER) IH SCH ×3 (12:12→23:12)
[2021-12-09] MEDS ORDERED: VEKLURY 200 MG in SODIUM CHLORIDE 250 ML IV ONE (14:30)
[2021-12-09] MEDS ORDERED: GEODON IM STA (18:27)
[2021-12-09] MEDS ORDERED: GEODON IM ONE (18:30)
[2021-12-10] MEDS: VENTOLIN HFA (PER PUFF-WITH SPACER) IH SCH ×4 (04:30→23:40)
[2021-12-10] MEDS: ATROVENT HFA INHALER (PER PUFF-WITH SPACER) IH SCH ×4 (04:30→23:40)
[2021-12-10] MEDS: TYLENOL PO PRN (04:32)
[2021-12-10 05:46] LABS: HEMATOCRIT 36.7 % (42.0-52.0); HEMOGLOBIN 12.8 g/dl (14.0-18.0); IMMATURE GRANULOCYTE % (AUTO) 0.3 % (0.0-5.0); LYMPHOCYTES # (AUTO) 0.6 K/uL (0.60-3.4); MEAN CORPUSCULAR HEMOGLOBIN 32.6 pg (27.0-31.0); MEAN CORPUSCULAR HGB CONC 34.9 (31.8-35.4); MEAN CORPUSCULAR VOLUME 93.4 fl (80.0-94.0); MONOCYTES # (AUTO) 0.6 K/uL (0.4-2.0); MONOCYTES % (AUTO) 9.7 (0-10); NEUTROPHILS # (AUTO) 4.8 K/ul (2.0-6.9); PLATELET COUNT 260 10^3/uL (140-440); RDW COEFFICIENT OF VARIATION 12.1 % (11.6-14.8); RED BLOOD COUNT 3.93 10^6/ul (4.70-6.10); WHITE BLOOD COUNT 5.99 K/ul (4.2-10.2)
[2021-12-10 05:58] LABS: ALANINE AMINOTRANSFERASE 27.5 U/L (0-50); ALBUMIN 3.69 g/dL (3.5-5.0); ALKALINE PHOSPHATASE 120.6 U/L (38-126); BILIRUBIN,TOTAL 0.25 mg/dL (0.2-1.3); BLOOD UREA NITROGEN 12.8 mg/dL (9-20); CALCIUM 8.86 mg/dL (8.4-10.2); CARBON DIOXIDE 32.1 mmol/L (22-30.0); CHLORIDE 97.5 mmol/L (98-107); CREATININE 0.55 mg/dL (0.60-1.10); GLUCOSE 129.5 mg/dL (74-106); POTASSIUM 3.8 mmol/L (3.5-5.1); SODIUM 131.2 mmol/L (134.5-145); TOTAL PROTEIN 6.12 g/dL (6.3-8.2)
[2021-12-10 06:03] LABS: PROTHROMBIN TIME 9.7 SEC (9.3-11.0)
[2021-12-10] MEDS: DECADRON IVP SCH ×2 (08:03→21:40)
--- NOTE | 2021-12-10 08:10 | PCM ---
Chief Complaint Chief Complaint: Chest pain-for two weeks, cough and congestion History of Present Illness History of Present Illness: Is constant and of moderate intensity, dull and aching worsened with deep breath and cough; for past 2 weeks chest wall tender to palpation Review of Systems Constitutional: Reports Fever and Chills Eyes: Reports No symptoms Ears: Reports No symptoms Throat: Reports No symptoms Mouth: Reports No symptoms Respiratory: Reports Cough Cardiovascular: Reports Chest pain Gastrointestinal: Reports No symptoms Genitourinary: Reports No symptoms Neurological: Reports No symptoms Musculoskeletal: Reports No symptoms Skin: Reports No symptoms Immunology: Reports No symptoms Hematology: Reports No symptoms Endocrine: Reports No symptoms Psychiatric: Reports Anxiety and Other (schizophrenia) Allergies Allergies Allergy/AdvReac Type Severity Reaction Status Date / Time Penicillins AdvReac Rash Verified 12/09/21 02:50 PFSH Medical History Anemia Asthma CAD (coronary artery disease) CHF (congestive heart failure) COPD (chronic obstructive pulmonary disease) Dilated cardiomyopathy Dyslipidemia Heavy cigarette smoker Hypertension Hypothyroidism Noncompliance with medication regimen Paranoia (psychosis) PVC's (premature ventricular contractions) Schizophrenia Surgical History H/O removal of cyst History of cardiac catheterization Family History Other No known health problems Social History (Updated 12/09/21 @ 09:19 by JAYCE PELLETIER RN) Smoking and tobacco status: Current every day smoker Tobacco type: cigarettes Smoking packs per day: 3.5 Smoking cigarettes per day: 70.0 Years smoked: 40 Smoking pack-years: 140.00 Alcohol intake: current Alcohol intake frequency: a few times a week Alcohol type: hard liquor History of recent travel: No Medications Medications: Medications Generic Name Dose Route Start Last Admin Trade Name Freq PRN Reason Stop Dose Admin Acetaminophen 650 mg 12/10/21 04:06 12/10/21 04:32 Acetaminophen 325 Mg Tablet PO 650 mg Q8H PRN Administration Mild Pain Albuterol Sulfate 4 puff 12/09/21 12:00 12/10/21 04:30 Albuterol Sulfate (Ventolin Hfa) 18 Gm 1 Puff With Spacer IH 4 puff RTQ6H KIT Administration Dexamethasone Sodium Phosphate 4 mg 12/09/21 09:00 12/10/21 08:03 Dexamethasone Sod Phos 4 Mg/Ml Inj IVP 4 mg Q12HR KIT Administration Sodium Chloride 1,000 mls @ 100 mls/hr 12/09/21 08:00 12/09/21 23:07 Sodium Chloride IV 100 mls/hr .Q10H KIT Administration REMDESIVIR SOLUTION 100 mg/ 270 mls @ 270 mls/hr 12/10/21 12:00 Sodium Chloride IV DAILY@1200 KIT Ipratropium [place] 4 puff 12/09/21 12:00 12/10/21 04:30 Ipratropium Temple 12.9 Gm Hfa Inhaler Per Puff With Spacer IH 4 puff RTQ6H KIT Administration Sodium Chloride 1 syr 12/09/21 03:32 0.9% Sodium Chloride 10 Ml Disp.Syrin IVF PRN PRN To flush IV Body Composition Height: 5 ft 11 in Weight: 176 lb 3 oz Body Mass Index (BMI): 24.5 Vital Signs Temperature: 97.6 F Pulse Rate: 75 Respiratory Rate: 20 Blood Pressure: 137/79 O2 Sat by Pulse Oximetry: 97 Physical Examination Appearance: Reports Well-appearing and No pain distress Ill-appearing: Mild Pain Distress: Mild Eyes: Reports LACY, EOMI and Conjunctiva clear ENT: Reports Ears normal, Nose normal and Oropharynx normal Neck: Supple Respiratory: Reports Airway patent, Breath sounds clear and Breath sounds diminished Cardiovascular: Reports RRR, Pulses normal, No rub and No murmur GI/: Reports Soft, Nontender and No masses Musculoskeletal: Reports Normal strength, ROM intact and No edema Skin: Reports Warm, Dry and Normal color Neurological: Reports Sensation intact, Motor intact, Reflexes intact, Cranial nerves intact, Alert and Oriented Psychiatric: Reports Affect appropriate and Mood appropriate Lab/Tests/Diagnostic Imaging Lab/Tests/Diagnostic Imaging: Lab Review 12/09/21 12/09/21 12/09/21 03:32 03:32 03:40 WBC 5.57 RBC 4.27 L Hgb 13.9 L Hct 39.1 L MCV 91.6 MCH 32.6 H MCHC 35.5 H RDW Coeff of Yonathan 12.2 Plt Count 256 Immature Gran % (Auto) 0.5 Neut % (Auto) 67.7 Lymph % (Auto) 19.0 [place] % (Auto) 12.2 H Eos % (Auto) 0.2 Baso % (Auto) 0.4 Neut # (Auto) 3.8 Lymph # (Auto) 1.1 [place] # (Auto) 0.7 Eos # (Auto) 0.0 Baso # (Auto) 0.0 Immature Gran # (Auto) 0.0 PT INR Sodium 126.2 L Potassium 3.34 L Chloride 88.6 L Carbon Dioxide 26.8 Anion Gap 14.14 BUN 13.3 Creatinine 0.81 Estimated GFR (MDRD) 98.00 BUN/Creatinine Ratio 16.41 Glucose 116.8 H Lactic Acid 2.21 H Calcium 8.73 Total Bilirubin 0.33 AST 40.0 ALT 26.4 Alkaline Phosphatase 104.6 Troponin I 0.021 NT-Pro-B Natriuret Pep Total Protein 6.50 Albumin 4.05 Globulin 2.45 Albumin/Globulin Ratio 1.65 Urine Color Urine Clarity Urine pH Ur Specific [place] Urine Protein Urine Glucose (UA) Urine Ketones Urine Blood Urine Nitrite Urine Bilirubin Urine Urobilinogen Ur Leukocyte Esterase Urine Opiates Screen Ur Oxycodone Screen Urine Methadone Screen Ur Propoxyphene Screen Ur Barbiturates Screen U Tricyclic Antidepress Ur Phencyclidine Scrn Ur Amphetamine Screen U Methamphetamines Scrn U Benzodiazepines Scrn Urine Cocaine Screen U Cannabinoids Screen Plasma/Serum Alcohol 96.0 H SARS CoV-2 RNA Rapid EBONI 12/09/21 12/09/21 12/09/21 03:50 05:10 05:10 WBC RBC Hgb Hct MCV MCH MCHC RDW Coeff of Yonathan Plt Count Immature Gran % (Auto) Neut % (Auto) Lymph % (Auto) [place] % (Auto) Eos % (Auto) Baso % (Auto) Neut # (Auto) Lymph # (Auto) [place] # (Auto) Eos # (Auto) Baso # (Auto) Immature Gran # (Auto) PT INR Sodium Potassium Chloride Carbon Dioxide Anion Gap BUN Creatinine Estimated GFR (MDRD) BUN/Creatinine Ratio Glucose Lactic Acid Calcium Total Bilirubin AST ALT Alkaline Phosphatase Troponin I NT-Pro-B Natriuret Pep 261.000 H Total Protein Albumin Globulin Albumin/Globulin Ratio Urine Color Yellow Urine Clarity Clear Urine pH 5.0 Ur Specific [place] <=1.005 Urine Protein Negative Urine Glucose (UA) Negative Urine Ketones Negative Urine Blood Negative Urine Nitrite Negative Urine Bilirubin Negative Urine Urobilinogen 0.2 Ur Leukocyte Esterase Negative Urine Opiates Screen Negative Ur Oxycodone Screen Negative Urine Methadone Screen Negative Ur Propoxyphene Screen Negative Ur Barbiturates Screen Negative U Tricyclic Antidepress Negative Ur Phencyclidine Scrn Negative Ur Amphetamine Screen Negative U Methamphetamines Scrn Negative U Benzodiazepines Scrn Negative Urine Cocaine Screen Negative U Cannabinoids Screen Negative Plasma/Serum Alcohol SARS CoV-2 RNA Rapid EBONI 12/09/21 12/09/21 12/10/21 06:40 14:20 05:29 WBC RBC Hgb Hct MCV MCH MCHC RDW Coeff of Yonathan Plt Count Immature Gran % (Auto) Neut % (Auto) Lymph % (Auto) [place] % (Auto) Eos % (Auto) Baso % (Auto) Neut # (Auto) Lymph # (Auto) [place] # (Auto) Eos # (Auto) Baso # (Auto) Immature Gran # (Auto) PT 10.0 INR 0.96 Sodium 131.2 L Potassium 3.80 Chloride 97.5 L Carbon Dioxide 32.1 H Anion Gap 5.40 BUN 12.8 Creatinine 0.55 L Estimated GFR (MDRD) 154.00 BUN/Creatinine Ratio 23.27 Glucose 129.5 H Lactic Acid Calcium 8.86 Total Bilirubin 0.25 AST 38.0 ALT 27.5 Alkaline Phosphatase 120.6 Troponin I NT-Pro-B Natriuret Pep Total Protein 6.12 L Albumin 3.69 Globulin 2.43 Albumin/Globulin Ratio 1.51 Urine Color Urine Clarity Urine pH Ur Specific [place] Urine Protein Urine Glucose (UA) Urine Ketones Urine Blood Urine Nitrite Urine Bilirubin Urine Urobilinogen Ur Leukocyte Esterase Urine Opiates Screen Ur Oxycodone Screen Urine Methadone Screen Ur Propoxyphene Screen Ur Barbiturates Screen U Tricyclic Antidepress Ur Phencyclidine Scrn Ur Amphetamine Screen U Methamphetamines Scrn U Benzodiazepines Scrn Urine Cocaine Screen U Cannabinoids Screen Plasma/Serum Alcohol SARS CoV-2 RNA Rapid EBONI Positive H 12/10/21 12/10/21 05:29 05:29 WBC 5.99 RBC 3.93 L Hgb 12.8 L Hct 36.7 L MCV 93.4 MCH 32.6 H MCHC 34.9 RDW Coeff of Yonathan 12.1 Plt Count 260 Immature Gran % (Auto) 0.3 Neut % (Auto) 80.0 H Lymph % (Auto) 10.0 [place] % (Auto) 9.7 Eos % (Auto) 0.0 Baso % (Auto) 0.0 Neut # (Auto) 4.8 Lymph # (Auto) 0.6 [place] # (Auto) 0.6 Eos # (Auto) 0.0 Baso # (Auto) 0.0 Immature Gran # (Auto) 0.0 PT 9.7 INR 0.93 Sodium Potassium Chloride Carbon Dioxide Anion Gap BUN Creatinine Estimated GFR (MDRD) BUN/Creatinine Ratio Glucose Lactic Acid Calcium Total Bilirubin AST ALT Alkaline Phosphatase Troponin I NT-Pro-B Natriuret Pep Total Protein Albumin Globulin Albumin/Globulin Ratio Urine Color Urine Clarity Urine pH Ur Specific [place] Urine Protein Urine Glucose (UA) Urine Ketones Urine Blood Urine Nitrite Urine Bilirubin Urine Urobilinogen Ur Leukocyte Esterase Urine Opiates Screen Ur Oxycodone Screen Urine Methadone Screen Ur Propoxyphene Screen Ur Barbiturates Screen U Tricyclic Antidepress Ur Phencyclidine Scrn Ur Amphetamine Screen U Methamphetamines Scrn U Benzodiazepines Scrn Urine Cocaine Screen U Cannabinoids Screen Plasma/Serum Alcohol SARS CoV-2 RNA Rapid EBONI Orders Category Date Time Status ADMIT PATIENT INPATIENT .TO SCU (MONITORED BED) ADMISSION 12/09/21 07:28 Active EKG-(ED ONLY) Stat CARDIO 12/09/21 03:32 Completed INCENTIVE SPIROMETRY Routine CARDIO 12/09/21 13:23 Completed METERED DOSE INHALATION Routine CARDIO 12/09/21 04:11 Completed METERED DOSE INHALATION Routine CARDIO 12/09/21 07:47 Active OXYGEN Routine CARDIO 12/09/21 07:49 Active ACTIVITY .Up ad Monalisa CARE 12/09/21 07:33 Active CONTINUOUS PULSE OX (NURSING) PULSEOX CARE 12/09/21 13:23 Active INTAKE & OUTPUT Q8HR CARE 12/09/21 07:33 Active TELEMETRY MONITORING TELE CARE 12/09/21 07:29 Active REGULAR DIET DIETARY 12/09/21 Breakfast Ordered Saline Lock [ED IV/MEDIPORT/POWERPORT] .ONCE EMERGENCY 12/09/21 03:32 Active BLOOD CULTURE Stat LAB 12/09/21 08:08 Received BNP [NT-PROBNP] Stat LAB 12/09/21 03:50 Completed CBC W/ AUTO DIFF DAILY@0600 LAB 12/11/21 06:00 Ordered CBC W/ AUTO DIFF Stat LAB 12/09/21 03:40 Completed CBC W/ AUTO DIFF Stat LAB 12/10/21 05:29 Completed COMPREHENSIVE METABOLIC PANEL DAILY@0600 LAB 12/10/21 05:29 Completed COMPREHENSIVE METABOLIC PANEL DAILY@0600 LAB 12/11/21 06:00 Ordered COMPREHENSIVE METABOLIC PANEL Stat LAB 12/09/21 03:32 Completed COVID-19 ANTIGEN TEST Routine LAB 12/10/21 08:00 Ordered DRUG SCREEN (RAPID FOR ED) [DRUG SCREEN, URINE, RAPID] LAB 12/09/21 05:10 Completed Stat ETOH LEVEL [BLOOD ALCOHOL] Stat LAB 12/09/21 03:32 Completed LACTIC ACID Stat LAB 12/09/21 03:32 Completed PT WITH INR DAILY@0600 LAB 12/10/21 05:29 Completed PT WITH INR DAILY@0600 LAB 12/11/21 06:00 Ordered PT WITH INR DAILY@0600 LAB 12/12/21 06:00 Ordered PT WITH INR DAILY@0600 LAB 12/13/21 06:00 Ordered PT WITH INR Stat LAB 12/09/21 14:20 Completed TROPONIN I Stat LAB 12/09/21 03:32 Completed URINALYSIS C & S IF INDICATED Stat LAB 12/09/21 05:10 Completed 0.9 % Sodium Chloride [Saline Flush] MEDS 12/09/21 03:32 Active 1 syr IVF PRN PRN Acetaminophen [Tylenol] MEDS 12/10/21 04:06 Active 650 mg PO Q8H PRN Albuterol Inhaler(with Spacer) [Ventolin Hfa (Per Puff- MEDS 12/09/21 04:09 Discontinued with Spacer)] 4 puff IH ONCE ONE Albuterol Inhaler(with Spacer) [Ventolin Hfa (Per Puff- MEDS 12/09/21 12:00 Active with Spacer)] 4 puff IH RTQ6H Aspirin [Aspirin EC] MEDS 12/09/21 03:32 Discontinued 325 mg PO ONCE ONE Azithromycin [Zithromax] MEDS 12/09/21 06:27 Discontinued 500 mg PO ONCE ONE Azithromycin [Zithromax] MEDS 12/09/21 07:43 Discontinued 500 mg PO ONCE ONE Ceftriaxone/D5w 1 gm Premix [Rocephin 1 gm/50 ml D5w] MEDS 12/09/21 06:27 Discontinued 1 gm in 50 ml IV ONCE Dexamethasone Sod Phosphate [Decadron] MEDS 12/09/21 09:00 Active 4 mg IVP Q12HR Folic Acid MEDS 12/09/21 05:03 Discontinued 5 mg .ROUTE .STK-MED ONE Folic Acid 1 mg MEDS 12/09/21 05:00 Discontinued 0.9 % Sodium Chloride [Sodium Chloride] 50 ml IV DAILY Folic Acid 1 mg MEDS 12/09/21 04:58 Discontinued 0.9 % Sodium Chloride [Sodium Chloride] 50 ml IV ONCE Ipratropium Inhaler(Spacer) [Atrovent Hfa Inhaler (Per MEDS 12/09/21 04:09 Discontinued Puff-with Spacer)] 4 puff IH ONCE ONE Ipratropium Inhaler(Spacer) [Atrovent Hfa Inhaler (Per MEDS 12/09/21 12:00 Active Puff-with Spacer)] 4 puff IH RTQ6H Ketorolac Tromethamine [Toradol] MEDS 12/09/21 03:32 Discontinued 60 mg IM ONCE ONE Methylprednisolone Sod Succ/Pf [Solu-Medrol 125 mg] MEDS 12/09/21 04:09 Discontinued 125 mg IVP ONCE ONE Mvi, Adult No.1 with Vit K [Infuvite Adult] MEDS 12/09/21 04:54 Discontinued 10 ml IV .STK-MED ONE Potassium Chloride in 0.9%NaCl [Sodium Chloride 0.9%- MEDS 12/09/21 04:49 Discontinued KCl 20 Meq] 1,000 ml Mvi, Adult No.1 with Vit K [Infuvite Adult] 10 ml IV 125 mls/hr Potassium Chloride in 0.9%NaCl [Sodium Chloride 0.9%- MEDS 12/09/21 05:00 Discontinued KCl 20 Meq] 1,000 ml Mvi, Adult No.1 with Vit K [Infuvite Adult] 10 ml IV 125 mls/hr Remdesivir Solution [Veklury] 100 mg MEDS 12/10/21 12:00 Active 0.9 % Sodium Chloride [Sodium Chloride] 250 ml IV DAILY@1200 Remdesivir Solution [Veklury] 200 mg MEDS 12/09/21 14:30 Discontinued 0.9 % Sodium Chloride [Sodium Chloride] 250 ml IV ONCE Sodium Chloride 0.9% [Sodium Chloride] 1,000 ml MEDS 12/09/21 08:00 Active IV 100 mls/hr Vitamin B-1 Inj [Thiamine] MEDS 12/09/21 05:00 Discontinued 200 mg .ROUTE .STK-MED ONE Vitamin B-1 Inj [Thiamine] 100 mg MEDS 12/09/21 09:00 Discontinued 0.9 % Sodium Chloride [Sodium Chloride] 50 ml IV DAILY Vitamin B-1 Inj [Thiamine] 100 mg MEDS 12/09/21 04:59 Discontinued 0.9 % Sodium Chloride [Sodium Chloride] 50 ml IV ONCE Ziprasidone Mesylate [Geodon] MEDS 12/09/21 18:30 Discontinued 20 mg IM .STK-MED ONE Ziprasidone Mesylate [Geodon] MEDS 12/09/21 18:27 Discontinued 20 mg IM ONCE STA RESUSCITATION STATUS Routine OTHERS 12/09/21 08:[address] CHEST W/O CONTRAST Stat RADS 12/09/21 03:32 Completed Medications Generic Name Dose Route Start Last Admin Trade Name Freq PRN Reason Stop Dose Admin Acetaminophen 650 mg 12/10/21 04:06 12/10/21 04:32 Acetaminophen 325 Mg Tablet PO 650 mg Q8H PRN Administration Mild Pain Albuterol Sulfate 4 puff 12/09/21 12:00 12/10/21 04:30 Albuterol Sulfate (Ventolin Hfa) 18 Gm 1 Puff With Spacer IH 4 puff RTQ6H KIT Administration Dexamethasone Sodium Phosphate 4 mg 12/09/21 09:00 12/10/21 08:03 Dexamethasone Sod Phos 4 Mg/Ml Inj IVP 4 mg Q12HR KIT Administration Sodium Chloride 1,000 mls @ 100 mls/hr 12/09/21 08:00 12/09/21 23:07 Sodium Chloride IV 100 mls/hr .Q10H KIT Administration REMDESIVIR SOLUTION 100 mg/ 270 mls @ 270 mls/hr 12/10/21 12:00 Sodium Chloride IV DAILY@1200 KIT Ipratropium [place] 4 puff 12/09/21 12:00 12/10/21 04:30 Ipratropium [place] 12.9 Gm Hfa Inhaler Per Puff With Spacer IH 4 puff RTQ6H KIT Administration Sodium Chloride 1 syr 12/09/21 03:32 0.9% Sodium Chloride 10 Ml Disp.Syrin IVF PRN PRN To flush IV Discontinued Medications Generic Name Dose Route Start Last Admin Trade Name Freq PRN Reason Stop Dose Admin Albuterol Sulfate 4 puff 12/09/21 04:09 12/09/21 04:43 Albuterol Sulfate (Ventolin Hfa) 18 Gm 1 Puff With Spacer IH 12/09/21 04:10 4 puff ONCE ONE Administration Aspirin 325 mg 12/09/21 03:32 12/09/21 03:54 Aspirin 325 Mg Tablet. PO 12/09/21 03:33 325 mg ONCE ONE Administration Azithromycin 500 mg 12/09/21 06:27 12/09/21 06:33 Azithromycin 250 Mg Tablet PO 12/09/21 06:28 500 mg ONCE ONE Administration Azithromycin 500 mg 12/09/21 07:43 12/09/21 08:04 Azithromycin 250 Mg Tablet PO 12/09/21 07:44 500 mg ONCE ONE Administration Multivitamins/Minerals 10 ml/ 1,010 mls @ 125 mls/hr 12/09/21 05:00 Potassium Chloride/Sodium IV Chloride .Q8H5M KIT Folic Acid 1 mg/ Sodium 50.2 mls @ 100 mls/hr 12/09/21 05:00 Chloride IV DAILY KIT Thiamine HCl 100 mg/ Sodium 51 mls @ 100 mls/hr 12/09/21 09:00 Chloride IV DAILY KIT Multivitamins/Minerals 10 ml/ 1,010 mls @ 125 mls/hr 12/09/21 04:49 12/09/21 05:07 Potassium Chloride/Sodium IV 12/09/21 12:52 125 mls/hr Chloride .Q8H5M STA Administration Folic Acid 1 mg/ Sodium 50.2 mls @ 100 mls/hr 12/09/21 04:58 12/09/21 05:11 Chloride IV 12/09/21 05:27 100 mls/hr ONCE ONE Administration Thiamine HCl 100 mg/ Sodium 51 mls @ 100 mls/hr 12/09/21 04:59 12/09/21 05:53 Chloride IV 12/09/21 05:28 100 mls/hr ONCE ONE Administration CEFTRIAXONE/D5W 1 GM PREMIX 1 gm in 50 mls @ 75 mls/hr 12/09/21 06:27 12/09/21 06:42 Rocephin 1 Gm/50 Ml D5w IV 12/09/21 07:06 75 mls/hr ONCE ONE Administration REMDESIVIR SOLUTION 200 mg/ 290 mls @ 145 mls/hr 12/09/21 14:30 12/09/21 14:45 Sodium Chloride IV 12/09/21 16:29 145 mls/hr ONCE ONE Administration Ipratropium [place] 4 puff 12/09/21 04:09 12/09/21 04:43 Ipratropium [place] 12.9 Gm Hfa Inhaler Per Puff With Spacer IH 12/09/21 04:10 4 puff ONCE ONE Administration Ketorolac Tromethamine 60 mg 12/09/21 03:32 12/09/21 03:53 Ketorolac Tromethamine 60 Mg/2 Ml Vial IM 12/09/21 03:33 60 mg ONCE ONE Administration Methylprednisolone Sodium Succinate 125 mg 12/09/21 04:09 12/09/21 04:25 Methylprednisolone Sod Succ/Pf 125 Mg/2 Ml Vial IVP 12/09/21 04:10 125 mg ONCE ONE Administration Ziprasidone 20 mg 12/09/21 18:27 12/09/21 18:38 Ziprasidone Mesylate 20 Mg/Ml Vial IM 12/09/21 18:28 20 mg ONCE STA Administration Assessment (1) Pneumonia: Status: Acute Code(s): J18.9 - Pneumonia, unspecified organism SNOMED Code(s): 222559803 (2) COVID-19: Status: Acute Code(s): U07.1 - COVID-19 SNOMED Code(s): 238079471 (3) Acute hyponatremia: Status: Acute Code(s): E87.1 - Hypo-osmolality and hyponatremia SNOMED Code(s): 1819240 (4) Chest pain: Status: Acute Code(s): R07.9 - Chest pain, unspecified SNOMED Code(s): 97840524 (5) Non compliance with medical treatment: Status: Acute Code(s): Z91.19 - Patient's noncompliance with other medical treatment and regimen SNOMED Code(s): 8364938 Plan Plan: Discussed proposed treatment-IV remdesivir- very agreeable for necessity to receive IV therapy for 5days answered all questions orders will be entered Continue other current tx
[2021-12-10] MEDS: SODIUM CHLORIDE 1,000 ML IV SCH ×2 (08:50→18:44)
[2021-12-10] MEDS: VEKLURY 100 MG in SODIUM CHLORIDE 250 ML IV SCH (11:16)
--- NOTE | 2021-12-10 23:20 | PCM.PROG ---
Date Seen by Provider: 12/10/21 Time Seen by Provider: 13:05 Subjective: Pt had no acute sxs. Objective: Vitals: T=98.1 F, P=65, R=18, TA=792/86, SPO2=99 HEENT: []wnl Neck: []supple Lungs: []minimal occasional wheezes. CVS: []RRR Abdomen: []benign Extremities: []no acute abnormality Neurological: []non-focal Skin: []normal color and turgor. Lab/Tests/Diagnostic Imaging: [] (1) Pneumonia: Status: Acute Code(s): J18.9 - Pneumonia, unspecified organism SNOMED Code(s): 980517024 (2) COVID-19: Status: Acute Code(s): U07.1 - COVID-19 SNOMED Code(s): 238244940 (3) Acute hyponatremia: Status: Acute Code(s): E87.1 - Hypo-osmolality and hyponatremia SNOMED Code(s): 1817536 (4) Chest pain: Status: Acute Code(s): R07.9 - Chest pain, unspecified SNOMED Code(s): 49880807 (5) Non compliance with medical treatment: Status: Acute Code(s): Z91.19 - Patient's noncompliance with other medical treatment and regimen SNOMED Code(s): 6095573 Plan: Continue Covid-19 pneumonia treatment regimen.
[2021-12-11] MEDS: SODIUM CHLORIDE 1,000 ML IV SCH ×2 (03:53→17:57)
[2021-12-11] MEDS: ATROVENT HFA INHALER (PER PUFF-WITH SPACER) IH SCH ×3 (05:00→17:03)
[2021-12-11] MEDS: VENTOLIN HFA (PER PUFF-WITH SPACER) IH SCH ×3 (05:00→17:02)
[2021-12-11] MEDS: TYLENOL PO PRN ×2 (05:03→20:29)
[2021-12-11 05:36] LABS: BASOPHILS % (AUTO) 0.2 % (0.0-3.0); HEMATOCRIT 34.9 % (42.0-52.0); HEMOGLOBIN 12.4 g/dl (14.0-18.0); IMMATURE GRANULOCYTE % (AUTO) 0.8 % (0.0-5.0); LYMPHOCYTES # (AUTO) 0.7 K/uL (0.60-3.4); LYMPHOCYTES % (AUTO) 12.2 (10.0-50.0); MEAN CORPUSCULAR HEMOGLOBIN 32.6 pg (27.0-31.0); MEAN CORPUSCULAR HGB CONC 35.5 (31.8-35.4); MEAN CORPUSCULAR VOLUME 91.8 fl (80.0-94.0); MONOCYTES # (AUTO) 0.4 K/uL (0.4-2.0); MONOCYTES % (AUTO) 7.9 (0-10); NEUTROPHILS # (AUTO) 4.2 K/ul (2.0-6.9); NEUTROPHILS % (AUTO) 78.9 % (42.2-75.2); PLATELET COUNT 244 10^3/uL (140-440); RDW COEFFICIENT OF VARIATION 12.1 % (11.6-14.8); WHITE BLOOD COUNT 5.33 K/ul (4.2-10.2)
[2021-12-11 05:48] LABS: PROTHROMBIN TIME 9.8 SEC (9.3-11.0)
[2021-12-11 05:51] LABS: ALANINE AMINOTRANSFERASE 44.1 U/L (0-50); ALBUMIN 3.67 g/dL (3.5-5.0); ALKALINE PHOSPHATASE 89.7 U/L (38-126); ASPARTATE AMINO TRANSFERASE 49.7 U/L (17-59); BILIRUBIN,TOTAL 0.24 mg/dL (0.2-1.3); BLOOD UREA NITROGEN 11.7 mg/dL (9-20); CALCIUM 8.69 mg/dL (8.4-10.2); CARBON DIOXIDE 29.6 mmol/L (22-30.0); CHLORIDE 92.8 mmol/L (98-107); CREATININE 0.47 mg/dL (0.60-1.10); GLUCOSE 125.8 mg/dL (74-106); POTASSIUM 3.93 mmol/L (3.5-5.1); TOTAL PROTEIN 5.96 g/dL (6.3-8.2)
--- NOTE | 2021-12-11 07:29 | PCM.PROG ---
Date Seen by Provider: 12/10/21 Time Seen by Provider: 13:15 Subjective: No acute complaints. Pt will stay for 5 days of Remdesivir Objective: Vitals: T=98.3 F, P=67, R=20, KJ=562/78, SPO2=96 HEENT: []wnl Neck: []supple Lungs: [] mild generalized rhonchi and posterior crackles. CVS: []RRR Abdomen: []benign Extremities: []no acute abnormality. pt was ambulating normally in the ED. Neurological: []no acute focal neuro deficit. Skin: []wnl Lab/Tests/Diagnostic Imaging: []See the reports. (1) Pneumonia: Status: Acute Code(s): J18.9 - Pneumonia, unspecified organism SNOMED Code(s): 090947189 (2) COVID-19: Status: Acute Code(s): U07.1 - COVID-19 SNOMED Code(s): 646383254 (3) Acute hyponatremia: Status: Acute Code(s): E87.1 - Hypo-osmolality and hyponatremia SNOMED Code(s): 1227270 (4) Chest pain: Status: Acute Code(s): R07.9 - Chest pain, unspecified SNOMED Code(s): 21612217 (5) Non compliance with medical treatment: Status: Acute Code(s): Z91.19 - Patient's noncompliance with other medical treatment and regimen SNOMED Code(s): 2956494 Plan: Continue Tx regimen.
[2021-12-11] MEDS: DECADRON IVP SCH ×2 (08:56→20:30)
[2021-12-11] MEDS: VEKLURY 100 MG in SODIUM CHLORIDE 250 ML IV SCH (12:14)
--- NOTE | 2021-12-11 14:04 | PCM.PROG ---
Date Seen by Provider: 12/11/21 Time Seen by Provider: 09:00 Subjective: Still have, " breathing difficulties". Sitting up in bed with observed easy non labored breathing Objective: Vitals: T=97.9 F, P=80, R=18, QR=479/76, SPO2=97 HEENT:Clear Neck: Soft supple Lungs: dijminished BS but CTA CVS: HRRRR Abdomen: Soft non tender Extremities: neg edema Neurological:CN II -=XII intact; NO focal motor, cerebellar deficit Skin: W/D Lab/Tests/Diagnostic Imaging: [] (1) Pneumonia: Status: Acute Code(s): J18.9 - Pneumonia, unspecified organism SNOMED Code(s): 986645733 (2) COVID-19: Status: Acute Code(s): U07.1 - COVID-19 SNOMED Code(s): 913895244 (3) Acute hyponatremia: Status: Acute Code(s): E87.1 - Hypo-osmolality and hyponatremia SNOMED Code(s): 0219678 (4) Chest pain: Status: Acute Code(s): R07.9 - Chest pain, unspecified SNOMED Code(s): 48300338 (5) Non compliance with medical treatment: Status: Acute Code(s): Z91.19 - Patient's noncompliance with other medical treatment and regimen SNOMED Code(s): 2119951 (6) Schizophrenia: Status: Acute Code(s): F20.9 - Schizophrenia, unspecified SNOMED Code(s): 17165031 Plan: Review lab. Continue IV Remdesivir Tx Re assure pt of improvment in condition since admission
[2021-12-11] MEDS ORDERED: ZITHROMAX PO STA (14:27)
--- NOTE | 2021-12-11 15:17 | DI ---
EXAM: Frontal view of the chest. HISTORY: Pneumonia follow up. COMPARISON: Chest radiograph 10/16/2021. Chest CT 12/09/2021. FINDINGS: Normal heart size. Calcific atherosclerosis. Redemonstrated ground-glass and nodular opacities most pronounced at the right lower lobe. No visible effusion or pneumothorax. Multilevel spondylosis with endplate osteophytes. IMPRESSION: 1. Stable basilar opacities consistent with pneumonia. 2. Calcific atherosclerosis.
[2021-12-11] MEDS ORDERED: GEODON IM STA (21:33)
[2021-12-12] MEDS: VENTOLIN HFA (PER PUFF-WITH SPACER) IH SCH ×4 (00:10→17:32)
[2021-12-12] MEDS: ATROVENT HFA INHALER (PER PUFF-WITH SPACER) IH SCH ×4 (00:10→17:32)
[2021-12-12 05:42] LABS: HEMATOCRIT 39.1 % (42.0-52.0); HEMOGLOBIN 13.5 g/dl (14.0-18.0); IMMATURE GRANULOCYTE % (AUTO) 0.9 % (0.0-5.0); LYMPHOCYTES # (AUTO) 0.9 K/uL (0.60-3.4); LYMPHOCYTES % (AUTO) 20.4 (10.0-50.0); MEAN CORPUSCULAR HEMOGLOBIN 32.2 pg (27.0-31.0); MEAN CORPUSCULAR HGB CONC 34.5 (31.8-35.4); MEAN CORPUSCULAR VOLUME 93.3 fl (80.0-94.0); MONOCYTES # (AUTO) 0.4 K/uL (0.4-2.0); MONOCYTES % (AUTO) 9.2 (0-10); NEUTROPHILS # (AUTO) 3.2 K/ul (2.0-6.9); NEUTROPHILS % (AUTO) 69.5 % (42.2-75.2); PLATELET COUNT 257 10^3/uL (140-440); RDW COEFFICIENT OF VARIATION 12.2 % (11.6-14.8); RED BLOOD COUNT 4.19 10^6/ul (4.70-6.10); WHITE BLOOD COUNT 4.55 K/ul (4.2-10.2)
[2021-12-12 05:55] LABS: ALANINE AMINOTRANSFERASE 51.3 U/L (0-50); ALBUMIN 3.89 g/dL (3.5-5.0); ALKALINE PHOSPHATASE 93.2 U/L (38-126); ASPARTATE AMINO TRANSFERASE 43.3 U/L (17-59); BILIRUBIN,TOTAL 0.33 mg/dL (0.2-1.3); BLOOD UREA NITROGEN 16.2 mg/dL (9-20); CALCIUM 8.81 mg/dL (8.4-10.2); CARBON DIOXIDE 32.4 mmol/L (22-30.0); CHLORIDE 95.1 mmol/L (98-107); CREATININE 0.58 mg/dL (0.60-1.10); GLUCOSE 127.2 mg/dL (74-106); POTASSIUM 4.21 mmol/L (3.5-5.1); SODIUM 132.2 mmol/L (134.5-145); TOTAL PROTEIN 6.24 g/dL (6.3-8.2)
[2021-12-12 06:04] LABS: PROTHROMBIN TIME 9.8 SEC (9.3-11.0)
[2021-12-12] MEDS: DECADRON IVP SCH ×2 (08:05→20:25)
[2021-12-12] MEDS: ZITHROMAX PO SCH (08:05)
--- NOTE | 2021-12-12 08:50 | PCM.PROG ---
Date Seen by Provider: 12/12/21 Time Seen by Provider: 08:15 Subjective: Pt complains of a continued cough and SOB but oxygenation has been stable. Denies any CP/AP/N/V. Objective: Vitals: T=98 F, P=61, R=18, JE=485/89, SPO2=97 HEENT: PERRL Neck: supple Lungs: clear and no respiratory distress CVS: RRR Abdomen: soft, NT Lab/Tests/Diagnostic Imaging: Gluc 127, ALT 51 (1) Pneumonia: Status: Acute Code(s): J18.9 - Pneumonia, unspecified organism SNOMED Code(s): 012074970 (2) COVID-19: Status: Acute Code(s): U07.1 - COVID-19 SNOMED Code(s): 384351503 (3) Acute hyponatremia: Status: Acute Code(s): E87.1 - Hypo-osmolality and hyponatremia SNOMED Code(s): 6944715 (4) Chest pain: Status: Acute Code(s): R07.9 - Chest pain, unspecified SNOMED Code(s): 60863832 (5) Non compliance with medical treatment: Status: Acute Code(s): Z91.19 - Patient's noncompliance with other medical treatment and regimen SNOMED Code(s): 8366816 (6) Schizophrenia: Status: Acute Code(s): F20.9 - Schizophrenia, unspecified SNOMED Code(s): 36192175 Plan: 1. Covid 19: Pt not requiring O2 with a saturation of 97% on RA. Still receiving Ramdesivir with the last dose due tomorrow. Once Remdesivir completed, should be stable for DC. 2. Social situation: Pt may be homeless but also says he has a place to stay although he will not tell me where. Will continue to have case management work with the patient. 3. Schizophrenia: Will give Geodon as needed.
[2021-12-12] MEDS: VEKLURY 100 MG in SODIUM CHLORIDE 250 ML IV SCH (11:16)
[2021-12-12] MEDS ORDERED: GEODON IM ONE (20:17)
[2021-12-13] MEDS: VENTOLIN HFA (PER PUFF-WITH SPACER) IH SCH ×3 (00:27→12:22)
[2021-12-13] MEDS: ATROVENT HFA INHALER (PER PUFF-WITH SPACER) IH SCH ×3 (00:27→12:22)
[2021-12-13 05:17] VITALS: TEMP 97.6
[2021-12-13 05:46] LABS: BASOPHILS % (AUTO) 0.1 % (0.0-3.0); HEMATOCRIT 43.3 % (42.0-52.0); HEMOGLOBIN 15.2 g/dl (14.0-18.0); IMMATURE GRANULOCYTE # (AUTO) 0.1 (0.0-1.0); IMMATURE GRANULOCYTE % (AUTO) 0.8 % (0.0-5.0); LYMPHOCYTES # (AUTO) 1.4 K/uL (0.60-3.4); LYMPHOCYTES % (AUTO) 19.6 (10.0-50.0); MEAN CORPUSCULAR HEMOGLOBIN 32.8 pg (27.0-31.0); MEAN CORPUSCULAR HGB CONC 35.1 (31.8-35.4); MEAN CORPUSCULAR VOLUME 93.3 fl (80.0-94.0); MONOCYTES # (AUTO) 0.6 K/uL (0.4-2.0); MONOCYTES % (AUTO) 8.9 (0-10); NEUTROPHILS # (AUTO) 5.1 K/ul (2.0-6.9); NEUTROPHILS % (AUTO) 70.6 % (42.2-75.2); PLATELET COUNT 341 10^3/uL (140-440); RDW COEFFICIENT OF VARIATION 12.2 % (11.6-14.8); RED BLOOD COUNT 4.64 10^6/ul (4.70-6.10); WHITE BLOOD COUNT 7.19 K/ul (4.2-10.2)
[2021-12-13 06:03] LABS: ALANINE AMINOTRANSFERASE 63.5 U/L (0-50); ALBUMIN 4.47 g/dL (3.5-5.0); ASPARTATE AMINO TRANSFERASE 46.1 U/L (17-59); BILIRUBIN,TOTAL 0.42 mg/dL (0.2-1.3); BLOOD UREA NITROGEN 16.8 mg/dL (9-20); CALCIUM 9.42 mg/dL (8.4-10.2); CARBON DIOXIDE 35.5 mmol/L (22-30.0); CHLORIDE 95.3 mmol/L (98-107); CREATININE 0.66 mg/dL (0.60-1.10); GLUCOSE 123.1 mg/dL (74-106); POTASSIUM 4.28 mmol/L (3.5-5.1); SODIUM 133.8 mmol/L (134.5-145); TOTAL PROTEIN 7.07 g/dL (6.3-8.2)
[2021-12-13 06:05] LABS: PROTHROMBIN TIME 9.4 SEC (9.3-11.0)
[2021-12-13] MEDS: DECADRON IVP SCH (09:18)
[2021-12-13] MEDS: ZITHROMAX PO SCH (09:18)
[2021-12-13] MEDS: VEKLURY 100 MG in SODIUM CHLORIDE 250 ML IV SCH (11:41)
[2021-12-13] MEDS ORDERED: GEODON IM PRN (11:57)
[2021-12-13 14:27] VITALS: BP 153/89
--- NOTE | 2021-12-20 17:09 | PCM.DC ---
Final Diagnosis:COVID 19 Pneumonia, Hyponatremia, Schizoprenia Physical Exam Appearance: Well-appearing, No pain distress and Well-nourished Ill-appearing: Mild Pain Distress: Not Applicable Eyes: LACY, EOMI and Conjunctiva clear ENT: Ears normal, Nose normal and Oropharynx normal Neck: Supple Respiratory: Airway patent, Breath sounds diminished, Crackles and Wheezes GI/: Soft, Nontender, No masses and Bowel sounds normal Musculoskeletal: Normal strength, ROM intact, No edema and No calf tenderness Skin: Warm, Dry and Normal color Neurological: Sensation intact, Motor intact, Reflexes intact, Cranial nerves intact, Alert, Oriented and Alert to pain Psychiatric: Affect appropriate and Anxious (1) Pneumonia: Status: Acute Code(s): J18.9 - Pneumonia, unspecified organism SNOMED Code(s): 937756304 (2) COVID-19: Status: Acute Code(s): U07.1 - COVID-19 SNOMED Code(s): 324813725 (3) Acute hyponatremia: Status: Acute Code(s): E87.1 - Hypo-osmolality and hyponatremia SNOMED Code(s): 0065265 (4) Chest pain: Status: Acute Code(s): R07.9 - Chest pain, unspecified SNOMED Code(s): 74377838 (5) Non compliance with medical treatment: Status: Acute Code(s): Z91.19 - Patient's noncompliance with other medical treatment and regimen SNOMED Code(s): 0716555 (6) Schizophrenia: Status: Acute Code(s): F20.9 - Schizophrenia, unspecified SNOMED Code(s): 40903947 Reason for Hospitalization: Entering statement: The patient is 56 or male patient who presented to the emergency room complaining of chest pain for two weeks with cough and congestion The anterior chest wall was tender to the palpation diagnostic investigation Revealed his Covid screening was positive. Other testing included an elevated lactic acid of 2.21 WBC of 5.5 Chest Xray confirmed Bilat Pneumonia He was admitted to the hospital and he was started on Covid protocol including IV Remdesivir initially 200 mg followed by 100 mg IV daily. Blood cultures were negative.He made progressive improvement and we Discussed discharge planning. Patient states he does have a place to go when discharged although is known to be homeless. He agreed to stay until he completed the course of the IV Remdesivir r therapy. He was continuing to receive Zyprexa of 20 mg I am b.i.d. for control of his underlying schizophrenia condition. We were discussing discharge planning with him when he suddenly decided he wanted to leave patient instructed that he should stay on an additional five days in quarantine unless you have a further problems return the hospital. Instructed the patient to restrict oral fluids as directed him to help addresses hyponatremia. He was discharged home and was asked to follow up with his primary care physician in a week to 10 days in with us for the problem for them to return emergency room. Prognosis/Condition at Discharge: Fair-Guarded Medications at Discharge: Ambulatory Orders Medication Instructions Recorded 1 [No Reported Medications] 12/09/21 Lab/Diagnostics: See Chart Education Provided to Patient and Family: YES Follow-ups: Community physicaian 1 week Discharge Disposition: [facility] Hospital Course: He was admitted to the hospital and he was started on Covid protocol including IV Remdesivir initially 200 mg followed by 100 mg IV daily. Blood cultures were negative.He made progressive improvement Other routine Covid Therapy administered Plan: Discharged in stable and improve conditon
== END 2021-12-13 15:14 | disposition home or self-care (01) | DRG 177 ==
LOC: ED 02:40 → SCU 07:34
PROVIDERS: ADMIT Emergency Medicine; ATTEND Emergency Medicine
DX: E87.1 Hypo-osmolality and hyponatremia; E03.9 Hypothyroidism, unspecified; F20.9 Schizophrenia, unspecified; F17.210 Nicotine dependence, cigarettes, uncomplicated; I10 Essential (primary) hypertension; I50.9 Heart failure, unspecified; R07.9 Chest pain, unspecified; I25.10 Atherosclerotic heart disease of native coronary artery without angina pectoris; U07.1 COVID-19; E78.5 Hyperlipidemia, unspecified; J44.9 Chronic obstructive pulmonary disease, unspecified; J12.82 Pneumonia due to coronavirus disease 2019; J45.909 Unspecified asthma, uncomplicated; I42.0 Dilated cardiomyopathy; Z91.19 Patient's noncompliance with other medical treatment and regimen

== ENCOUNTER 2023-04-20 23:05 | Observation (INO) ==
[2023-04-20] MEDS ORDERED: ASPIRIN CHEWABLE PO STA (23:21)
--- NOTE | 2023-04-20 23:25 | ED.PDOC ---
General ED Provider: Dr. CARLOS LLAMAS MD Chief Complaint: Urinary Problem Stated Complaint: "Started walking fast when it was raining and I started to have a hard time breathing and pain in my chest" 57-year-old male returns to the emergency department for the third time in 3 days for evaluation of multiple complaints. He states that he is having headaches, he is concerned that his kidneys are not working because his urine is dark and he is urinating less, and he is having shortness of breath and chest pain. Regarding the shortness of breath and chest pain, he states that it started this evening when he had to walk fast to get out of the rain. He felt like he could not catch his breath and developed some chest tightness. States he had to rest to catch his breath. Denies any lower extremity swelling. States he has not had any of his medications. Went to [facility] this evening to get his meds but they were closed. Additionally, reports concerns about his kidneys not working properly. States that his urine has been really dark and he feels like he is not urinating very much. He would like for us to check his kidney function. Denies any pain with urination. No fevers or chills. Lastly he reports headaches. He was seen for this 3 days ago. Believes that he was told he had a brain tumor 6 months ago. Was seen 3 days ago because he wanted to make sure that it was okay. The head CT did not show any abnormalities. Despite this he continues to report headaches. States the headache is let up since he checked in. Denies any associated nausea or vomiting with it. No blurry vision or double vision. Time Seen by Provider: 04/20/23 23:20 Mode of Arrival: Walk-In Information Source: Patient Nursing and Triage Documentation Reviewed and Agree: Yes Does patient meet sepsis criteria?: No System Inflammatory Response Syndrome: Not Applicable Sepsis Protocol: For patient's 13 years and over: Temp is 96.8 and below OR 101 and greater Pulse >90 BPM Resp >20/minute Acutely Altered Mental Status Are patient's symptoms suggestive of a new infection, such as: -Pneumonia -Skin, Soft Tissue -Endocarditis -UTI -Bone, Joint Infection -Implantable Device -Acute Abdominal Infection -Wound Infection -Meningitis -Blood Stream Catheter Infection -Unknown Review of Systems Review Of Systems Constitutional: Reports No symptoms Respiratory: Reports Shortness of Breath Cardiac: Reports Chest pain Neurological: Reports Headache All Other Systems: Reviewed and Negative [facility] Medical History Anemia D64.9 - ANEMIA, UNSPECIFIED (ICD-10) Asthma J45.909 - Unspecified asthma, uncomplicated (ICD-10) CAD (coronary artery disease) I25.10 - Atherosclerotic heart disease of [place] coronary artery without angina pectoris (ICD-10) CHF (congestive heart failure) I50.9 - Heart failure, unspecified (ICD-10) COPD (chronic obstructive pulmonary disease) J44.9 - Chronic obstructive pulmonary disease, unspecified (ICD-10) Dilated cardiomyopathy I42.0 - Dilated cardiomyopathy (ICD-10) Dyslipidemia E78.5 - Hyperlipidemia, unspecified (ICD-10) Heavy cigarette smoker F17.210 - Nicotine dependence, cigarettes, uncomplicated (ICD-10) Hypertension I10 - Essential (primary) hypertension (ICD-10) Hypothyroidism E03.9 - Hypothyroidism, unspecified (ICD-10) Noncompliance with medication regimen Z91.14 - PATIENT'S OTHER NONCOMPLIANCE WITH MEDICATION REGIMEN (ICD-10) Paranoia (psychosis) F22 - DELUSIONAL DISORDERS (ICD-10) PVC's (premature ventricular contractions) I49.3 - Ventricular premature depolarization (ICD-10) Family History Other No known health problems Social History Smoking and tobacco status: Current every day smoker Tobacco type: cigarettes Smoking packs per day: 3.5 Smoking cigarettes per day: 70.0 Years smoked: 40 Smoking pack-years: 140.00 Alcohol intake: current Alcohol intake frequency: a few times a week Alcohol type: hard liquor History of recent travel: No Surgical History H/O removal of cyst Z98.890 - Other specified postprocedural states (ICD-10) History of cardiac catheterization Z98.890 - Other specified postprocedural states (ICD-10) Physical Exam Physical Exam Appearance: Reports Well-appearing Ill-appearing: None Pain Distress: None Eyes: Reports EOMI ENT: Reports Oropharynx normal Neck: Supple Respiratory: Reports Airway patent, Breath sounds clear and Breath sounds equal Cardiovascular: Reports RRR and Murmur (4/6 murmur best heard over LLSB) GI/: Reports Soft and Nontender Musculoskeletal: Reports Normal strength and No edema Skin: Reports Warm, Dry and Normal color Neurological: Reports Cranial nerves intact, Alert and Oriented Psychiatric: Reports Affect appropriate Interpretation EKG Interpretation EKG Interpretation By: ED Physician Time of EKG #1: 23:25 Rate: Normal (69) Rhythm: Sinus Ectopy: PVCs [place]: NL ST Segment: Normal Interpretation: EKG ordered and interpreted by me Critical Care Note Critical Care Note Total Critical Care Time (mins): 0 Course Course 04/20/23 23:40 04/20/23 23:40 Orders, Labs, Meds: Lab Review 04/20/23 23:40 WBC 8.14 RBC 4.30 L Hgb 13.9 L Hct 40.6 L MCV 94.4 H MCH 32.3 H MCHC 34.2 RDW Coeff of Yonathan 12.2 Plt Count 263 Immature Gran % (Auto) 0.2 Neut % (Auto) 61.7 Lymph % (Auto) 26.8 [place] % (Auto) 9.1 Eos % (Auto) 1.5 Baso % (Auto) 0.7 Neut # (Auto) 5.0 Lymph # (Auto) 2.2 [place] # (Auto) 0.7 Eos # (Auto) 0.1 Baso # (Auto) 0.1 Immature Gran # (Auto) 0.0 Sodium 133.0 L Potassium 3.30 L Chloride 99.0 Carbon Dioxide 31.0 H Anion Gap 6.30 BUN 10.0 Creatinine 0.80 Estimated GFR (MDRD) 99.00 BUN/Creatinine Ratio 12.50 Glucose 102.0 Calcium 8.20 L Troponin I 0.037 NT-Pro-B Natriuret Pep 2320 H Orders Category Date Time Status EKG-(ED ONLY) Stat CARDIO 04/20/23 23:21 Completed BMP [BASIC METABOLIC PANEL] Stat LAB 04/20/23 23:40 Completed CBC W/ AUTO DIFF Stat LAB 04/20/23 23:40 Completed ED PROBNP [NT-PROBNP(ED)] Stat LAB 04/20/23 23:40 Completed TROPONIN I Stat LAB 04/20/23 23:40 Completed TROPONIN I Timed LAB 04/21/23 04:00 Stop Req Aspirin [Aspirin Chewable] Meds 04/20/23 23:21 Discontinued 324 mg PO ONCE STA CHEST, 1V AP ONLY Stat RADS 04/20/23 23:21 Completed Medications Discontinued Medications Generic Name Dose Route Start Last Admin Trade Name Jelani PRN Reason Stop Dose Admin Aspirin 324 mg 04/20/23 23:21 04/20/23 23:24 Aspirin 81 Mg Tab.Chew PO 04/20/23 23:22 324 mg ONCE STA Administration 12:50 AM Patient with a new murmur on examination. Just had a cardiac echo 2 years ago that did not show any valvular abnormalities. Patient with an EF of 31% at that time. Has been off all of his meds for an unknown period of time reporting chest pain and shortness of breath. EKG does not show anything acute. Cardiac enzyme is negative. BNP significantly elevated. Plan to admit for chest pain rule out, diuresis, consider repeat echo given murmur that has developed in the past 2 years. 12:55 AM Case discussed with on-call hospitalist. They agreed to admit for chest pain rule out, diuresis, echo tomorrow. Patient is also agreeable with this plan. Vital Signs: Temp Pulse Resp BP Pulse Ox 04/20/23 23:06 97.9 F 81 18 148/80 H 98 ROSA ELENA Risk Score Age >/= 65: No >/= 3 CAD Risk Factors: Yes Known CAD (Stenosis >/= 50%): Yes ASA Use in Past 7 Days: No Severe Angina (>/= 2 episodes in 24 hours): No EKG ST Changes >/= 0.5mm: No Postive Cardiac Marker: No ROSA ELENA Total Score: 2 ROSA ELENA Risk Score: Risk Score Odds of by 30D 0 0.1 (0.1-0.2) 1 0.3 (0.2-0.3) 2 0.4 (0.3-0.5) 3 0.7 (0.6-0.9) 4 1.2 (1.0-1.5) 5 2.2 (1.9-2.6) 6 3.0 (2.5-3.6) 7 4.8 (3.8-6.1) Discharge Plan Discharge Patient Disposition: TSF OTHER Discharge Problem: Chest pain, CHF (congestive heart failure) Did you review [place] [employer] for ALL controlled substances?: Not Applicable Discussed opioids are addictive and Narcan is available by prescription or from pharmacy.: No ED Provider: CARLOS LLAMAS Condition: Fair Physician Progress Note: []
--- NOTE | 2023-04-20 23:47 | DI ---
EXAM: PORTABLE CHEST HISTORY: Chest pain COMPARISON: Single-view chest 04/19/2023 FINDINGS: The cardiomediastinal silhouette is stable.. There is no consolidation or effusion. Ther e are no acute osseous abnormalities. IMPRESSION: No evidence of active pulmonary disease or interval change
[2023-04-20 23:48] LABS: BASOPHILS # (AUTO) 0.1 K/uL (0-0.2); BASOPHILS % (AUTO) 0.7 % (0.0-3.0); EOSINOPHILS # (AUTO) 0.1 K/ul (0.0-0.7); EOSINOPHILS % (AUTO) 1.5 % (0.0-7.0); HEMATOCRIT 40.6 % (42.0-52.0); HEMOGLOBIN 13.9 g/dl (14.0-18.0); IMMATURE GRANULOCYTE % (AUTO) 0.2 % (0.0-5.0); LYMPHOCYTES # (AUTO) 2.2 K/uL (0.60-3.4); LYMPHOCYTES % (AUTO) 26.8 (10.0-50.0); MEAN CORPUSCULAR HEMOGLOBIN 32.3 pg (27.0-31.0); MEAN CORPUSCULAR HGB CONC 34.2 (31.8-35.4); MEAN CORPUSCULAR VOLUME 94.4 fl (80.0-94.0); MONOCYTES # (AUTO) 0.7 K/uL (0.4-2.0); MONOCYTES % (AUTO) 9.1 (0-10); NEUTROPHILS % (AUTO) 61.7 % (42.2-75.2); PLATELET COUNT 263 10^3/uL (140-440); RDW COEFFICIENT OF VARIATION 12.2 % (11.6-14.8); WHITE BLOOD COUNT 8.14 K/ul (4.2-10.2)
[2023-04-21 00:01] LABS: CALCIUM 8.2 mg/dL (8.4-10.2); CREATININE 0.8 mg/dL (0.60-1.10); POTASSIUM 3.3 mmol/L (3.5-5.1)
[2023-04-21 00:46] LABS: TROPONIN I 0.037 ng/ml (0.0000-0.120)
[2023-04-21] MEDS ORDERED: LASIX IVP ONE ×2 (00:54→09:11)
[2023-04-21 02:02] VITALS: RESP 18; BMI 26.7
[2023-04-21 05:06] VITALS: BP 119/70; PULSE 78; TEMP 97.4
[2023-04-21 08:27] LABS: BASOPHILS # (AUTO) 0.1 K/uL (0-0.2); EOSINOPHILS # (AUTO) 0.1 K/ul (0.0-0.7); EOSINOPHILS % (AUTO) 1.8 % (0.0-7.0); HEMATOCRIT 39.1 % (42.0-52.0); HEMOGLOBIN 13.9 g/dl (14.0-18.0); IMMATURE GRANULOCYTE % (AUTO) 0.1 % (0.0-5.0); LYMPHOCYTES # (AUTO) 1.6 K/uL (0.60-3.4); LYMPHOCYTES % (AUTO) 22.3 (10.0-50.0); MEAN CORPUSCULAR HEMOGLOBIN 32.8 pg (27.0-31.0); MEAN CORPUSCULAR HGB CONC 35.5 (31.8-35.4); MEAN CORPUSCULAR VOLUME 92.2 fl (80.0-94.0); MONOCYTES # (AUTO) 0.8 K/uL (0.4-2.0); MONOCYTES % (AUTO) 10.7 (0-10); NEUTROPHILS # (AUTO) 4.6 K/ul (2.0-6.9); NEUTROPHILS % (AUTO) 64.1 % (42.2-75.2); PLATELET COUNT 253 10^3/uL (140-440); RDW COEFFICIENT OF VARIATION 12.1 % (11.6-14.8); RED BLOOD COUNT 4.24 10^6/ul (4.70-6.10); WHITE BLOOD COUNT 7.22 K/ul (4.2-10.2)
[2023-04-21] MEDS ORDERED: ASPIRIN EC PO SCH (08:30)
[2023-04-21 08:55] LABS: ALANINE AMINOTRANSFERASE 31.6 U/L (0-50); ALBUMIN 4.23 g/dL (3.5-5.0); ALKALINE PHOSPHATASE 89.2 U/L (38-126); ASPARTATE AMINO TRANSFERASE 34.3 U/L (17-59); BILIRUBIN,TOTAL 1.41 mg/dL (0.2-1.3); BLOOD UREA NITROGEN 13.7 mg/dL (9-20); CALCIUM 8.2 mg/dL (8.4-10.2); CARBON DIOXIDE 32.3 mmol/L (22-30.0); CHLORIDE 97.9 mmol/L (98-107); CREATINE KINASE 137.9 U/L (55-170); CREATININE 0.61 mg/dL (0.60-1.10); GLUCOSE 114.6 mg/dL (74-106); POTASSIUM 3.61 mmol/L (3.5-5.1); TOTAL PROTEIN 6.42 g/dL (6.3-8.2)
[2023-04-21 09:07] LABS: TROPONIN I 0.026 ng/ml (0.0000-0.120)
[2023-04-21 09:21] LABS: CREATINE KINASE MB 2.26 ng/ml (0.0-2.38)
--- NOTE | 2023-04-21 11:27 | PCM.SS ---
Provider Provider: BEV CULLEN, [facility] Ad[facility] Date Admission Date: 04/21/23 Discharge Date Discharge Date: 04/21/23 Chief Complaint Reason For Visit: CHEST PAIN, CHF History of Present Illness History of Present Illness: Admitted 04/21/23 01:06, this 57 year old /WHITE/M presented to the ER with complaints of chest pain. Has past medical history of congestive heart failure COPD hypertension and schizophrenia. Patient is homeless and noncompliant with medical care. Patient has a history of drug abuse and alcohol abuse and has been kicked out of multiple homeless shelters due to this. Patient was admitted for chest pain rule out ACS. Currently patient denies chest pain but reports he is still somewhat short of breath. Patient is able to speak in full sentences. Patient is not tripoding or using any accessory muscles. Denies any fever, chills, diaphoresis, nausea, vomiting, or diarrhea. [facility] Medical History Anemia D64.9 - ANEMIA, UNSPECIFIED (ICD-10) Asthma J45.909 - Unspecified asthma, uncomplicated (ICD-10) CAD (coronary artery disease) I25.10 - Atherosclerotic heart disease of [place] coronary artery without angina pectoris (ICD-10) CHF (congestive heart failure) I50.9 - Heart failure, unspecified (ICD-10) COPD (chronic obstructive pulmonary disease) J44.9 - Chronic obstructive pulmonary disease, unspecified (ICD-10) Dilated cardiomyopathy I42.0 - Dilated cardiomyopathy (ICD-10) Dyslipidemia E78.5 - Hyperlipidemia, unspecified (ICD-10) Heavy cigarette smoker F17.210 - Nicotine dependence, cigarettes, uncomplicated (ICD-10) Hypertension I10 - Essential (primary) hypertension (ICD-10) Hypothyroidism E03.9 - Hypothyroidism, unspecified (ICD-10) Noncompliance with medication regimen Z91.14 - PATIENT'S OTHER NONCOMPLIANCE WITH MEDICATION REGIMEN (ICD-10) Paranoia (psychosis) F22 - DELUSIONAL DISORDERS (ICD-10) PVC's (premature ventricular contractions) I49.3 - Ventricular premature depolarization (ICD-10) Surgical History H/O removal of cyst Z98.890 - Other specified postprocedural states (ICD-10) History of cardiac catheterization Z98.890 - Other specified postprocedural states (ICD-10) Family History Other No known health problems Social History Smoking and tobacco status: Current every day smoker Tobacco type: cigarettes Smoking packs per day: 3.5 Smoking cigarettes per day: 70.0 Years smoked: 40 Smoking pack-years: 140.00 Tobacco: How many years used: 40 Alcohol intake: current Alcohol intake frequency: a few times a week Alcohol type: hard liquor History of recent travel: No Medications Mecications: Medications at Discharge (Home Meds & RX) metoprolol succinate 25 mg capsule sprinkle, ext. release 24 hr 25 mg PO DAILY #30 ea 04/19/23 Allergies Allergies Allergy/AdvReac Type Severity Reaction Status Date / Time Penicillins AdvReac Rash Verified 04/20/23 23:28 Review of Systems Constitutional: Reports No symptoms Head: Reports Normocephalic Eyes: Reports No symptoms Ears: Reports No symptoms Nose: Reports No symptoms Mouth: Reports No symptoms Throat: Reports No symptoms Cardiovascular: Reports No symptoms Respiratory: Reports Shortness of air Gastrointestinal: Reports No symptoms Genitourinary: Reports No Symptoms Musculoskeletal: Reports No symptoms Endocrine: Reports No symptoms Hematology: Reports No symptoms Immunology: Reports No symptoms Neurological: Reports No symptoms Psychiatric: Reports No symptoms Physical Examination Appearance: Positive Well-appearing, Well-nourished, No Apparent Distress and Alert and Oriented x3 Head: Positive Normocephalic and Atraumatic Eyes: Positive LACY and EOMI ENT: Positive Ears Normal and Oropharynx Normal Neck: Positive Supple, Non-Tender, No Masses, No Lynphadenopathy and Trachea Midline Heart: Positive RRR and No Murmurs Respiratory: Positive Airway patent, Breath Sounds Clear, Bilaterally, Breath Sounds Equal and Respirations Nonlabored GI/: Positive Soft, Nontender, Bowel sounds normal, No Distention and No masses Extremities: Positive Pedal Pulses Palpable Bilaterally Neurological: Positive Normal Gait, Recent Memory Intact and Remote Memory Intact Psychiatric: Positive Affect Appropriate and Other (racing thoughts - chronic, non-complaint schizophrenic ) Vital Signs (Last 4 Hours) Vital Signs Last 4 Hours: Vital Signs: Last 4 Hours 04/21/23 08:00 Oxygen Delivery Method Room Air Labs This Visit Labs This Visit: Labs This Visit 04/20/23 04/21/23 04/21/23 23:40 04:10 08:22 WBC 8.14 7.22 RBC 4.30 L 4.24 L Hgb 13.9 L 13.9 L Hct 40.6 L 39.1 L MCV 94.4 H 92.2 MCH 32.3 H 32.8 H MCHC 34.2 35.5 H RDW Coeff of Yonathan 12.2 12.1 Plt Count 263 253 Immature Gran % (Auto) 0.2 0.1 Neut % (Auto) 61.7 64.1 Lymph % (Auto) 26.8 22.3 [place] % (Auto) 9.1 10.7 H Eos % (Auto) 1.5 1.8 Baso % (Auto) 0.7 1.0 Neut # (Auto) 5.0 4.6 Lymph # (Auto) 2.2 1.6 [place] # (Auto) 0.7 0.8 Eos # (Auto) 0.1 0.1 Baso # (Auto) 0.1 0.1 Immature Gran # (Auto) 0.0 0.0 Sodium 133.0 L 133.0 L Potassium 3.30 L 3.61 Chloride 99.0 97.9 L Carbon Dioxide 31.0 H 32.3 H Anion Gap 6.30 6.41 BUN 10.0 13.7 Creatinine 0.80 0.61 Estimated GFR (MDRD) 99.00 136.00 BUN/Creatinine Ratio 12.50 22.45 Glucose 102.0 114.6 H Calcium 8.20 L 8.20 L Total Bilirubin 1.41 H AST 34.3 ALT 31.6 Alkaline Phosphatase 89.2 Total Creatine Kinase 137.9 CK-MB (CK-2) 2.260 CK-MB (CK-2) % 1.6300 Troponin I 0.037 0.029 0.026 NT-Pro-B Natriuret Pep 2320 H Total Protein 6.42 Albumin 4.23 Globulin 2.19 Albumin/Globulin Ratio 1.93 Imaging Imaging: EXAM: PORTABLE CHEST HISTORY: Chest pain COMPARISON: Single-view chest 04/19/2023 FINDINGS: The cardiomediastinal silhouette is stable.. There is no consolidation or effusion. There are no acute osseous abnormalities. IMPRESSION: No evidence of active pulmonary disease or interval change Review Review Statement: I have independently reviewed and interpreted the labs/EKGs/imaging that were ordered by the ER provider. I have reviewed all outside records that are available currently in our EMR including imaging/notes/labs from previous visits. Plan Reccomendations/Plan: Chest Pain r/o ACS - troponins negative, chest pain resolved, patient is homeless and seeks medical care through ER only. Last echo was completed in 2020 that showed dilated cardiomyopathy with EF of 35%. Unable to complete echo during stay due to insurance coverage. Has appointment setup for to be completed outpatient. Patient states he does not take any medications and knows his BP runs high regularly. Will d/c with BP medication and lasix. Discussed importance for follow-up for medical care. Case management unable to find homeless long term placement due to patient exhausting resources from drug and alcohol abuse. Additional Planning: Case discussed with ED Physician, Dr. Sifuentes. DVT Prophylaxis: Up ad james Time Spent: Greater than 80 minutes spent with patient, 50% of the time spent with this patient was devoted to counseling and coordination of care. [facility]in minutes spent discussing advance care planning. Smoking Cessation: 5 minutes spent discussing smoking cessation. Disposition: Admit to: Med/Surg Observation Discussed Plan of Care with Dr. Kenny Ram If patient discharged with Left Ventricular Systolic Dysfunction: no Discharged with a beta mita? [] If no, why not? [] Discharged with an rashel/arb? [] If no, why not? [] Take medications as prescribed for blood pressure and congestive heart failure. Receive echo on as scheduled. Follow-up with a PCP following completion of echo Review With Patient Reviewed with Patient and Family: Patient and family have been counseled on condition and care plan and have no immediate questions. I have personally discussed and reviewed the patient's visit/current labs/imaging/decision making with Dr. Nazia Ram, my supervising attending. Total number of minutes spent with patient 85 min. More than 50% of the time spent with this patient was devoted to counseling and coordination of care. Time of Admission:04/21/23 01:06 Time of Discharge: 04/21/23 1130 Discharge Plan Discharge Activity Restrictions/Additional Instructions: Take medications as prescribed for blood pressure and congestive heart failure. Receive echo on as scheduled. Follow-up with a PCP following completion of echo YOU HAVE AN OUTPATIENT ORDER FOR AN ECHO OF YOUR HEART AT [facility]. THE APPOINTMENT IS ON April AT 11AM. PLEASE ARRIVE TO THE MAIN ENTRANCE OF [facility]. ARRIVE 15 MINUTES EARLY. BRING A COPY OF YOUR DRIVERS LICENCE AND INSURANCE CARD IF AVAILABLE. CALL [phone] IF YOU NEED TO RESCHEDULE. Instructions: Chest Pain (DC), Chest Pain (GEN) Patient Disposition: HOME SELF-CARE Prescriptions: New furosemide [Lasix] 20 mg tablet 20 mg PO DAILY Qty: 30 0RF Continued metoprolol succinate 25 mg capsule,sprinkle,ER 24hr 25 mg PO DAILY Qty: 30 0RF Did you review [place] [employer] for ALL controlled substances?: No Discussed opioids are addictive and Narcan is available by prescription or from pharmacy.: No Condition: Fair
== END 2023-04-21 14:31 | disposition home or self-care (01) ==
LOC: ED 23:05 → MEDSURG B 23:05
PROVIDERS: ADMIT Hospitalist; ATTEND Nurse Practitioner Family
DX: Z59.00 Homelessness unspecified; I10 Essential (primary) hypertension; R01.1 Cardiac murmur, unspecified; Z91.198 Patient's noncompliance with other medical treatment and regimen for other reason; R07.9 Chest pain, unspecified; I50.9 Heart failure, unspecified; F19.10 Other psychoactive substance abuse, uncomplicated; F20.9 Schizophrenia, unspecified; F17.210 Nicotine dependence, cigarettes, uncomplicated; R51.9 Headache, unspecified; F10.10 Alcohol abuse, uncomplicated; J44.9 Chronic obstructive pulmonary disease, unspecified